=== PATIENT | female | born 1970 ===

== ENCOUNTER 2020-08-03 08:50 | Outpatient (REF) | payer OTHER, SELFPAY ==
--- NOTE | ~2020-08-03 | XR_ITS ---
EXAMINATION: BILATERAL KNEES CLINICAL INFORMATION: Bilateral knee pain. COMPARISON: Bilateral knees 01/01/2019 TECHNIQUE: Single standing view of both knees with 2 additional views each knee. FINDINGS: Again seen are mild degenerative changes in the lateral and patellofemoral compartments with [id number] degenerative changes in the medial compartment with narrowing. There is some sclerosis and osteophyte formation. No fractures are seen. No significant joint effusions are present. When comparison is made to the 01/01/2019 study, findings appear stable. XR/XR knee RT 2V IMPRESSION: Stable tricompartmental degenerative changes of both knees, most marked in the medial compartments.
--- NOTE | ~2020-08-03 | XR_ITS ---
EXAMINATION: BILATERAL KNEES CLINICAL INFORMATION: Bilateral knee pain. COMPARISON: Bilateral knees 01/01/2019 TECHNIQUE: Single standing view of both knees with 2 additional views each knee. FINDINGS: Again seen are mild degenerative changes in the lateral and patellofemoral compartments with [id number] degenerative changes in the medial compartment with narrowing. There is some sclerosis and osteophyte formation. No fractures are seen. No significant joint effusions are present. When comparison is made to the 01/01/2019 study, findings appear stable. XR/XR knee standing BI IMPRESSION: Stable tricompartmental degenerative changes of both knees, most marked in the medial compartments.
--- NOTE | ~2020-08-03 | XR_ITS ---
EXAMINATION: BILATERAL KNEES CLINICAL INFORMATION: Bilateral knee pain. COMPARISON: Bilateral knees 01/01/2019 TECHNIQUE: Single standing view of both knees with 2 additional views each knee. FINDINGS: Again seen are mild degenerative changes in the lateral and patellofemoral compartments with [id number] degenerative changes in the medial compartment with narrowing. There is some sclerosis and osteophyte formation. No fractures are seen. No significant joint effusions are present. When comparison is made to the 01/01/2019 study, findings appear stable. XR/XR knee LT 2V IMPRESSION: Stable tricompartmental degenerative changes of both knees, most marked in the medial compartments.
== END 2020-08-03 08:51 | disposition home or self-care (01) ==
LOC: HO.HOSX 08:50
PROVIDERS: Visit Provider Orthopaedic Surgery
DX: M17.11 Unilateral primary osteoarthritis, right knee (principal); M25.562 Pain in left knee
CPT/HCPCS: 73560; 73565; 99212

== ENCOUNTER 2021-11-10 08:31 | Outpatient (REF) | payer OTHER, SELFPAY ==
--- NOTE | ~2021-11-10 | XR_ITS ---
EXAMINATION: XR KNEES, STANDING AP XR KNEE, RIGHT XR KNEE, LEFT CLINICAL INFORMATION: Bilateral knee pain. COMPARISON: Standing AP knees and bilateral knees 08/03/2020. TECHNIQUE: Standing AP view of both knees is performed. Each knee is also imaged in lateral and axial patella views. FINDINGS: Right: There is tricompartment osteoarthritis with narrowing greater medial knee joint compartment and associated marginal osteophytes femoral condyle and tibial plateau. This is progressed since prior exam 2020. There is no erosive change or chondrocalcinosis. No destructive process. No definite suprapatellar effusion. Hoffa's fat pad appears normal. There is mild lateralization patella. Left: There is tricompartment osteoarthritis with narrowing greater medial knee joint compartment and progressed since prior exam 2020. There is no erosive change or chondrocalcinosis. No destructive process. No definite suprapatellar effusion. Hoffa's fat pad appears normal. There is probable mild lateral tilting patella. XR/XR knee RT 2V IMPRESSION: -Bilateral tricompartment osteoarthritis, increased since prior exam 08/03/2020.
--- NOTE | ~2021-11-10 | XR_ITS ---
EXAMINATION: XR KNEES, STANDING AP XR KNEE, RIGHT XR KNEE, LEFT CLINICAL INFORMATION: Bilateral knee pain. COMPARISON: Standing AP knees and bilateral knees 08/03/2020. TECHNIQUE: Standing AP view of both knees is performed. Each knee is also imaged in lateral and axial patella views. FINDINGS: Right: There is tricompartment osteoarthritis with narrowing greater medial knee joint compartment and associated marginal osteophytes femoral condyle and tibial plateau. This is progressed since prior exam 2020. There is no erosive change or chondrocalcinosis. No destructive process. No definite suprapatellar effusion. Hoffa's fat pad appears normal. There is mild lateralization patella. Left: There is tricompartment osteoarthritis with narrowing greater medial knee joint compartment and progressed since prior exam 2020. There is no erosive change or chondrocalcinosis. No destructive process. No definite suprapatellar effusion. Hoffa's fat pad appears normal. There is probable mild lateral tilting patella. XR/XR knee LT 2V IMPRESSION: -Bilateral tricompartment osteoarthritis, increased since prior exam 08/03/2020.
--- NOTE | ~2021-11-10 | XR_ITS ---
EXAMINATION: XR KNEES, STANDING AP XR KNEE, RIGHT XR KNEE, LEFT CLINICAL INFORMATION: Bilateral knee pain. COMPARISON: Standing AP knees and bilateral knees 08/03/2020. TECHNIQUE: Standing AP view of both knees is performed. Each knee is also imaged in lateral and axial patella views. FINDINGS: Right: There is tricompartment osteoarthritis with narrowing greater medial knee joint compartment and associated marginal osteophytes femoral condyle and tibial plateau. This is progressed since prior exam 2020. There is no erosive change or chondrocalcinosis. No destructive process. No definite suprapatellar effusion. Hoffa's fat pad appears normal. There is mild lateralization patella. Left: There is tricompartment osteoarthritis with narrowing greater medial knee joint compartment and progressed since prior exam 2020. There is no erosive change or chondrocalcinosis. No destructive process. No definite suprapatellar effusion. Hoffa's fat pad appears normal. There is probable mild lateral tilting patella. XR/XR knee standing BI IMPRESSION: -Bilateral tricompartment osteoarthritis, increased since prior exam 08/03/2020.
== END 2021-11-10 08:32 | disposition home or self-care (01) ==
LOC: HO.HOSX 08:31
PROVIDERS: Visit Provider Physician Assistant
DX: M22.2X2 Patellofemoral disorders, left knee (principal); M22.2X1 Patellofemoral disorders, right knee
CPT/HCPCS: 73560; 73565; 99202

== ENCOUNTER 2021-12-14 05:08 | Outpatient (REF) | payer OTHER, SELFPAY | END 2021-12-14 05:09 | disposition home or self-care (01) | LOC: HO.HOSX 05:08 | PROVIDERS: Visit Provider Physician Assistant | DX: Z13.89 Encounter for screening for other disorder (principal) ==

== ENCOUNTER 2022-02-17 08:02 | Outpatient (REF) | payer OTHER, SELFPAY ==
--- NOTE | ~2022-02-17 | XR_ITS ---
EXAMINATION: XR SHOULDER, RIGHT CLINICAL INFORMATION: M25.511 - Pain in right shoulder COMPARISON: None TECHNIQUE: Right shoulder is imaged in 3 views. FINDINGS: No fracture, dislocation, destructive process. The glenohumeral joint appears normal. The acromioclavicular alignment is normal. There are no visible rotator cuff calcifications. XR/XR shoulder RT min 2V IMPRESSION: Normal right shoulder.
== END 2022-02-17 08:03 | disposition home or self-care (01) ==
LOC: HO.HOSX 08:02
PROVIDERS: Visit Provider Physician Assistant
DX: M25.511 Pain in right shoulder (principal); M77.11 Lateral epicondylitis, right elbow
CPT/HCPCS: 73030; 99212

== ENCOUNTER 2022-07-04 14:56 | Outpatient (REF) | payer OTHER, SELFPAY ==
--- NOTE | ~2022-07-04 | XR_ITS ---
EXAMINATION: XR CERVICAL SPINE CLINICAL INFORMATION: M54.2 - Cervicalgia COMPARISON: None available. TECHNIQUE: Cervical spine is imaged in 6 views. FINDINGS: There is fusion of the C5-C7 vertebral bodies. There is no orthopedic hardware. No appreciable fusion of the posterior elements. Cervical lordosis is within normal. There is no cervical vertebral compression, spondylolisthesis, destructive process, or prevertebral soft tissue swelling. There is a flexion view limited by motion artifact. Although limited, this view shows no gross spondylolisthesis or atlantoaxial subluxation. The C2-C3, C3-C4, and C4-C5 disc show no focal narrowing. There are no erosive changes. Partially bridging anterior osteophytes are present at C3-C4 and C4-C5. Oblique views demonstrate osseous narrowing right neural foramen C4-C5 and minor facet spurring posterior aspect left C6 and C7 foramen. XR/XR cervical spine 4V IMPRESSION: -Fusion C5-C7 vertebral bodies. No fusion posterior elements. No hardware. -Bridging anterior osteophytes C3-C4 and C4-C5. No disc narrowing C2-C5. -Mild narrowing right C4-C5 foramen. Borderline spurring posterior left C6 and C7 foramen.
== END 2022-07-04 14:57 | disposition home or self-care (01) ==
LOC: HO.HOSX 14:56
PROVIDERS: Visit Provider Neurological Surgery
DX: M54.2 Cervicalgia (principal); R51.9 Headache, unspecified; M79.7 Fibromyalgia; G89.4 Chronic pain syndrome
CPT/HCPCS: 72050; 99202

== ENCOUNTER 2022-10-03 14:48 | Outpatient (AMB) | payer OTHER, SELFPAY ==
--- NOTE | 2022-10-03 15:44 | HO.SPINEOV ---
Intake Intake Visit Reasons: MRI f/u Intake Note: Ms. Chowdary is here today in f/u of her MRI. Clean In Places Operator Required: No Allergies No Known Allergies Allergy (Verified 07/04/22 15:28) Assessment & Plan Assessment & Plan (1) Cervicalgia: Code(s): M54.2 - Cervicalgia Plan Dear colleague, On 10/03/2022 a surfer follow-up Radha Chowdary to review an MRI of the cervical spine. She underwent a cervical fusion 30 years ago. She presented to our office with neck spasms and a pain radiating to her middle finger when she stretches out her right arm. Mahin Romero the PA ordered an MRI of the cervical spine to rule out adjacent degenerative disc disease or nerve compression. The MRI comes back negative. Explained to the patient that there is no surgical cause for symptoms. She states that the symptoms developed around the time she was using weights. I do think it is some form of nerve irritation without compression. I discharged her from further follow-up. I spent 20 minutes in this consult for preparation review of imaging and discussing the findings. Eder Ford MD, PhD Spine Fellowship Trained Neurosurgeon Director, [facility] Coding Level of Care Code Est Pt Level 3 (53736) Diagnoses Cervicalgia M54.2
== END 2022-10-03 15:51 | disposition home or self-care (01) ==
PROVIDERS: PCP Nurse Practitioner Family; Visit Provider Neurological Surgery
DX: M54.2 Cervicalgia (principal)
CPT/HCPCS: 99213

== ENCOUNTER → 2022-10-03 14:48 | Outpatient (BNVA) | payer OTHER, SELFPAY | PROVIDERS: PCP Nurse Practitioner Family; Visit Provider Neurological Surgery | DX: M54.2 Cervicalgia (principal) | CPT/HCPCS: 99212 ==

== ENCOUNTER 2022-11-20 12:16 | Outpatient (AMB) | payer OTHER, SELFPAY ==
--- NOTE | 2022-11-20 12:40 | A.OFFVIS_ITS ---
Intake Vital Signs 11/20/22 12:44 Height 5 ft Weight 226 lb BMI 44.1 Intake Visit Reasons: Ov- B/L knee pain Intake Note: Radha is a 52 year old female who presents today for a follow up for her bilateral knee pain. Patient reports that she is having a burning sensation when she over works it. She states that she's only the cane when she needs it. Patient would like to know what is the next step for her treatment. Allergies No Known Allergies Allergy (Verified 11/20/22 12:44) HPI Ov- B/L knee pain HPI Details 52-year-old female who returns to the [facility] today for a follow-up of bilateral knee pain. She states she has a burning sensation in her knees with overuse. She has trialed and failed steroid injection and therapy. [facility] Medical History Anxiety Chronic GERD High blood pressure Social History Current occupational status: disabled Current occupation: rt handed Review of Systems Const All systems reviewed & are unremarkable except as noted in HPI and below Physical Exam Vital Signs: BMI result Body Mass Index 44.1 Const General: cooperative and no acute distress Orientation/consciousness: patient oriented x3 Resp Effort & Inspection: normal respiratory effort and able to speak in complete sentences Cardio Peripheral pulses: Peripheral pulses 2+ throughout Neuro General: patient oriented x3 Extrem Other: Bilateral knee: Skin intact, no erythema or joint effusion. Diffuse Tenderness around the patella, right worse than left. ROM full with crepitus. Negative steinmans. No ligamentous laxity. NVI. Results Reviewed Results Reviewed: Xrays were obtained in the office today and personally reviewed by me of both knees show PF oa Assessment & Plan Assessment & Plan (1) Patellofemoral arthralgia of both knees: Code(s): M22.2X1 - Patellofemoral disorders, right knee; M22.2X2 - Patellofemoral disorders, left knee (2) Primary osteoarthritis of right knee: Code(s): M17.11 - Unilateral primary osteoarthritis, right knee Plan We discussed treatment options which include steroids, therapy and anti- inflammatories. She has failed cortisone injection therefore I have referred her to pain management to evaluate for geniculate injection. We did briefly discuss TKA which we did talk about in her initial visit. We will try to exhaust all possible conservative measures before considering this. She is content with this plan. Orders: Orders XR knee standing BI Today M25.561 - Pain in right knee, M25.562 - Pain in left knee XR knee LT 2V Today M25.562 - Pain in left knee XR knee RT 2V Today M25.569 - Pain in unspecified knee Referrals Pain Management Referral M17.11 - Unilateral primary osteoarthritis, right knee, M22.2X1 - Patellofemoral disorders, right knee, M22.2X2 - Patellofemoral disorders, left knee Patient Instructions: Scribed for Roma De La Cruz PA-C, by Tone Angel medical billing coordinator, on 11/20/2022 at 12:45 PM JUDSON. Roma Flores PA-C, have personally reviewed and agree with the information entered by the scribe. Coding Level of Care Code Est Pt Level 3 (42401) Diagnoses Patellofemoral arthralgia of both knees M22.2X1; M22.2X2 Primary osteoarthritis of right knee M17.11
[2022-11-20 12:44] VITALS: BMI 44.1
== END 2022-11-20 13:32 | disposition home or self-care (01) ==
PROVIDERS: PCP Nurse Practitioner Family; Visit Provider Physician Assistant
DX: M22.2X1 Patellofemoral disorders, right knee (principal); M22.2X2 Patellofemoral disorders, left knee; M17.11 Unilateral primary osteoarthritis, right knee
CPT/HCPCS: 99213

== ENCOUNTER 2022-11-20 15:32 | Outpatient (REF) | payer OTHER, SELFPAY ==
--- NOTE | ~2022-11-20 | XR_ITS ---
EXAMINATION: XR STANDING KNEES, BILATERAL XR KNEE, RIGHT XR KNEE, LEFT CLINICAL INFORMATION: Pain COMPARISON: Left and right knee radiographs from 11/10/2021 TECHNIQUE: Single view of each standing knee 2 views of each knee FINDINGS: RIGHT: No acute visible fracture or dislocation. Mild multicompartment degenerative changes.. Mild narrowing of the medial femorotibial compartments. Moderate narrowing of the lateral patellofemoral compartment. Periarticular osteophyte along the distal femoral condyle, tibial plateau, and inferior margin of the patella. Joint spaces and alignment are otherwise maintained. No large knee joint effusion. Soft tissues are unremarkable. LEFT: No acute visible fracture or dislocation. Mild multicompartment degenerative changes.. Mild narrowing of the medial femorotibial compartments. Moderate narrowing of the lateral patellofemoral compartment. Periarticular osteophyte along the distal femoral condyle, tibial plateau, and inferior margin of the patella. Joint spaces and alignment are otherwise maintained. No large knee joint effusion. Soft tissues are unremarkable. XR/XR knee RT 2V IMPRESSION: 1. No acute visible fracture or dislocation. 2. Mild multicompartment degenerative changes bilaterally.
--- NOTE | ~2022-11-20 | XR_ITS ---
EXAMINATION: XR STANDING KNEES, BILATERAL XR KNEE, RIGHT XR KNEE, LEFT CLINICAL INFORMATION: Pain COMPARISON: Left and right knee radiographs from 11/10/2021 TECHNIQUE: Single view of each standing knee 2 views of each knee FINDINGS: RIGHT: No acute visible fracture or dislocation. Mild multicompartment degenerative changes.. Mild narrowing of the medial femorotibial compartments. Moderate narrowing of the lateral patellofemoral compartment. Periarticular osteophyte along the distal femoral condyle, tibial plateau, and inferior margin of the patella. Joint spaces and alignment are otherwise maintained. No large knee joint effusion. Soft tissues are unremarkable. LEFT: No acute visible fracture or dislocation. Mild multicompartment degenerative changes.. Mild narrowing of the medial femorotibial compartments. Moderate narrowing of the lateral patellofemoral compartment. Periarticular osteophyte along the distal femoral condyle, tibial plateau, and inferior margin of the patella. Joint spaces and alignment are otherwise maintained. No large knee joint effusion. Soft tissues are unremarkable. XR/XR knee standing BI IMPRESSION: 1. No acute visible fracture or dislocation. 2. Mild multicompartment degenerative changes bilaterally.
--- NOTE | ~2022-11-20 | XR_ITS ---
EXAMINATION: XR STANDING KNEES, BILATERAL XR KNEE, RIGHT XR KNEE, LEFT CLINICAL INFORMATION: Pain COMPARISON: Left and right knee radiographs from 11/10/2021 TECHNIQUE: Single view of each standing knee 2 views of each knee FINDINGS: RIGHT: No acute visible fracture or dislocation. Mild multicompartment degenerative changes.. Mild narrowing of the medial femorotibial compartments. Moderate narrowing of the lateral patellofemoral compartment. Periarticular osteophyte along the distal femoral condyle, tibial plateau, and inferior margin of the patella. Joint spaces and alignment are otherwise maintained. No large knee joint effusion. Soft tissues are unremarkable. LEFT: No acute visible fracture or dislocation. Mild multicompartment degenerative changes.. Mild narrowing of the medial femorotibial compartments. Moderate narrowing of the lateral patellofemoral compartment. Periarticular osteophyte along the distal femoral condyle, tibial plateau, and inferior margin of the patella. Joint spaces and alignment are otherwise maintained. No large knee joint effusion. Soft tissues are unremarkable. XR/XR knee LT 2V IMPRESSION: 1. No acute visible fracture or dislocation. 2. Mild multicompartment degenerative changes bilaterally.
== END 2022-11-20 15:33 | disposition home or self-care (01) ==
LOC: HO.HOSX 15:32
PROVIDERS: Visit Provider Physician Assistant
DX: M22.2X1 Patellofemoral disorders, right knee (principal); M22.2X2 Patellofemoral disorders, left knee
CPT/HCPCS: 73560; 73565; 99212

== ENCOUNTER 2022-11-29 11:05 | Outpatient (AMB) | payer OTHER, SELFPAY ==
--- NOTE | 2022-11-29 11:06 | A.OFFVIS_ITS ---
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 Patient was referred here by Orthopedics. She has been told that she needs to lose weight before she can have surgery on her knees. Patient reports that she has been suffering with bilateral knee pain for more than 7 years. Her right knee is worse than the left. She states that with overuse the right knee will swell. Pain is worse with standing, walking or activity. She has been taking Celebrex for the pain, without relief. She has tried physical therapy and home exercise program without relief. She is currently doing aqua therapy that she reports helps a little bit but the relief she finds is short-lived. She has had multiple steroid injections as well as gel injections with no improvement. Has a 10/10, constant. She describes the pain as burning with radiation into her shins. In terms of muscle damage condition is described as aching, cramping, spasming, burning, tingling. Pain is negatively impacting patient is enjoying life, general activity, mood, normal work, recreational activities and walking. [facility] Medical History Anxiety Chronic GERD High blood pressure Social History Current occupational status: disabled Current occupation: rt handed Review of Systems Const All systems reviewed & are unremarkable except as noted in HPI and below Physical Exam Vital Signs: Last Vital Signs Pulse 98 11/29/22 11:14 Resp 18 11/29/22 11:14 BP 156/68 H 11/29/22 11:14 Pulse Ox 97 11/29/22 11:14 Oxygen Delivery Method Room Air 11/29/22 11:14 BMI result Body Mass Index 43.2 General: awake, alert, oriented. Answers questions appropriately. Fully engaged in examination. Skin: warm, dry, intact HEENT: Normocephalic. Hearing intact. Cardiac: External chest normal in appearance. Respiratory: No cough, audible wheezing or stridor. Abdomen: without gross distension. MS: No obvious swelling or deformities. Able to transition from sit to stand unassisted. Bilateral knees: full ROM with crepitus. Tenderness to palpation bilaterally. Neurological: Oriented to person, place, time and situation. Thought process intact. Ambulates with the use of a cane. Psychiatric: Appropriate mood and affect. Good judgment and insight. Results Reviewed Results Reviewed: 11/20/2022 XR STANDING KNEES, BILATERAL XR KNEE, RIGHT XR KNEE, LEFT RIGHT: No acute visible fracture or dislocation. Mild multicompartment degenerative changes.. Mild narrowing of the medial femorotibial compartments. Moderate narrowing of the lateral patellofemoral compartment. Periarticular osteophyte along the distal femoral condyle, tibial plateau, and inferior margin of the patella. Joint spaces and alignment are otherwise maintained. No large knee joint effusion. Soft tissues are unremarkable. LEFT: No acute visible fracture or dislocation. Mild multicompartment degenerative changes.. Mild narrowing of the medial femorotibial compartments. Moderate narrowing of the lateral patellofemoral compartment. Periarticular osteophyte along the distal femoral condyle, tibial plateau, and inferior margin of the patella. Joint spaces and alignment are otherwise maintained. No large knee joint effusion. Soft tissues are unremarkable. IMPRESSION: 1. No acute visible fracture or dislocation. 2. Mild multicompartment degenerative changes bilaterally. Assessment & Plan Assessment & Plan (1) Patellofemoral arthralgia of both knees: Code(s): M22.2X1 - Patellofemoral disorders, right knee; M22.2X2 - Patellofemoral disorders, left knee (2) Primary osteoarthritis of right knee: Code(s): M17.11 - Unilateral primary osteoarthritis, right knee (3) Right knee pain: Code(s): M25.561 - Pain in right knee Qualifiers: Chronicity: chronic Qualified Code(s): M25.561 - Pain in right knee; G89.29 - Other chronic pain (4) Left knee pain: Code(s): M25.562 - Pain in left knee Qualifiers: Chronicity: chronic Qualified Code(s): M25.562 - Pain in left knee; G89.29 - Other chronic pain Plan Radha is a very pleasant 52 year old female who presented to the office today for evaluation management of her chronic bilateral knee pain. Patient has exhausted conservative treatment including PT, home exercise program, aquatherapy, anti-inflammatory medication and intra-articular injections. She complains of burning pain, will trial gabapentin 100mg po bid. Advised on risks and potential side effects. Discussed options for treatment including diagnostic interventional testing, steroid injections, peripheral nerve stimulation with Sprint, RFA and more pe rmanent neuromodulation. Informational pamphlets provided. Lengthy discussion detailing options for RFA vs Sprint PNS including diagnostic testing, post procedure instructions and expected outcomes. Patient states right knee is worse than the left, she would like to start with treatment for the right side. After discussing she has decided to proceed with Genicular RFA pending positive results of Diagnostic Genicular NB. Will schedule for fluoroscopy guided right diagnostic genicular nerve block with local anesthetic. All questions and concerns have been answered and patient agrees with the plan. Follow up after injection, sooner if needed. Medications: New gabapentin may cause drowsiness, do not drive while taking this medication 100 mg PO BID 60 caps 0RF pain Coding Level of Care Code New Pt Level 4 (37135) Diagnoses Patellofemoral arthralgia of both knees M22.2X1; M22.2X2 Primary osteoarthritis of right knee M17.11 Chronic pain of right knee M25.561; G89.29 Chronicity: chronic Chronic pain of left knee M25.562; G89.29 Chronicity: chronic
[2022-11-29 11:14] VITALS: BP 156/68; PULSE 98; RESP 18; O2SAT 97; BMI 43.2
== END 2022-11-29 12:04 | disposition home or self-care (01) ==
PROVIDERS: PCP Nurse Practitioner Family; Visit Provider Registered Nurse Emergency
DX: M22.2X1 Patellofemoral disorders, right knee (principal); M22.2X2 Patellofemoral disorders, left knee; M17.11 Unilateral primary osteoarthritis, right knee; M25.561 Pain in right knee; G89.29 Other chronic pain; M25.562 Pain in left knee
CPT/HCPCS: 99204

== ENCOUNTER → 2022-11-29 11:05 | Outpatient (BNVA) | payer OTHER, SELFPAY | PROVIDERS: PCP Nurse Practitioner Family; Visit Provider Registered Nurse Emergency ==

== ENCOUNTER 2023-01-09 06:36 | Outpatient (REF) | payer OTHER, SELFPAY ==
--- NOTE | ~2023-01-09 | FL_ITS ---
EXAMINATION: XR FLUOROSCOPY WITH IMAGES CLINICAL INFORMATION: Pain in right knee. COMPARISON: None available. TECHNIQUE: Fluoroscopy Supervised By: Dr. eJff Jc. Fluoroscopy Time: 0.3 minutes. Cumulative Dose: 3.78 mGy. DAP: 0.614 Gycm2. Images: 2. FINDINGS: Images demonstrate 2 needles adjacent to the distal femoral metaphysis and 1 needle adjacent to the proximal medial tibial metaphysis for geniculate nerve block FL/FL guidance in treatment room IMPRESSION: Fluoroscopy guidance for pain management procedure
== END 2023-01-09 06:37 | disposition home or self-care (01) ==
LOC: CF 06:36
PROVIDERS: PCP Nurse Practitioner Family; Visit Provider Anesthesiology
DX: M22.2X1 Patellofemoral disorders, right knee (principal); M22.2X2 Patellofemoral disorders, left knee
CPT/HCPCS: 64454; J2795

== ENCOUNTER 2023-01-09 10:59 | Outpatient (AMB) | payer OTHER, SELFPAY ==
--- OUTSIDE RECORDS SUMMARY | 2023-01-09 11:01 | XMS_ITS | Continuity of Care Document ---
Author Name Unknown Organization [facility] Address [address] [facility], [address] d Floor, [address] [place] [id number]- Care Team Providers Care Lace Finisher Name Role Phone Kathleen Lai NP Primary Care Physician [phone] Encounter [facility] Date(s): 10/16/22 - 11/15/22 [facility] [address], 3rd Floor, [address] [place] [id number] Attending Physician: Admnalini, Phani8 Admitting Physician: Admtr, Ar8 Referring Physician: Admtr, Ar8 Allergies, Adverse Reactions, Alerts Substance Reaction Severity Status ibuprofen gastritis Active Trileptal hives Persistent Severe Active Red Dye Active Immunizations Given and Recorded Vaccine Date Status Refusal Reason tetanus/diphtheria/pertussis, acel(Tdap) 1 11/16/21 Given influenza virus vaccine, inactivated 2 12/15/20 Gi ita SARS-CoV-2 (COVID-19) mRNA BNT-162b2 vac 10/29/20 Recorded SARS-CoV-2 (COVID-19) mRNA BNT-162b2 vac 10/08/20 Recorded Influenza Virus Vaccine (oldterm) 12/11/19 Recorde d 1Result Comment: [facility]: [id number] 2Result Comment: [id number] Medications Albuterol (Eqv-ProAir HFA) 90 mcg/inh inhalation aerosol 2 puffs = 180 mcg, Inhalation, Every 4 hours, # 6.7 Gm, 0 Refills, Maintenance, 12/15/20 15:26:00 EDT, Inhaler, [facility] #[id number], Partial fill upon patient request if the prescription is for a schedule II opioid drug., 2 puffs Inhalation Ev... Start Date: 12/15/20 Stop Date: 01/14/21 Status: Ordered amLODIPine 2.5 mg oral tablet See Instructions, TAKE 1 TABLET BY MOUTH DAILY, # 90 tablet, 0 Refills, Maintenance, 10/17/22 10:14:00 EDT, [facility] #[id number], 152, cm, 10/17/22 9:36:00 EDT, Height, 105, kg, 10/09/22 0:18:00 EDT, Dry Weight Start Date: 10/17/22 Status: Ordered aspirin 81 mg oral tablet, chewable 81 mg, By Mouth, Daily, # 30 tablet, Refills 3, Tot. Refills 3, Maintenance, 11/08/22 8:42:00 EDT, Route to Pharmacy Electronically, [facility] #[id number], Partial fill upon patient request if the prescription is for a schedule II opioid drug.,... Start Date: 11/08/22 Stop Date: 03/08/23 Status: Ordered atorvastatin 40 mg oral tablet = 40 mg, By Mouth, Daily at bedtime, # 30 each, 3 Refills, Maintenance, 10/09/22 16:21:00 EDT, Tablet, [facility], Partial fill upon patient request if the prescription is for a schedule II opioid drug., 152, cm, 10/09/22 3:35:00 EDT, He... Start Date: 10/09/22 Stop Date: 02/06/23 Status: Ordered celecoxib 200 mg oral capsule 1 capsule = 200 mg, By Mouth, Daily, # 90 capsule, 0 Refills, Maintenance, 10/17/22 10:02:00 EDT, Capsule, [facility] #[id number], Partial fill upon patient request if the prescription is for a schedule II opioid drug., 152, cm, 10/17/22 9:36:00... Start Date: 10/17/22 Status: Ordered Compression Stockings See Instructions, # 5 each, Refills 0, Tot. Refills 0, Maintenance, surgical, knee high 20-30 mm Hg, leg swelling, obesity, leg pain, 09/13/22 10:29:00 EDT, Supply Start Date: 09/13/22 Status: Ordered Compression Stockings See Instructions, # 2 each, Refills 2, Tot. Refills 2, Maintenance, surgical, knee length 20-30 mm Hg DX: VENOUS INSUFF B/L LEG SWELLING, 05/25/22 15:39:00 EDT, Supply Start Date: 05/25/22 Status: Ordered CPAP Machine See Instructions, # 1 each, Maintenance, AutoCPAP 8-14 cm H20, use Daily when sleeping, 06/16/22 15:55:00 EDT, Supply Start Date: 06/16/22 Status: Ordered EpiPen 2-Rigoberto 0.3 mg injectable kit = 0.3 mg, Intramuscular, Once, PRN Anaphylactic Reaction, # 1 kit, 0 Refills, Soft Stop, 10/11/22 10:11:00 EDT, [facility] #[id number], Partial fill upon patient request if the prescription is for a schedule II opioid drug., 152, cm, 10/09/22 3:3... Start Date: 10/11/22 Status: Ordered fluticasone 50 mcg/inh nasal spray See Instructions, SHAKE LIQUID AND USE 1 SPRAY IN EACH NOSTRIL TWICE DAILY, # 48 Gm, 0 Refills, Maintenance, 03/29/22 15:14:00 EST, [facility] #[id number], 90, SHAKE LIQUID AND USE 1 SPRAY IN EACH NOSTRIL TWICE DAILY, 153, cm, 03/01/22 10:05:00 E... Start Date: 03/29/22 Status: Ordered Juxtafit Knee-high Compression Garments(bilateral, left, right) with 2 pairs of hybrid socks Juxtafit Knee-high Compression Garments(bilateral, left, right) with 2 pairs of hybrid socks, See Instructions, # 1 kit, Refills 0, Tot. Refills 0, Maintenance, as directed DX: VENOUS INSUFF B/L LEG SWELLING, 05/25/22 15:40:00 EDT, Supply Start Date: 05/25/22 Status: Ordered meclizine 25 mg oral tablet 1 tablet = 25 mg, By Mouth, 3 times a day, PRN for dizziness, # 30 tablet, 0 Refills, Maintenance, 05/12/22 8:43:00 EDT, Tablet, [facility] #[id number], Partial fill upon patient request if the prescription is for a schedule II opioid drug., 153,... Start Date: 05/12/22 Status: Ordered Norvasc 2.5 mg oral tablet 2.5 mg, 1, tablet, By Mouth, Daily, # 30 tablet, Refills 1, Tot. Refills 1, Maintenance, 05/12/22 8:43:00 EDT, Route to Pharmacy Electronically, [facility][id number], Partial fill upon patientrequest if the prescription is for a schedule II op... Start Date: 05/12/22 Status: Ordered pantoprazole 40 mg oral delayed release tablet 1 tablet = 40 mg, By Mouth, 2 times a day, # 180 tablet, 3 Refills, Maintenance, 07/15/21 15:11:00 EDT, [facility] Tablet, 152.7, cm, 07/15/21 14:55:00 EDT, Height, 97.7, kg, 11/02/20 12:21:00 EDT, Dry Weight Start Date: 07/15/21 Stop Date: 07/10/22 Status: Ordered Problem List Condition Confirmation Course Effective Dates Status H ealth Status Informant Auditory hallucinations Confirmed Active Bipolar disease, chronic Confirmed Active CKD - chronic kidney disease Confirmed Active Learning disability Confirmed Active Fibromyalgia Confirmed Active Chronic GERD Confirmed Active GERD (gastroesophageal reflux disease) Confirmed Active History of alcohol abuse Confirmed Active HTN (hypertension) Confirmed Active Mastodynia Confirmed 05/16/11 Active Migraine headache Confirmed Active Fatty liver disease, nonalcoholic Confirmed Active Non compliance w medication regimen Confirmed Active ALESHA (obstructive sleep apnea) Confirmed Active Osteoporosis Confirmed Active Poor historian Confirmed Active Prediabetes Confirmed Active Severe obesity Confirmed Active Moderate somatic symptom disorder with predominant pain Confirmed Active Social History Social History Type Response Smoking Status Former smoker, quit more than 30 days ago; Other: 11 years 1/2-1PPD; entered on: 05/18/20 Sex Female Patient Care team information Care Team Personnel Name: Kathleen Lai NP Position: [facility] PCO Associate Professional Member Role: PCP Address: Address: [address] [place] [phone]- Name: Jean Lane RN Position: S RN Member Role: Primary Care Nurse Name: Delfina Ayoub RN Position: S RN Member Role: Primary Care Nurse Name: Sara Barlow LPN Position: S RN Member Role: Primary Care Nurse Care Team Related Persons Name: LUIS HOGUE Address: home [address] [place] [address] Name: LUIS BHATTI Name: KOBE WADE Address: home [address] [place] [id number] Name: TERRELL FORMAN Address: home
--- OUTSIDE RECORDS SUMMARY | 2023-01-09 11:01 | XMS_ITS | Continuity of Care Document ---
Author Name Unknown Organization [facility] Adult Address [address] [place] [address]- Care Team Providers Care Compotype Operator Name Role Phone Kathleen Lai NP Primary Care Physician En[place] [facility] [place] Date(s): 10/16/22 - 11/15/22 [facility] [address] [place] [phone]- Allergies, Adverse Reactions, Alerts Substance Reaction Severity [...] Vaccine (oldterm) 12/11/19 Recorde d 1Result Comment: [facility]: [id number] 2Result Comment: [id number] Medications Albuterol (Eqv-ProAir HFA) 90 mcg/inh inhalation aerosol 2 puffs = 180 mcg, Inhalation, Every 4 hours, # 6.7 Gm, 0 Refills, Maintenance, 12/15/20 15:26:00 EDT, Inhaler, [facility] #[id number], Partial fill upon patient request if the prescription is for a schedule II opioid drug., 2 puffs Inhalation Ev... Start Date: 12/15/20 Stop Date: 01/14/21 Status: Ordered amLODIPine 2.5 mg oral tablet See Instructions, TAKE 1 TABLET BY MOUTH DAILY, # 90 tablet, 0 Refills, Maintenance, 10/17/22 10:14:00 EDT, [facility] #[id number], 152, cm, 10/17/22 9:36:00 EDT, Height, 105, kg, 10/09/22 0:18:00 EDT, Dry Weight Start Date: 10/17/22 Status: Ordered aspirin 81 mg oral tablet, chewable 81 mg, By Mouth, Daily, # 30 tablet, Refills 3, Tot. Refills 3, Maintenance, 11/08/22 8:42:00 EDT, Route to Pharmacy Electronically, [facility] #[id number], Partial fill upon patient request if the prescription is for a schedule II opioid drug.,... Start Date: 11/08/22 Stop Date: 03/08/23 Status: Ordered atorvastatin 40 mg oral tablet = 40 mg, By Mouth, Daily at bedtime, # 30 each, 3 Refills, Maintenance, 10/09/22 16:21:00 EDT, Tablet, [facility] 3, Partial fill upon patient request if the prescription is for a schedule II opioid drug., 152, cm, 10/09/22 3:35:00 EDT, He... Start Date: 10/09/22 Stop Date: 02/06/23 Status: Ordered celecoxib 200 mg oral capsule 1 capsule = 200 mg, By Mouth, Daily, # 90 capsule, 0 Refills, Maintenance, 10/17/22 10:02:00 EDT, Capsule, [facility] #[id number], Partial fill upon patient request if the [...] 0 Refills, Soft Stop, 10/11/22 10:11:00 EDT, [facility] #[id number], Partial fill upon patient request if the prescription is for a schedule II opioid drug., 152, cm, 10/09/22 3:3... Start Date: 10/11/22 Status: Ordered fluticasone 50 mcg/inh nasal spray See Instructions, SHAKE LIQUID AND USE 1 SPRAY IN EACH NOSTRIL TWICE DAILY, # 48 Gm, 0 Refills, Maintenance, 03/29/22 15:14:00 EST, [facility] #[id number], 90, SHAKE LIQUID AND USE 1 SPRAY [...] 0 Refills, Maintenance, 05/12/22 8:43:00 EDT, Tablet, [facility] #[id number], Partial fill upon patient request if the prescription is for a schedule II opioid drug., 153,... Start Date: 05/12/22 Status: Ordered Norvasc 2.5 mg oral tablet 2.5 mg, 1, tablet, By Mouth, Daily, # 30 tablet, Refills 1, Tot. Refills 1, Maintenance, 05/12/22 8:43:00 EDT, Route to Pharmacy Electronically, [facility] #[id number], Partial fill upon patientrequest if the prescription [...] Team Personnel Name: Kathleen Lai NP Position: [facility] PCO Associate Professional Member Role: PCP Address: Address: [address] [place] [address] Name: Jean Lane RN Position: [facility] RN Member Role: Primary Care Nurse Name: Delfina Ayoub RN Position: S RN Member Role: Primary Care Nurse Name: Sara Barlow LPN Position: [facility] RN Member Role: Primary Care Nurse Care Team Related Persons Name: LUIS HOGUE Address: home [address] [place] [address] Name: LUIS BHATTI Name: KOBE WADE Address: home [address] [place] [address] Name: TERRELL FORMAN Address: home
--- OUTSIDE RECORDS SUMMARY | 2023-01-09 11:01 | XMS_ITS | Continuity of Care Document ---
Author Name Unknown Organization [facility] Address [address] [facility], [address] d Floor, [address] [place] [phone]- Care Team Providers Care Rod Buster Helper Name Role Phone Joelle HERNANDEZ, Kathleen Primary Care Physician Encounter [facility] Date(s): 07/18/22 - 11/15/22 [facility] [address] [facility], 3rd Floor, [address] [place] [id number] Attending Physician: David HERNANDEZ, Tiffany Morel Admitting Physician: David HERNANDEZ, Tiffany Morel Allergies, Adverse Reactions, Alerts Substance Reaction Severity [...] Vaccine (oldterm) 12/11/19 Recorde d 1Result Comment: [facility]: [id number] 2Result Comment: [id number] Medications Albuterol (Eqv-ProAir HFA) 90 mcg/inh inhalation aerosol 2 puffs = 180 mcg, Inhalation, Every 4 hours, # 6.7 Gm, 0 Refills, Maintenance, 12/15/20 15:26:00 EDT, Inhaler, [facility] #[id number], Partial fill upon patient request if the prescription is for a schedule II opioid drug., 2 puffs Inhalation Ev... Start Date: 12/15/20 Stop Date: 01/14/21 Status: Ordered amLODIPine 2.5 mg oral tablet See Instructions, TAKE 1 TABLET BY MOUTH DAILY, # 90 tablet, 0 Refills, Maintenance, 10/17/22 10:14:00 EDT, [facility] #[id number], 152, cm, 10/17/22 9:36:00 EDT, Height, 105, kg, 10/09/22 0:18:00 EDT, Dry Weight Start Date: 10/17/22 Status: Ordered aspirin 81 mg oral tablet, chewable 81 mg, By Mouth, Daily, # 30 tablet, Refills 3, Tot. Refills 3, Maintenance, 11/08/22 8:42:00 EDT, Route to Pharmacy Electronically, [facility] #[id number], Partial fill upon patient request if the prescription is for a schedule II opioid drug.,... Start Date: 11/08/22 Stop Date: 03/08/23 Status: Ordered atorvastatin 40 mg oral tablet = 40 mg, By Mouth, Daily at bedtime, # 30 each, 3 Refills, Maintenance, 10/09/22 16:21:00 EDT, Tablet, [facility] 3, Partial fill upon patient request if the prescription is for a schedule II opioid drug., 152, cm, 10/09/22 3:35:00 EDT, He... Start Date: 10/09/22 Stop Date: 02/06/23 Status: Ordered celecoxib 200 mg oral capsule 1 capsule = 200 mg, By Mouth, Daily, # 90 capsule, 0 Refills, Maintenance, 10/17/22 10:02:00 EDT, Capsule, [facility] #[id number], Partial fill upon patient request if the [...] 0 Refills, Soft Stop, 10/11/22 10:11:00 EDT, [facility] #[id number], Partial fill upon patient request if the prescription is for a schedule II opioid drug., 152, cm, 10/09/22 3:3... Start Date: 10/11/22 Status: Ordered fluticasone 50 mcg/inh nasal spray See Instructions, SHAKE LIQUID AND USE 1 SPRAY IN EACH NOSTRIL TWICE DAILY, # 48 Gm, 0 Refills, Maintenance, 03/29/22 15:14:00 EST, [facility] #[id number], 90, SHAKE LIQUID AND USE 1 SPRAY [...] 0 Refills, Maintenance, 05/12/22 8:43:00 EDT, Tablet, [facility] #[id number], Partial fill upon patient request if the prescription is for a schedule II opioid drug., 153,... Start Date: 05/12/22 Status: Ordered Norvasc 2.5 mg oral tablet 2.5 mg, 1, tablet, By Mouth, Daily, # 30 tablet, Refills 1, Tot. Refills 1, Maintenance, 05/12/22 8:43:00 EDT, Route to Pharmacy Electronically, [facility] #[id number], Partial fill upon patientrequest if the prescription [...] Team Personnel Name: Kathleen Lai NP Position: [facility] PCO Associate Professional Member Role: PCP Address: Address: [address] [place] [address]- Name: Jean Lane RN Position: S RN Member Role: Primary Care Nurse Name: Delfina Ayoub RN Position: S RN Member Role: Primary Care Nurse Name: Sara Barlow LPN Position: [facility] RN Member Role: Primary Care Nurse Care Team Related Persons Name: LUIS HOGUE Address: home [address] [place] [address] Name: LUIS BHATTI Name: KOBE WADE Address: home [address] [place] [id number] Name: TERRELL FORMAN Address: home
--- OUTSIDE RECORDS SUMMARY | 2023-01-09 11:02 | XMS_ITS | Continuity of Care Document ---
Author Name Unknown Organization [facility] Address [address] [place] [address]- Care Team Providers Care Automotive Tire Tester Name Role Phone Joelle HERNANDEZ, Kathleen Primary Care Physician [place] [facility] Date(s): 10/20/22 - 11/23/[address] [id number] Attending Physician: Candida Huerta MD Admitting Physician: Candida Huerta MD Referring Physician: Candida Huerta MD Allergies, Adverse Reactions, Alerts Substance Reaction Severity [...] (oldterm) 12/11/19 Recorde d 1Result Comment: [facility]: [id number] 2Result Comment: [id number] Medications Albuterol (Eqv-ProAir HFA) 90 mcg/inh inhalation aerosol 2 puffs = 180 mcg, Inhalation, Every 4 hours, # 6.7 Gm, 0 Refills, Maintenance, 12/15/20 15:26:00 EDT, Inhaler, [facility] #[id number], Partial fill upon patient request if the prescription is for a schedule II opioid drug., 2 puffs Inhalation Ev... Start Date: 12/15/20 Stop Date: 01/14/21 Status: Ordered amLODIPine 2.5 mg oral tablet See Instructions, TAKE 1 TABLET BY MOUTH DAILY, # 90 tablet, 0 Refills, Maintenance, 10/17/22 10:14:00 EDT, [facility] #[id number], 152, cm, 10/17/22 9:36:00 EDT, Height, 105, kg, 10/09/22 0:18:00 EDT, Dry Weight Start Date: 10/17/22 Status: Ordered aspirin 81 mg oral tablet, chewable 81 mg, By Mouth, Daily, # 30 tablet, Refills 3, Tot. Refills 3, Maintenance, 11/08/22 8:42:00 EDT, Route to Pharmacy Electronically, [facility] #[id number], Partial fill upon patient request if the prescription is for a schedule II opioid drug.,... Start Date: 11/08/22 Stop Date: 03/08/23 Status: Ordered atorvastatin 40 mg oral tablet = 40 mg, By Mouth, Daily at bedtime, # 30 each, 3 Refills, Maintenance, 10/09/22 16:21:00 EDT, Tablet, [facility], Partial fill upon patient request if the prescription is for a schedule II opioid drug., 152, cm, 10/09/22 3:35:00 EDT, He... Start Date: 10/09/22 Stop Date: 02/06/23 Status: Ordered celecoxib 200 mg oral capsule 1 capsule = 200 mg, By Mouth, Daily, # 90 capsule, 0 Refills, Maintenance, 10/17/22 10:02:00 EDT, Capsule, [facility] #[id number], Partial fill upon patient request if the [...] 0 Refills, Soft Stop, 10/11/22 10:11:00 EDT, [facility] #[id number], Partial fill upon patient request if the prescription is for a schedule II opioid drug., 152, cm, 10/09/22 3:3... Start Date: 10/11/22 Status: Ordered fluticasone 50 mcg/inh nasal spray See Instructions, SHAKE LIQUID AND USE 1 SPRAY IN EACH NOSTRIL TWICE DAILY, # 48 Gm, 0 Refills, Maintenance, 03/29/22 15:14:00 EST, [facility] #[id number], 90, SHAKE LIQUID AND USE 1 SPRAY [...] 0 Refills, Maintenance, 05/12/22 8:43:00 EDT, Tablet, [facility] #[id number], Partial fill upon patient request if the prescription is for a schedule II opioid drug., 153,... Start Date: 05/12/22 Status: Ordered Norvasc 2.5 mg oral tablet 2.5 mg, 1, tablet, By Mouth, Daily, # 30 tablet, Refills 1, Tot. Refills 1, Maintenance, 05/12/22 8:43:00 EDT, Route to Pharmacy Electronically, [facility][id number], Partial fill upon patientrequest if the prescription [...] Team Personnel Name: Kathleen Lai NP Position: [facility] PCO Associate Professional Member Role: PCP Address: Address: [address] [place] [phone]- Name: Jean Lane RN Position: S RN Member Role: Primary Care Nurse Name: Delfina Ayoub RN Position: S RN Member Role: Primary Care Nurse Name: Sara Barlow LPN Position: S RN Member Role: Primary Care Nurse Care Team Related Persons Name: PRITESH HOGUEA Address: home [address] [place] [phone] Name: LUIS BHATTI Name: KOBE WADE Address: home [address] [place] [address] Name: TERRELL FORMAN Address: home
--- OUTSIDE RECORDS SUMMARY | 2023-01-09 11:02 | XMS_ITS | Continuity of Care Document ---
Author Name Unknown Organization [facility] Adult Address [address] [place] [address]- Care Team Providers Care Blocker And Cutter Contact Lens Name Role Phone Kathleen Lai NP Primary Care Physician [phone] Encounter [facility] [place] Date(s): 09/13/22 - 10/13/22 [facility] Adult [address] [place] [address]- Allergies, Adverse Reactions, Alerts Substance Reaction Severity [...] Vaccine (oldterm) 12/11/19 Recorde d 1Result Comment: [facility]: [id number] 2Result Comment: [id number] Medications Albuterol (Eqv-ProAir HFA) 90 mcg/inh inhalation aerosol 2 puffs = 180 mcg, Inhalation, Every 4 hours, # 6.7 Gm, 0 Refills, Maintenance, 12/15/20 15:26:00 EDT, Inhaler, [facility] #[id number], Partial fill upon patient request if the prescription is for a schedule II opioid drug., 2 puffs Inhalation Ev... Start Date: 12/15/20 Stop Date: 01/14/21 Status: Ordered aspirin 81 mg oral tablet, chewable 81 mg, By Mouth, Daily, # 30 tablet, Refills 3, Tot. Refills 3, Maintenance, 10/09/22 16:21:00 EDT,Route to Pharmacy Electronically, [facility], Partial fill upon patient request if the prescription is for a schedule II opioid drug., 15... Start Date: 10/09/22 Stop Date: 02/06/23 Status: Ordered atorvastatin 40 mg oral tablet = 40 mg, By Mouth, Daily at bedtime, # 30 each, 3 Refills, Maintenance, 10/09/22 16:21:00 EDT, Tablet, [facility], Partial fill upon patient request if the prescription is for a schedule II opioid drug., 152, cm, 10/09/22 3:35:00 EDT, He... Start Date: 10/09/22 Stop Date: 02/06/23 Status: Ordered celecoxib 200 mg oral capsule 0 Refills, Maintenance, 10/11/22 9:58:00 EDT, Partial fill upon patient request if the prescriptionis for a schedule II opioid drug. Start Date: 10/11/22 Status: Ordered Compression Stockings See Instructions, # [...] 0 Refills, Soft Stop, 10/11/22 10:11:00 EDT, [facility] #[id number], Partial fill upon patient request if the prescription is for a schedule II opioid drug., 152, cm, 10/09/22 3:3... Start Date: 10/11/22 Status: Ordered fluticasone 50 mcg/inh nasal spray See Instructions, SHAKE LIQUID AND USE 1 SPRAY IN EACH NOSTRIL TWICE DAILY, # 48 Gm, 0 Refills, Maintenance, 03/29/22 15:14:00 EST, [facility] #[id number], 90, SHAKE LIQUID AND USE 1 SPRAY [...] 0 Refills, Maintenance, 05/12/22 8:43:00 EDT, Tablet, [facility] #[id number], Partial fill upon patient request if the prescription is for a schedule II opioid drug., 153,... Start Date: 05/12/22 Status: Ordered Norvasc 2.5 mg oral tablet 2.5 mg, 1, tablet, By Mouth, Daily, # 30 tablet, Refills 1, Tot. Refills 1, Maintenance, 05/12/22 8:43:00 EDT, Route to Pharmacy Electronically, [facility] #[id number], Partial fill upon patientrequest if the prescription [...] Personnel Name: Kathleen Lai NP Position: [facility] PCO Associate Professional Member Role: PCP Address: Address: [address] [place] [address] Name: Jean Lane RN Position: [facility] RN Member Role: Primary Care Nurse Name: Delfina Ayoub RN Position: [facility] RN Member Role: Primary Care Nurse Name: Sara Barlow LPN Position: [facility] RN Member Role: Primary Care Nurse Care Team Related Persons Name: LUIS HOGUE Address: home [address] [place] [address] Name: LUIS BHATTI Name: KOBE WADE Address: home [address] [place] [address] Name: TERRELL FORMAN Address: home
--- OUTSIDE RECORDS SUMMARY | 2023-01-09 11:02 | XMS_ITS | Continuity of Care Document ---
Author Name Unknown Organization [facility] Address [address] [place] [address]- Care Team Providers Care Flexible Babysitter Name Role Phone Kathleen Lai NP Primary Care Physician Encounter [facility] [place] Date(s): 10/20/22 - 11/19/22 [facility] [address] [place] [address]- Allergies, Adverse Reactions, Alerts Substance Reaction Severity [...] Vaccine (oldterm) 12/11/19 Recorde d 1Result Comment: [facility]: [id number] 2Result Comment: [id number] Medications Albuterol (Eqv-ProAir HFA) 90 mcg/inh inhalation aerosol 2 puffs = 180 mcg, Inhalation, Every 4 hours, # 6.7 Gm, 0 Refills, Maintenance, 12/15/20 15:26:00 EDT, Inhaler, [facility] #[id number], Partial fill upon patient request if the prescription is for a schedule II opioid drug., 2 puffs Inhalation Ev... Start Date: 12/15/20 Stop Date: 01/14/21 Status: Ordered amLODIPine 2.5 mg oral tablet See Instructions, TAKE 1 TABLET BY MOUTH DAILY, # 90 tablet, 0 Refills, Maintenance, 10/17/22 10:14:00 EDT, [facility] #[id number], 152, cm, 10/17/22 9:36:00 EDT, Height, 105, kg, 10/09/22 0:18:00 EDT, Dry Weight Start Date: 10/17/22 Status: Ordered aspirin 81 mg oral tablet, chewable 81 mg, By Mouth, Daily, # 30 tablet, Refills 3, Tot. Refills 3, Maintenance, 11/08/22 8:42:00 EDT, Route to Pharmacy Electronically, [facility] #[id number], Partial fill upon patient request if the prescription is for a schedule II opioid drug.,... Start Date: 11/08/22 Stop Date: 03/08/23 Status: Ordered atorvastatin 40 mg oral tablet = 40 mg, By Mouth, Daily at bedtime, # 30 each, 3 Refills, Maintenance, 10/09/22 16:21:00 EDT, Tablet, [facility], Partial fill upon patient request if the prescription is for a schedule II opioid drug., 152, cm, 10/09/22 3:35:00 EDT, He... Start Date: 10/09/22 Stop Date: 02/06/23 Status: Ordered celecoxib 200 mg oral capsule 1 capsule = 200 mg, By Mouth, Daily, # 90 capsule, 0 Refills, Maintenance, 10/17/22 10:02:00 EDT, Capsule, [facility] #[id number], Partial fill upon patient request if the [...] 0 Refills, Soft Stop, 10/11/22 10:11:00 EDT, [facility] #[id number], Partial fill upon patient request if the prescription is for a schedule II opioid drug., 152, cm, 10/09/22 3:3... Start Date: 10/11/22 Status: Ordered fluticasone 50 mcg/inh nasal spray See Instructions, SHAKE LIQUID AND USE 1 SPRAY IN EACH NOSTRIL TWICE DAILY, # 48 Gm, 0 Refills, Maintenance, 03/29/22 15:14:00 EST, [facility] #[id number], 90, SHAKE LIQUID AND USE 1 SPRAY [...] 0 Refills, Maintenance, 05/12/22 8:43:00 EDT, Tablet, [facility] #[id number], Partial fill upon patient request if the prescription is for a schedule II opioid drug., 153,... Start Date: 05/12/22 Status: Ordered Norvasc 2.5 mg oral tablet 2.5 mg, 1, tablet, By Mouth, Daily, # 30 tablet, Refills 1, Tot. Refills 1, Maintenance, 05/12/22 8:43:00 EDT, Route to Pharmacy Electronically, [facility] #[id number], Partial fill upon patientrequest if the prescription [...] Team Personnel Name: Kathleen Lai NP Position: [facility] PCO Associate Professional Member Role: PCP Address: Address: [address] [place] [address] Name: Jean Lane RN Position: [facility] RN Member Role: Primary Care Nurse Name: Delfina Ayoub RN Position: S RN Member Role: Primary Care Nurse Name: Sara Barlow LPN Position: [facility] RN Member Role: Primary Care Nurse Care Team Related Persons Name: LUIS HOGUE Address: home [address] [place] [address] Name: LUIS BHATTI Name: KOBE WADE Address: home [address] [place] [address] Name: TERRELL FORMAN Address: home
--- OUTSIDE RECORDS SUMMARY | 2023-01-09 11:02 | XMS_ITS | Continuity of Care Document ---
Author Name Unknown Organization [facility] Address [address] [place] [address]- Care Team Providers Care Coagulation Operator Name Role Phone Kathleen Lai NP Primary Care Physician Encounter [facility] [place] Date(s): 12/06/22 - 01/05/[address] [address] Attending Physician: Kavya Denton Admitting Physician: AdmtrKavya Referring Physician: Admtr, Ar8 Allergies, Adverse Reactions, Alerts Substance Reaction Severity Status ibuprofen gastritis Active Trileptal hives Persistent Severe Active Red Dye Active Immunizations Given and Recorded Vaccine Date Status Refusal Reason influenza virus vaccine, inactivated 1 12/22/22 Gi ita influenza virus vaccine, inactivated 2 12/15/20 Gi ita tetanus/diphtheria/pertussis, acel(Tdap) 3 11/16/21 Given SARS-CoV-2 (COVID-19) mRNA BNT-162b2 vac 10/29/20 Recorded SARS-CoV-2 (COVID-19) mRNA BNT-162b2 vac 10/08/20 Recorded Influenza Virus Vaccine (oldterm) 12/11/19 Recorde d 1Result Comment: [facility] [id number] 2Result Comment: [id number] 3Result Comment: [facility]: [id number] Medications Albuterol (Eqv-ProAir HFA) 90 mcg/inh inhalation aerosol 2 puffs = 180 mcg, Inhalation, Every 4 hours, # 6.7 Gm, 0 Refills, Maintenance, 12/15/20 15:26:00 EDT, Inhaler, [facility] #[id number], Partial fill upon patient request if the prescription is for a schedule II opioid drug., 2 puffs Inhalation Ev... Start Date: 12/15/20 Stop Date: 01/14/21 Status: Ordered amLODIPine 2.5 mg oral tablet See Instructions, TAKE 1 TABLET BY MOUTH DAILY, # 90 tablet, 0 Refills, Maintenance, 10/17/22 10:14:00 EDT, [facility] #[id number], 152, cm, 10/17/22 9:36:00 EDT, Height, 105, kg, 10/09/22 0:18:00 EDT, Dry Weight Start Date: 10/17/22 Status: Ordered aspirin 81 mg oral tablet, chewable 81 mg, By Mouth, Daily, # 30 tablet, Refills 3, Tot. Refills 3, Maintenance, 11/08/22 8:42:00 EDT, Route to Pharmacy Electronically, [facility] #[id number], Partial fill upon patient request if the prescription is for a schedule II opioid drug.,... Start Date: 11/08/22 Stop Date: 03/08/23 Status: Ordered atorvastatin 40 mg oral tablet = 40 mg, By Mouth, Daily at bedtime, # 30 each, 3 Refills, Maintenance, 10/09/22 16:21:00 EDT, Tablet, [facility] 3, Partial fill upon patient request if the prescription is for a schedule II opioid drug., 152, cm, 10/09/22 3:35:00 EDT, He... Start Date: 10/09/22 Stop Date: 02/06/23 Status: Ordered Cane See Instructions, # 1 each, Maintenance, 3 leg cane, 12/22/22 14:55:00 EDT, Supply Start Date: 12/22/22 Status: Ordered celecoxib 200 mg oral capsule 1 capsule = 200 mg, By Mouth, Daily, # 90 capsule, 0 Refills, Maintenance, 10/17/22 10:02:00 EDT, Capsule, [facility] #[id number], Partial fill upon patient request if the [...] EDT, Supply Start Date: 06/16/22 Status: Ordered Electric reclining chair Electric reclining chair, See Instructions, # 1 capsule, Refills 0, Tot. Refills 0, Maintenance, Use as directed, 12/22/22 14:55:00 EDT, Supply Start Date: 12/22/22 Status: Ordered EpiPen 2-Rigoberto 0.3 mg injectable kit = 0.3 mg, Intramuscular, Once, PRN Anaphylactic Reaction, # 1 kit, 0 Refills, Soft Stop, 10/11/22 10:11:00 EDT, [facility] #[id number], Partial fill upon patient request if the prescription is for a schedule II opioid drug., 152, cm, 10/09/22 3:3... Start Date: 10/11/22 Status: Ordered fluticasone 50 mcg/inh nasal spray See Instructions, SHAKE LIQUID AND USE 1 SPRAY IN EACH NOSTRIL TWICE DAILY, # 48 Gm, 0 Refills, Maintenance, 03/29/22 15:14:00 EST, [facility] #[id number], 90, SHAKE LIQUID AND USE 1 SPRAY [...] 0 Refills, Maintenance, 05/12/22 8:43:00 EDT, Tablet, [facility] #[id number], Partial fill upon patient request if the prescription is for a schedule II opioid drug., 153,... Start Date: 05/12/22 Status: Ordered Norvasc 2.5 mg oral tablet 2.5 mg, 1, tablet, By Mouth, Daily, # 30 tablet, Refills 1, Tot. Refills 1, Maintenance, 05/12/22 8:43:00 EDT, Route to Pharmacy Electronically, [facility] #[id number], Partial fill upon patientrequest if the prescription [...] Date: 07/15/21 Stop Date: 07/10/22 Status: Ordered Right elbow sleeve Right elbow sleeve, See Instructions, # 1 each, Refills 0, Tot. Refills 0, Maintenance, on at bed off in AM, 12/22/22 14:58:00 EDT, Supply Start Date: 12/22/22 Status: Ordered Right wrist brace Right wrist brace, See Instructions, # 1 each, Refills 0, Tot. Refills 0, Maintenance, Use at bed, 12/22/22 14:55:00 EDT, Supply Start Date: 12/22/22 Status: Ordered Shower Bench See Instructions, # 1 each, Maintenance, Use as directed, 12/22/22 14:55:00 EDT, Supply Start Date: 12/22/22 Status: Ordered Wegovy (0.25 mg dose) subcutaneous solution = 0.25 mg, Subcutaneous Injection, Every week, for 4 week(s), in the abdomen, thigh, or upper arm, # 2 mL, 0 Refills, Acute 01/09/23 10:42:00 EST, 12/12/22 10:42:00 EDT, Solution, [facility] #[id number], Partial fill upon patient request if the p... Start Date: 12/12/22 Stop Date: 01/09/23 Status: Ordered Problem List Condition Confirmation Course Effective Dates Status H ealth Status Informant Unstable gait Confirmed Active Auditory hallucinations Confirmed Active Bipolar disease, chronic Confirmed Active CKD (chronic kidney disease) stage 2, GFR 60-89 ml/min Confirmed Active Learning disability Confirmed Active Fibromyalgia Confirmed Active Chronic GERD Confirmed Active GERD (gastroesophageal reflux disease) Confirmed Active HTN (hypertension) Confirmed Active Mastodynia [...] Team Personnel Name: Kathleen Lai NP Position: [facility] PCO Associate Professional Member Role: PCP Address: Address: [address] [place] [address] Name: Jean Lane RN Position: S RN Member Role: Primary Care Nurse Name: Delfina Ayoub RN Position: S RN Member Role: Primary Care Nurse Name: Sara Barlow LPN Position: S RN Member Role: Primary Care Nurse Care Team Related Persons Name: LUIS HOGUE Address: home [address] [place] [address] Name: LUIS BHATTI Name: KOBE WADE Address: home [address] [place] [address] Name: TERRELL FORMAN Address: home
--- OUTSIDE RECORDS SUMMARY | 2023-01-09 11:02 | XMS_ITS | Continuity of Care Document ---
Author Name Unknown Organization [facility] Address [address] [place] [address]- Care Team Providers Care Binitrotoluene Operator Name Role Phone Kathleen Lai NP Primary Care Physician [place] [facility] [place] 12[place]/22 [facility] [address] [place] [address]- Encounter Diagnosis Medicare annual wellness visit, subsequent(Discharge Diagnosis) - 12/22/22 Abnormal physical evaluation(Discharge Diagnosis) - 12/22/22 Bipolar disease, chronic(Discharge Diagnosis) - 12/22/22 CKD (chronic kidney disease) stage 2, GFR 60-89 ml/min(Discharge Diagnosis) - 12/22/22 Moderate somatic symptom disorder with predominant pain(Discharge Diagnosis) - 12/22/22 Fibromyalgia(Discharge Diagnosis) - 12/22/22 HTN (hypertension)(Discharge Diagnosis) - 12/22/22 ALESHA (obstructive sleep apnea)(Discharge Diagnosis) - 12/22/22 Fatty liver disease, nonalcoholic(Discharge Diagnosis) - 12/22/22 Severe obesity(Discharge Diagnosis) - 12/22/22 Prediabetes(Discharge Diagnosis) - 12/22/22 Low back pain(Discharge Diagnosis) - 12/22/22 Hand pain(Discharge Diagnosis) - 12/22/22 Unstable gait(Discharge Diagnosis) - 12/22/22 Attending Physician: Kathleen Lai NP Allergies, Adverse Reactions, Alerts Substance Reaction Severity [...] (oldterm) 12/11/19 Recorde d 1Result Comment: [facility] [id number] 2Result Comment: [id number] 3Result Comment: [facility]: [id number] Medications Albuterol (Eqv-ProAir HFA) 90 mcg/inh inhalation aerosol 2 puffs = 180 mcg, Inhalation, Every 4 hours, # 6.7 Gm, 0 Refills, Maintenance, 12/15/20 15:26:00 EDT, Inhaler, [facility] #[id number], Partial fill upon patient request if the prescription is for a schedule II opioid drug., 2 puffs Inhalation Ev... Start Date: 12/15/20 Stop Date: 01/14/21 Status: Ordered amLODIPine 2.5 mg oral tablet See Instructions, TAKE 1 TABLET BY MOUTH DAILY, # 90 tablet, 0 Refills, Maintenance, 10/17/22 10:14:00 EDT, [facility] #[id number], 152, cm, 10/17/22 9:36:00 EDT, Height, 105, kg, 10/09/22 0:18:00 EDT, Dry Weight Start Date: 10/17/22 Status: Ordered aspirin 81 mg oral tablet, chewable 81 mg, By Mouth, Daily, # 30 tablet, Refills 3, Tot. Refills 3, Maintenance, 11/08/22 8:42:00 EDT, Route to Pharmacy Electronically, [facility] #[id number], Partial fill upon patient request if the prescription is for a schedule II opioid drug.,... Start Date: 11/08/22 Stop Date: 03/08/23 Status: Ordered atorvastatin 40 mg oral tablet = 40 mg, By Mouth, Daily at bedtime, # 30 each, 3 Refills, Maintenance, 10/09/22 16:21:00 EDT, Tablet, [facility] 3, Partial fill upon patient request if [...] 0 Refills, Maintenance, 10/17/22 10:02:00 EDT, Capsule, [facility] #[id number], Partial fill upon patient request if the [...] 0 Refills, Soft Stop, 10/11/22 10:11:00 EDT, [facility] #[id number], Partial fill upon patient request if the prescription is for a schedule II opioid drug., 152, cm, 10/09/22 3:3... Start Date: 10/11/22 Status: Ordered fluticasone 50 mcg/inh nasal spray See Instructions, SHAKE LIQUID AND USE 1 SPRAY IN EACH NOSTRIL TWICE DAILY, # 48 Gm, 0 Refills, Maintenance, 03/29/22 15:14:00 EST, [facility] #[id number], 90, SHAKE LIQUID AND USE 1 SPRAY [...] 0 Refills, Maintenance, 05/12/22 8:43:00 EDT, Tablet, [facility] #[id number], Partial fill upon patient request if the prescription is for a schedule II opioid drug., 153,... Start Date: 05/12/22 Status: Ordered Norvasc 2.5 mg oral tablet 2.5 mg, 1, tablet, By Mouth, Daily, # 30 tablet, Refills 1, Tot. Refills 1, Maintenance, 05/12/22 8:43:00 EDT, Route to Pharmacy Electronically, [facility] #[id number], Partial fill upon patientrequest if the prescription [...] 01/09/23 10:42:00 EST, 12/12/22 10:42:00 EDT, Solution, [facility] #[id number], Partial fill upon patient request if the [...] symptom disorder with predominant pain Confirmed Active Diagnosis Diagnosis Type Effective Dates Health Status Clinical Service Informant Medicare annual wellness visit, subsequent Discharge Diagnosis 12/22/22 Abnormal physical evaluation Discharge Diagnosis 12/22/22 Bipolar disease, chronic Discharge Diagnosis 12/22/22 CKD (chronic kidney disease) stage 2, GFR 60-89 ml/min Discharge Diagnosis 12/22/22 Moderate somatic symptom disorder with predominant pain Discharge Diagnosis 12/22/22 Fibromyalgia Discharge Diagnosis 12/22/22 HTN (hypertension) Discharge Diagnosis 12/22/22 ALESHA (obstructive sleep apnea) Discharge Diagnosis 12/22/22 Fatty liver disease, nonalcoholic Discharge Diagnosis 12/22/22 Severe obesity Discharge Diagnosis 12/22/22 Prediabetes Discharge Diagnosis 12/22/22 Low back pain Discharge Diagnosis 12/22/22 Hand pain Discharge Diagnosis 12/22/22 Unstable gait Discharge Diagnosis 12/22/22 Vital Signs Most recent to oldest [Reference Range]: 1 Height 152.6 cm (12/22/22 1:06 PM) Weight 103.7 kg (12/22/22 1:06 PM) Oxygen Saturation [94-100 %] 99 % (12/22/22 1:06 PM) Pulse Rate [55-90 bpm] 88 bpm (12/22/22 1:06 PM) Body Mass Index [18.5-24.99 kg/m2] 44.53 kg/m2 *>HHI* (12/22/22 1:06 PM) Blood Pressure [90-138/55-84 mm Hg] 130/ 82mm Hg (12/22/22 1:06 PM) Temperature [96.8-100.4 DegF] 98.1 DegF (12/22/22 1:06 PM) Mode of Delivery (Oxygen) Room air (12/22/22 1:06 PM) Blood pressure sites Arm, left (12/22/22 1:06 PM) Temperature Route Oral (12/22/22 1:06 PM) Weight Obtained Via Standing scale (12/22/22 1:06 PM) Social History Social History Type Response Smoking Status Former smoker, quit more than 30 days ago; Other: 11 years 1/2-1PPD; entered on: 05/18/20 Sex Female Note * Simi Holt: PERFORM, SIGN, VERIFY Event Display: Patient Education/Instruction Authored Date: [id number] [facility] Clinical Summary Name GERALDO NAM Age 52 Years 1970 PCP Joelle HERNANDEZ, Kathleen [id number] Visit Date 12/22/2022 13:00:00 Additional Instructions: Scheduled Appointments?? Future Appointments ?*[facility] ?[address]??[place],??[place],??[address] ?Phone:??--?Fax:??-- ?Appt. Date:??01/02/2023?1:30 PM ?Scheduled Provider:??Richie RODRIGUEZ, Gloria ?*[facility] ?[address] ?[place],??[place],??[address] ?Phone:??--?Fax:??-- ?Appt. Date:??01/04/2023?4:00 PM ?Scheduled Provider:??Jose RODRIGUEZ, Rao A ?*[facility] ?Phone:??--?Fax:??-- ?Appt. Date:??01/10/2023?11:00 AM ?Scheduled Provider:??Pedrito CHAN, Lisa A ?*[facility] ?[address],??[place],??[address] ?Phone:??--?Fax:??-- ?Appt. Date:??01/16/2023?10:20 AM ?Scheduled Provider:??Deanna RODRIGUEZ , Candida Follow-Up Instructions ?? Diagnosis Fatty (change of) liver, not elsewhere classified; Prediabetes; Morbid (severe) obesity due to excess calories; Pain in unspecified hand; Bipolar disorder, unspecified; Fibromyalgia; Encounter for general adult medical examination with abnormal findings; Chronic kidney disease, stage 2 (mild); Essential (primary) hypertension; Unsteadiness on feet; Carpal tunnel syndrome, unspecified upper limb; Encounter for general adult medical examination without abnormal findings; Somatoform disorder, unspecified; Obstructive sleep apnea (adult) (pediatric); Low back pain, unspecified; Pain in unspecified joint Medications: Please continue your medications until treatment is completed or stopped by your provider. Discuss any questions related to medications with your provider. New Medications - Durable Medical Equipment (Cane) 3 leg cane. Refills: 0. Next Dose: Durable Medical Equipment (Electric reclining chair) Use as directed. Refills: 0. Next Dose: Durable Medical Equipment (Right elbow sleeve) on at bed off in AM. Refills: 0. Next Dose: Durable Medical Equipment (Right wrist brace) Use at bed. Refills: 0. Next Dose: Durable Medical Equipment (Shower Bench) Use as directed. Refills: 0. Next Dose: Medications to Continue with No Changes [facility] #[id number], [address] [place], [place] [id number], [phone] EPINEPHrine (EpiPen 2-Rigoberto 0.3 mg injectable kit) 0.3 Milligram Intramuscular once as needed Anaphylactic Reaction. Refills: 0. Next Dose: These medications were not printed or sent to your pharmacy Albuterol (Albuterol (Eqv-ProAir HFA) 90 mcg/inh inhalation aerosol) 2 puff(s) Inhalation every 4 hours for 30 Days. Refills: 0. Next Dose: Amlodipine (amLODIPine 2.5 mg oral tablet) TAKE 1 TABLET BY MOUTH DAILY. Refills: 0. Next Dose: Amlodipine (Norvasc 2.5 mg oral tablet) 1 tab(s) Oral Daily. Refills: 1. Next Dose: Aspirin (aspirin 81 mg oral tablet, chewable) 81 Milligram Oral Daily for 30 Days. Refills: 3. Next Dose: Atorvastatin (atorvastatin 40 mg oral tablet) 40 Milligram Oral Daily at Bedtime for 30 Days. Refills: 3. Next Dose: Celecoxib (celecoxib 200 mg oral capsule) 1 capsule Oral Daily. Refills: 0. Next Dose: Durable Medical Equipment (Compression Stockings) surgical, knee length 20-30 mm Hg DX: VENOUS INSUFF B/L LEG SWELLING. Refills: 2. Next Dose: Durable Medical Equipment (Compression Stockings) surgical, knee high 20-30 mm Hg, leg swelling, obesity, leg pain. Refills: 0. Next Dose: Durable Medical Equipment (CPAP Machine) AutoCPAP 8-14 cm H20, use Daily when sleeping. Refills: 0. Next Dose: Durable Medical Equipment (Juxtafit Knee-high Compression Garments(bilateral, left, right) with 2 pairs of hybrid socks) as directed DX: VENOUS INSUFF B/L LEG SWELLING. Refills: 0. Next Dose: Fluticasone Nasal (fluticasone 50 mcg/inh nasal spray) SHAKE LIQUID AND USE 1 SPRAY IN EACH NOSTRILTWICE DAILY. Refills: 0. Next Dose: Meclizine (meclizine 25 mg oral tablet) 1 tab(s) Oral 3 times a day as needed for dizziness. Refills: 0. Next Dose: Pantoprazole (pantoprazole 40 mg oral delayed release tablet) 1 tab(s) Oral twice a day for 90 Days. Refills: 3. Next Dose: semaglutide (Wegovy (0.25 mg dose) subcutaneous solution) 0.25 Milligram Subcutaneous Injection every week for 4 week(s). in the abdomen, thigh, or upper arm. Refills: 0. Next Dose: Allergy Info:?? Red Dye; Trileptal; ibuprofen Medications Given This Visit Medication Dose Route influenza virus vaccine, inactivated (influenza virus, inactivated vacc) 0.5 mL Intramuscular Future Orders ?Hand Min 3 Views Left? Order Date:12/22/22?- Complete on or after?12/22/22 ?Lumbar Spine 2 or 3 Views? Order Date:12/22/22?- Complete on or after?12/22/22 ?Hand Min 3 Views Right? Order Date:12/22/22?- Complete on or after?12/22/22 ?Hemoglobin A1C (Monitoring)? Order Date:12/22/22?- Complete on or after?12/22/22 Vital Signs Height 152.6 cm Weight 103.7 kg BMI 44.53 kg/m2 Blood Pressure 130 mm Hg/82 mm Hg Temperature 98.1 DegF Pulse Rate 88 bpm Respiratory Rate 02 Sat Mode of Delivery 99 %/Room air You can now view a summary of your hospital visit from the comfort of your home through a free online portal called [employer]. [employer] is a website that allows you to securely view your medical information including discharge summary, medications and follow-up visits. ??You can alsosend a secure electronic message to your doctor???s office to request appointments, renew medications or just ask a question. You can enroll at [email or web address] or register during your next office visit. Disclaimer:?? The information provided is of a general nature and is intended to be used in conjunction with the recommendations and advice of your health care practitioner. ??Every effort has been made to ensure that the information provided is accurate and complete at the time it is provided to you however, as your needs change, or, as new ??information becomes available, different or additional instructions may be required. If you have questions, please consult with your primary care provider or pharmacist, as appropriate. ??This information is not intended to serve as substitution for assessment and evaluation by a qualified health care provider. If you do not have a primary care provider, you may find a [facility] provider by calling [facility] [employer] Link at [phone]. [facility], in keeping with [facility] guidance, no longer requires face masks for staff, patientsor visitors in most situations. Similar to time spent indoors at other locations, there is the chance that you were exposed to respiratory viruses during your time with us (such as flu or COVID-19).? If you develop symptoms concerning for a viral respiratory infection, please seek testing (and treatment if indicated) from your medical provider or home test kit. For information about the plan of care including goals and instructions for your diagnosis, please see the patient education orders section of this document. Patient Education Materials?? The content of this educational material or handout may have been modified, supplemented, or adapted from its original content and format to support your individualized medical care. Patient Care team information Care Team Personnel Name: Kathleen Lai NP Position: [facility] Associate Professional Member Role: PCP Address: Address: [address] [place] [address] Name: Jean Lane RN Position: S RN Member Role: Primary Care Nurse Name: Delfina Ayoub RN Position: S RN Member Role: Primary Care Nurse Name: Sara Barlow LPN Position: S RN Member Role: Primary Care Nurse Care Team Related Persons Name: LUIS HOGUE Address: home [address] [place] [address] Name: LUIS BHATTI Name: KOBE WADE Address: home [address] [place] [address] Name: TERRELL FORMAN Address: home
--- OUTSIDE RECORDS SUMMARY | 2023-01-09 11:03 | XMS_ITS | Continuity of Care Document ---
Author Name Unknown Organization [facility] Address [address] [place] [id number]- Care Team Providers Care Mechanic Industrial Truck Name Role Phone Joelle HERNANDEZ, Kathleen Primary Care Physician [phone] Encounter [facility] Date(s): 09/13/22 - 09/20/22 [facility] [address] [place] [id number] Attending Physician: Diane HERNANDEZ, Mallory Curry Admitting Physician: Diane HERNANDEZ, Mallory Curry Allergies, Adverse Reactions, Alerts Substance Reaction Severity Status ibuprofen gastritis Active Trileptal hives Persistent Severe Active Immunizations Given and Recorded Vaccine Date Status Refusal Reason tetanus/diphtheria/pertussis, acel(Tdap) 1 11/16/21 Given influenza virus vaccine, inactivated 2 12/15/20 Gi ita SARS-CoV-2 (COVID-19) mRNA BNT-162b2 vac 10/29/20 Recorded SARS-CoV-2 (COVID-19) mRNA BNT-162b2 vac 10/08/20 Recorded Influenza Virus Vaccine (oldterm) 12/11/19 Recorde d 1Result Comment: [facility]: [id number] 2Result Comment: [id number] Medications Albuterol (Eqv-ProAir HFA) 90 mcg/inh inhalation aerosol 2 puffs = 180 mcg, Inhalation, Every 4 hours, # 6.7 Gm, 0 Refills, Maintenance, 12/15/20 15:26:00 EDT, Inhaler, [facility] #[id number], Partial fill upon patient request if the prescription is for a schedule II opioid drug., 2 puffs Inhalation Ev... Start Date: 12/15/20 Stop Date: 01/14/21 Status: Ordered celecoxib 200 mg oral capsule 1 capsule = 200 mg, By Mouth, 2 times a day, 0 Refills, Maintenance, 05/11/22 11:26:00 EDT, Capsule, Partial fill upon patient request if the prescription is for a schedule II opioid drug. Start Date: 05/11/22 Status: Ordered clonazePAM 0.5 mg oral tablet 0.5 tablet = 0.25 mg, By Mouth, Daily, PRN Anxiety, 0 Refills, Maintenance, 08/16/20 13:16:00 EDT, Tablet, Partial fill upon patient request if the prescription is for a schedule II opioid drug. Start Date: 08/16/20 Status: Ordered Compression Stockings See Instructions, # [...] Intramuscular, Once, PRN Anaphylactic Reaction, # 1 each, 0 Refills, Soft Stop, 12/15/20 15:30:00 EDT, [facility] #[id number], Partial fill upon patient request if the prescription is for a schedule II opioid drug., 150, cm, 12/15/20 15... Start Date: 12/15/20 Status: Ordered fluticasone 50 mcg/inh nasal spray See Instructions, SHAKE LIQUID AND USE 1 SPRAY IN EACH NOSTRIL TWICE DAILY, # 48 Gm, 0 Refills, Maintenance, 03/29/22 15:14:00 EST, [facility] #[id number], 90, SHAKE LIQUID AND USE 1 SPRAY [...] 0 Refills, Maintenance, 05/12/22 8:43:00 EDT, Tablet, [facility] #[id number], Partial fill upon patient request if the prescription is for a schedule II opioid drug., 153,... Start Date: 05/12/22 Status: Ordered Norvasc 2.5 mg oral tablet 2.5 mg, 1, tablet, By Mouth, Daily, # 30 tablet, Refills 1, Tot. Refills 1, Maintenance, 05/12/22 8:43:00 EDT, Route to Pharmacy Electronically, [facility] #[id number], Partial fill upon patientrequest if the prescription [...] ealth Status Informant Auditory hallucinations Confirmed Active CKD - chronic kidney disease Confirmed Active Fibromyalgia Confirmed Active GERD (gastroesophageal reflux disease) Confirmed Active History of alcohol abuse Confirmed Active HTN (hypertension) Confirmed Active Mastodynia Confirmed 05/16/11 Active Fatty liver disease, nonalcoholic Confirmed Active Non compliance w medication regimen Confirmed Active LAESHA (obstructive sleep apnea) Confirmed Active Osteoporosis Confirmed Active Poor historian Confirmed Active Prediabetes Confirmed Active Severe obesity Confirmed Active Moderate somatic symptom disorder with predominant pain Confirmed Active Vital Signs Most recent to oldest [Reference Range]: 1 Height 153 cm (09/13/22 10:05 AM) Oxygen Saturation [94-100 %] 97 % (09/13/22 10:05 AM) Pulse Rate [55-90 bpm] 78 bpm (09/13/22 10:05 AM) Blood Pressure [90-138/55-84 mm Hg] 128/ 90mm Hg (09/13/22 10:05 AM) Blood pressure sites Arm, right (09/13/22 10:05 AM) Social History Social History Type Response Smoking Status Former smoker, quit more than 30 days ago; Other: 11 years 1/2-1PPD; entered on: 05/18/20 Sex Note * Mallory Harp: PERFORM, SIGN, VERIFY Event Display: Patient Education/Instruction Authored Date: [id number] [facility] *[facility] [address] Clinical Summary Name GERALDO NAM Age 52 Years 1970 PCP Joelle HERNANDEZ, Kathleen PCP Visit Date 09/13/2022 09:50:00 Additional Instructions: Scheduled Appointments?? Future Appointments ?*[facility] ?[address] ?[address] ?[place],??[place],??[address] ?Phone:??--?Fax:??-- ?Appt. Date:??10/16/2022?10:00 AM ?Scheduled Provider:??David Tiffany HERNANDEZ Follow-Up Instructions ?? With: Address: When: As Needed 09/13/2022 12:00 AM Diagnosis Medications: Please continue your medications until treatment is completed or stopped by your provider. Discuss any questions related to medications with your provider. Medications to Continue Taking That Have Changed - - Durable Medical Equipment (Compression Stockings) surgical, knee high 20-30 mm Hg, leg swelling, obesity, leg pain. Refills: 0. Next Dose: These medications were not printed or sent to your pharmacy - Durable Medical Equipment (Compression Stockings) surgical, knee length 20-30 mm Hg DX: VENOUS INSUFF B/L LEG SWELLING. Refills: 2. Next Dose: - Durable Medical Equipment (CPAP Machine) AutoCPAP 8-14 cm H20, use Daily when sleeping. Refills: 0. Next Dose: - Durable Medical Equipment (Juxtafit Knee-high Compression Garments(bilateral, left, right) with 2pairs of hybrid socks) as directed DX: VENOUS INSUFF B/L LEG SWELLING. Refills: 0. Next Dose: Medications to Continue with No Changes These medications were not printed or sent to your pharmacy Albuterol (Albuterol (Eqv-ProAir HFA) 90 mcg/inh inhalation aerosol) 2 puff(s) Inhalation every 4 hours for 30 Days. Refills: 0. Next Dose: Amlodipine (Norvasc 2.5 mg oral tablet) 1 tab(s) Oral Daily. Refills: 1. Next Dose: Celecoxib (celecoxib 200 mg oral capsule) 1 capsule Oral twice a day. Next Dose: Clonazepam (clonazePAM 0.5 mg oral tablet) 0.5 tab(s) Oral Daily as needed Anxiety. Next Dose: EPINEPHrine (EpiPen 2-Rigoberto 0.3 mg injectable kit) 0.3 Milligram Intramuscular once as needed Anaphylactic Reaction. Refills: 0. Next Dose: Fluticasone Nasal (fluticasone [...] for 90 Days. Refills: 3. Next Dose: Allergy Info:?? Trileptal; ibuprofen Medications Given This Visit Future Orders ?No future orders Vital Signs Height 153 cm Weight BMI Blood Pressure 128 mm Hg/90 mm Hg Temperature Pulse Rate 78 bpm Respiratory Rate 02 Sat Mode of Delivery 97 %/ You can now view a summary of your hospital visit from the comfort of your home through a free online portal called [email or web address]. [email or web address] is a website that allows you to securely view your medical information including discharge summary, medications and follow-up visits. ??You can alsosend a secure electronic message to your doctor???s office to request appointments, renew medications or just ask a question. You can enroll at [email or web address] or register during your next office visit. [...] primary care provider, you may find a [facility] provider by calling [facility] [employer] at [phone]. For information about the plan of care [...] Team Personnel Name: Kathleen Lai NP Position: [facility] PCO Associate Professional Member Role: PCP Address: Address: [address] [place] [address] Name: eJan Lane RN Position: S RN Member Role: Primary Care Nurse Name: Delfina Ayoub RN Position: S RN Member Role: Primary Care Nurse Name: Sara Barlow LPN Position: [facility] RN Member Role: Primary Care Nurse Care Team Related Persons Name: LUIS HOGUE Address: home [address] [place] [address] Name: LUIS BHATTI Name: KOBE WADE Address: home [address] [place] [address] Name: TERRELL FORMAN Address: home
--- OUTSIDE RECORDS SUMMARY | 2023-01-09 11:03 | XMS_ITS | Continuity of Care Document ---
Author Name Unknown Organization [facility] Address [address] [place] [address]- Care Team Providers Care Aerospace Mechanic Name Role Phone Kathleen Lai NP Primary Care Physician Encounter [facility] Date(s): 10/17/22 - 10/24/22 [facility] [address] [place] [id number]- Encounter Diagnosis Prediabetes(Discharge Diagnosis) - 10/17/22 Bipolar disorder(Discharge Diagnosis) - 10/17/22 Encounter for vaccination(Discharge Diagnosis) - 10/17/22 Hemiplegic migraine(Discharge Diagnosis) - 10/17/22 HTN (hypertension)(Discharge Diagnosis) - 10/17/22 Attending Physician: Tania Xavier Allergies, Adverse Reactions, Alerts Substance Reaction Severity Status ibuprofen gastritis Active Trileptal hives Persistent Severe Active Red Dye Active Immunizations Given and Recorded Vaccine Date Status Refusal Reason tetanus/diphtheria/pertussis, acel(Tdap) 1 11/16/21 Given influenza virus vaccine, inactivated 2 12/15/20 Gi tia SARS-CoV-2 (COVID-19) mRNA BNT-162b2 vac 10/29/20 Recorded SARS-CoV-2 (COVID-19) mRNA BNT-162b2 vac 10/08/20 Recorded Influenza Virus Vaccine (oldterm) 12/11/19 Recorde d 1Result Comment: [facility]: [id number] 2Result Comment: [id number] Medications Albuterol (Eqv-ProAir HFA) 90 mcg/inh inhalation aerosol 2 puffs = 180 mcg, Inhalation, Every 4 hours, # 6.7 Gm, 0 Refills, Maintenance, 12/15/20 15:26:00 EDT, Inhaler, [facility] #[id number], Partial fill upon patient request if the prescription is for a schedule II opioid drug., 2 puffs Inhalation Ev... Start Date: 12/15/20 Stop Date: 01/14/21 Status: Ordered amLODIPine 2.5 mg oral tablet See Instructions, TAKE 1 TABLET BY MOUTH DAILY, # 90 tablet, 0 Refills, Maintenance, 10/17/22 10:14:00 EDT, [facility] #[id number], 152, cm, 10/17/22 9:36:00 EDT, Height, 105, kg, 10/09/22 0:18:00 EDT, Dry Weight Start Date: 10/17/22 Status: Ordered aspirin 81 mg oral tablet, chewable 81 mg, By Mouth, Daily, # 30 tablet, Refills 3, Tot. Refills 3, Maintenance, 10/09/22 16:21:00 EDT,Route to Pharmacy Electronically, [facility], Partial fill upon patient request if the prescription is for a schedule II opioid drug., 15... Start Date: 10/09/22 Stop Date: 02/06/23 Status: Ordered atorvastatin 40 mg oral tablet = 40 mg, By Mouth, Daily at bedtime, # 30 each, 3 Refills, Maintenance, 10/09/22 16:21:00 EDT, Tablet, [facility] 3, Partial fill upon patient request if the prescription is for a schedule II opioid drug., 152, cm, 10/09/22 3:35:00 EDT, He... Start Date: 10/09/22 Stop Date: 02/06/23 Status: Ordered celecoxib 200 mg oral capsule 1 capsule = 200 mg, By Mouth, Daily, # 90 capsule, 0 Refills, Maintenance, 10/17/22 10:02:00 EDT, Capsule, [facility] #[id number], Partial fill upon patient request if the [...] 0 Refills, Soft Stop, 10/11/22 10:11:00 EDT, [facility] #[id number], Partial fill upon patient request if the prescription is for a schedule II opioid drug., 152, cm, 10/09/22 3:3... Start Date: 10/11/22 Status: Ordered fluticasone 50 mcg/inh nasal spray See Instructions, SHAKE LIQUID AND USE 1 SPRAY IN EACH NOSTRIL TWICE DAILY, # 48 Gm, 0 Refills, Maintenance, 03/29/22 15:14:00 EST, [facility] #[id number], 90, SHAKE LIQUID AND USE 1 SPRAY [...] 0 Refills, Maintenance, 05/12/22 8:43:00 EDT, Tablet, [facility] #[id number], Partial fill upon patient request if the prescription is for a schedule II opioid drug., 153,... Start Date: 05/12/22 Status: Ordered Norvasc 2.5 mg oral tablet 2.5 mg, 1, tablet, By Mouth, Daily, # 30 tablet, Refills 1, Tot. Refills 1, Maintenance, 05/12/22 8:43:00 EDT, Route to Pharmacy Electronically, [facility] #[id number], Partial fill upon patientrequest if the prescription [...] Effective Dates Health Status Clinical Service Informant Hemiplegic migraine Discharge Diagnosis 10/17/22 HTN (hypertension) Discharge Diagnosis 10/17/22 Prediabetes Discharge Diagnosis 10/17/22 Bipolar disorder Discharge Diagnosis 10/17/22 Encounter for vaccination Discharge Diagnosis 10/17/22 Vital Signs Most recent to oldest [Reference Range]: 1 Height 152 cm (10/17/22 9:36 AM) Weight 102.7 kg (10/17/22 9:36 AM) Oxygen Saturation [94-100 %] 98 % (10/17/22 9:36 AM) Pulse Rate [55-90 bpm] 91 bpm *H* (10/17/22 9:36 AM) Body Mass Index [18.5-24.99 kg/m2] 44.45 kg/m2 *>HHI* (10/17/22 9:36 AM) Blood Pressure [90-138/55-84 mm Hg] 123/ 80mm Hg (10/17/22 9:36 AM) Temperature [96.8-100.4 DegF] 98.6 DegF (10/17/22 9:36 AM) Mode of Delivery (Oxygen) Room air (10/17/22 9:36 AM) Blood pressure sites Arm, left (10/17/22 9:36 AM) Temperature Route Temporal (10/17/22 9:36 AM) Weight Obtained Via Standing scale (10/17/22 9:36 AM) Social History Social History Type Response Smoking Status Former smoker, quit more than 30 days ago; Other: 11 years 1/2-1PPD; entered on: 05/18/20 Sex Female Note * Simi Holt: PERFORM, SIGN, VERIFY Event Display: Patient Education/Instruction Authored Date: [id number] [facility] [place] [facility] Clinical Summary Name GERALDO NAM Age 52 Years 1970 PCP Joelle HERNANDEZ, Kathleen PCP Visit Date 10/17/2022 09:23:00 Additional Instructions: Scheduled Appointments?? Future Appointments ?*[place] ?[address] ?[address] ?[place],??[place],??[address] ?Phone:??--?Fax:??-- ?Appt. Date:??11/09/2022?9:15 AM ?Scheduled Provider:??Olman ADMISSIONS ADVISOR, Tiffanie ?*[facility] ?Phone:??--?Fax:??-- ?Appt. Date:??11/15/2022?1:00 PM ?Scheduled Provider:??Pedrito CHAN, Lisa Solo ?*[facility] ?[address] ?[address] ?[place],??[address] ?Phone:??--?Fax:??-- ?Appt. Date:??11/17/2022?11:30 AM ?Scheduled Provider:??David ADMISSIONS ADVISOR, Tiffany Lei ?*[facility] ?[address]??[place],??[address] ?Phone:??--?Fax:??-- ?Appt. Date:??12/12/2022?10:00 AM ?Scheduled Provider:??Deanna RODRIGUEZ , Candida ?*[facility] ?[address] ?[place],??[address] ?Phone:??--?Fax:??-- ?Appt. Date:??12/20/2022?11:30 AM ?Scheduled Provider:??Cindi Aldana ?*[facility] ?[address]??[place],??[address] ?Phone:??--?Fax:??-- ?Appt. Date:??12/22/2022?1:10 PM ?Scheduled Provider:??Kathleen Lai NP Follow-Up Instructions ?? Diagnosis Prediabetes; Encounter for immunization; Essential (primary) hypertension; Hemiplegic migraine, notintractable, without status migrainosus; Bipolar disorder, unspecified Medications: Please continue your medications until treatment is completed or stopped by your provider. Discuss any questions related to medications with your provider. Medications to Continue Taking That Have Changed [facility] #[id number], [address], [place] [id number], [phone] - Celecoxib (celecoxib 200 mg oral capsule) 1 capsule Oral Daily. Refills: 0. Next Dose: These medications were not printed or sent to your pharmacy - Amlodipine (amLODIPine 2.5 mg oral tablet) TAKE 1 TABLET BY MOUTH DAILY. Refills: 0. Next Dose: - Amlodipine (Norvasc 2.5 mg oral tablet) 1 tab(s) Oral Daily. Refills: 1. Next Dose: Medications to Continue with No Changes These medications were not printed or sent to your pharmacy Albuterol (Albuterol (Eqv-ProAir HFA) 90 mcg/inh inhalation aerosol) 2 puff(s) Inhalation every 4 hours for 30 Days. Refills: 0. Next Dose: Aspirin (aspirin 81 mg oral tablet, chewable) 81 Milligram Oral Daily for 30 Days. Refills: 3. Next Dose: Atorvastatin (atorvastatin 40 mg oral tablet) 40 Milligram Oral Daily at Bedtime for 30 Days. Refills: 3. Next Dose: Durable Medical Equipment (Compression Stockings) [...] B/L LEG SWELLING. Refills: 0. Next Dose: EPINEPHrine (EpiPen 2-Rigoberto 0.3 mg [...] Days. Refills: 3. Next Dose: Allergy Info:?? Red Dye; Trileptal; ibuprofen Medications Given This Visit Future Orders ?No future orders Vital Signs Height 152 cm Weight 102.7 kg BMI 44.45 kg/m2 Blood Pressure 123 mm Hg/80 mm Hg Temperature 98.6 DegF Pulse Rate 91 bpm Respiratory Rate 02 Sat Mode of Delivery 98 %/Room air You can now view a summary of your hospital visit from the comfort of your home through a free online portal called [employer]. [employer] is a website that allows you to securely view your medical information including discharge summary, medications and follow-up visits. ??You can alsosend a secure electronic message to your doctor???s office to request appointments, renew medications or just ask a question. You can enroll at [email or web address] or register during your next office visit. [...] you may find a [facility] provider by calling [facility] [employer] [facility] at [phone]. For information about the plan of care [...] Team Personnel Name: Kathleen Lai NP Position: [facility] PCO Associate Professional Member Role: PCP Address: Address: [address] [place] [address] Name: Jean Lane RN Position: S RN Member Role: Primary Care Nurse Name: Delfina Ayoub RN Position: S RN Member Role: Primary Care Nurse Name: Sara Barlow LPN Position: S RN Member Role: Primary Care Nurse Care Team Related Persons Name: LUIS HOGUE Address: home [address] [place] [address] Name: LUIS BHATTI Name: KOBE WADE Address: home [address] [place] [address] Name: TERRELL FORMAN Address: home
--- OUTSIDE RECORDS SUMMARY | 2023-01-09 11:03 | XMS_ITS | Continuity of Care Document ---
Author Name Unknown Organization [facility] Adult Address [address] [place] [address]- Care Team Providers Care Supervising Film Or Videotape Editor Name Role Phone Katlheen Lai NP Primary Care Physician [phone] Encounter [facility] [place] [place] ACCT R [id number] Date(s): 10/05/22 - 10/12/[address] [address]- Encounter Diagnosis Right arm pain(Discharge Diagnosis) - 10/05/22 Paresthesias(Discharge Diagnosis) - 10/05/22 Bipolar disease, chronic(Discharge Diagnosis) - 10/05/22 Attending Physician: Tania Xavier Allergies, Adverse Reactions, [...] (oldterm) 12/11/19 Recorde d 1Result Comment: [facility]: [id number] 2Result Comment: [id number] Medications Albuterol (Eqv-ProAir HFA) 90 mcg/inh inhalation aerosol 2 puffs = 180 mcg, Inhalation, Every 4 hours, # 6.7 Gm, 0 Refills, Maintenance, 12/15/20 15:26:00 EDT, Inhaler, [facility] #[id number], Partial fill upon patient request if the prescription is for a schedule II opioid drug., 2 puffs Inhalation Ev... Start Date: 12/15/20 Stop Date: 01/14/21 Status: Ordered aspirin 81 mg oral tablet, chewable 81 mg, By Mouth, Daily, # 30 tablet, Refills 3, Tot. Refills 3, Maintenance, 10/09/22 16:21:00 EDT,Route to Pharmacy Electronically, [facility], Partial fill upon patient request if the prescription is for a schedule II opioid drug., 15... Start Date: 10/09/22 Stop Date: 02/06/23 Status: Ordered atorvastatin 40 mg oral tablet = 40 mg, By Mouth, Daily at bedtime, # 30 each, 3 Refills, Maintenance, 10/09/22 16:21:00 EDT, Tablet, [facility], Partial fill upon patient [...] 0 Refills, Soft Stop, 10/11/22 10:11:00 EDT, [facility] #[id number], Partial fill upon patient request if the prescription is for a schedule II opioid drug., 152, cm, 10/09/22 3:3... Start Date: 10/11/22 Status: Ordered fluticasone 50 mcg/inh nasal spray See Instructions, SHAKE LIQUID AND USE 1 SPRAY IN EACH NOSTRIL TWICE DAILY, # 48 Gm, 0 Refills, Maintenance, 03/29/22 15:14:00 EST, [facility] #[id number], 90, SHAKE LIQUID AND USE 1 SPRAY [...] 0 Refills, Maintenance, 05/12/22 8:43:00 EDT, Tablet, [facility] #[id number], Partial fill upon patient request if the prescription is for a schedule II opioid drug., 153,... Start Date: 05/12/22 Status: Ordered Norvasc 2.5 mg oral tablet 2.5 mg, 1, tablet, By Mouth, Daily, # 30 tablet, Refills 1, Tot. Refills 1, Maintenance, 05/12/22 8:43:00 EDT, Route to Pharmacy Electronically, [facility] #[id number], Partial fill upon patientrequest if the prescription [...] Effective Dates Health Status Clinical Service Informant Right arm pain Discharge Diagnosis 10/05/22 Paresthesias Discharge Diagnosis 10/05/22 Bipolar disease, chronic Discharge Diagnosis 10/05/22 Vital Signs Most recent to oldest [Reference Range]: 1 Height 153 cm (10/05/22 3:31 PM) Weight 100.3 kg (10/05/22 3:31 PM) Oxygen Saturation [94-100 %] 98 % (10/05/22 3:31 PM) Pulse Rate [55-90 bpm] 82 bpm (10/05/22 3:31 PM) Body Mass Index [18.5-24.99 kg/m2] 42.85 kg/m2 *>HHI* (10/05/22 3:31 PM) Blood Pressure [90-138/55-84 mm Hg] 131/ 79mm Hg (10/05/22 3:31 PM) Temperature [96.8-100.4 DegF] 98.1 DegF (10/05/22 3:31 PM) Mode of Delivery (Oxygen) Room air (10/05/22 3:31 PM) Blood pressure sites Arm, left (10/05/22 3:31 PM) Temperature Route Temporal (10/05/22 3:31 PM) Weight Obtained Via Standing scale (10/05/22 3:31 PM) Social History Social History Type Response Smoking Status Former smoker, quit more than 30 days ago; Other: 11 years 1/2-1PPD; entered on: 05/18/20 Sex Female Note * Simi Holt: PERFORM, SIGN, VERIFY Event Display: Patient Education/Instruction Authored Date: [id number] [facility] Clinical Summary Name GERALDO NAM Age 52 Years 1970 PCP Joelle RETAIL STORE ASSOCIATE, Kathleen PCP Visit Date 10/05/2022 15:09:00 Additional Instructions: Scheduled Appointments?? Future Appointments ?*[facility] ?[address] ?[address] ?[place],??[address] ?Phone:??--?Fax:??-- ?Appt. Date:??10/16/2022?10:00 AM ?Scheduled Provider:??David HERNANDEZ, Tiffany Morel ?*[facility] ?[address],??[address] ?Phone:??--?Fax:??-- ?Appt. Date:??12/12/2022?10:00 AM ?Scheduled Provider:??Deanna RODRIGUEZ , Candida ?*[facility] ?[address] ?[facility] ?[place],??[place],??[address] ?Phone:??--?Fax:??-- ?Appt. Date:??12/20/2022?11:30 AM ?Scheduled Provider:??Cindi Aldana ?*[facility] ?[address]??[place],??[place],??[address] ?Phone:??--?Fax:??-- ?Appt. Date:??12/22/2022?1:10 PM ?Scheduled Provider:??Kathleen Lai NP Follow-Up Instructions ?? Diagnosis Pain in right arm; Paresthesia of skin; Bipolar disorder, unspecified Medications: Please continue your medications until treatment is completed or stopped by your provider. Discuss any questions related to medications with your provider. Medications to Continue with No Changes These [...] Oral Daily as needed Anxiety. Next Dose: Durable Medical Equipment (Compression Stockings) [...] EACH NOSTRILTWICE DAILY. Refills: 0. Next Dose: Hydrochlorothiazide (hydroCHLOROthiazide 12.5 mg oral capsule) 1 capsule Oral Daily. Next Dose: Meclizine (meclizine 25 mg oral tablet) 1 tab(s) Oral 3 times a day as needed for dizziness. Refills: 0. Next Dose: Pantoprazole (pantoprazole 40 mg oral delayed release tablet) 1 tab(s) Oral twice a day for 90 Days. Refills: 3. Next Dose: Pantoprazole (pantoprazole 40 mg oral delayed release tablet) 1 tab(s) Oral Daily. Next Dose: Sucralfate (sucralfate 1 gm oral tablet) 1 tab(s) Oral 3 times a day before meals and bedtime. Next Dose: Allergy Info:?? Trileptal; ibuprofen Medications Given This Visit Future Orders ?No future orders Vital Signs Height 153 cm Weight 100.3 kg BMI 42.85 kg/m2 Blood Pressure 131 mm Hg/79 mm Hg Temperature 98.1 DegF Pulse Rate 82 bpm Respiratory Rate 02 Sat Mode of Delivery 98 %/Room air You can now view a summary of your hospital visit from the comfort of your home through a free online portal called [employer]. [employer] is a website that allows you to securely view your medical information including discharge summary, medications and follow-up visits. ??You can alsosend a secure electronic message to your doctor???s office to request appointments, renew medications or just ask a question. You can enroll at [email or web address] or register during your next office [...] primary care provider, you may find a [facility] provider by calling [facility] at [phone]. For information about the plan of care [...] Associate Professional Member Role: PCP Address: Address: [address] [place] [address] Name: Jean Lane RN Position: [facility] RN Member Role: Primary Care Nurse Name: Delfina Ayoub RN Position: S RN Member Role: Primary Care Nurse Name: Sara Barlow LPN Position: [facility] RN Member Role: Primary Care Nurse Care Team Related Persons Name: LUIS HOGUE Address: home [address] [place] [address] Name: LUIS BHATTI Name: KOBE WADE Address: home [address] [place] [address] Name: TERRELL FORMAN Address: home
--- OUTSIDE RECORDS SUMMARY | 2023-01-09 11:03 | XMS_ITS | Continuity of Care Document ---
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 Immunizations Given and Recorded Vaccine Date Status Refusal Reason tetanus/diphtheria/pertussis, acel(Tdap) 1 11/16/21 Given influenza virus vaccine, inactivated 2 12/15/20 Gi ita SARS-CoV-2 (COVID-19) mRNA BNT-162b2 vac 10/29/20 Recorded SARS-CoV-2 (COVID-19) mRNA BNT-162b2 vac 10/08/20 Recorded Influenza Virus Vaccine (oldterm) 12/11/19 Recorde d 1Result Comment: [facility]: [id number] 2Result Comment: [id number] Medications Albuterol (Eqv-ProAir HFA) 90 mcg/inh inhalation aerosol 2 puffs = 180 mcg, Inhalation, Every 4 hours, # 6.7 Gm, 0 Refills, Maintenance, 12/15/20 15:26:00 EDT, Inhaler, [id number], Partial fill upon patient request if the [...] EDT, Supply Start Date: 05/25/22 Status: Ordered Compression Stockings See Instructions, # 2 each, Refills 2, Tot. Refills 2, Maintenance, surgical, thigh high length 20-30 mm Hg, 06/07/22 12:42:00 EDT, Supply Start Date: 06/07/22 Status: Ordered CPAP Machine See Instructions, # 1 each, Maintenance, AutoCPAP 8-14 cm H20, use Daily when sleeping, 06/16/22 15:55:00 EDT, Supply Start Date: 06/16/22 Status: Ordered EpiPen 2-Rigoberto 0.3 mg injectable kit = 0.3 mg, Intramuscular, Once, PRN Anaphylactic Reaction, # 1 each, 0 Refills, Soft Stop, 12/15/20 15:30:00 EDT, [facility][id number], Partial fill upon patient request if the prescription is for a schedule II opioid drug., 150, cm, 12/15/20 15... Start Date: 12/15/20 Status: Ordered fluticasone 50 mcg/inh nasal spray See Instructions, SHAKE LIQUID AND USE 1 SPRAY IN EACH NOSTRIL TWICE DAILY, # 48 Gm, 0 Refills, Maintenance, 03/29/22 15:14:00 EST, [facility] #[id number], 90, SHAKE LIQUID AND USE 1 SPRAY [...] 0 Refills, Maintenance, 05/12/22 8:43:00 EDT, Tablet, [facility][id number], Partial fill upon patient request if the prescription is for a schedule II opioid drug., 153,... Start Date: 05/12/22 Status: Ordered Norvasc 2.5 mg oral tablet 2.5 mg, 1, tablet, By Mouth, Daily, # 30 tablet, Refills 1, Tot. Refills 1, Maintenance, 05/12/22 8:43:00 EDT, Route to Pharmacy Electronically, [facility][id number], Partial fill upon patientrequest if the prescription [...] 11 years 1/2-1PPD; entered on: 05/18/20 Sex Patient Care team information Care Team Personnel Name: Kathleen Lai NP Position: [facility] PCO Associate Professional Member Role: PCP Address: Address: [address] [place] [address] Name: Jean Lane RN Position: S RN Member Role: Primary Care Nurse Name: Delfina Ayoub RN Position: S RN Member Role: Primary Care Nurse Name: Sara Barlow LPN Position: [facility] RN Member Role: Primary Care Nurse Care Team Related Persons Name: LUIS HOGUE Address: home [address] [place] [address] Name: LUIS BHATTI Name: KOBE WADE Address: home [address] [place] [address] Name: TERRELL FORMAN Address: home
--- OUTSIDE RECORDS SUMMARY | 2023-01-09 11:03 | XMS_ITS | Continuity of Care Document ---
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 Immunizations Given and Recorded Vaccine Date Status Refusal Reason tetanus/diphtheria/pertussis, acel(Tdap) 1 11/16/21 Given influenza virus vaccine, inactivated 2 12/15/20 Gi ita SARS-CoV-2 (COVID-19) mRNA BNT-162b2 vac 10/29/20 Recorded SARS-CoV-2 (COVID-19) mRNA BNT-162b2 vac 10/08/20 Recorded Influenza Virus Vaccine (oldterm) 12/11/19 Recorde d 1Result Comment: [facility]: [id number] 2Result Comment: [id number] Medications Albuterol (Eqv-ProAir HFA) 90 mcg/inh inhalation aerosol 2 puffs = 180 mcg, Inhalation, Every 4 hours, # 6.7 Gm, 0 Refills, Maintenance, 12/15/20 15:26:00 EDT, Inhaler, [facility][id number], Partial fill upon patient request if the [...] 0 Refills, Soft Stop, 12/15/20 15:30:00 EDT, [facility] #[id number], Partial fill upon patient request if the prescription is for a schedule II opioid drug., 150, cm, 12/15/20 15... Start Date: 12/15/20 Status: Ordered fluticasone 50 mcg/inh nasal spray See Instructions, SHAKE LIQUID AND USE 1 SPRAY IN EACH NOSTRIL TWICE DAILY, # 48 Gm, 0 Refills, Maintenance, 03/29/22 15:14:00 EST, [facility] #[id number], 90, SHAKE LIQUID AND USE 1 SPRAY [...] 0 Refills, Maintenance, 05/12/22 8:43:00 EDT, Tablet, [facility] #[id number], Partial fill upon patient request if the prescription is for a schedule II opioid drug., 153,... Start Date: 05/12/22 Status: Ordered Norvasc 2.5 mg oral tablet 2.5 mg, 1, tablet, By Mouth, Daily, # 30 tablet, Refills 1, Tot. Refills 1, Maintenance, 05/12/22 8:43:00 EDT, Route to Pharmacy Electronically, [facility] #[id number], Partial fill upon patientrequest if the prescription [...] Team Personnel Name: Kathleen Lai NP Position: [facility] PCO Associate Professional Member Role: PCP Address: Address: [address] [place] [address] Name: Jean Lane RN Position: [facility] RN Member Role: Primary Care Nurse Name: Delfina Ayoub RN Position: [facility] RN Member Role: Primary Care Nurse Name: Sara Barlow LPN Position: [facility] RN Member Role: Primary Care Nurse Care Team Related Persons Name: LUIS HOGUE Address: home [address] [place] [address] Name: LUIS BHATTI Name: KOBE WADE Address: [address] [place] [address] Name: TERRELL FORMAN Address: home
--- OUTSIDE RECORDS SUMMARY | 2023-01-09 11:03 | XMS_ITS | Continuity of Care Document ---
Author Name Unknown Organization [facility] Address [address] [place] [address]- Care Team Providers Care Spooling Machine Operator Name Role Phone Kathleen Lai NP Primary Care Physician Encounter [facility] Date(s): 11/09/22 - 12/09/22 [facility] [address] [place] [address]- Attending Physician: Kavya Denton Admitting Physician: Kavya Denton Referring Physician: Kavya Denton Allergies, Adverse Reactions, Alerts Substance Reaction Severity [...] Vaccine (oldterm) 12/11/19 Recorde d 1Result Comment: [facility]: [id number] 2Result Comment: [id number] Medications Albuterol (Eqv-ProAir HFA) 90 mcg/inh inhalation aerosol 2 puffs = 180 mcg, Inhalation, Every 4 hours, # 6.7 Gm, 0 Refills, Maintenance, 12/15/20 15:26:00 EDT, Inhaler, [id number], Partial fill upon patient request if the prescription is for a schedule II opioid drug., 2 puffs Inhalation Ev... Start Date: 12/15/20 Stop Date: 01/14/21 Status: Ordered amLODIPine 2.5 mg oral tablet See Instructions, TAKE 1 TABLET BY MOUTH DAILY, # 90 tablet, 0 Refills, Maintenance, 10/17/22 10:14:00 EDT, [facility][id number], 152, cm, 10/17/22 9:36:00 EDT, Height, 105, kg, 10/09/22 0:18:00 EDT, Dry Weight Start Date: 10/17/22 Status: Ordered aspirin 81 mg oral tablet, chewable 81 mg, By Mouth, Daily, # 30 tablet, Refills 3, Tot. Refills 3, Maintenance, 11/08/22 8:42:00 EDT, Route to Pharmacy Electronically, [facility][id number], Partial fill upon patient request if the prescription is for a schedule II opioid drug.,... Start Date: 11/08/22 Stop Date: 03/08/23 Status: Ordered atorvastatin 40 mg oral tablet = 40 mg, By Mouth, Daily at bedtime, # 30 each, 3 Refills, Maintenance, 10/09/22 16:21:00 EDT, Tablet, [facility], Partial fill upon patient request if the prescription is for a schedule II opioid drug., 152, cm, 10/09/22 3:35:00 EDT, He... Start Date: 10/09/22 Stop Date: 02/06/23 Status: Ordered celecoxib 200 mg oral capsule 1 capsule = 200 mg, By Mouth, Daily, # 90 capsule, 0 Refills, Maintenance, 10/17/22 10:02:00 EDT, Capsule, [facility][id number], Partial fill upon patient request if the [...] 0 Refills, Soft Stop, 10/11/22 10:11:00 EDT, [facility] #[id number], Partial fill upon patient request if the prescription is for a schedule II opioid drug., 152, cm, 10/09/22 3:3... Start Date: 10/11/22 Status: Ordered fluticasone 50 mcg/inh nasal spray See Instructions, SHAKE LIQUID AND USE 1 SPRAY IN EACH NOSTRIL TWICE DAILY, # 48 Gm, 0 Refills, Maintenance, 03/29/22 15:14:00 EST, [facility] #[id number], 90, SHAKE LIQUID AND USE 1 SPRAY [...] 0 Refills, Maintenance, 05/12/22 8:43:00 EDT, Tablet, [facility] #[id number], Partial fill upon patient request if the prescription is for a schedule II opioid drug., 153,... Start Date: 05/12/22 Status: Ordered Norvasc 2.5 mg oral tablet 2.5 mg, 1, tablet, By Mouth, Daily, # 30 tablet, Refills 1, Tot. Refills 1, Maintenance, 05/12/22 8:43:00 EDT, Route to Pharmacy Electronically, [facility] #[id number], Partial fill upon patientrequest if the prescription [...] Team Personnel Name: Kathleen Lai NP Position: [facility] PCO Associate Professional Member Role: PCP Address: Address: [address] [place] [address] Name: Jean Lane RN Position: [facility] RN Member Role: Primary Care Nurse Name: Delfina Ayoub RN Position: [facility] RN Member Role: Primary Care Nurse Name: Sara Barlow LPN Position: [facility] RN Member Role: Primary Care Nurse Care Team Related Persons Name: LUIS HOGUE Address: home [address] [place] [address] Name: LUIS BHATTI Name: KOBE WADE Address: [address] [place] [address] Name: TERRELL FORMAN Address: home
--- OUTSIDE RECORDS SUMMARY | 2023-01-09 11:04 | XMS_ITS | Continuity of Care Document ---
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 Immunizations Given and Recorded Vaccine Date Status Refusal Reason tetanus/diphtheria/pertussis, acel(Tdap) 1 11/16/21 Given influenza virus vaccine, inactivated 2 12/15/20 Gi ita SARS-CoV-2 (COVID-19) mRNA BNT-162b2 vac 10/29/20 Recorded SARS-CoV-2 (COVID-19) mRNA BNT-162b2 vac 10/08/20 Recorded Influenza Virus Vaccine (oldterm) 12/11/19 Recorde d 1Result Comment: [facility]: [id number] 2Result Comment: [id number] Medications Albuterol (Eqv-ProAir HFA) 90 mcg/inh inhalation aerosol 2 puffs = 180 mcg, Inhalation, Every 4 hours, # 6.7 Gm, 0 Refills, Maintenance, 12/15/20 15:26:00 EDT, Inhaler, [facility] #[id number], Partial fill upon patient request if the [...] 0 Refills, Soft Stop, 12/15/20 15:30:00 EDT, [facility] #[id number], Partial fill upon patient request if the prescription is for a schedule II opioid drug., 150, cm, 12/15/20 15... Start Date: 12/15/20 Status: Ordered fluticasone 50 mcg/inh nasal spray See Instructions, SHAKE LIQUID AND USE 1 SPRAY IN EACH NOSTRIL TWICE DAILY, # 48 Gm, 0 Refills, Maintenance, 03/29/22 15:14:00 EST, [facility] #[id number], 90, SHAKE LIQUID AND USE 1 SPRAY IN EACH NOSTRIL TWICE DAILY, 153, cm, 03/01/22 10:05:00 E... Start Date: 03/29/22 Status: Ordered hydroCHLOROthiazide 12.5 mg oral capsule 1 capsule = 12.5 mg, By Mouth, Daily, # 30 capsule, 0 Refills, Maintenance, 02/16/20 10:55:00 EST, Capsule, Partial fill upon patient request if the prescription is for a schedule II opioid drug. Start Date: 02/16/20 Status: Ordered Juxtafit Knee-high Compression Garments(bilateral, left, [...] 0 Refills, Maintenance, 05/12/22 8:43:00 EDT, Tablet, [facility] #[id number], Partial fill upon patient request if the prescription is for a schedule II opioid drug., 153,... Start Date: 05/12/22 Status: Ordered Norvasc 2.5 mg oral tablet 2.5 mg, 1, tablet, By Mouth, Daily, # 30 tablet, Refills 1, Tot. Refills 1, Maintenance, 05/12/22 8:43:00 EDT, Route to Pharmacy Electronically, [facility] #[id number], Partial fill upon patientrequest if the prescription [...] Date: 07/15/21 Stop Date: 07/10/22 Status: Ordered pantoprazole 40 mg oral delayed release tablet 1 tablet = 40 mg, By Mouth, Daily, 0 Refills, Maintenance, 02/16/20 10:54:00 EST Start Date: 02/16/20 Status: Ordered sucralfate 1 gm oral tablet 1 Gm, 1, tablet, By Mouth, 3 times a day before meals and bedtime, Refills 0, Maintenance, 02/15/2010:54:00 EST, Partial fill upon patient request if the prescription is for a schedule II opioid drug. Start Date: 02/16/20 Status: Ordered Problem List Condition Confirmation Course [...] Team Personnel Name: Kathleen Lai NP Position: [facility] PCO Associate Professional Member Role: PCP Address: Address: [address] [place] [address] Name: Jean Lane RN Position: [facility] RN Member Role: Primary Care Nurse Name: Delfina Ayoub RN Position: S RN Member Role: Primary Care Nurse Name: Sara Barlow LPN Position: [facility] RN Member Role: Primary Care Nurse Care Team Related Persons Name: LUIS HOGUE Address: home [address] [place] [address] Name: LUIS BHATTI Name: KOBE WADE Address: [address] [place] [address] Name: TERRELL FORMAN Address: home
--- OUTSIDE RECORDS SUMMARY | 2023-01-09 11:04 | XMS_ITS | Continuity of Care Document ---
Author Name Unknown Organization [facility] Adult Address [address] [place] [address]- Care Team Providers Care Plaster Form Maker Name Role Phone Kathleen Lai NP Primary Care Physician [phone] Encounter [facility] [place] Date(s): 11/07/22 - 12/07/22 [facility] [address] [place] [address]- Allergies, Adverse Reactions, Alerts Substance Reaction Severity [...] Vaccine (oldterm) 12/11/19 Recorde d 1Result Comment: [facility] [place]: [id number] 2Result Comment: [id number] Medications Albuterol (Eqv-ProAir HFA) 90 mcg/inh inhalation aerosol 2 puffs = 180 mcg, Inhalation, Every 4 hours, # 6.7 Gm, 0 Refills, Maintenance, 12/15/20 15:26:00 EDT, Inhaler, [facility] #[id number], Partial fill upon patient request if the prescription is for a schedule II opioid drug., 2 puffs Inhalation Ev... Start Date: 12/15/20 Stop Date: 01/14/21 Status: Ordered amLODIPine 2.5 mg oral tablet See Instructions, TAKE 1 TABLET BY MOUTH DAILY, # 90 tablet, 0 Refills, Maintenance, 10/17/22 10:14:00 EDT, [facility] #[id number], 152, cm, 10/17/22 9:36:00 EDT, Height, 105, kg, 10/09/22 0:18:00 EDT, Dry Weight Start Date: 10/17/22 Status: Ordered aspirin 81 mg oral tablet, chewable 81 mg, By Mouth, Daily, # 30 tablet, Refills 3, Tot. Refills 3, Maintenance, 11/08/22 8:42:00 EDT, Route to Pharmacy Electronically, [facility] #[id number], Partial fill upon patient request if the prescription is for a schedule II opioid drug.,... Start Date: 11/08/22 Stop Date: 03/08/23 Status: Ordered atorvastatin 40 mg oral tablet = 40 mg, By Mouth, Daily at bedtime, # 30 each, 3 Refills, Maintenance, 10/09/22 16:21:00 EDT, Tablet, [facility], Partial fill upon patient request if the prescription is for a schedule II opioid drug., 152, cm, 10/09/22 3:35:00 EDT, He... Start Date: 10/09/22 Stop Date: 02/06/23 Status: Ordered celecoxib 200 mg oral capsule 1 capsule = 200 mg, By Mouth, Daily, # 90 capsule, 0 Refills, Maintenance, 10/17/22 10:02:00 EDT, Capsule, [facility] #[id number], Partial fill upon patient request if the [...] 0 Refills, Soft Stop, 10/11/22 10:11:00 EDT, [facility] #[id number], Partial fill upon patient request if the prescription is for a schedule II opioid drug., 152, cm, 10/09/22 3:3... Start Date: 10/11/22 Status: Ordered fluticasone 50 mcg/inh nasal spray See Instructions, SHAKE LIQUID AND USE 1 SPRAY IN EACH NOSTRIL TWICE DAILY, # 48 Gm, 0 Refills, Maintenance, 03/29/22 15:14:00 EST, [facility] #[id number], 90, SHAKE LIQUID AND USE 1 SPRAY [...] 0 Refills, Maintenance, 05/12/22 8:43:00 EDT, Tablet, [facility] #[id number], Partial fill upon patient request if the prescription is for a schedule II opioid drug., 153,... Start Date: 05/12/22 Status: Ordered Norvasc 2.5 mg oral tablet 2.5 mg, 1, tablet, By Mouth, Daily, # 30 tablet, Refills 1, Tot. Refills 1, Maintenance, 05/12/22 8:43:00 EDT, Route to Pharmacy Electronically, [facility] #[id number], Partial fill upon patientrequest if the prescription [...] Personnel Name: Kathleen Lai NP Position: [facility] Associate Professional Member Role: PCP Address: Address: [address] [place] [address] Name: Jean Lane RN Position: [facility] RN Member Role: Primary Care Nurse Name: Delfina Ayoub RN Position: S RN Member Role: Primary Care Nurse Name: Sara Barlow LPN Position: [facility] RN Member Role: Primary Care Nurse Care Team Related Persons Name: LUIS HOGUE Address: home [address] [place] [address] Name: LUIS BHATTI Name: KOBE WADE Address: home [address] [place] [address] Name: TERRELL FORMAN Address: home
--- OUTSIDE RECORDS SUMMARY | 2023-01-09 11:05 | XMS_ITS | Continuity of Care Document ---
Author Name Unknown Organization [facility] Address [address] [place] [address]- Care Team Providers Care Director Of Personnel Name Role Phone Kathleen Lai NP Primary Care Physician [phone] [place] [facility] 09/07/22 - 10/07/22 [facility] [address] [place] [address]- Attending Physician: Kavya Denton Admitting Physician: Kavya Denton Referring Physician: AdmtrKavya Allergies, Adverse Reactions, Alerts Substance Reaction Severity Status ibuprofen gastritis Active Trileptal hives Persistent Severe Active Immunizations Given and Recorded Vaccine Date Status Refusal Reason tetanus/diphtheria/pertussis, acel(Tdap) 1 11/16/21 Given influenza virus vaccine, inactivated 2 12/15/20 Gi ita SARS-CoV-2 (COVID-19) mRNA BNT-162b2 vac 10/29/20 Recorded SARS-CoV-2 (COVID-19) mRNA BNT-162b2 vac 10/08/20 Recorded Influenza Virus Vaccine (oldterm) 12/11/19 Recorde d 1Result Comment: [facility]: [id number] 2Result Comment: [id number] Medications Albuterol (Eqv-ProAir HFA) 90 mcg/inh inhalation aerosol 2 puffs = 180 mcg, Inhalation, Every 4 hours, # 6.7 Gm, 0 Refills, Maintenance, 12/15/20 15:26:00 EDT, Inhaler, [facility] #[id number], Partial fill upon patient request if the [...] 0 Refills, Soft Stop, 12/15/20 15:30:00 EDT, [facility] #[id number], Partial fill upon patient request if the prescription is for a schedule II opioid drug., 150, cm, 12/15/20 15... Start Date: 12/15/20 Status: Ordered fluticasone 50 mcg/inh nasal spray See Instructions, SHAKE LIQUID AND USE 1 SPRAY IN EACH NOSTRIL TWICE DAILY, # 48 Gm, 0 Refills, Maintenance, 03/29/22 15:14:00 EST, [facility] #[id number], 90, SHAKE LIQUID AND USE 1 SPRAY [...] 0 Refills, Maintenance, 05/12/22 8:43:00 EDT, Tablet, [facility] #[id number], Partial fill upon patient request if the prescription is for a schedule II opioid drug., 153,... Start Date: 05/12/22 Status: Ordered Norvasc 2.5 mg oral tablet 2.5 mg, 1, tablet, By Mouth, Daily, # 30 tablet, Refills 1, Tot. Refills 1, Maintenance, 05/12/22 8:43:00 EDT, Route to Pharmacy Electronically, [facility] #[id number], Partial fill upon patientrequest if the prescription [...] Team Personnel Name: Kathleen Lai NP Position: [facility] Associate Professional Member Role: PCP Address: Address: [address] [place] [address] Name: Jean Lane RN Position: S RN Member Role: Primary Care Nurse Name: Delfina Ayoub RN Position: S RN Member Role: Primary Care Nurse Name: Sara Barlow LPN Position: S RN Member Role: Primary Care Nurse Care Team Related Persons Name: LUIS HOGUE Address: home [address] [place] [address] Name: LUIS BHATTI Name: KOBE WADE Address: home [address] [place] [address] Name: TERRELL FORMAN Address: home
--- OUTSIDE RECORDS SUMMARY | 2023-01-09 11:05 | XMS_ITS | Continuity of Care Document ---
Author Name Unknown Organization [facility] Adult Address [address] [place] [address]- Care Team Providers Care Solar Installation Manager Name Role Phone Kathleen Lai NP Primary Care Physician [place] [facility] [place] 10[place]19[place] 11[place]18/22 [facility] [address] [place] [address]- Allergies, Adverse Reactions, Alerts Substance Reaction Severity [...] Vaccine (oldterm) 12/11/19 Recorde d 1Result Comment: [facility]: [id number] 2Result Comment: [id number] Medications Albuterol (Eqv-ProAir HFA) 90 mcg/inh inhalation aerosol 2 puffs = 180 mcg, Inhalation, Every 4 hours, # 6.7 Gm, 0 Refills, Maintenance, 12/15/20 15:26:00 EDT, Inhaler, [facility] #[id number], Partial fill upon patient request if the prescription is for a schedule II opioid drug., 2 puffs Inhalation Ev... Start Date: 12/15/20 Stop Date: 01/14/21 Status: Ordered amLODIPine 2.5 mg oral tablet See Instructions, TAKE 1 TABLET BY MOUTH DAILY, # 90 tablet, 0 Refills, Maintenance, 10/17/22 10:14:00 EDT, [facility] #[id number], 152, cm, 10/17/22 9:36:00 EDT, Height, 105, kg, 10/09/22 0:18:00 EDT, Dry Weight Start Date: 10/17/22 Status: Ordered aspirin 81 mg oral tablet, chewable 81 mg, By Mouth, Daily, # 30 tablet, Refills 3, Tot. Refills 3, Maintenance, 11/08/22 8:42:00 EDT, Route to Pharmacy Electronically, [facility] #[id number], Partial fill upon patient request if the prescription is for a schedule II opioid drug.,... Start Date: 11/08/22 Stop Date: 03/08/23 Status: Ordered atorvastatin 40 mg oral tablet = 40 mg, By Mouth, Daily at bedtime, # 30 each, 3 Refills, Maintenance, 10/09/22 16:21:00 EDT, Tablet, [facility], Partial fill upon patient request if the prescription is for a schedule II opioid drug., 152, cm, 10/09/22 3:35:00 EDT, He... Start Date: 10/09/22 Stop Date: 02/06/23 Status: Ordered celecoxib 200 mg oral capsule 1 capsule = 200 mg, By Mouth, Daily, # 90 capsule, 0 Refills, Maintenance, 10/17/22 10:02:00 EDT, Capsule, [facility] #[id number], Partial fill upon patient request if the [...] 0 Refills, Soft Stop, 10/11/22 10:11:00 EDT, [facility] #[id number], Partial fill upon patient request if the prescription is for a schedule II opioid drug., 152, cm, 10/09/22 3:3... Start Date: 10/11/22 Status: Ordered fluticasone 50 mcg/inh nasal spray See Instructions, SHAKE LIQUID AND USE 1 SPRAY IN EACH NOSTRIL TWICE DAILY, # 48 Gm, 0 Refills, Maintenance, 03/29/22 15:14:00 EST, [facility] #[id number], 90, SHAKE LIQUID AND USE 1 SPRAY [...] 0 Refills, Maintenance, 05/12/22 8:43:00 EDT, Tablet, [facility] #[id number], Partial fill upon patient request if the prescription is for a schedule II opioid drug., 153,... Start Date: 05/12/22 Status: Ordered Norvasc 2.5 mg oral tablet 2.5 mg, 1, tablet, By Mouth, Daily, # 30 tablet, Refills 1, Tot. Refills 1, Maintenance, 05/12/22 8:43:00 EDT, Route to Pharmacy Electronically, [facility] #[id number], Partial fill upon patientrequest if the prescription [...] Team Personnel Name: Kathleen Lai NP Position: [facility]O Associate Professional Member Role: PCP Address: Address: [address] [place] [address] Name: Jean Lane RN Position: [facility] RN Member Role: Primary Care Nurse Name: Delfina Ayoub RN Position: S RN Member Role: Primary Care Nurse Name: Sara Barlow LPN Position: [facility] RN Member Role: Primary Care Nurse Care Team Related Persons Name: LUIS HOGUE Address: home [address] [place] [address] Name: LUIS BHATTI Name: KOBE WADE Address: home [address] [place] [address] Name: TERRELL FORMAN Address: home
--- OUTSIDE RECORDS SUMMARY | 2023-01-09 11:05 | XMS_ITS | Continuity of Care Document ---
Author Name Unknown Organization [facility] Address [address] [place] [address]- Care Team Providers Care Calender Machine Operator Helper Name Role Phone Kathleen Lai NP Primary Care Physician [place] [facility] [place](s): 09/13/22 - 10/13/22 [facility] [address] [place] [address]- Attending Physician: Kavya Denton Admitting Physician: Kavya [...] 1Result Comment: [facility]: [id number] 2Result Comment: [id number] Medications Albuterol (Eqv-ProAir HFA) 90 mcg/inh inhalation aerosol 2 puffs = 180 mcg, Inhalation, Every 4 hours, # 6.7 Gm, 0 Refills, Maintenance, 12/15/20 15:26:00 EDT, Inhaler, [facility] #[id number], Partial fill upon patient request if the prescription is for a schedule II opioid drug., 2 puffs Inhalation Ev... Start Date: 12/15/20 Stop Date: 01/14/21 Status: Ordered aspirin 81 mg oral tablet, chewable 81 mg, By Mouth, Daily, # 30 tablet, Refills 3, Tot. Refills 3, Maintenance, 10/09/22 16:21:00 EDT,Route to Pharmacy Electronically, [facility], Partial fill upon patient request if the prescription is for a schedule II opioid drug., 15... Start Date: 10/09/22 Stop Date: 02/06/23 Status: Ordered atorvastatin 40 mg oral tablet = 40 mg, By Mouth, Daily at bedtime, # 30 each, 3 Refills, Maintenance, 10/09/22 16:21:00 EDT, Tablet, [facility], Partial fill upon patient [...] 0 Refills, Soft Stop, 10/11/22 10:11:00 EDT, [facility] #[id number], Partial fill upon patient request if the prescription is for a schedule II opioid drug., 152, cm, 10/09/22 3:3... Start Date: 10/11/22 Status: Ordered fluticasone 50 mcg/inh nasal spray See Instructions, SHAKE LIQUID AND USE 1 SPRAY IN EACH NOSTRIL TWICE DAILY, # 48 Gm, 0 Refills, Maintenance, 03/29/22 15:14:00 EST, [facility] #[id number], 90, SHAKE LIQUID AND USE 1 SPRAY [...] 0 Refills, Maintenance, 05/12/22 8:43:00 EDT, Tablet, [facility] #[id number], Partial fill upon patient request if the prescription is for a schedule II opioid drug., 153,... Start Date: 05/12/22 Status: Ordered Norvasc 2.5 mg oral tablet 2.5 mg, 1, tablet, By Mouth, Daily, # 30 tablet, Refills 1, Tot. Refills 1, Maintenance, 05/12/22 8:43:00 EDT, Route to Pharmacy Electronically, [facility] #[id number], Partial fill upon patientrequest if the prescription [...] Team Personnel Name: Kathleen Lai NP Position: [facility] Associate Professional Member Role: PCP Address: Address: [address] [place] [address] Name: Jean Lane RN Position: S RN Member Role: Primary Care Nurse Name: Delfina Ayoub RN Position: S RN Member Role: Primary Care Nurse Name: Sara Barlow LPN Position: S RN Member Role: Primary Care Nurse Care Team Related Persons Name: LUIS HOGUE Address: home [address] [place] [address] Name: LUIS BHATTI Name: KOBE WADE Address: home [address] [place] [address] Name: TERRELL FORMAN Address: home
--- OUTSIDE RECORDS SUMMARY | 2023-01-09 11:05 | XMS_ITS | Continuity of Care Document ---
Author Name Unknown Organization [facility] Address [address] [place] [address]- Care Team Providers Care Livestock Farm Manager Name Role Phone Kathleen Lai NP Primary Care Physician Encounter [facility] [place] Date(s): 09/11/22 - 09/18/[address] [address]- Encounter Diagnosis Back pain(Discharge Diagnosis) - 09/11/22 Severe obesity(Discharge Diagnosis) - 09/11/22 Attending Physician: Tania Xavier Allergies, Adverse Reactions, [...] (oldterm) 12/11/19 Recorde d 1Result Comment: [facility]: [id number] 2Result Comment: [id number] Medications Albuterol (Eqv-ProAir HFA) 90 mcg/inh inhalation aerosol 2 puffs = 180 mcg, Inhalation, Every 4 hours, # 6.7 Gm, 0 Refills, Maintenance, 12/15/20 15:26:00 EDT, Inhaler, [facility] #[id number], Partial fill upon patient request if the [...] 0 Refills, Soft Stop, 12/15/20 15:30:00 EDT, [facility] #[id number], Partial fill upon patient request if the prescription is for a schedule II opioid drug., 150, cm, 12/15/20 15... Start Date: 12/15/20 Status: Ordered fluticasone 50 mcg/inh nasal spray See Instructions, SHAKE LIQUID AND USE 1 SPRAY IN EACH NOSTRIL TWICE DAILY, # 48 Gm, 0 Refills, Maintenance, 03/29/22 15:14:00 EST, [facility] #[id number], 90, SHAKE LIQUID AND USE 1 SPRAY [...] 0 Refills, Maintenance, 05/12/22 8:43:00 EDT, Tablet, [facility] #[id number], Partial fill upon patient request if the prescription is for a schedule II opioid drug., 153,... Start Date: 05/12/22 Status: Ordered Norvasc 2.5 mg oral tablet 2.5 mg, 1, tablet, By Mouth, Daily, # 30 tablet, Refills 1, Tot. Refills 1, Maintenance, 05/12/22 8:43:00 EDT, Route to Pharmacy Electronically, [facility] #[id number], Partial fill upon patientrequest if the prescription [...] Diagnosis Diagnosis Type Effective Dates Health Status inical Service Informant Back pain Discharge Diagnosis 09/11/22 Severe obesity Discharge Diagnosis 09/11/22 Vital Signs Most recent to oldest [Reference Range]: 1 Height 153 cm (09/11/22 10:56 AM) Weight 100.8 kg (09/11/22 10:56 AM) Oxygen Saturation [94-100 %] 99 % (09/11/22 10:56 AM) Pulse Rate [55-90 bpm] 80 bpm (09/11/22 10:56 AM) Body Mass Index [18.5-24.99 kg/m2] 43.06 kg/m2 *>HHI* (09/11/22 10:56 AM) Blood Pressure [90-138/55-84 mm Hg] 136/ 84mm Hg (09/11/22 10:56 AM) Temperature [96.8-100.4 DegF] 97.7 DegF (09/11/22 10:56 AM) Mode of Delivery (Oxygen) Room air (09/11/22 10:56 AM) Blood pressure sites Arm, left (09/11/22 10:56 AM) Temperature Route Temporal (09/11/22 10:56 AM) Weight Obtained Via Standing scale (09/11/22 10:56 AM) Social History Social History Type Response Smoking Status Former smoker, quit more than 30 days ago; Other: 11 years 1/2-1PPD; entered on: 05/18/20 Sex Note * Gale Gutierrez: PERFORM, SIGN, VERIFY Event Display: Patient Education/Instruction Authored Date: [id number] [facility] *BMP [place] [facility] Clinical Summary Name GERALDO NAM Age 52 Years 1970 PCP Kathleen Lai NP PCP Visit Date 09/11/2022 10:54:00 Additional Instructions: Scheduled Appointments?? Future Appointments ?*[facility] ?Phone:??--?Fax:??-- ?Appt. Date:??09/13/2022?10:00 AM ?Scheduled Provider:??[facility] ?*[facility] ?[address] ?[place],??[place],??[address] ?Phone:??--?Fax:??-- ?Appt. Date:??10/16/2022?10:00 AM ?Scheduled Provider:??Tiffany Hernandez NP Follow-Up Instructions ?? With: Address: When: Kathleen Lai NP 09/11/2022 12:00 AM Comments: PE with PCP Diagnosis Morbid (severe) obesity due to excess calories; Dorsalgia, unspecified Medications: Please continue your medications until [...] Dose: Durable Medical Equipment (Compression Stockings) surgical, thigh high length 20-30 mm Hg. Refills:2. Next Dose: Durable Medical Equipment (CPAP Machine) [...] for 90 Days. Refills: 3. Next Dose: No Longer Take the Following Medications onabotulinumtoxinA (onabotulinumtoxinA 200 units injection) For IM injection for chronic migraine. Refills: 3. Allergy Info:?? Trileptal; ibuprofen Medications Given This Visit Future Orders ?No future orders Vital Signs Height 153 cm Weight 100.8 kg BMI 43.06 kg/m2 Blood Pressure 136 mm Hg/84 mm Hg Temperature 97.7 DegF Pulse Rate 80 bpm Respiratory Rate 02 Sat Mode of Delivery 99 %/Room air You can now view a summary of your hospital visit from the comfort of your home through a free online portal called Viyet. Viyet is a website that allows you to securely view your medical information including discharge summary, medications and follow-up visits. ??You can alsosend a secure electronic message to your doctor???s office to request appointments, renew medications or just ask a question. You can enroll at [email or web address] or register during your next [...] primary care provider, you may find a [facility] provider by calling [email or web address] Link at [phone]. For information about the plan of care [...] Team Personnel Name: Kathleen Lai NP Position: [facility] Associate Professional Member Role: PCP Address: Address: [address] [place] [address] Name: Jaen Lane RN Position: S RN Member Role: Primary Care Nurse Name: Delfina Ayoub RN Position: S RN Member Role: Primary Care Nurse Name: Sara Barlow LPN Position: S RN Member Role: Primary Care Nurse Care Team Related Persons Name: LUIS HOGUE Address: home [address] [place] [address] Name: LUIS BHATTI Name: KOBE WADE Address: home [address] [place] [address] Name: TERRELL FORMAN Address: home
--- OUTSIDE RECORDS SUMMARY | 2023-01-09 11:06 | XMS_ITS | Continuity of Care Document ---
Author Name Unknown Organization [facility] Adult Address [address] [place] [address]- Care Team Providers Care Ball Worker Name Role Phone Kathleen Lai NP Primary Care Physician Encounter [facility] [place] Date(s): 10/26/22 - 11/25/22 [facility] Adult [address] [place] [address]- Allergies, Adverse Reactions, Alerts Substance Reaction Severity [...] (oldterm) 12/11/19 Recorde d 1Result Comment: [facility]: [id number] 2Result Comment: [id number] Medications Albuterol (Eqv-ProAir HFA) 90 mcg/inh inhalation aerosol 2 puffs = 180 mcg, Inhalation, Every 4 hours, # 6.7 Gm, 0 Refills, Maintenance, 12/15/20 15:26:00 EDT, Inhaler, [facility] #[id number], Partial fill upon patient request if the prescription is for a schedule II opioid drug., 2 puffs Inhalation Ev... Start Date: 12/15/20 Stop Date: 01/14/21 Status: Ordered amLODIPine 2.5 mg oral tablet See Instructions, TAKE 1 TABLET BY MOUTH DAILY, # 90 tablet, 0 Refills, Maintenance, 10/17/22 10:14:00 EDT, [facility] #[id number], 152, cm, 10/17/22 9:36:00 EDT, Height, 105, kg, 10/09/22 0:18:00 EDT, Dry Weight Start Date: 10/17/22 Status: Ordered aspirin 81 mg oral tablet, chewable 81 mg, By Mouth, Daily, # 30 tablet, Refills 3, Tot. Refills 3, Maintenance, 11/08/22 8:42:00 EDT, Route to Pharmacy Electronically, [facility] #[id number], Partial fill upon patient request if the prescription is for a schedule II opioid drug.,... Start Date: 11/08/22 Stop Date: 03/08/23 Status: Ordered atorvastatin 40 mg oral tablet = 40 mg, By Mouth, Daily at bedtime, # 30 each, 3 Refills, Maintenance, 10/09/22 16:21:00 EDT, Tablet, [facility], Partial fill upon patient request if the prescription is for a schedule II opioid drug., 152, cm, 10/09/22 3:35:00 EDT, He... Start Date: 10/09/22 Stop Date: 02/06/23 Status: Ordered celecoxib 200 mg oral capsule 1 capsule = 200 mg, By Mouth, Daily, # 90 capsule, 0 Refills, Maintenance, 10/17/22 10:02:00 EDT, Capsule, [facility] #[id number], Partial fill upon patient request if the [...] 0 Refills, Soft Stop, 10/11/22 10:11:00 EDT, [facility] #[id number], Partial fill upon patient request if the prescription is for a schedule II opioid drug., 152, cm, 10/09/22 3:3... Start Date: 10/11/22 Status: Ordered fluticasone 50 mcg/inh nasal spray See Instructions, SHAKE LIQUID AND USE 1 SPRAY IN EACH NOSTRIL TWICE DAILY, # 48 Gm, 0 Refills, Maintenance, 03/29/22 15:14:00 EST, [facility] #[id number], 90, SHAKE LIQUID AND USE 1 SPRAY [...] 0 Refills, Maintenance, 05/12/22 8:43:00 EDT, Tablet, [facility] #[id number], Partial fill upon patient request if the prescription is for a schedule II opioid drug., 153,... Start Date: 05/12/22 Status: Ordered Norvasc 2.5 mg oral tablet 2.5 mg, 1, tablet, By Mouth, Daily, # 30 tablet, Refills 1, Tot. Refills 1, Maintenance, 05/12/22 8:43:00 EDT, Route to Pharmacy Electronically, [facility] #[id number], Partial fill upon patientrequest if the prescription [...] Team Personnel Name: Kathleen Lai NP Position: [facility] Associate Professional Member Role: PCP Address: Address: [address] [place] [address] Name: Jean Lane RN Position: [facility] RN Member Role: Primary Care Nurse Name: Delfina Ayoub RN Position: S RN Member Role: Primary Care Nurse Name: Sara Barlow LPN Position: [facility] RN Member Role: Primary Care Nurse Care Team Related Persons Name: LUIS HOGUE Address: home [address] [place] [address] Name: LUIS BHATTI Name: KOBE WADE Address: home [address] [place] [address] Name: TERRELL FORMAN Address: home
--- OUTSIDE RECORDS SUMMARY | 2023-01-09 11:06 | XMS_ITS | Continuity of Care Document ---
Author Name Unknown Organization [facility] Adult Address [address] [place] [address]- Care Team Providers Care Paragliding Instructor Name Role Phone Kathleen Lai NP Primary Care Physician [place] [facility] [place]12[place]22 - 12/19/22 [facility] [address] [place] [phone] Encounter Diagnosis Severe obesity(Discharge Diagnosis) - 12/12/22 Fatty liver disease, nonalcoholic(Discharge Diagnosis) - 12/12/22 Prediabetes(Discharge Diagnosis) - 12/12/22 ALESHA (obstructive sleep apnea)(Discharge Diagnosis) - 12/12/22 HTN (hypertension)(Discharge Diagnosis) - 12/12/22 Attending Physician: Deanna RODRIGUEZ, Candida Allergies, Adverse Reactions, Alerts Substance Reaction Severity [...] (oldterm) 12/11/19 Recorde d 1Result Comment: [facility] [place] [id number] 2Result Comment: [id number] Medications Albuterol (Eqv-ProAir HFA) 90 mcg/inh inhalation aerosol 2 puffs = 180 mcg, Inhalation, Every 4 hours, # 6.7 Gm, 0 Refills, Maintenance, 12/15/20 15:26:00 EDT, Inhaler, [id number], Partial fill upon patient request if the prescription is for a schedule II opioid drug., 2 puffs Inhalation Ev... Start Date: 12/15/20 Stop Date: 01/14/21 Status: Ordered amLODIPine 2.5 mg oral tablet See Instructions, TAKE 1 TABLET BY MOUTH DAILY, # 90 tablet, 0 Refills, Maintenance, 10/17/22 10:14:00 EDT, [facility] #[id number], 152, cm, 10/17/22 9:36:00 EDT, Height, 105, kg, 10/09/22 0:18:00 EDT, Dry Weight Start Date: 10/17/22 Status: Ordered aspirin 81 mg oral tablet, chewable 81 mg, By Mouth, Daily, # 30 tablet, Refills 3, Tot. Refills 3, Maintenance, 11/08/22 8:42:00 EDT, Route to Pharmacy Electronically, [facility] #[id number], Partial fill upon patient request if the prescription is for a schedule II opioid drug.,... Start Date: 11/08/22 Stop Date: 03/08/23 Status: Ordered atorvastatin 40 mg oral tablet = 40 mg, By Mouth, Daily at bedtime, # 30 each, 3 Refills, Maintenance, 10/09/22 16:21:00 EDT, Tablet, [facility], Partial fill upon patient request if the prescription is for a schedule II opioid drug., 152, cm, 10/09/22 3:35:00 EDT, He... Start Date: 10/09/22 Stop Date: 02/06/23 Status: Ordered celecoxib 200 mg oral capsule 1 capsule = 200 mg, By Mouth, Daily, # 90 capsule, 0 Refills, Maintenance, 10/17/22 10:02:00 EDT, Capsule, [facility] #[id number], Partial fill upon patient request if the [...] 0 Refills, Soft Stop, 10/11/22 10:11:00 EDT, [facility] #[id number], Partial fill upon patient request if the prescription is for a schedule II opioid drug., 152, cm, 10/09/22 3:3... Start Date: 10/11/22 Status: Ordered fluticasone 50 mcg/inh nasal spray See Instructions, SHAKE LIQUID AND USE 1 SPRAY IN EACH NOSTRIL TWICE DAILY, # 48 Gm, 0 Refills, Maintenance, 03/29/22 15:14:00 EST, [facility] #[id number], 90, SHAKE LIQUID AND USE 1 SPRAY [...] 0 Refills, Maintenance, 05/12/22 8:43:00 EDT, Tablet, [facility] #[id number], Partial fill upon patient request if the prescription is for a schedule II opioid drug., 153,... Start Date: 05/12/22 Status: Ordered Norvasc 2.5 mg oral tablet 2.5 mg, 1, tablet, By Mouth, Daily, # 30 tablet, Refills 1, Tot. Refills 1, Maintenance, 05/12/22 8:43:00 EDT, Route to Pharmacy Electronically, [facility] #[id number], Partial fill upon patientrequest if the prescription [...] Date: 07/15/21 Stop Date: 07/10/22 Status: Ordered Wegovy (0.25 mg dose) subcutaneous solution = 0.25 mg, Subcutaneous Injection, Every week, for 4 week(s), in the abdomen, thigh, or upper arm, # 2 mL, 0 Refills, Acute 01/09/23 10:42:00 EST, 12/12/22 10:42:00 EDT, Solution, [facility] #[id number], Partial fill upon patient request if the [...] Effective Dates Health Status Clinical Service Informant Severe obesity Discharge Diagnosis 12/12/22 Fatty liver disease, nonalcoholic Discharge Diagnosis 12/12/22 Prediabetes Discharge Diagnosis 12/12/22 ALESHA (obstructive sleep apnea) Discharge Diagnosis 12/12/22 HTN (hypertension) Discharge Diagnosis 12/12/22 Vital Signs Most recent to oldest [Reference Range]: 1 Height 153 cm (12/12/22 9:58 AM) Weight 102.5 kg (12/12/22 9:58 AM) Oxygen Saturation [94-100 %] 99 % (12/12/22 9:58 AM) Pulse Rate [55-90 bpm] 70 bpm (12/12/22 9:58 AM) Body Mass Index [18.5-24.99 kg/m2] 43.79 kg/m2 *>HHI* (12/12/22 9:58 AM) Blood Pressure [90-138/55-84 mm Hg] 139/ 82mm Hg *H* (12/12/22 9:58 AM) Mode of Delivery (Oxygen) Room air (12/12/22 9:58 AM) Blood pressure sites Arm, left (12/12/22 9:58 AM) Social History Social History Type Response Smoking Status Former smoker, quit more than 30 days ago; Other: 11 years 1/2-1PPD; entered on: 05/18/20 Sex Female Patient Care team information Care Team Personnel Name: Kathleen Lai NP Position: [facility] PCO Associate Professional Member Role: PCP Address: Address: [address] [place] [address] Name: Jean Lane RN Position: [facility] RN Member Role: Primary Care Nurse Name: Delfina Ayoub RN Position: S RN Member Role: Primary Care Nurse Name: Sara Barlow LPN Position: [facility] RN Member Role: Primary Care Nurse Care Team Related Persons Name: ULIS HOGUE Address: home [address] [place] [address] Name: LUIS BHATTI Name: KOBE WADE Address: home [address] [place] [address] Name: TERRELL FORMAN Address: home
--- OUTSIDE RECORDS SUMMARY | 2023-01-09 11:06 | XMS_ITS | Continuity of Care Document ---
Author Name Unknown Organization [facility] ter Address [address] [place] [id number] Care Team Providers Care Graphic Design Manager Name Role Phone Joelle HERNANDEZ, Kathleen Primary Care Physician Encounter [facility] ACCT R [id number] Date(s): 10/08/22 - 10/09/[address] [address]- Discharge Disposition: A-D/C Home Attending Physician: Nesha Obrien MD Admitting Physician: Rao Fleming MD Referring Physician: Not on Staff, Referring MD Allergies, Adverse Reactions, Alerts Substance Reaction Severity Status ibuprofen gastritis Active Trileptal hives Persistent Severe Active Immunizations Given and Recorded Vaccine Date Status Refusal Reason tetanus/diphtheria/pertussis, acel(Tdap) 1 11/16/21 Given influenza virus vaccine, inactivated 2 12/15/20 Gi ita SARS-CoV-2 (COVID-19) mRNA BNT-162b2 vac 10/29/20 Recorded SARS-CoV-2 (COVID-19) mRNA BNT-162b2 vac 10/08/20 Recorded Influenza Virus Vaccine (oldterm) 12/11/19 Recorde d 1Result Comment: [facility]: [id number] 2Result Comment: [id number] Medications Acetaminophen Tablet 650 mg, Tablet, By Mouth, Every 4 hours, PRN for Pain , Mild, Temperature Greater than 100.5, Routine, 10/08/22 19:24:00 EDT Start Date: 10/08/22 Stop Date: 10/10/22 Status: Discontinued Albuterol (Eqv-ProAir HFA) 90 mcg/inh inhalation aerosol 2 puffs = 180 mcg, Inhalation, Every 4 hours, # 6.7 Gm, 0 Refills, Maintenance, 12/15/20 15:26:00 EDT, Inhaler, [id number], Partial fill upon patient request if the prescription is for a schedule II opioid drug., 2 puffs Inhalation Ev... Start Date: 12/15/20 Stop Date: 01/14/21 Status: Ordered aspirin 81 mg oral tablet, chewable 81 mg, By Mouth, Daily, # 30 tablet, Refills 3, Tot. Refills 3, Maintenance, 10/09/22 16:21:00 EDT,Route to Pharmacy Electronically, [facility], Partial fill upon patient request if the prescription is for a schedule II opioid drug., 15... Start Date: 10/09/22 Stop Date: 02/06/23 Status: Ordered atorvastatin 40 mg oral tablet = 40 mg, By Mouth, Daily at bedtime, # 30 each, 3 Refills, Maintenance, 10/09/22 16:21:00 EDT, Tablet, [facility], Partial fill upon patient request if the prescription is for a schedule II opioid drug., 152, cm, 10/09/22 3:35:00 EDT, He... Start Date: 10/09/22 Stop Date: 02/06/23 Status: Ordered Compression Stockings See Instructions, # [...] 0 Refills, Soft Stop, 12/15/20 15:30:00 EDT, [id number], Partial fill upon patient request if the prescription is for a schedule II opioid drug., 150, cm, 12/15/20 15... Start Date: 12/15/20 Status: Ordered fluticasone 50 mcg/inh nasal spray See Instructions, SHAKE LIQUID AND USE 1 SPRAY IN EACH NOSTRIL TWICE DAILY, # 48 Gm, 0 Refills, Maintenance, 03/29/22 15:14:00 EST, [facility] #[id number], 90, SHAKE LIQUID AND USE 1 SPRAY [...] 0 Refills, Maintenance, 05/12/22 8:43:00 EDT, Tablet, [id number], Partial fill upon patient request if the prescription is for a schedule II opioid drug., 153,... Start Date: 05/12/22 Status: Ordered Norvasc 2.5 mg oral tablet 2.5 mg, 1, tablet, By Mouth, Daily, # 30 tablet, Refills 1, Tot. Refills 1, Maintenance, 05/12/22 8:43:00 EDT, Route to Pharmacy Electronically, [id number], Partial fill upon patientrequest if the prescription [...] symptom disorder with predominant pain Confirmed Active Results Radiology Reports * Exam Date Time Procedure Performing Provider Status 10/09/22 3:42 PM MRI Brain W/O Contrast Brynn Erazo ; Anitha (Verified) Notes: (MRI Brain W/O Contrast) Reason For Exam: r/0 stroke;Other: RESULT: MRI Brain W/O Contrast MRI Brain W/O Contrast INDICATION: stroke; Clinical Question(s): Infarction; Order Comment: Please see Reference Text for complete list of contraindications Infarction TECHNIQUE: MRI of the brain was performed without contrast utilizing sagittal T1, axial T2, axial FLAIR, axial SWAN, and axial DWI sequences. COMPARISON: 05/19/2020. FINDINGS: BRAIN and EXTRA-AXIAL SPACES: The ventricles, cisterns and sulci are normal. No hydrocephalus. There is no intracranial hemorrhage, tumor or infarct. A few punctate areas of hyperintense T2/FLAIR signals are seen in the white matters bilaterally which are nonspecific and could be due to chronic small vessel ischemic. Please correlate clinically. EXTRACRANIAL SOFT TISSUES: Orbits are unremarkable. Paranasal sinuses and mastoids are unremarkable. BONES: Marrow signal is preserved. IMPRESSION: No acute intracranial pathology. Minimal bilateral white matter disease is nonspecific and may represent chronic small vessel ischemic disease. Please correlate clinically. The findings are similar to prior study. WSN: [id number] Ordering Physician: Ki Pires Dictated By: Aiden Odell MD Dictated Date/Time: 10/09/22 4:05 pm Reviewed By: Aiden Odell MD Signed By: Aiden Odell MD Signed Date/Time: 10/09/22 4:05 pm Transcribed By: PRACHI Transcribed Date/Time: 10/09/22 4:00 pm * Exam Date Time Procedure Performing Provider Status 10/08/22 3:[address] Angio Neck Hyperacute Stroke Cristian kaya Poonam; Auth (Verified) Notes: (CT Angio Neck Hyperacute Stroke) Reason For Exam: Aneurysm, neck vessel(s);Other: RESULT: CT Angio Neck Hyperacute Stroke CT Angio Head Hyperacute Stroke, CT Angio Neck Hyperacute Stroke Reason: Other:; Stroke; Clinical Question(s): Other:; Hematoma Aneurysm / Other: TECHNIQUE: CT angiogram of the head and neck was performed after bolus administration of intravenous contrast. 100 mL of Omnipaque 300 was administered intravenously. Coronal and sagittal MIP reformatted images were obtained. Additional 3-D images were created on a separate workstation under concurrent supervision by the attending radiologist. All stenoses are measured using NASCET criteria. Weight-based protocol using automatic tube modulation was used to optimize exposure parameters. RADIATION DOSE PARAMETERS: CTDIvol Body: 9.77 mGy, DLP Body: 538 mGy*cm. CTDIvol Head: 45.50 mGy, DLP Head: 772 mGy*cm. COMPARISON: Noncontrast CT head performed concurrently. FINDINGS: CTA OF THE NECK: Arch: There is a three vessel aortic arch. The origins of the supra aortic vessels are patent. Right carotid system: The common carotid and cervical internal carotid arteries are patent. No stenosis (0%) by NASCET criteria. Left carotid system: The common carotid and cervical internal carotid arteries are patent. No stenosis (0%) by NASCET criteria. There is a co-dominant vertebral artery system. Patent Right vertebral: Patent. Left vertebral: Patent. Other: Soft tissues and bones: No evidence of lymphadenopathy or mass. The thyroid is unremarkable. Visualized lung apices are clear. There is osseous fusion of the C5-C7 vertebral bodies and posterior elements. CTA OF THE HEAD: Anterior circulation: The intracranial ICAs are patent and normal in caliber. The right A1 segment is hypoplastic. Otherwise, the anterior cerebral arteries are patent and normal in caliber with a small anterior communicating artery noted. Bilateral proximal M2 segments are patent and normal in caliber. Posterior circulation: The vertebral arteries, basilar artery, superior cerebellar arteries, and posterior cerebral arteries are patent with small bilateral posterior communicating arteries noted. Veins: Major dural venous sinuses are patent. Other: Soft tissues and bones: No midline shift or effacement of the basal cisterns. No space-occupying hemorrhage. No territorial loss of salgado-white matter differentiation. Orbits are unremarkable. No significant opacification in the paranasal sinuses or mastoid air cells. IMPRESSION: No proximal occlusion or high grade stenosis in the major arteries of the head and neck. A similar preliminary report was provided by [facility]. WSN: [id number] Ordering Physician: Delfina Colón Dictated By: Ina Sorto MD Dictated Date/Time: 10/09/22 7:54 am Reviewed By: Ina Sorto MD Signed By: Ina Sorto MD Signed Date/Time: 10/09/22 7:54 am Transcribed By: PRACHI Transcribed Date/Time: 10/09/22 7:44 am * Exam Date Time Procedure Performing Provider Status 10/08/22 3:[address] Angio Head Hyperacute Stroke Poonam Parker; Auth (Verified) Notes: (CT Angio Head Hyperacute Stroke) Reason For Exam: Stroke;Other: RESULT: CT Angio Head Hyperacute Stroke CT Angio Head Hyperacute Stroke, CT Angio Neck Hyperacute Stroke Reason: Other:; Stroke; Clinical Question(s): Other:; Hematoma Aneurysm / Other: TECHNIQUE: CT angiogram of the head and neck was performed after bolus administration of intravenous contrast. 100 mL of Omnipaque 300 was administered intravenously. Coronal and sagittal MIP reformatted images were obtained. Additional 3-D images were created on a separate workstation under concurrent supervision by the attending radiologist. All stenoses are measured using NASCET criteria. Weight-based protocol using automatic tube modulation was used to optimize exposure parameters. RADIATION DOSE PARAMETERS: CTDIvol Body: 9.77 mGy, DLP Body: 538 mGy*cm. CTDIvol Head: 45.50 mGy, DLP Head: 772 mGy*cm. COMPARISON: Noncontrast CT head performed concurrently. FINDINGS: CTA OF THE NECK: Arch: There is a three vessel aortic arch. The origins of the supra aortic vessels are patent. Right carotid system: The common carotid and cervical internal carotid arteries are patent. No stenosis (0%) by NASCET criteria. Left carotid system: The common carotid and cervical internal carotid arteries are patent. No stenosis (0%) by NASCET criteria. There is a co-dominant vertebral artery system. Patent Right vertebral: Patent. Left vertebral: Patent. Other: Soft tissues and bones: No evidence of lymphadenopathy or mass. The thyroid is unremarkable. Visualized lung apices are clear. There is osseous fusion of the C5-C7 vertebral bodies and posterior elements. CTA OF THE HEAD: Anterior circulation: The intracranial ICAs are patent and normal in caliber. The right A1 segment is hypoplastic. Otherwise, the anterior cerebral arteries are patent and normal in caliber with a small anterior communicating artery noted. Bilateral proximal M2 segments are patent and normal in caliber. Posterior circulation: The vertebral arteries, basilar artery, superior cerebellar arteries, and posterior cerebral arteries are patent with small bilateral posterior communicating arteries noted. Veins: Major dural venous sinuses are patent. Other: Soft tissues and bones: No midline shift or effacement of the basal cisterns. No space-occupying hemorrhage. No territorial loss of salgado-white matter differentiation. Orbits are unremarkable. No significant opacification in the paranasal sinuses or mastoid air cells. IMPRESSION: No proximal occlusion or high grade stenosis in the major arteries of the head and neck. A similar preliminary report was provided by [facility]. WSN: [id number] Ordering Physician: Delfina Colón Dictated By: Ina Sorto MD Dictated Date/Time: 10/09/22 7:54 am Reviewed By: Ina Sorto MD Signed By: Ina Sorto MD Signed Date/Time: 10/09/22 7:54 am Transcribed By: PRACHI Transcribed Date/Time: 10/09/22 7:44 am * Exam Date Time Procedure Performing Provider Status 10/08/22 3:46 PM Chest Portable Aleshia Howard; Mahnaz th (Verified) Notes: (Chest Portable) Reason For Exam: Stroke;Other: RESULT: Chest Portable Chest Portable Reason: Other:; Stroke; Clinical Question(s): CHF COMPARISON: [facility], most recent dated 05/11/2022 FINDINGS: LINES AND TUBES: None. LUNGS AND PLEURA: Clear lungs. Normal pulmonary vascularity. No pleural effusion. No pneumothorax. HEART, MEDIASTINUM AND HEMALATHA: Heart is normal in size. Normal mediastinal and hilar contour. BONES AND SOFT TISSUES: No acute abnormality. IMPRESSION: No acute abnormality. WSN: [id number] Ordering Physician: Delfina Colón Dictated By: Radha Garcia MD Dictated Date/Time: 10/08/22 4:02 pm Reviewed By: Radha Garcia MD Signed By: Radha Garcia MD Signed Date/Time: 10/08/22 4:02 pm Transcribed By: PRACHI Transcribed Date/Time: 10/08/22 4:01 pm * Exam Date Time Procedure Performing Provider Status 10/08/22 3:[address] Head-Hyper Acute Stroke Poonam Ceballos; Auth (Verified) Notes: (CT Head-Hyper Acute Stroke) Reason For Exam: Neuro deficit, acute, stroke suspected;Other: RESULT: CT Head-Hyper Acute Stroke CT Head-Hyper Acute Stroke INDICATION: Reason: Other:; Neuro deficit, acute, stroke suspected; Clinical Question(s): Other:; Hematoma Infarction TECHNIQUE: Noncontrast head CT using axial technique and reconstructed in axial and coronal planes.Iterative reconstruction techniques are used to optimize dose and image quality. CTDIvol Body: 9.77 mGy, DLP Body: 538 mGy*cm. CTDIvol Head: 45.50 mGy, DLP Head: 772 mGy*cm. COMPARISON: [facility], most recent dated 05/11/2022 FINDINGS: Appellate Court Clerk view findings, lines and tubes: None. BRAIN AND EXTRA-AXIAL SPACES: No parenchymal hemorrhage, midline shift, or mass effect. Salgado-white matter differentiation is wellpreserved. No acute infarct. Negative insular ribbon and hyperdense vessel signs. Ventricles, sulci, and basilar cisterns are normal. No white matter lesions. No subarachnoid hemorrhage. No subdural or epidural collection. CALVARIUM, SKULL BASE, AND SOFT TISSUES: No fractures or suspicious bony lesions. The paranasal sinuses and mastoid air cells are clear. Visualized orbits and globes are intact. The extracranial soft tissues are unremarkable. IMPRESSION: No CT evidence of acute intracranial abnormality. WSN: [id number] Ordering Physician: Delfina Colón Dictated By: Radha Garcia MD Dictated Date/Time: 10/08/22 3:52 pm Reviewed By: Radha Garcia MD Signed By: Radha Garcia MD Signed Date/Time: 10/08/22 3:52 pm Transcribed By: PRACHI Transcribed Date/Time: 10/08/22 3:50 pm Vital Signs Most recent to oldest [Reference Range]: 1 2 3 Height 152 cm (10/09/22 3:31 AM) 152 cm (10/08/22 11:35 PM) 152 cm (10/08/22 11:32 PM) Weight 105 kg (10/08/22 11:05 PM) 105 kg (10/08/22 11:00 PM) Oxygen Saturation [94-100 %] 99 % (10/09/22 2:27 PM) 100 % (10/09/22 9:53 AM) 99 % (10/09/22 6:42 AM) Pulse Rate [55-90 bpm] 84 bpm (10/09/22 2:27 PM) 79 bpm (10/09/22 9:53 AM) 94 bpm *H* (10/09/22 6:42 AM) Body Mass Index [18.5-24.99 kg/m2] 45.45 kg/m2 *>HHI* (10/08/22 11:05 PM) Blood Pressure [90-138/55-84 mm Hg] 109/52mm Hg (10/09/22 2:27 PM) 128/72mm Hg (10/09/22 9:53 AM) 121/62mm Hg (10/09/22 6:42 AM) Respiratory Rate [16-30 br/min] 18 br/min (10/09/22 5:15 PM) 18 br/min (10/09/22 2:27 PM) 18 br/min (10/09/22 1:27 PM) Temperature [96.8-100.4 DegF] 98.0 DegF (10/09/22 2:27 PM) 97.8 DegF (10/09/22 9:53 AM) 97.8 DegF (10/09/22 6:42 AM) Mode of Delivery (Oxygen) Room air (10/09/22 2:27 PM) Room air (10/09/22 9:53 AM) Room air (10/09/22 6:42 AM) Blood pressure sites Arm, right (10/09/22 2:27 PM) Arm, right (10/09/22 9:53 AM) Arm, left (10/09/22 6:42 AM) Temperature Route Temporal (10/09/22 2:27 PM) Temporal (10/09/22 9:53 AM) Temporal (10/09/22 6:42 AM) Dry Weight 105 kg (10/08/22 11:05 PM) Social History Social History Type Response Smoking Status Former smoker, quit more than 30 days ago; Other: 11 years 1/2-1PPD; entered on: 05/18/20 Sex Female History and physical note * Pranay RODRIGUEZ, Ki: PERFORM Event Display: History and Physical Hospital Authored Date: [id number] Patient: ??GERALDO NAM ? Age:??52 Years?Sex:??Female?:??1970?? Chief Complaint/Reason for Consultation chest pain then right hand weakness History of Present Illness Patient is a??52-year-old female with past medical history of??hypertension, GERD,??? Stomach ulcer,??bipolar disorder??currently not on medication, migraine headache currently not on medication,??ALESHA, obesity,??she presented with??sudden onset of??stabbing chest pain??that happened twice??while driving at around 3??PM.?? She felt??2 stabs??following which started having??numbness and tingling inthe right upper extremity with right arm weakness.?She also reports left??sided temporal headache??at that time. ??She went to her car and called EMS.?? Since then she has not had any chest pain.?? She reports history of??hypertension and tobacco abuse and??has been compliant with her medications .?? She also reports history of migraine??for which she is currently not on any medication. ??History of left-sided temporal headache in the past??with her migraines.?? She has no history of??stroke.?? She reports having cardiac CT??in 2020 which??according to her was normal.?? In the ED stroke protocol was activated and CT head??noncontrast and CTA head and neck was done.?? Neurology was also consulted.?? She was given 4 baby aspirin in route to the hospital.?? Neurology team spoke with her about LP which??neuro documentation she refused.?? Being admitted for further management.?? Currently she denies any chest pain or shortness of breath or palpitation no right arm weakness, numbness or??h eadache.?? She has no??cough or runny nose. ??No regular chills. ??No abdominal pain or constipation or diarrhea or nausea or vomiting. ??No??dysuria urgency or frequency. ??No??weakness of legs or arms. ??No confusion or vision changes. Review of Systems All other review of systems were negative with the exception of those noted above in the HPI.?? Objective Measurements?? Height: 152 cm (10/09/22) Weight: 105 kg (10/08/22) Dry Weight: 105 kg (10/08/22) Body Mass Index:??45.45 kg/m2??Critical (10/08/22) ? Vital Signs?? Temperature: 97.8 DegF (10/09/22 03:31:00) Temperature Route: Oral (10/09/22 03:31:00) Pulse Rate:??91 bpm??High (10/09/22 03:31:00) Respiratory Rate: 17 br/min (10/09/22 03:31:00) Systolic Blood Pressure:??153 mm Hg??High (10/09/22 03:31:00) Diastolic Blood Pressure:??91 mm Hg??High (10/09/22 03:31:00) Blood pressure sites: Arm, left (10/09/22 03:31:00) Mean Arterial Pressure: 112 mm Hg (10/09/22 03:31:00) Pulse Pressure: 62 mm Hg (10/09/22 03:31:00) Oxygen Saturation: 100 % (10/09/22 03:31:00) Mode of Delivery (Oxygen): Room air (10/09/22 03:31:00) Early Warning Score: 2 (10/09/22 03:35:46) ? Intake/Output? 10/08 15:30 10/09 07:00 10/08 07:00 10/07 07:00 10/06 07:00 ?? 10/09 06:41 10/09 06:41 10/09 06:59 10/08 06:59 10/07 06:59 Intake ?900 ?0 ?900 ?0 ?0 Output ?0 ?0 ?0 ?0 ?0 Net Total ?900 ?0 ?900 ?0 ?0 ? NIH Stroke Scale Level of Consciousness for Stroke Scale: Alert (10/08/22 16:00:00) Response Month/Age: Answers both questions correctly (10/08/22 16:00:00) Response Open/Close Eyes: Performs both tasks correctly (10/08/22 16:00:00) Best Gaze: Normal (10/08/22 16:00:00) Visual: No visual loss (10/08/22 16:00:00) Facial Palsy: Normal symmetrical movements (10/08/22 16:00:00) Motor Function Left Arm: No drift (10/08/22 16:00:00) Motor Function Right Arm: Drift (10/08/22 16:00:00) Motor Function Left Leg: No drift (10/08/22 16:00:00) Motor Function Right Leg: Drift (10/08/22 16:00:00) Limb Ataxia: Absent (10/08/22 16:00:00) Sensory: Mild to moderate sensory loss (10/08/22 16:00:00) Best Language: No aphasia (10/08/22 16:00:00) Dysarthria NIH Stroke Scale: Normal (10/08/22 16:00:00) Extinction and Inattention: No abnormality (10/08/22 16:00:00) NIH Stroke Scale Score: 3 (10/08/22 16:00:00) ? Physical Exam Constitutional: Alert, in no acute distress. Head EENT: Extraocular muscle movement intact.??Moist mucous membranes.?? Neck: Supple. Respiratory: Clear to auscultation. No wheezing or crackles. No use of accessory muscles. Cardiovascular: S1S2 regular. No murmurs, rubs or gallops. No radio radial or radio femoral delay Gastrointestinal: Abdomen soft, non-tender, non-distended. Normal bowel sounds. Genitourinary: No CVA tenderness. Extremities: No lower extremity pitting??edema. No cyanosis or clubbing. Neurologic: AAOx3, Speech normal. No focal neurological deficits. Skin: No rash. Psychiatric: Normal mood and affect Assessment/Plan Diagnoses 1. ??Right arm weakness ??(R29.898) 2. ??Atypical chest pain ??(R07.89) 3. ??HTN (hypertension) ??(I10) 4. ??GERD (gastroesophageal reflux disease) ??(K21.9) 5. ??Bipolar disorder ??(F31.9) 6. ??Migraine headache ??(G43.909) 7. ??ALESHA (obstructive sleep apnea) ??(G47.33) 8. ??Severe obesity ??(E66.01) ?? Right arm weakness (R29.898):??; ?? Atypical chest pain (R07.89):??She felt stabbing in her chest x2 which resolved without any intervention. Since then has not had any recurrence of chest pain. Right hand weakness/numbness is resolvedat time of interview but was present for more than 1 hour. ACS appears to be less likely with negative troponins, nonacute EKG and resolution of chest pain. No hypoxia or tachycardia or leg swelling to suggest PE. No radial radial or radial femoral delay. Full resolution of pain which was brief. Etiology appears less likely. Also patient is not hypotensiveand. ED documentation states that aortic arch did not show any abnormality on CT neck, final radiology read pending. With regards to right arm weakness which is resolved differential includes migraine, TIA/stroke. ?? -CT head and CTA head and neck nonacute. Final read of CT head and neck pending -Per ED documentation history of aorta was unremarkable, will await final read from [facility], may need to discuss with radiology in the morning. -Trope checked, negative x2 -EKG nonacute compared to 2021 -Check lipid panel, A1c, hepatic function ??-She passed bedside swallow is okay for diet - -She received aspirin 324 mg x 1 in the ED. We will continue aspirin 81 mg daily, Start atorvastatin 40 mg daily - Every 4 neurochecks -Continue cardiac telemetry monitoring -Neurology recommendation appreciated, MRI ordered -With regards to chest pain, will rule out ACS as above, appears less likely. We will add NT proBNPto labs and order echo . Check Blood pressure in both arms.. She had cardiac CT in 2020. If chest pain recurs, may need stress testing. ?? HTN (hypertension) (I10):??on amlodipine 2.5 mg daily at home. ED ordered amlodipine which she has already received with improvement in blood pressure, will hold further amlodipine pending MRI in thesetting of permissive hypertension. Fold in amlodipine in the morning ?? GERD (gastroesophageal reflux disease) (K21.9):??? History of gastric ulcer -Records not available for review, on pantoprazole which we will continue -On celecoxib at home which we will hold for now ?? Bipolar disorder (F31.9):??Not??on??medication ?? Migraine headache (G43.909):??Not on medication ? Asthma, continue albuterol as needed, Flonase nasal spray Vertigo, on as needed meclizine, continue ?? Leukocytosis, etiology unclear, afebrile, no clear signs of infection, trend white cell count ? DVT ppx with hepari ?? Full code ? Histories Allergies Allergies ?(Active and Proposed Allergies Only) Trileptal? (Severity: Persistent Severe, Onset: Unknown) ?Reactions: hives ibuprofen? (Severity: Unknown severity, Onset: Unknown) ?Reactions: gastritis ? Past Medical History/Problem List Active Problems??(22) Auditory hallucinations Bipolar disease, chronic Bipolar disorder Chronic GERD CKD - chronic kidney disease Fatty liver disease, nonalcoholic Fibromyalgia GERD (gastroesophageal reflux disease) History of alcohol abuse HTN (hypertension) Learning disability Mastodynia Migraine headache Moderate somatic symptom disorder with predominant pain Non compliance w medication regimen ALESHA (obstructive sleep apnea) Osteoporosis Panic disorder with agoraphobia Poor historian Prediabetes PTSD - Post-traumatic stress disorder Severe obesity ? Past Surgical History History of cervical spine surgery Appendectomy ? Social History Alcohol Details:??Use: Never. Details:??Use: Current. ??Frequency: 1-2 times per year. Employment/School Details:??Status: Unemployed. Details:??Status: Disabled. Home/Environment Details:??Living situation: Home/Independent. 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 Details:??Living situation: Home/Independent. ??Lives with: ANIMAL THERAPIST. ??Risks in environment: Dog - RIGOBERTO. Sexual Details:??Sexually involved in last 6 months: No. Substance Abuse Details:??Use: Current. ??Type: Marijuana. ??Other: Drops and gummies and smokes. Details:??Use: Current. ??Type: Marijuana. ??Other: Has medical license. Tobacco Details:??Use: Former smoker, quit more than 30 days ago. ??Other: 11 years 1/2-1PPD. Details:??Use: Former smoker, quit more than 30 days ago. Details:??Tobacco use times per day: Smoked 4-5 years (3 cigarettes/day), quit at 44. ? Family History Mother: Cervical cancer Daughter: Diabetes mellitus ? Medications Home Medications Albuterol (Albuterol (Eqv-ProAir HFA) 90 mcg/inh inhalation aerosol)?2?puff(s)?180?Microgram?Inhalation?Every 4 hours?for 30?Days Amlodipine (Norvasc 2.5 mg oral tablet)?2.5?Milligram?1?tablet?By Mouth?Daily Celecoxib (celecoxib 200 mg oral capsule)?1?capsule?200?Milligram?By Mouth?2 times a day Durable Medical Equipment (Compression Stockings)?See Instructions?surgical, knee length 20-30 mm HgDX: VENOUS INSUFF ??B/L LEG SWELLING Durable Medical Equipment (Juxtafit Knee-high Compression Garments(bilateral, left, right) with 2 pairs of hybrid socks)?See Instructions?as directedDX: VENOUS INSUFF ??B/L LEG SWELLING Durable Medical Equipment (CPAP ??Machine)?See Instructions?AutoCPAP 8-14 cm H20, use Daily when sleeping Durable Medical Equipment (Compression Stockings)?See Instructions?surgical, knee high 20-30 mm Hg, leg swelling, obesity, leg pain EPINEPHrine (EpiPen 2-Rigoberto 0.3 mg injectable kit)?0.3?Milligram?Intramuscular?Once?asneeded?Anaphylactic Reaction Fluticasone Nasal (fluticasone 50 mcg/inh nasal spray)?See Instructions?SHAKE LIQUID AND USE 1 SPRAY IN EACH NOSTRIL TWICE DAILY Meclizine (meclizine 25 mg oral tablet)?1?tab(s)?25?Milligram?By Mouth?3 times a day?as needed?for dizziness Pantoprazole (pantoprazole 40 mg oral delayed release tablet)?1?tab(s)?40?Milligram?By Mouth?2 times a day?for 90?Days ? Inpatient Medications Medications (16) Active SCHEDULED: (5) Aspirin 81 mg Chew Tablet (aspirin 81 mg oral tablet, chewable) ??81 mg, By Mouth, Daily Atorvastatin 40 mg Tablet (atorvastatin 40 mg oral tablet) ??40 mg, By Mouth, Daily Heparin 5000 units/mL Inj (1 mL) (Heparin Inj) ??7,500 units 1.5 mL, Subcutaneous Injection, 3 times a day NaCl 0.9% Flush 3ml (NaCL 0.9% Flush) ??3 mL, IV Push, Every 8 hours Pantoprazole 40 mg EC Tablet (pantoprazole 40 mg oral delayed release tablet) ??40 mg, By Mouth, 2 times a day CONTINUOUS: (1) NaCL 0.9% (1000 mL) Cont IV 1,000 mL (0.9% NaCL 1,000 mL) ??1,000 mL, IV Infusion, 100 mL/hr PRN: (10) Acetaminophen 325 mg Tablet (Acetaminophen Tablet) ??650 mg, By Mouth, Every 4 hours Albuterol 90mcg/Inhalation Inhaler HFA (Ventolin 90 mcg Inhaler) ??90 mcg 1 puffs, Inhalation, Every 4 hours Dextromethorphan-Guaifenesin 20 mg-200 mg/10 mL Liqu UD (Robitussin DM Liquid) ??10 mL, By Mouth, Every 4 hours Fluticasone Propionate 50mcg/inh Nasal [place] (fluticasone 50 mcg/inh nasal spray) ??50 mcg 1 sprays, Nares, Both, 2 times a day Meclizine 12.5 mg Tablet (meclizine 12.5 mg oral tablet) ??25 mg, By Mouth, 3 times a day Melatonin 3 mg Tablet (Melatonin Tablet) ??3 mg, By Mouth, Daily at bedtime NaCl 0.9% Flush 3ml (NaCL 0.9% Flush) ??3 mL, IV Push, Every 8 hours Polyethylene Glycol 17 Gm Powder (MiraLax Powder) ??17 Gm 1 pack/packet, By Mouth, Daily Senna 8.6 mg / Docusate 50 mg tablet (Docusate/Senna Tablet) ??1 tablet, By Mouth, 2 times a day Simethicone 80 mg Chewable Tablet (Simethicone Tablet) ??80 mg, Chew, 3 times a day ? Results Recent Labs BLOOD BANK Blood Type O Positive ()?? 10/08/2022 15:32 Antibody Screen Negative ()?? 10/08/2022 15:32 ?? BLOOD COUNT & DIFF WBC 15.6 k/mm3 (High)?? 10/08/2022 15:40 RBC 4.09 m/mm3 (Low)?? 10/08/2022 15:40 Hgb 12.8 Gm/dL ()?? 10/08/2022 15:40 Hct 38.3 % ()?? 10/08/2022 15:40 MCV 93.6 femtoliters ()?? 10/08/2022 15:40 MCH 31.3 pg ()?? 10/08/2022 15:40 MCHC 33.4 g/dL ()?? 10/08/2022 15:40 Platelet Count 418 k/mm3 ()?? 10/08/2022 15:40 RDW-SD 45.3 femtoliters ()?? 10/08/2022 15:40 MPV 10.0 femtoliters ()?? 10/08/2022 15:40 Nucleated RBC (Automated) 0.0 #/100 WBC'S ()?? 10/08/2022 15:40 Abs. NRBC 0.0 k/mm3 ()?? 10/08/2022 15:40 Abs. Neut 9.5 k/mm3 (High)?? 10/08/2022 15:40 Abs. Lymph 4.6 k/mm3 (High)?? 10/08/2022 15:40 Abs. [place] 1.2 k/mm3 (High)?? 10/08/2022 15:40 Abs. Eo 0.1 k/mm3 ()?? 10/08/2022 15:40 Abs. Baso 0.0 k/mm3 ()?? 10/08/2022 15:40 Neut % 61.0 % ()?? 10/08/2022 15:40 Lymph % 29.7 % ()?? 10/08/2022 15:40 [place] % 7.8 % ()?? 10/08/2022 15:40 Eos % 0.8 % ()?? 10/08/2022 15:40 Baso % 0.3 % ()?? 10/08/2022 15:40 Imm Gran 0.4 % ()?? 10/08/2022 15:40 Abs. Imm Gran 0.1 k/mm3 ()?? 10/08/2022 15:40 ?? CARDIAC High Sensitivity Troponin (HSTnT) <6 ng/L ()?? 10/08/2022 19:53 ?? CHEM GENERAL Sodium 139 mmol/L ()?? 10/08/2022 18:43 Potassium 4.0 mmol/L ()?? 10/08/2022 18:43 Chloride 106 mmol/L ()?? 10/08/2022 18:43 Bicarbonate Level 24 mmol/L ()?? 10/08/2022 18:43 Anion Gap 9 ()?? 10/08/2022 18:43 Glucose Level 130 mg/dL (High)?? 10/08/2022 18:43 Glucose, POC 96 mg/dL ()?? 10/08/2022 15:33 Hemoglobin A1C (Monitoring) 6.0 % (High)?? 10/08/2022 15:40 BUN 11 mg/dL ()?? 10/08/2022 18:43 Creatinine-Blood 1.0 mg/dL ()?? 10/08/2022 18:43 Estimated GFR Creatinine 70 ML/MIN/1.73 M2 ()?? 10/08/2022 18:43 Calcium 9.1 mg/dL ()?? 10/08/2022 18:43 Protein, Total 6.4 Gm/dL ()?? 10/08/2022 18:43 Albumin 3.7 Gm/dL ()?? 10/08/2022 18:43 AG Ratio 1.4 ()?? 10/08/2022 18:43 Alkaline Phosphatase 80 units/L ()?? 10/08/2022 18:43 AST (SGOT) 15 units/L ()?? 10/08/2022 18:43 ALT (SGPT) 13 units/L ()?? 10/08/2022 18:43 Bilirubin, Total 0.2 mg/dL ()?? 10/08/2022 18:43 ?? COAG INR 1.0 ()?? 10/08/2022 16:31 Protime (PT) 10.5 seconds ()?? 10/08/2022 16:31 APTT 26.8 seconds ()?? 10/08/2022 16:31 ?? ENDOCRINE/TUMOR MARKER TSH 1.40 uIU/mL ()?? 10/08/2022 15:40 Serum Qual NEGATIVE mIU/mL ()?? 10/08/2022 16:31 ?? LIPID STUDIES Cholesterol 218 mg/dL (High)?? 10/08/2022 18:43 Triglycerides 113 mg/dL ()?? 10/08/2022 18:43 HDL Cholesterol 50 mg/dL ()?? 10/08/2022 18:43 LDL Cholesterol 145 mg/dL (High)?? 10/08/2022 18:43 Non HDL Cholesterol 168 mg/dL (High)?? 10/08/2022 18:43 ?? URINE OTHER Est Creatinine Clearance 45.83 mL/min ()?? 10/09/2022 00:18 ?? VIROLOGY COVID-19 by RT-PCR NEGATIVE ()?? 10/08/2022 19:53 ?(10/08/2022 15:46 EDT Chest Portable) No acute abnormality. [1] ?? (10/08/2022 15:[address] Head-Hyper Acute Stroke) No CT evidence of acute intracranial abnormality [2] [1]??Chest Portable; Radha Garcia MD 10/08/2022 15:46 EDT [2]??CT Head-Hyper Acute Stroke; Radha Garcia MD 10/08/2022 15:49 EDT EKG study * Event Display: EKG Authored Date: * Event Display: ECG 12-Lead Authored Date: Please click on pdf link to open report * Event Display: ECG 12-Lead Authored Date: Ventricular Rate: 95 BPM Atrial Rate: 95 BPM P-R Interval: 132 ms QRS Duration: 82 ms Q-T Interval: 354 ms QTC Calculation(Bazett): 444 ms P [place]: 63 degrees R [place]: 29 degrees T [place]: 3 degrees Normal sinus rhythm Nonspecific ST abnormality Abnormal ECG When compared with ECG of 11-MAY-2022 06:43, No significant change was found Confirmed by MARIAM MILLAN MD ([id number]) on 10/09/2022 8:46:12 AM [place]: MARIAM MILLAN MD US Heart * Event Display: Echocardiogram - Complete Authored Date: [id number] Transthoracic Echocardiography Report (TTE) Patient Demographics Patient Name GERALDO NAM Date of Study 10/09/2022 Corporate Gender Female Facility Race Ethnicity or Date of 1970 Height: 60 inches Age 52 year(s) Weight: 231.51 pounds Accession Number [id number] BSA: 1.99 m2 Room Number D321 BMI: 45.21 kg/m2 Referring Physician Pranay Emerson MD Interpreting Toño Osorio MD Physician Materials Planner Tabitha Machado [facility] [[email or web address]] Indications Chest pain. Clinical History Obesity. Hypertension. ALESHA Study Data Type of Study TTE procedure:Echo Complete-Doppler, Colorflow, M-Mode. Study Date10/09/2022 Start Time: 07:19 AM Study Location: [facility] Adult Echo Study Status: Bedside Patient Status: Routine Technical Quality: Fair Blood Pressure:121/62 mmHg EKG: Normal sinus rhythm HR: 78 bpm 2D Measurements LV Diastolic Dimension: 4.7 cm LV Systolic Dimension: 3.4 cm LV Septum Diastolic: 0.8 cm LV PW Diastolic: 0.9 cm AO Root Dimension: 2.9 cm LA Dimension: 3.5 cm LA ESV (BP):40 ml LVOT Stroke Volume: 57.12 ml LA ESV Index: 20 ml/m2 Stroke Volume Index28.7 ml/m2 LVOT: 2.1 cm Cardiac Index:2.24 l/min/m2 Ascending Aorta:3.3 cm Doppler Measurements AV Peak Velocity: 122 cm/s MV Peak E-Wave: 83.6 cm/s AV Peak Gradient: 5.95 mmHg MV Peak A-Wave: 72.5 cm/s AV Mean Gradient: 3 mmHg MV E/A Ratio: 1.15 AV VTI:24.3 cm MV P1/2t: 61 msec LVOT Peak Velocity: 75 cm/s LVOT VTI16.5 cm MV Deceleration Time: 208 msec AV Area (Continuity):2.35 cm2 MV Area (PHT): 3.61 cm2 TR Velocity:205 cm/s TR Gradient:16.81 mmHg Estimated RAP:5 mmHg Estimated RVSP: 21.8 mmHg E' Septal Velocity: 7.83 cm/s E' Lateral Velocity: 11.6 cm/s E/Med E':10.36711 E/Lat E':7.971315 Cardiac Anatomy Left Ventricle/Interventricular Septum The left ventricular size is normal. Left ventricular wall thickness is normal. The LV systolic function is normal . The left ventricular ejection fraction is 50-60 %. Cannot rule out basal to mid inferolateral and basal inferior wall hypokinesis. Left Atrium/Interatrial Septum The left atrium is normal in size. Aortic Valve The aortic valve leaflet opening is normal . There is no aortic stenosis. There is no significant aortic regurgitation. Mitral Valve The mitral valve appears mildly calcified. There is trace mitral regurgitation. Aorta The aortic root is normal in size. Right Ventricle The right ventricular size and function appears grossly normal. Right Atrium The right atrium is normal in size. Pulmonic Valve The pulmonic valve velocity is normal. Tricuspid Valve There is trace tricuspid valve regurgitation. Pumonary Artery An accurate pulmonary artery pressure could not be obtained. Venous Structures The inferior vena cava appears grossly normal. Pericardium/Extracardiac There is no significant pericardial effusion. Summary The left ventricular size is normal. Left ventricular wall thickness is normal. The LV systolic function is normal . The left ventricular ejection fraction is 50-60 %. Cannot rule out basal to mid inferolateral and basal inferior wall hypokinesis. The right ventricular size and function appears grossly normal. Comparison Comparison is made to the study of May 11, 2022. Cannot rule out basal to mid inferolateral and basal inferior wall hypokinesis on the current study. Signature * Event Display: Echocardiogram - Complete Authored Date: Cardiology * Event Display: Cardiac Rhythm Strips Authored Date: Hospital Progress note * Tamra Israel: PERFORM, SIGN, VERIFY Event Display: Progress Note [facility] Authored Date: Patient: GERALDO NAM Age: 52 years Sex: Female : 1970 Associated Diagnoses: None Author: Tamra Israel Findings Narrative/Incidental Behavioral Resource Clinician Note - Chart reviewed due to triggering of systems-generated psych consult per [place] Suicide Severity Scale on stockroom worker assessment of suicidality. Patient stated, no when asked if ???wished to be ?? in the past month or had ???suicidal thoughts?? in the past month. Symptoms DO NOT warrant formal psych consult at this time. Please continue to assess fordepression and suicidal ideation, consider placing formal psychiatric consult if warranted. Education on symptoms of depression and when to seek help placed in pt's dc plan. . * Zofia Foster RN: PERFORM, SIGN, VERIFY Event Display: Progress Note Hospital Authored Date: [id number] Patient: GERALDO NAM Age: 52 years Sex: Female : 1970 Associated Diagnoses: None Author: Zofia Foster RN Findings Narrative/Incidental Pt arrived to [facility] via stretcher, ambulated to bed with minimal assist. A+Ox4. VSS. Reports minimal discomfort in left side of her head. Denies CP, SOB, cough, nausea, vomiting, or abd pain. Pt reports, right arm weakness improved as well as numbnes and tingling. Pt reports has chronic right fingerstingling. No deficits noted in RUE. Telemetry: SR. LSCTA. IVF infusing. Pt oriented to unit, call rainey system and bed building maintenance mechanic. Refer to pratima for full assessment.. Consult note * Sanjay HERNANDEZ, Mishel Santillan: MODIFY, MODIFY, MODIFY, MODIFY, PERFORM, MODIFY Event Display: Consultation Note Authored Date: [id number] Patient: ??GERALDO NAM ? Age:??52 Years?Sex:??Female?:??1970?? Chief Complaint/Reason for Consultation Chest pain and right sided weakness with numbness History of Present Illness Ms. Nam is a 52-year-old female PMH significant for bipolar disorder, CKD, Hx ETOH abuse, HTN, Pre-DM, ALESHA, TIA, former smoker, hemiplegic migraines, and PTSD with panic disorder and agoraphobia who presented as an acute stroke for chest pain followed by RUE weakness and tingling. The patient reports she was leaving scientology and on her way to visit her sister. While driving she experienced chest pain/pressure,??acute onset abrupt severe headache, nausea, and RUE weakness with a flow of RUE??tingling. She called EMS and was brought to the ED.??LWK: 1510. HR: 128. BP: 188/100. POC: 96. ASA was administered by EMS.??In the ED, left sided headache improved to 7/10; stating it feels somewhat like her migraines.??CT Head nonacute. CTA Head/Neck without LVO or high grade stenosis. TNK deferredgiven low suspicion for acute stroke. No LVO for NEV intervention. ? Objective Vital Signs?? Temperature?98.3 ?(16:25) Systolic Blood Pressure?172 ?(16:14) Diastolic Blood Pressure?100 ?(16:14) Pulse?116 ?(16:14) SpO2?99 ?(16:14) Respiratory Rate?16 ?(16:14) ? NIH Stroke Scale: ?? 1a. LOC (0-alert; 1-not alert, arousable; 2-not alert, obtunded; 3- nonresponsive): 0 1b. Questions (0-answers two correctly; 1-answers one correctly; 2-answers neither correctly): 0 1c. Commands (0-perform two tasks; 1-performs one task; 2-performs neither tasks): 0 2. Gaze (0-normal; 1-partial gaze palsy; 2-forced deviation): 0 3. Visual cartwright (0-no visual loss; 1-partial hemianopsia; 2-complete hemianopsia; 3-bilateral hemianopsia): 0 4. Facial palsy (0-normal; 1-minor palsy; 2-partial palsy; 3-complete paralysis): 0 5a. Motor left arm (0-normal; 1-drift before 10 sec; 2-falls before 10 sec; 3-no effort against gravity; 4-no movement): 0 5b. Motor right arm (0-normal; 1-drift before 10 sec; 2-falls before 10 sec; 3- no effort against gravity; 4-no movement): 0 6a. Motor left leg (0-normal; 1-drift before 5 sec; 2-falls before 5 sec; 3-no effort against gravity; 4-no movement): 0 6b. Motor right leg (0-normal; 1-drift before 5 sec; 2-falls before 5 sec; 3-no effort against gravity; 4-no movement): 0 7. Ataxia (0-absent; 1-one limb; 2-two limbs): 0 8. Sensory (0-absent; 1-mild/moderate; 2-severe/total loss): 1 9. Language (0-normal; 1-mild/moderate loss; 2-severe aphasia; 3-mute): 0 10. Dysarthria (0-normal; 1-mild/moderate; 2-severe): 0 11. Extinction (0-normal; 1-mild-one modality; 4-[id number]-[id number] modality): 0 ?? NIHSS Total:??1 ? Physical Exam General:?52-year-old female, who appears stated age. Alert and attentive. Responds appropriatelyto questioning. Speech mildly delayed, but clear Integ: Skin is warm, dry and intact. No diaphoresis.?? HEENT: Eyes symmetrical. Pupils 2mm, equally round, regular, and responsive to light. Extraocular eye movements intact. No nystagmus. Hearing grossly intact.?? Cardiovascular:??Heart rate 120s on monitor. Respiratory: Respirations even and unlabored. GI: Abd soft, and nondistended. Extremities: warm and perfused. Neurological: Mental status: A&O x3. Answers questions and follows commands. Identifies 3/3 object on stroke card. Cranial Nerves: II: Pupils 2mm equally round, regular and reactive to light III, IV, : EOM intact, no gaze preference or deviation. No nystagmus. VFF V: Facial sensation intact to light touch in V1, V2, and V3 segments. VII: No facial weakness on activation VIII: Normal hearing to speech IX, X:??Normal palatal elevation, no uvular deviation.?? XI: Shoulder shrug intact bilaterally XII: Midline tongue protrusion Motor: Musculoskeletal development appropriate for age and gender. Moves extremities independently.?? Strength Door Repairman: L: 5/5 ? R: 5/5 Deltoids: L: 5/5 ? R:4+/5 very mild drift initially, though not on secondary examination Biceps: ?? L: 5/5 ? R:5/5 Triceps: ?? L: 5/5 ? R:5/5 Knee extension: L: 5/5 ? R: 5/5 Sensory: Sensation intact to light touch in all limbs; subjectively decreased on RUE. No hemineglect, no extinction to double sided stimulation Coordination: Finger to nose without dysmetria Gait: Deferred. Assessment/Plan 52-year-old female with PMH significant for bipolar disorder, CKD, Hx ETOH abuse, HTN, Pre-DM, ALESHA,TIA, former smoker, hemiplegic migraines, and PTSD with panic disorder and agoraphobia who presented as an acute stroke for chest pain followed by RUE weakness and tingling. The patient was??driving to visit her sister when she experienced chest pain/pressure,??acute onset abrupt severe headache, nausea, and RUE weakness with a flow of RUE??tingling. She called EMS and was brought to the ED.??LWK: 1510. HR: 128. BP: 188/100. POC: 96. ASA was administered by EMS.??In the ED, left sided headache improved to 7/10; stating it feels somewhat like her migraines.??NIHSS: 2. CT Head nonacute. CTA Head/Neck without LVO or high grade stenosis. TNK deferred given low suspicion for acute stroke and improving symptoms. No LVO for NEV intervention. Given acute??onset severe abrupt headache, LP discussed with patient,??however patient declined, and lower suspicion for SAH given CT Head obtained [id number] of onset,??mental status intact, and??neurological exam non-focal.? DDx: ? TIA vs Hemiplegic??Migraine vs Other. Lower suspicion for SAH ? Recommendations: - NPO until swallow function cleared -??Continue ASA (rectally until swallow cleared) - administered earlier via EMS - Obtain MRI Brain - Check lipid panel and A1C - Statin when able for LDL <70 - Migraine management per primary team - Remainder of care, including any necessary cardiac workup, per primary team ?? - q4hr neuro checks, VS, and telemetry monitoring - STAT CT Head for any acute changes - Control vascular risks: A1C <7.0. Statin therapy for LDL >70 or >100 with only one vascular risk. buttermaker helper BP control - DVT prophylaxis - Follow up on final CT/CTA read - Will need outpatient Neurology follow up ? Thank you. Neurology will follow. Please call with any questions/concerns ?? d/w Dr. Emmanuel d/w Dr. Sarah Noble Histories Past Medical History/Problem List Active Problems??(22) Auditory hallucinations Bipolar disease, chronic Bipolar disorder Chronic GERD CKD - chronic kidney disease Fatty liver disease, nonalcoholic Fibromyalgia GERD (gastroesophageal reflux disease) History of alcohol abuse HTN (hypertension) Learning disability Mastodynia Migraine headache Moderate somatic symptom disorder with predominant pain Non compliance w medication regimen ALESHA (obstructive sleep apnea) Osteoporosis Panic disorder with agoraphobia Poor historian Prediabetes PTSD - Post-traumatic stress disorder Severe obesity ? Past Surgical History History of cervical spine surgery Appendectomy ? Social History Alcohol Details:??Use: Never. Details:??Use: Current. ??Frequency: 1-2 times per year. Employment/School Details:??Status: Unemployed. Details:??Status: Disabled. Home/Environment Details:??Living situation: Home/Independent. 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 Details:??Living situation: Home/Independent. ??Lives with: ANIMAL THERAPIST. ??Risks in environment: Dog - RIGOBERTO. Sexual Details:??Sexually involved in last 6 months: No. Substance Abuse Details:??Use: Current. ??Type: Marijuana. ??Other: Drops and gummies and smokes. Details:??Use: Current. ??Type: Marijuana. ??Other: Has medical license. Tobacco Details:??Use: Former smoker, quit more than 30 days ago. ??Other: 11 years 1/2-1PPD. Details:??Use: Former smoker, quit more than 30 days ago. Details:??Tobacco use times per day: Smoked 4-5 years (3 cigarettes/day), quit at 44. ? Medications Home Medications Albuterol (Albuterol (Eqv-ProAir HFA) 90 mcg/inh inhalation aerosol)?2?puff(s)?180?Microgram?Inhalation?Every 4 hours?for 30?Days Amlodipine (Norvasc 2.5 mg oral tablet)?2.5?Milligram?1?tablet?By Mouth?Daily Celecoxib (celecoxib 200 mg oral capsule)?1?capsule?200?Milligram?By Mouth?2 times a day Clonazepam (clonazePAM 0.5 mg oral tablet)?0.5?tab(s)?0.25?Milligram?By Mouth?Daily?as needed?Anxiety Durable Medical Equipment (Compression Stockings)?See Instructions?surgical, knee length 20-30 mm HgDX: VENOUS INSUFF ??B/L LEG SWELLING Durable Medical Equipment (Juxtafit Knee-high Compression Garments(bilateral, left, right) with 2 pairs of hybrid socks)?See Instructions?as directedDX: VENOUS INSUFF ??B/L LEG SWELLING Durable Medical Equipment (CPAP ??Machine)?See Instructions?AutoCPAP 8-14 cm H20, use Daily when sleeping Durable Medical Equipment (Compression Stockings)?See Instructions?surgical, knee high 20-30 mm Hg, leg swelling, obesity, leg pain EPINEPHrine (EpiPen 2-Rigoberto 0.3 mg injectable kit)?0.3?Milligram?Intramuscular?Once?asneeded?Anaphylactic Reaction Fluticasone Nasal (fluticasone 50 mcg/inh nasal spray)?See Instructions?SHAKE LIQUID AND USE 1 SPRAY IN EACH NOSTRIL TWICE DAILY Hydrochlorothiazide (hydroCHLOROthiazide 12.5 mg oral capsule)?1?capsule?12.5?Milligram?By Mouth?Daily Meclizine (meclizine 25 mg oral tablet)?1?tab(s)?25?Milligram?By Mouth?3 times a day?as needed?for dizziness Pantoprazole (pantoprazole 40 mg oral delayed release tablet)?1?tab(s)?40?Milligram?By Mouth?Daily Pantoprazole (pantoprazole 40 mg oral delayed release tablet)?1?tab(s)?40?Milligram?By Mouth?2 times a day?for 90?Days Sucralfate (sucralfate 1 gm oral tablet)?1?gram?1?tablet?By Mouth?3 times a day before meals and bedtime ? Inpatient Medications Medications (1) Active SCHEDULED: (0) CONTINUOUS: (1) NaCL 0.9% (1000 mL) Cont IV 1,000 mL (0.9% NaCL 1,000 mL) ??1,000 mL, IV Infusion, 100 mL/hr PRN: (0) ? Results Recent Labs CHEM GENERAL Glucose, POC 96 mg/dL ()?? 10/08/2022 15:33 ? Abnormal Labs No lab data available. ? * Lien RODRIGUEZ, Jacques: PERFORM Event Display: Consultation Note Authored Date: [id number] I saw the patient, confirm the history and exam and agree with the assessment and plan. Note * Kayla Laughlin LPN: PERFORM Event Display: Discharge/Transfer Note Hospital Authored Date: [id number] Nursing Discharge Note Entered On: 10/09/2022 17:12 EDT Performed On: 10/09/2022 17:11 EDT by Kayla Laughlin LPN Nursing Discharge Note 2 Discharge Time : 10/09/2022 17:11 EDT Discharge Level of Care at Discharge : Home/Senior Care/Foster Care Patient Left Unit Via : Wheelchair Patient Accompanied Off Unit with : Responsible adult DC Instructions Provided & Signed by Pt : Yes Patient Understands D/C Instructions : Yes Patient Instructions Discharge Signed : Yes Did Pt have Specialty Bed or Wound Vac : No Kayla Laughlin LPN - 10/09/2022 17:11 EDT * Micah RODRIGUEZ, [facility]: PERFORM Event Display: Discharge/Transfer Note Hospital Authored Date: [id number] Patient: ??GERALDO NAM ? Age:??52 Years?Sex:??Female?:??1970?? Patient Information Discharge Location: [facility] Primary Care Physician: Kathleen Lia NP Admit Date/Time: 10/08/22 15:30 Discharge Date:??10/09/2022 16:25 Discharge Disposition Discharge Disposition: Home: No Services Discharge Diagnosis Right arm weakness (R29.898) Atypical chest pain (R07.89) HTN (hypertension) (I10) GERD (gastroesophageal reflux disease) (K21.9) Bipolar disorder (F31.9) Migraine headache (G43.909) ALESHA (obstructive sleep apnea) (G47.33) Severe obesity (E66.01) ?? _ Discharge Medications Albuterol (Albuterol (Eqv-ProAir HFA) 90 mcg/inh inhalation aerosol)?2?puff(s)?180?Microgram?Inhalation?Every 4 hours?for 30?Days Amlodipine (Norvasc 2.5 mg oral tablet)?2.5?Milligram?1?tablet?By Mouth?Daily Aspirin (aspirin 81 mg oral tablet, chewable)?81?Milligram?By Mouth?Daily?for 30?Days Atorvastatin (atorvastatin 40 mg oral tablet)?40?Milligram?By Mouth?Daily at bedtime?for 30?Days Durable Medical Equipment (Compression Stockings)?See Instructions?surgical, knee length 20-30 mm HgDX: VENOUS INSUFF ??B/L LEG SWELLING Durable Medical Equipment (Juxtafit Knee-high Compression Garments(bilateral, left, right) with 2 pairs of hybrid socks)?See Instructions?as directedDX: VENOUS INSUFF ??B/L LEG SWELLING Durable Medical Equipment (CPAP ??Machine)?See Instructions?AutoCPAP 8-14 cm H20, use Daily when sleeping Durable Medical Equipment (Compression Stockings)?See Instructions?surgical, knee high 20-30 mm Hg, leg swelling, obesity, leg pain EPINEPHrine (EpiPen 2-Rigoberto 0.3 mg injectable kit)?0.3?Milligram?Intramuscular?Once?asneeded?Anaphylactic Reaction Fluticasone Nasal (fluticasone 50 mcg/inh nasal spray)?See Instructions?SHAKE LIQUID AND USE 1 SPRAY IN EACH NOSTRIL TWICE DAILY Meclizine (meclizine 25 mg oral tablet)?1?tab(s)?25?Milligram?By Mouth?3 times a day?as needed?for dizziness Pantoprazole (pantoprazole 40 mg oral delayed release tablet)?1?tab(s)?40?Milligram?By Mouth?2 times a day?for 90?Days ? Medications Started Aspirin Atorvastatin Medications Discontinued None Doses Changed None Allergies Allergies ?(Active and Proposed Allergies Only) Trileptal? (Severity: Persistent Severe, Onset: Unknown) ?Reactions: hives ibuprofen? (Severity: Unknown severity, Onset: Unknown) ?Reactions: gastritis ? PCP Follow-Up/Heads-Up Follow up clinically post hospitalization F/u with neurology Future Appointments Sunday 10:00 AM EDT ?? With: David HERNANDEZ, Tiffany Morel Where: [facility] Neurology [address] [facility] 3rd Floor, [address] [place] [address]- Status: Pending Sunday 1:00 PM EDT ?? With: Lisa Bazan Where: [facility] Status: Pending Sunday 10:00 AM EDT ?? With: Deanna RODRIGUEZ, Candida Where: [facility] [address] [place] [address]- Status: Pending Sunday 11:30 AM EDT ?? With: Aiden CRUZ, Cindi Umanzor Where: [facility] [address] [place] [address]- Status: Pending Sunday 1:10 PM EDT ?? With: Joelle HERNANDEZ, Kathleen Where: [facility] [address] [place] [address]- Status: Pending Hospital Course 52-year-old female PMH significant for bipolar disorder, CKD, Hx ETOH abuse, HTN, Pre-DM, ALESHA, TIA,former smoker, hemiplegic migraines, and PTSD with panic disorder and agoraphobia who presented as an acute stroke for chest pain followed by RUE weakness and tingling. ?? Right arm weakness and tingling- resolved after one hour- suspected hemiplegic migraine CT head No CT evidence of acute intracranial abnormality. CTA head and neck??no proximal occlusion or high grade stenosis in the major arteries of the head and neck. MRI brain without contrast no acute intracranial pathology. Minimal bilateral white matter disease is nonspecific and may represent chronic small vessel ischemic disease. Please correlate clinically. Telemetry noted sinus rhythm. Eval by neurology- suspect hemiplegic migraine. ??They will follow up the patient as outpatient. ??No further inpatient work-up Patient started on aspirin and statin. ?? Atypical chest pain (R07.89):??She felt stabbing in her chest x2 which resolved without any intervention. Since then has not had any recurrence of chest pain. Right hand weakness/numbness is resolved at time of interview but was present for more than 1 hour. ACS appears to be less likely with negative troponins, nonacute EKG and resolution of chest pain. No hypoxia or tachycardia or leg swelling to suggest PE.?? Full resolution of pain which was brief. Etiology appears less likely.?? High-sensitivity troponin checked, negative x2 EKG nonacute compared to 2021 LDL significantly elevated-started the patient on atorvastatin. We will continue aspirin 81 mg daily ?? Echocardiogram reported left ventricular size is normal. Left ventricular wall thickness is??normal. The LV systolic function is normal . The left ventricular ejection??fraction is 50-60 %. Cannot rule out basal to mid inferolateral and basal??inferior wall hypokinesis. The right ventricular size and function appears grossly normal.??[facility]??Cannot rule out basal to mid inferolateral and basal inferior wall??hypokinesis onthe current study. Consulted [facility] cardiology. ??They reviewed the echocardiogram and the patient's history. ??No further cardiac work-up as an inpatient. ??They will follow the patient as an outpatient.?? Of note patient did have a CT coronaries in 2020 which reported no significant??acute??coronary artery disease. ?? HTN (hypertension) (I10):??on amlodipine 2.5 mg daily at home. ??Restart upon discharge ?? GERD (gastroesophageal reflux disease) (K21.9):??? History of gastric ulcer Hold home celecoxib. ??Continue PPI. ?? Bipolar disorder (F31.9):??Not??on??medication ?? Migraine headache (G43.909):??Not on medication Patient to follow-up with neurologist outpatient. ?? Asthma, continue albuterol as needed, Flonase nasal spray Vertigo, on as needed meclizine ?? Leukocytosis, etiology unclear, afebrile, no clear signs of infection Likely reactive. ??Normalized without any further intervention. ?? Patient seen and examined at bedside. Explained to her about the clinical findings, neurology impression of possibility for hemiplegic migraine??and close follow-up with neurology as outpatient. Patient has??findings on the echocardiogram which could not rule out inferior wall review overall??abnormalities. ??Cardiology??was consulted and they opined patient can be followed up as an outpatient. ?? Gen: AAO*3; RS: CTA b/l; CVS: regular; Abd: Soft Non tender, non distended; Neuro AAO*3, ambulatory Objective Measurements?? Height: 152 cm (10/09/22) Weight: 105 kg (10/08/22) Dry Weight: 105 kg (10/08/22) Body Mass Index:??45.45 kg/m2??Critical (10/08/22) ? Vital Signs?? Temperature: 98 DegF (10/09/22::00) Temperature Route: Temporal (10/09/22::00) Pulse Rate: 84 bpm (10/09/22 14:27:00) Respiratory Rate: 18 br/min (10/09/22 14:27:00) Systolic Blood Pressure: 109 mm Hg (10/09/22 14:27:00) Diastolic Blood Pressure:??52 mm Hg??Low (10/09/22 14:27:00) Blood pressure sites: Arm, right (10/09/22 14:27:00) Mean Arterial Pressure: 112 mm Hg (10/09/22 03:31:00) Pulse Pressure: 62 mm Hg (10/09/22 03:31:00) Oxygen Saturation: 99 % (10/09/22 14:27:00) Mode of Delivery (Oxygen): Room air (10/09/22 14:27:00) Early Warning Score: 0 (10/09/22 14:27:56) ? Consultants Paulo Reyes, Nyla CRUZ, Yoshi Emmanuel MD, Jacques Follow-Up Appointments Added Follow Up ?Time Frame ?Comments Cindi Wolfe?12/20/2022 11:30 Candida Deanna?12/12/2022 10:00 Lisa Major?11/15/2022 13:00 Tiffany David?10/16/2022 10:00 Kathleen Lai?12/22/2022 13:10 Post Discharge Care Diet: Cardiac diet Activity: Ambulate as tolerated Wound Care: - Code Status: ?? Full Resuscitation Condition: Fair Prognosis: Fair Discharge ?10/09/22 16:24:00 EDT Discharge Prescriptions ?ePrescribed, ??10/09/22 16:24:00 EDT 36??minutes spent on discharge * Kayla Laughlin LPN: PERFORM Event Display: Patient Education/Instruction Authored Date: [id number] Inpatient Adult Discharge Instructions [address] [id number] Name: GERALDO NAM : 1970 Visit: 10/08/2022 15:30:00 Current Date: 10/09/2022 16:44 Account: [id number] Inpatient Adult Discharge Instructions We would like to thank you for allowing us to assist you with your healthcare needs. The following includes patient education materials and information regarding your injury/illness. Our entire staffstrives to provide an excellent experience for our patients and their families. PLEASE ENSURE YOU FOLLOW-UP PER THE INSTRUCTIONS BELOW! ?? YOUR OPINION IS IMPORTANT TO US! Please complete the survey you may receive by mail or email. Your feedback will be used to make improvements to the healthcare experiences of our patients and their families. Surveys are administered by [employer] ?? If further treatment with your primary care physician or another doctor is recommended, it is important for you to keep the appointment. Call your primary care physician or return to the Emergency Department immediately if your condition worsens, fails to improve, or new symptoms develop. If you need to find a doctor, you can call [facility] [employer] for a referral at [phone] or toll free at [phone] [email or web address] ([phone]) or log in to [email or web address] ?? You can view and manage your care through the patient portal or by using a health care tisha of your choosing. [facility] is a website that allows you to securely view your medical information including your hospital discharge summary, office visit summaries, medications and follow-up visits. You can also request appointments, renew medications, and request access to your medical information using a health care tisha of your choosing, or just ask a question. You can enroll at [email or web address] or register during your next office visit. You have been discharged from [facility], Patient Care Unit: D3B. If you have any questions regarding these instructions after you leave, please call us and we will be happy to assist you. [facility] Your Care Team Attending Physician Nesha Obrien MD Consulting Providers Lien RODRIGUEZ, Jacques Discharging Providers Nesha Obrien MD Reason for Admission STROKE RULE OUT Your Diagnosis Right arm weakness GERD (gastroesophageal reflux disease) HTN (hypertension) Bipolar disorder Migraine headache ALESHA (obstructive sleep apnea) Severe obesity Atypical chest pain Tests Performed Below is a partial list of the tests performed during your hospitalization. You may have had other tests and procedures not included in this list. Please discuss all test results with your provider. APTT AST Basic Metabolic Panel CBC CBC w/ Differential Comprehensive Metabolic Panel COVID-19 (Novel Coronavirus), Rapid PCR GLUCOSE POC HEMOGLOBIN A1C High??Sensitivity??Troponin T LIPID PANEL BLOOD, QUALITATIVE PROBNP PROTIME PROFILE Troponin T, High Sensitivity TSH with T4 Reflex (Adults Only) Type and Screen Urinalysis w/hold for Urine Culture?-- Results Pending -- Brain MRI W/O Contrast CT Angio Head Hyperacute Stroke CT Angio Neck Hyperacute Stroke CT Head-Hyper Acute Stroke XR Chest Portable You will be contacted within 72 hours with your results. Primary Care Provider Joelle HERNANDEZ, Kathleen Advance Directive Health Care Proxy on File Yes - Health Care Proxy Discharge Vitals Temperature: 98 DegF Height: 152 cm Pulse Rate: 84 bpm Weight: 105 kg Respiratory Rate: 18 br/min Body Mass Index:??45.45 kg/m2??Critical Systolic Blood Pressure: 109 mm Hg Body surface area: 2.11 Diastolic Blood Pressure:??52 mm Hg??Low ?? Oxygen Saturation: 99 % ?? Studies Pending All tests and labs ordered during this hospital stay have been completed unless listed below. Please discuss all pending results with your provider listed above in these instructions. ?? Add On Lab Order (Lab Add On Order) Urinalysis w/hold for Urine Culture What to do next Instructions From Your Doctor Discharge Orders Diet:??Cardiac diet Activity:??Ambulate as tolerated Wound Care:??- Code Status:?? Full Resuscitation Condition:??Fair Prognosis:??Fair Scheduled Follow-Up Appointments Sunday 10:00 AM EDT ?? With: David HERNANDEZ, Tiffany Morel Where: [facility] [address] [facility] 3rd Floor, [address] [place] [address]- Status: Pending Sunday 1:00 PM EDT ?? With: Lisa Bazan Where: [facility] Status: Pending Sunday 10:00 AM EDT ?? With: Deanna RODRIGUEZ, Candida Where: [facility] [address] [place] [address]- Status: Pending Sunday 11:30 AM EDT ?? With: Cindi Aldana Where: [facility] [address] [place] [address]- Status: Pending Sunday 1:10 PM EDT ?? With: Kathleen Lai NP Where: [facility] [address] [address] [place] [address]- Status: Pending You Need to Schedule the Following Appointments Follow Up with??Kathleen Lai When:??12/22/2022 01:10 PM EDT Where: [address] [place] [address]- Business (1) Follow Up with??Cindi Wolfe When:??12/20/2022 11:30 AM EDT Where: [address] [facility] [place] [address]- Business (1) Follow Up with??Candida Huerta When:??12/12/2022 10:00 AM EDT Where: [address] 3rd Floor [facility] [place] [address]- Business (1) Follow Up with??Lisa Major When:??11/15/2022 01:00 PM EDT Where: [address] Fl[address] [facility] [place] [address]- Business (1) Follow Up with??Tiffany Hernandez When:??10/16/2022 10:00 AM EDT Where: [address] [facility] [place] [address]- Business (1) Discharge Medications GERALDO NAM :1970 Visit Date:10/08/2022 Medications: Please continue your medications until treatment is completed or stopped by your provider. Medications not listed below should be discontinued. Discuss any questions related to medications with your provider. What How Much When Instructions Next Dose New Aspirin (aspirin 81 mg oral tablet, chewable) 81 Milligram Oral Daily Duration: 30 Days Refills: 3 Pickup at [facility] 3 10/10/2022 New Atorvastatin (atorvastatin 40 mg oral tablet) 40 Milligram Oral Daily at Bedtime Duration: 30 Days Refills: 3 Pickup at [facility] 3 10/10/2022 at bedtime Changed Pantoprazole (pantoprazole 40 mg oral delayed release tablet) 1 tab(s) Oral Twice a day Duration: 90 Days 10/09/2022 at evening Unchanged Albuterol (Albuterol (Eqv-ProAir HFA) 90 mcg/ inh inhalation aerosol) 2 puff(s) Inhalation Every 4 hours Duration: 30 Days as instructed Unchanged Amlodipine (Norvasc 2.5 mg oral tablet) 1 tab(s) Oral Daily 10/10/2022 Unchanged Durable Medical Equipment (Compression Stockings) See instructions surgical, knee length 20-30 mm Hg DX: VENOUS INSUFF ??B/ L LEG SWELLING ?? Unchanged Durable Medical Equipment (Compression Stockings) See instructions surgical, knee high 20-30 mm Hg, leg swelling, obesity, leg pain ?? Unchanged Durable Medical Equipment (CPAP Machine) See instructions AutoCPAP 8-14 cm H20, use Daily when sleeping ?? Unchanged Durable Medical Equipment (Juxtafit Knee-high Compression Garments(bilateral, left, right) with 2 pairs of hybrid socks) See instructions as directed DX: VENOUS INSUFF ??B/ L LEG SWELLING ?? Unchanged EPINEPHrine (EpiPen 2-Rigoberto 0.3 mg injectable kit) 0.3 Milligram Intramuscular Once as needed for Anaphylactic Reaction as needed Unchanged Fluticasone Nasal (fluticasone 50 mcg/ inh nasal spray) See instructions SHAKE LIQUID AND USE 1 SPRAY IN EACH NOSTRIL TWICE DAILY ?? 10/09/2022 at evening Unchanged Meclizine (meclizine 25 mg oral tablet) 1 tab(s) Oral 3 times a day as needed for for dizziness as needed Pharmacy Information [facility]: [address] [place], [place] [id number] [phone] ?? What How Much When Comments Stop Taking Celecoxib (celecoxib 200 mg oral capsule) 1 capsule Oral Twice a day Stop Taking Clonazepam (clonazePAM 0.5 mg oral tablet) 0.5 tab(s) Oral Daily as needed for Anxiety Stop Taking Hydrochlorothiazide (hydroCHLOROthiazide 12.5 mg oral capsule) 1 capsule Oral Daily Stop Taking Sucralfate (sucralfate 1 gm oral tablet) 1 tab(s) Oral 3 times a day before meals and bedtime Test Results Below is a partial list of the most recent Laboratory test results done prior to this discharge. You may have had other tests and procedures not included in this list. Please discuss all test resultswith your provider. Est Creatinine Clearance - 45.83 mL/min (10/09/2022) APTT (10/08/2022) ???APTT - 26.8 seconds AST (10/08/2022) ???AST (SGOT) - HEMOLYZED Basic Metabolic Panel (10/08/2022) ???Sodium - 136 mmol/L???Potassium - HEMOLYZED???Chloride - 104 mmol/L???Bicarbonate Level - 21 mmol/L???Anion Gap - 11???Glucose Level - 103 mg/dL???BUN - 10 mg/dL???Creatinine-Blood - 1.1 mg/dL???Estimated GFR Creatinine - 60 ML/MIN/1.73 M2???Calcium - 8.9 mg/dL CBC (10/09/2022) ???WBC - 9.3 k/mm3???RBC - 3.99 m/mm3???Hgb - 12.4 Gm/dL???Hct - 37.2 %???MCV - 93.2 femtoliters???MCH - 31.1 pg???MCHC - 33.3 g/dL???Platelet Count - 333 k/mm3???RDW-SD - 44.4 femtoliters???MPV - 9.5 femtoliters???Nucleated RBC (Automated) - 0.0 #/100 WBC'S???Abs. NRBC - 0.0 k/mm3 CBC w/ Differential (10/08/2022) ???WBC - 15.6 k/mm3???RBC - 4.09 m/mm3???Hgb - 12.8 Gm/dL???Hct - 38.3 %???MCV - 93.6 femtoliters???MCH - 31.3 pg???MCHC - 33.4 g/dL???Platelet Count - 418 k/mm3???RDW-SD - 45.3 femtoliters???MPV - 10.0 femtoliters???Nucleated RBC (Automated) - 0.0 #/100 WBC'S???Abs. NRBC - 0.0 k/mm3???Abs. Neut - 9.5 k/mm3???Abs. Lymph - 4.6 k/mm3???Abs. Callaway - 1.2 k/mm3???Abs. Eo - 0.1 k/mm3???Abs. Baso - 0.0 k/mm3???Neut % - 61.0 %???Lymph % - 29.7 %???Callaway % - 7.8 %???Eos % - 0.8 %???Baso % - 0.3 %???Imm Gran - 0.4 %???Abs. Imm Gran - 0.1 k/mm3 Comprehensive Metabolic Panel (10/08/2022) ???Sodium - 139 mmol/L???Potassium - 4.0 mmol/L???Chloride - 106 mmol/L???Bicarbonate Level - 24 mmol/L???Anion Gap - 9???Glucose Level - 130 mg/dL???BUN - 11 mg/dL???Creatinine-Blood - 1.0 mg/dL???Estimated GFR Creatinine - 70 ML/MIN/1.73 M2???Calcium - 9.1 mg/dL???Protein, Total - 6.4 Gm/dL???Albu min - 3.7 Gm/dL???AG Ratio - 1.4???Alkaline Phosphatase - 80 units/L???AST (SGOT) - 15 units/L???ALT (SGPT) - 13 units/L???Bilirubin, Total - 0.2 mg/dL COVID-19 (Novel Coronavirus), Rapid PCR (10/08/2022) ???COVID-19 by RT-PCR - NEGATIVE GLUCOSE POC (10/08/2022) ???Glucose, POC - 96 mg/dL HEMOGLOBIN A1C (10/08/2022) ???Hemoglobin A1C (Monitoring) - 6.0 % High??Sensitivity??Troponin T (10/08/2022) ? ?High Sensitivity Troponin (HSTnT) - <6 ng/L LIPID PANEL (10/08/2022) ???Cholesterol - 218 mg/dL???Triglycerides - 113 mg/dL???HDL Cholesterol - 50 mg/dL???LDL Cholesterol - 145 mg/dL???Non HDL Cholesterol - 168 mg/dL BLOOD, QUALITATIVE (10/08/2022) ??? Serum Qual - NEGATIVE PROBNP (10/08/2022) ???Nt-Probnp - 49 pg/mL PROTIME PROFILE (10/08/2022) ???INR - 1.0???Protime (PT) - 10.5 seconds Troponin T, High Sensitivity (10/08/2022) ? ?High Sensitivity Troponin (HSTnT) - <6 ng/L TSH with T4 Reflex (Adults Only) (10/08/2022) ???TSH - 1.40 uIU/mL Type and Screen (10/08/2022) ???Blood Type - O Positive???Antibody Screen - Negative Allergies (NKA means No Known Allergies) Trileptal??(hives) ibuprofen??(gastritis) Problems Active Problems??(22) Auditory hallucinations?? Bipolar disease, chronic?? Bipolar disorder?? Chronic GERD?? CKD - chronic kidney disease?? Fatty liver disease, nonalcoholic?? Fibromyalgia?? GERD (gastroesophageal reflux disease)?? History of alcohol abuse?? HTN (hypertension)?? Learning disability?? Mastodynia?? Migraine headache?? Moderate somatic symptom disorder with predominant pain?? Non compliance w medication regimen?? ALESHA (obstructive sleep apnea)?? Osteoporosis?? Panic disorder with agoraphobia?? Poor historian?? Prediabetes?? PTSD - Post-traumatic stress disorder?? Severe obesity?? Education Materials Below is the list of Educational Leaflet Providered with your Discharge Instructions. Valuables and Belongings I fully understand and agree that [facility] accepts no responsibility for all my personal property including clothing, toilet articles, radios, jewelry, dentures, hearing aids, rings, money, or any other property that is in my possession or is brought to me after admission. I understand certain valuables may be placed in a hospital safe for a short period of time. I understand that the hospital is not liable for loss or damage due to accident, fire, or other natural occurrence while said property is in the safe. I accept full responsibility for any personal property that I keep with me, and will not hold the hospital responsible in case of loss or disappearance. I acknowledge that i have been encouraged to send valuables and belongings home. ?? Date for Pt to Sign Valuables/Belongings: 10/08/22 22:05:00 ?? Other Discharge Information ? Pulmonary Rehab Status?? Pulmonary Rehab Discharge Status?? Respiratory Rate: 18 br/min ? Common Emergency Awareness Tips IS IT A STROKE? Act FAST and Check for these signs: FACE Does the face look uneven? ARM Does one arm drift down? SPEECH Does their speech sound strange? TIME Call at any sign of stroke ?? Heart Attack Signs Chest discomfort: Most heart attacks involve discomfort in the center of the chest and lasts more than a few minutes, or goes away and comes back. It can feel like uncomfortable pressure, squeezing, fullness or pain. Discomfort in upper body: Symptoms can include pain or discomfort in one or both arms, back, neck, jaw or stomach. Shortness of breath: With or without discomfort. Other signs: Breaking out in a cold sweat, nausea, or lightheaded. Remember, MINUTES DO MATTER. If you experience any of these heart attack warning signs, call to get immediate medical attention! ?? Smoking can increase your chances of developing chronic health problems and can cause harmful effects to other family members in your house. If you smoke, you are strongly encouraged to quit. Please call [facility] Link at [phone] or [phone] ([phone]) or log in to [email or web address] for referrals to smoking cessation programs. ?? 449 Suicide & Crisis Lifeline is available 18/09 if you or someone you know needs to find a reason to keep living. By calling 199 you'll be connected to a skilled, trained counselor at a crisis center in your area. INPATIENT DISCHARGE INSTRUCTIONS SIGNATURE PAGE GERALDO NAM Location:[facility] Registration Date and Time:10/08/2022 15:30 EDT Primary Care Physician: Kathleen Lai NP, Attending Physician: Micah RODRIGUEZ, Nesha, I GERALDO NAM, have received the above patient education materials/instructions and have verbalized understanding. If ambulance or transport services are being used I further acknowledge being given a choice of service. ?? If you need to contact me, please call me at this number: . Patient/Field Staff Manager Name: Patient/Field Staff Manager Signature: Relationship to Patient: Witness Name/Signature: Date: * Patrica Obrien MDesh: PERFORM, SIGN, VERIFY Event Display: Patient Education Handout Authored Date: [id number] Patient Care team information Care Team Personnel Name: Kathleen Lai NP Position: [facility] PCO Associate Professional Member Role: PCP Address: Address: [address] [place] [address] Name: Jean Lane RN Position: [facility] RN Member Role: Primary Care Nurse Name: Delfina Ayoub RN Position: [facility] RN Member Role: Primary Care Nurse Name: Sara Barlow LPN Position: [facility] RN Member Role: Primary Care Nurse Name: Carlos CHAN Attending Position: [facility] ED Medicine Name: Deidra Alvarez Position: [facility] ED TA [facility] Member Role: Vessel Operator Name: Lady Quispe RN Position: [facility] ED RN W/OE and Tasks Member Role: Patient Care Provider Name: Yue Blanco MD Position: [facility] Resident Member Role: ED Resident Address: Address: [address] [place] [address]- Name: Sarah Noble MD Position: [facility] Resident Member Role: ED Resident Address: Address: [address] [place] [address]- Care Team Related Persons Name: LUIS HOGUE Address: home [address] [place] [address] Name: LUIS BHATTI Name: KOBE WADE Address: home [address] [place] [address] Name: TERRELL FORMAN Address: home
--- OUTSIDE RECORDS SUMMARY | 2023-01-09 11:06 | XMS_ITS | Continuity of Care Document ---
Author Name Unknown Organization [facility] Adult Address [address] [place] [address]- Care Team Providers Care Junior Mechanical Engineer Name Role Phone Kathleen Lai NP Primary Care Physician Encounter [facility] [place] Date(s): 08/28/22 - 09/27/22 [facility] [address] [place] [address]- Allergies, Adverse Reactions, Alerts Substance Reaction Severity Status ibuprofen gastritis Active Trileptal hives Persistent Severe Active Immunizations Given and Recorded Vaccine Date Status Refusal Reason tetanus/diphtheria/pertussis, acel(Tdap) 1 11/16/21 Given influenza virus vaccine, inactivated 2 12/15/20 Gi ita SARS-CoV-2 (COVID-19) mRNA BNT-162b2 vac 10/29/20 Recorded SARS-CoV-2 (COVID-19) mRNA BNT-162b2 vac 10/08/20 Recorded Influenza Virus Vaccine (oldterm) 12/11/19 Recorde d 1Result Comment: [facility]: [id number] 2Result Comment: [id number] Medications Albuterol (Eqv-ProAir HFA) 90 mcg/inh inhalation aerosol 2 puffs = 180 mcg, Inhalation, Every 4 hours, # 6.7 Gm, 0 Refills, Maintenance, 12/15/20 15:26:00 EDT, Inhaler, [facility] #[id number], Partial fill upon patient request if the [...] 0 Refills, Soft Stop, 12/15/20 15:30:00 EDT, [facility] #[id number], Partial fill upon patient request if the prescription is for a schedule II opioid drug., 150, cm, 12/15/20 15... Start Date: 12/15/20 Status: Ordered fluticasone 50 mcg/inh nasal spray See Instructions, SHAKE LIQUID AND USE 1 SPRAY IN EACH NOSTRIL TWICE DAILY, # 48 Gm, 0 Refills, Maintenance, 03/29/22 15:14:00 EST, [facility] #[id number], 90, SHAKE LIQUID AND USE 1 SPRAY [...] 0 Refills, Maintenance, 05/12/22 8:43:00 EDT, Tablet, [facility] #[id number], Partial fill upon patient request if the prescription is for a schedule II opioid drug., 153,... Start Date: 05/12/22 Status: Ordered Norvasc 2.5 mg oral tablet 2.5 mg, 1, tablet, By Mouth, Daily, # 30 tablet, Refills 1, Tot. Refills 1, Maintenance, 05/12/22 8:43:00 EDT, Route to Pharmacy Electronically, [facility] #[id number], Partial fill upon patientrequest if the prescription [...] Associate Professional Member Role: PCP Address: Address: [address] [place] [address] Name: Jean Lane RN Position: [facility] RN Member Role: Primary Care Nurse Name: Delfina Ayoub RN Position: S RN Member Role: Primary Care Nurse Name: Sara Barlow LPN Position: S RN Member Role: Primary Care Nurse Care Team Related Persons Name: LUIS HOGUE Address: home [address] [place] [address] Name: LUIS BHATTI Name: KOBE WADE Address: home [address] [place] [address] Name: TERRELL FORMAN Address: home
--- OUTSIDE RECORDS SUMMARY | 2023-01-09 11:06 | XMS_ITS | Continuity of Care Document ---
Author Name Unknown Organization [facility] Adult Address [address] [place] [address]- Care Team Providers Care Pensionholder Information Clerk Name Role Phone Kathleen Lai NP Primary Care Physician Encounter [facility] Date(s): 06/14/22 - 07/14/22 [facility] [address] [place] [id number] Allergies, Adverse Reactions, Alerts Substance Reaction Severity Status ibuprofen gastritis Active Trileptal hives Persistent Severe Active Immunizations Given and Recorded Vaccine Date Status Refusal Reason tetanus/diphtheria/pertussis, acel(Tdap) 1 11/16/21 Given influenza virus vaccine, inactivated 2 12/15/20 Gi ita SARS-CoV-2 (COVID-19) mRNA BNT-162b2 vac 10/29/20 Recorded SARS-CoV-2 (COVID-19) mRNA BNT-162b2 vac 10/08/20 Recorded Influenza Virus Vaccine (oldterm) 12/11/19 Recorde d 1Result Comment: [facility]: [id number] 2Result Comment: [id number] Medications Albuterol (Eqv-ProAir HFA) 90 mcg/inh inhalation aerosol 2 puffs = 180 mcg, Inhalation, Every 4 hours, # 6.7 Gm, 0 Refills, Maintenance, 12/15/20 15:26:00 EDT, [facility]haler[id number], Partial fill upon patient request if the [...] 0 Refills, Soft Stop, 12/15/20 15:30:00 EDT, [facility] #[id number], Partial fill upon patient request if the prescription is for a schedule II opioid drug., 150, cm, 12/15/20 15... Start Date: 12/15/20 Status: Ordered fluticasone 50 mcg/inh nasal spray See Instructions, SHAKE LIQUID AND USE 1 SPRAY IN EACH NOSTRIL TWICE DAILY, # 48 Gm, 0 Refills, Maintenance, 03/29/22 15:14:00 EST, [facility] #[id number], 90, SHAKE LIQUID AND USE 1 SPRAY [...] 0 Refills, Maintenance, 05/12/22 8:43:00 EDT, Tablet, [facility] #[id number], Partial fill upon patient request if the prescription is for a schedule II opioid drug., 153,... Start Date: 05/12/22 Status: Ordered Norvasc 2.5 mg oral tablet 2.5 mg, 1, tablet, By Mouth, Daily, # 30 tablet, Refills 1, Tot. Refills 1, Maintenance, 05/12/22 8:43:00 EDT, Route to Pharmacy Electronically, [facility] #[id number], Partial fill upon patientrequest if the prescription [...] Team Personnel Name: Kathleen Lai NP Position: [facility] PCO Associate Professional Member Role: PCP Address: Address: [address] [place] [address] Name: Jean Lane RN Position: S RN Member Role: Primary Care Nurse Name: Delfina Ayoub RN Position: S RN Member Role: Primary Care Nurse Name: Sara Barlow LPN Position: [facility] RN Member Role: Primary Care Nurse Care Team Related Persons Name: LUIS HOGUE Address: home [address] [place] [address] Name: LUIS BHATTI Name: KOBE WADE Address: [address] [place] [address] Name: TERRELL FORMAN Address: home
--- OUTSIDE RECORDS SUMMARY | 2023-01-09 11:06 | XMS_ITS | Continuity of Care Document ---
Author Name Unknown Organization [facility] Address [address] [place] [address]- Care Team Providers Care Software Installer Name Role Phone Joelle HERNANDEZ, Kathleen Primary Care Physician Encounter [facility] [place] Date(s): 11/09/22 - 11/16/22 [facility] [address] [place], [place] [id number]- Attending Physician: Olman HERNANDEZ, Tiffanie Allergies, Adverse Reactions, Alerts Substance Reaction Severity [...] [facility]: [id number] 2Result Comment: [id number] Medications Albuterol (Eqv-ProAir HFA) 90 mcg/inh inhalation aerosol 2 puffs = 180 mcg, Inhalation, Every 4 hours, # 6.7 Gm, 0 Refills, Maintenance, 12/15/20 15:26:00 EDT, Inhaler, [facility] #[id number], Partial fill upon patient request if the prescription is for a schedule II opioid drug., 2 puffs Inhalation Ev... Start Date: 12/15/20 Stop Date: 01/14/21 Status: Ordered amLODIPine 2.5 mg oral tablet See Instructions, TAKE 1 TABLET BY MOUTH DAILY, # 90 tablet, 0 Refills, Maintenance, 10/17/22 10:14:00 EDT, [facility] #[id number], 152, cm, 10/17/22 9:36:00 EDT, Height, 105, kg, 10/09/22 0:18:00 EDT, Dry Weight Start Date: 10/17/22 Status: Ordered aspirin 81 mg oral tablet, chewable 81 mg, By Mouth, Daily, # 30 tablet, Refills 3, Tot. Refills 3, Maintenance, 11/08/22 8:42:00 EDT, Route to Pharmacy Electronically, [facility] #[id number], Partial fill upon patient request if the prescription is for a schedule II opioid drug.,... Start Date: 11/08/22 Stop Date: 03/08/23 Status: Ordered atorvastatin 40 mg oral tablet = 40 mg, By Mouth, Daily at bedtime, # 30 each, 3 Refills, Maintenance, 10/09/22 16:21:00 EDT, Tablet, [facility], Partial fill upon patient request if the prescription is for a schedule II opioid drug., 152, cm, 10/09/22 3:35:00 EDT, He... Start Date: 10/09/22 Stop Date: 02/06/23 Status: Ordered celecoxib 200 mg oral capsule 1 capsule = 200 mg, By Mouth, Daily, # 90 capsule, 0 Refills, Maintenance, 10/17/22 10:02:00 EDT, Capsule, [facility] #[id number], Partial fill upon patient request if the [...] 0 Refills, Soft Stop, 10/11/22 10:11:00 EDT, [facility] #[id number], Partial fill upon patient request if the prescription is for a schedule II opioid drug., 152, cm, 10/09/22 3:3... Start Date: 10/11/22 Status: Ordered fluticasone 50 mcg/inh nasal spray See Instructions, SHAKE LIQUID AND USE 1 SPRAY IN EACH NOSTRIL TWICE DAILY, # 48 Gm, 0 Refills, Maintenance, 03/29/22 15:14:00 EST, [facility] #[id number], 90, SHAKE LIQUID AND USE 1 SPRAY [...] 0 Refills, Maintenance, 05/12/22 8:43:00 EDT, Tablet, [facility] #[id number], Partial fill upon patient request if the prescription is for a schedule II opioid drug., 153,... Start Date: 05/12/22 Status: Ordered Norvasc 2.5 mg oral tablet 2.5 mg, 1, tablet, By Mouth, Daily, # 30 tablet, Refills 1, Tot. Refills 1, Maintenance, 05/12/22 8:43:00 EDT, Route to Pharmacy Electronically, [facility] #[id number], Partial fill upon patientrequest if the prescription [...] oldest [Reference Range]: 1 Height 153 cm (11/09/22 9:07 AM) Weight 103.3 kg (11/09/22 9:07 AM) Oxygen Saturation [94-100 %] 99 % (11/09/22 9:07 AM) Pulse Rate [55-90 bpm] 78 bpm (11/09/22 9:07 AM) Body Mass Index [18.5-24.99 kg/m2] 44.13 kg/m2 *>HHI* (11/09/22 9:07 AM) Blood Pressure [90-138/55-84 mm Hg] 131/ 60mm Hg (11/09/22 9:07 AM) Mode of Delivery (Oxygen) Room air (11/09/22 9:07 AM) Blood pressure sites Arm, left (11/09/22 9:07 AM) Weight Obtained Via Bed scale (11/09/22 9:07 AM) Social History Social History Type Response Smoking Status Former smoker, quit more than 30 days ago; Other: 11 years 1/2-1PPD; entered on: 05/18/20 Sex Female Cardiology Outpatient Note * Florentino Howard: MODIFY, PERFORM, MODIFY, MODIFY, MODIFY, MODIFY, MODIFY, MODIFY, MODIFY, MODIFY Event Display: Cardiology Note Office Authored Date: [id number] Patient: ??GERALDO NAM ? Age:??52 Years?Sex:??Female?:??1970?? Indication for Consult Inpatient follow up History of Present Illness/Interval History 52 year old female PMH??HTN GERD,??bipolar disorder, HLD...Pt was hospitalized from October 08 to October 09, 2022 for chest pain/RUE weakness, CT/MRI negative for acute stroke, seen by Neuro, LDL elevated (145) and started on asa and atorvastatin 40mg.?? EKG/troponin negative during this??visit, herchest pain??resolved without intervention, Neuro deemed focal deficits hemiplegic migraine.?? On exam patient states??she has been feeling improved, she feels down that she has gained 30 pounds over 2 months, she wants to have her knee replaced however cannot until she loses weight.?? She reports 1-3 episodes of chest tightness sincer her ED visit 1 month ago,??described as all over my chest, worse with ambulation, improved with relaxing.?? Patient denies dyspnea.?? She reports a?? bad diet, states she frequently eats fast food.?? Denies LE edema, orthopnea, PND.? Echo: 09/2022 Normal LV function EF 50-60 %. Cannot rule out basal to mid inferolateral and basal inferior wall hypokinesis. The right ventricular size and function appears grossly normal. ? Echo: 04/2022 ??Normal LV function EF: 60-65 %.??No RWMA Normal diastolic function The aortic valve is probably trileaflet . The aortic valve appears mildly calcified. There is no aortic stenosis. There is no aortic regurgitation. There is mild mitral annular calcification. The mitral valve opening is normal. There is trivial mitral regurgitation. The right ventricle is normal in size and function. ?? Holter: 05/2022 Predominant rhythm is normal sinus rhythm. The average heart rate is 98 beats per minute with normal heart rate variability. The minimum heart rate is 73bpm. The maximum heart rate is 169bpm. There were rare PACs and no supraventricular arrhythmias. There were rare PVCs and no ventricular arrhythmias. There were no significant pauses or high degree AVB.Patient symptom markers correlated with sinus tachycardia. ?? ETT: 06/16 Abnormal Exercise Tolerance Test, Normal Exercise Physiology, EKG Changes Suggestive of Ischemia ?? CTA Heart: No evidence of hemodynamically significant coronary artery disease. ? Review of Systems All other review of systems were negative with the exception of those noted above in the HPI Physical Exam Vitals & Measurements HR:??78??(Peripheral)?? BP:??131/60?? SpO2:??99%?? HT:??153??cm?? WT:??103.3??kg?? BMI:??44.13?? Weight lb/oz: 227 lb 12 oz Constitutional: Alert, in no acute distress, obese. Respiratory: Clear to auscultation. No wheezing or crackles. No use of accessory muscles. Cardiovascular: S1S2 regular. No murmurs, rubs or gallops. No radio radial or radio femoral delay Extremities: No lower extremity pitting??edema. No cyanosis or clubbing. Neurologic: AAOx3, Speech normal. No focal neurological deficits. Psychiatric: Normal mood and affect Assessment/Plan 52 year old female PMH??HTN GERD,??bipolar disorder, HLD presents to clinic for inpatient f/u. ?? Chest tightness/Elevated LDL:?? + ischemic changes on??ETT in??2020 w/ subsequent CTA 2020 w/o??evidence of HD significant CAD, recently mildly elevated LDL found during ED visit 09/2022, started on asa/statin by Neuro 09/2022.?? -continue asa/statin -encouraged healthy dietary/exercise lifestyle modifications -educated pt on s/s ACS, instructed pt to go to ED/call 911 if experiencing such s/s -PCP repeat lipids in 6 weeks -f/u as needed ? Obesity/Weight Gain: 30 pound weight gain over 2 months per pt.?? motivated to lose weight, educated pt on DASH diet/healthy dietary/exercisse options for weight loss, pt highly motivated to lose weight, has remained tobacco free for 13 years.? HTN: controlled, continue antihypertensives ? Allergies Trileptal??(hives) Red Dye ibuprofen??(gastritis) Home Medications Albuterol (Eqv-ProAir HFA) 90 mcg/inh inhalation aerosol, 180 mcg= 2 puffs, Inhalation, Every 4 hours amLODIPine 2.5 mg oral tablet, See Instructions aspirin 81 mg oral tablet, chewable, 81 mg, By Mouth, Daily, 3 refills atorvastatin 40 mg oral tablet, 40 mg, By Mouth, Daily at bedtime, 3 refills celecoxib 200 mg oral capsule, 200 mg= 1 capsule, By Mouth, Daily Compression Stockings, See Instructions Compression Stockings, See Instructions, 2 refills CPAP Machine, See Instructions EpiPen 2-Rigoberto 0.3 mg injectable kit, 0.3 mg, Intramuscular, Once, PRN fluticasone 50 mcg/inh nasal spray, See Instructions Juxtafit Knee-high Compression Garments(bilateral, left, right) with 2 pairs of hybrid socks, See Instructions meclizine 25 mg oral tablet, 25 mg= 1 tablet, By Mouth, 3 times a day, PRN Norvasc 2.5 mg oral tablet, 2.5 mg= 1 tablet, By Mouth, Daily, 1 refills pantoprazole 40 mg oral delayed release tablet, 40 mg= 1 tablet, By Mouth, 2 times a day, 3 refills Lab Results Cardiology Labs WBC: 9.3 k/mm3 (10/09/22) RBC:??3.99 m/mm3??Low (10/09/22) Hgb: 12.4 Gm/dL (10/09/22) Hct: 37.2 % (10/09/22) MCV: 93.2 femtoliters (10/09/22) MCH: 31.1 pg (10/09/22) MCHC: 33.3 g/dL (10/09/22) Platelet Count: 333 k/mm3 (10/09/22) RDW-SD: 44.4 femtoliters (10/09/22) Nucleated RBC (Automated): 0 #/100 WBC'S (10/09/22) Abs. Neut:??9.5 k/mm3??High (10/08/22) Abs. Lymph:??4.6 k/mm3??High (10/08/22) Abs. [place]:??1.2 k/mm3??High (10/08/22) Abs. Eo: 0.1 k/mm3 (10/08/22) Abs. Baso: 0 k/mm3 (10/08/22) Neut %: 61 % (10/08/22) [place] %: 7.8 % (10/08/22) Eos %: 0.8 % (10/08/22) Baso %: 0.3 % (10/08/22) Imm Gran: 0.4 % (10/08/22) Abs. Imm Gran: 0.1 k/mm3 (10/08/22) INR: 1 (10/08/22) Protime (PT): 10.5 seconds (10/08/22) APTT: 26.8 seconds (10/08/22) Sodium: 139 mmol/L (10/08/22) Potassium: 4 mmol/L (10/08/22) Chloride: 106 mmol/L (10/08/22) Bicarbonate Level: 24 mmol/L (10/08/22) Glucose Level:??130 mg/dL??High (10/08/22) Hemoglobin A1C (Monitoring):??6 %??High (10/08/22) BUN: 11 mg/dL (10/08/22) Creatinine-Blood: 1 mg/dL (10/08/22) Calcium: 9.1 mg/dL (10/08/22) Protein, Total: 6.4 Gm/dL (10/08/22) Albumin: 3.7 Gm/dL (10/08/22) Alkaline Phosphatase: 80 units/L (10/08/22) AST (SGOT): 15 units/L (10/08/22) ALT (SGPT): 13 units/L (10/08/22) Bilirubin, Total: 0.2 mg/dL (10/08/22) Nt-Probnp: 49 pg/mL (10/08/22) Cholesterol:??218 mg/dL??High (10/08/22) Triglycerides: 113 mg/dL (10/08/22) HDL Cholesterol: 50 mg/dL (10/08/22) LDL Cholesterol:??145 mg/dL??High (10/08/22) Non HDL Cholesterol:??168 mg/dL??High (10/08/22) TSH: 1.4 uIU/mL (10/08/22) Diagnostic Impression CT CT Heart/Coronary/3D/Morph ?? 08:30:38 IMPRESSION: ?? 1. No evidence of hemodynamically significant coronary artery disease. ?? Thank you for allowing me to participate in the care of this patient. ? I have personally reviewed the images and I agree with this report. WSN: [id number] ? Ordering Physician: Tiffanie Thurman ?? Signed By: Good Acuna MD ECG ECG 12-Lead ?? 16:18:39 Please click on pdf link to open report ?? Signed By: Ronnie Millan MD T ?? ECG 12-Lead ?? 16:18:39 Ventricular Rate: 95 BPM Atrial Rate: 95 BPM P-R Interval: 132 ms QRS Duration: 82 ms Q-T Interval: 354 ms QTC Calculation(Bazett): 444 ms P [place]: 63 degrees R [place]: 29 degrees T [place]: 3 degrees Normal sinus rhythm Nonspecific ST abnormality Abnormal ECG When compared with ECG of 11-MAY-2022 06:43, No significant change was found Confirmed by RONNIE MILLAN MD ([id number]) on 10/09/2022 8:46:12 AM ?? [place]: RONNIE MILLAN MD ?? Signed By: Ronnie Millan MD Echo Echocardiogram - Complete ?? 07:19:08 Summary The left ventricular size is normal. Left ventricular wall thickness is normal. The LV systolic function is normal . The left ventricular ejection fraction is 50-60 %. Cannot rule out basal to mid inferolateral and basal inferior wall hypokinesis. The right ventricular size and function appears grossly normal. ?? Comparison Comparison is made to the study of May 11, 2022. Cannot rule out basal to mid inferolateral and basal inferior wall hypokinesis on the current study. ?? Signature ?? Signed By: Toño Osorio MD Problem List/Past Medical History Ongoing Auditory hallucinations Bipolar disease, chronic Bipolar disorder [...] PTSD - Post-traumatic stress disorder Severe obesity Procedure/Surgical History History of cervical spine surgery Appendectomy Social History Alcohol Use: Never. Employment/School Status: Unemployed. Home/Environment Living situation: Home/Independent. Other: [employer]PER[employer]. Sexual Sexually involved in last 6 months: No. Substance Abuse Use: Current. Type: Marijuana. Other: Drops and gummies and smokes. Tobacco Use: Former smoker, quit more than 30 days ago. Other: 11 years 1/2-1PPD. Family History Mother: Cervical cancer Daughter: Diabetes mellitus * Tiffanie Thurman NP: PERFORM Event Display: Cardiology Note Office Authored Date: I have seen and evaluated this patient.?? I have discussed the case and its management with NANCY Cuenca and agree with the findings and plan as documented. Pt doing well. Has no cardiac concerns at this time. she would like to follow up PRN, advised her to call with any concerns. Patient Care team information Care Team Personnel Name: Kathleen Lai NP Position: [facility] PCO Associate Professional Member Role: PCP Address: Address: [address] [place] [id number]- Name: Jean Lane RN Position: [facility] RN Member Role: Primary Care Nurse Name: Delfina Ayoub RN Position: S RN Member Role: Primary Care Nurse Name: Sara Barlow LPN Position: [facility] RN Member Role: Primary Care Nurse Care Team Related Persons Name: LUIS HOGUE Address: home [address] [place] [address] Name: LUIS BHATTI Name: KOBE WADE Address: [address] [place] [address] Name: TERRELL FORMAN Address: home
--- OUTSIDE RECORDS SUMMARY | 2023-01-09 11:07 | XMS_ITS | Patient Health Record ---
Author Name Unknown Organization [facility] Address [address] [id number] Support Name Relationship Address Phone ChowdaryRadha adler Guarantor Unknown [phone] ALLERGIES Allergen (clinical drug ingredient) Drug/Non Drug Allergy documented on EMR Reaction Allergy Type Onset Date Status oxcarbazepine Trileptal (uncoded) Unknown Allergy Active ibuprofen Ibuprofen Unknown Drug Allergy Active REASON FOR REFERRAL No Information MEDICATIONS Medication SIG (Take, Route, Frequency, Duration) Notes Start Date End Date Status Naproxen Active SudaTrate daily at bed time Active clonazePAM 0.5 MG 1 tablet at bedtime Orally Once a day Active Pantoprazole Sodium 40 MG 1 tablet Orall y Once a day Active hydroCHLOROthiazide daily Active Lidoderm 5 % 1 patch remove after 12 hours Externally Once a day Active SUMAtriptan 50 mg daily prn Active SOCIAL HISTORY Sex Assigned At : Social History Observation Description Sex Assigned At Unknown PLAN OF TREATMENT Pending Test Test Name Order Date X ray : Foot, left 3v 03/23/2020 X ray : Foot, right 3v 03/23/2020 INJ TENDON SHEATH/LIGAMENT/FASCIA 2020 INJ TENDON SHEATH/LIGAMENT/FASCIA 2020 MEDICATIONS ADMINISTERED Medication Instructions Date of Administration Dosage Notes Dexamethasone 03/23/2020 0.5 mL Dexamethasone 12/30/2020 0.5 mL Kenalog 03/23/2020 0.5 mL Kenalog 12/30/2020 0.5 mL MEDICAL (GENERAL) HISTORY Medical History History ICD Code bipolar disorder mild somatic symptom disorder PTSD spinal spondylosis lumbar DDD and disc herniator HTN lumbar radiculopathy right fibromyalgia spinal stenosis
--- OUTSIDE RECORDS SUMMARY | 2023-01-09 11:07 | XMS_ITS | Patient Health Record ---
Author Name Unknown [facility] Address [address] [place] [address] Care Team Providers Care Chief Technician X Ray Name Role Phone Mahin Estrada MD Primary Care Provider Laine Heart Unavailable [phone] ALLERGIES Allergen (clinical drug ingredient) Drug/Non Drug Allergy documented on EMR Reaction Allergy Type Onset Date Status Seasonale Unknown Drug Allergy Active REASON FOR REFERRAL No Information MEDICATIONS Medication SIG (Take, Route, Frequency, Duration) Notes Start Date End Date Status Aspir-81 Active hydroCHLOROthiazide Not-Taking Atorvastatin Calcium Active Acid Relief 40 mg acid reflux Active Excedrin Sinus Headache prn Active Feldene 20 MG 1 capsule with food Orally Once a day for 30 day(s) 10/11/2021 Not-Taking amLODIPine Besylate 2.5 MG 1 tablet Orally Once a day Active Piroxicam 20 MG TAKE 1 CAPSULE BY MOUTH EVERY DAY WITH FOOD FOR 14 DAYS for 14 Not-Taking CeleBREX Active Tylenol Not-Taking Physical Therapy . . . 2-3x/week for 3-4 weeks 10/11/2021 Active Pantoprazole Sodium 40 MG 1 tablet Orall y Once a day Active clonazePAM 0.5 MG 1 tablet at bedtime Orally Once a day prn Active Ammonium Lactate 12 % 1 application to affected area Externally to feet Twice a day for 30 days Active Cane as directed Pronged cane Daily 09/15/2022 Not-Taking Pneumatic Compression Boot 30mm Hg as directed over swollen feet and legs as directed for . 07/28/2022 Not-Taking IMMUNIZATIONS Vaccine Route Administration Date Status Comme nts COVID-19 Pfizer BioNTech Vaccine Unknown 10/29/2020 Administered 1st 10/08/20 2nd 10/29/20 SOCIAL HISTORY Tobacco Use: Social History Observation Description Date Details (start date - stop date) Former Smoker NA - NA Sex Assigned At : Social History Observation Description Sex Assigned At Unknown Tobacco Use/Smoking Question Answer Notes Are you a: former smoker Additional Findings: Tobacco Non-User Ex-cigaret te smoker Alcohol Screen Question Answer Notes Did you have a drink containing alcohol in the p ast year? No Points 0 Interpretation Negative Tobacco use other than smoking: Question Answer Notes Are you an other tobacco user? No VITAL SIGNS Height 5ft in 10/19/2022 Weight 227 lbs 10/19/2022 BMI 44.33 kg/m2 10/19/2022 PROCEDURES Procedure Date Ordered Date Performed Result Body Sit e 19507,[id number] TENDON SHEATH/LIGAMENT 09/15/2022 N/A Encounters Encounter Location Date Provider Diagnosis [address] [address] 07/27/2022 Laine Perica Plantar fascial fibromatosis M72.2 ; Achilles tendinitis of left lower extremity M76.62 ; Calcaneal spur, left M77.32 ; Pain of left heel M79.672 and Pain of right heel M79.[address] [address] 07/28/2022 Laine Leos [facility] [address] [place] [address] 08/24/2022 Laine Leos [address] [address] 09/14/2022 Laine Perica Plantar fascial fibromatosis M72.2 ; Calcaneal spur, left M77.32 ; Pain of left heel M79.672 and Achilles tendinitis of left lower extremity M76.62 [facility] [address] [place] [address] 09/15/2022 Laine Perica Plantar fascial fibromatosis M72.2 ; Calcaneal spur, left M77.32 ; Pain of left heel M79.672 and Achilles tendinitis of left lower extremity M76.[address] [address] 10/19/2022 Laine Perica Plantar fascial fibromatosis M72.2 ASSESSMENTS Encounter Date Diagnosis Assessment Notes Treatment Notes Treatment Clinical Notes 07/27/2022 Plantar fascial fibromatosis (ICD-10 - M72.2) 07/27/2022 Achilles tendinitis of left lower extremity (ICD-10 - M76.62) 09/14/2022 Plantar fascial fibromatosis (ICD-10 - M72.2) 09/14/2022 Calcaneal spur, left (ICD-10 - M77.32) 09/15/2022 Plantar fascial fibromatosis (ICD-10 - M72.2) 09/15/2022 Calcaneal spur, left (ICD-10 - M77.32) 10/19/2022 Plantar fascial fibromatosis (ICD-10 - M72.2) 09/15/2022 Pain of left heel (ICD-10 - M79.672) 09/14/2022 Pain of left heel (ICD-10 - M79.672) 07/27/2022 Calcaneal spur, left (ICD-10 - M77.32) 07/27/2022 Pain of left heel (ICD-10 - M79.672) 09/14/2022 Achilles tendinitis of left lower extremity (ICD-10 - M76.62) 09/15/2022 Achilles tendinitis of left lower extremity (ICD-10 - M76.62) 07/27/2022 Pain of right heel (ICD-10 - M79.671) PLAN OF TREATMENT Pending Test Test Name Order Date X ray : Foot, left 3V 07/27/2022 X ray : Foot, left 3V 04/06/2021 X ray : Foot, right 3V 04/06/2021 [id number] TENDON SHEATH/LIGAMENT 0 09/15/2022 Insurance Providers Payer Name Payer Address Payer Phone Subscriber Number Group Number Insured Name Patient Relationship to Insured Coverage Start Date Coverage End Date [facility] [employer] Claims [id number] [address] [place] [place] [address] [phone] [id number] Radha Chowdary Self - patient is the insured MEDICAL (GENERAL) HISTORY Medical History History ICD Code Back,Hip,and Knee pain Headaches/Migraines High blood pressure Reflux ( GERD) Sciatica Chicken pox Fibromyalgia Arthritis Bursitis Joint pain Surgical History Surgery Date(Month/Year) neck surgery 2012 Hospitalization History Reason Date(Month/Year) [facility]- UTI 09/2022 [facility] fainting
--- NOTE | 2023-01-09 11:40 | A.OFFVIS_ITS ---
Intake Vital Signs 01/09/23 13:09 01/09/23 13:10 Height 5 ft 5 ft Weight 221 lb 221 lb BMI 43.2 43.2 BP 132/78 130/66 Blood Pressure Location Rt brachial Lt brachial Position Sitting Sitting Respiration 17 16 Pulse 98 82 Pulse Source Pulse Oximeter Pulse Oximeter Pulse Oximetry (%) 98 98 Oxygen Delivery Method Room Air Room Air Comment pre-op post-op Intake Visit Reasons: R DX GNB/LOCAL *Ativan Prior Allergies No Known Allergies Allergy (Verified 01/09/23 13:11) PFSH Medical History Anxiety Chronic GERD High blood pressure Social History Current occupational status: disabled Current occupation: rt handed Physical Exam Vital Signs: Last Vital Signs Pulse 82 01/09/23 13:10 Resp 16 01/09/23 13:10 BP 130/66 01/09/23 13:10 Pulse Ox 98 01/09/23 13:10 Oxygen Delivery Method Room Air 01/09/23 13:10 BMI result Body Mass Index 43.2 Assessment & Plan Assessment & Plan (1) Patellofemoral arthralgia of both knees: Code(s): M22.2X1 - Patellofemoral disorders, right knee; M22.2X2 - Patellofemoral disorders, left knee (2) Primary osteoarthritis of right knee: Code(s): M17.11 - Unilateral primary osteoarthritis, right knee Plan: Right diagnostic genicular nerve block. Informed consent was explained to the patient. All questions were explained and answered. The patient was taken inside the operating room. The patient was positioned supine on operating table with her right leg elevated on a gel bin. Time-out was performed delineating correct site, side, the nature of the procedure, patient's allergy, preoperative antibiotic if needed. All operating room staff was participating in OR time-out procedure. C-arm was brought over the operating field and picture of the right knee was demonstrated on the screen. Anterolateral and anteromedial surfaces of the knee as well as lower leg and the lower thigh were prepped with chloroprep and draped with utility towels. The point of interest were delineated for: FOR: superior lateral genicular nerve (branch of lateral femoral cutaneous nerve) as the connection of the metaphysis of theright femur with corresponding diaphysis on the lateral silhouette of the femur distal bone, For superior medial genicular nerve (suprapatellar saphenous nerve) the point of interest was delineated is the connection of metaphysis of right femur with corresponding diaphysis on the medial silhouette on the femoral distal bone. For inferior medial genicular nerve (infrapatellar saphenous nerve) the point of interest was delineated as connection of metaphysis of the proximal tibia on the medial side with corresponding diaphysis of the same bone. The projections of the points of interest on anterior surface of the right knee was injected with small amount of lidocaine 2% 1-to 2 ml. After that to needles 22 gauge 3-1/2 inch long were driven to were the point of interest in tunnel vision fashion. When the needle gently contacted the bones the C arm view was turned lateral , care was taken to superimpose condyles of the knee. With condyles superimposed the needles were adjusted the way the tips of the needle positioned at the middle of the shaft of the bone. After that injection of ropivacaine o.5% 1 to 1.5 mls was performed at each needle location. the needles were removed and bandaids were applied. the patient was restless during the procedure and reported severe pain on menimal stimulation and needle advancements. Upon completion of the procedure the patient was brought to recovery room where recovered uneventfully. (3) Right knee pain: Code(s): M25.561 - Pain in right knee Qualifiers: Chronicity: chronic Qualified Code(s): M25.561 - Pain in right knee; G89.29 - Other chronic pain (4) Left knee pain: Code(s): M25.562 - Pain in left knee Qualifiers: Chronicity: chronic Qualified Code(s): M25.562 - Pain in left knee; G89.29 - Other chronic pain Plan Radha is a very pleasant 52 year old female who presented to the office today for evaluation management of her chronic bilateral knee pain. Patient has exhausted conservative treatment including PT, home exercise program, aquatherapy, anti-inflammatory medication and intra-articular injections. She complains of burning pain, will trial gabapentin 100mg po bid. Advised on risks and potential side effects. Discussed options for treatment including diagnostic interventional testing, steroid injections, peripheral nerve stimulation with Sprint, RFA and more permanent neuromodulation. Informational pamphlets provided. Lengthy discussion detailing options for RFA vs Sprint PNS including diagnostic testing, post procedure instructions and expected outcomes. Patient states right knee is worse than the left, she would like to start with treatment for the right side. After discussing she has decided to proceed with Genicular RFA pending positive results of Diagnostic Genicular NB. Will schedule for fluoroscopy guided right diagnostic genicular nerve block with local anesthetic. All questions and concerns have been answered and patient agrees with the plan. Follow up after injection, sooner if needed. Orders: Orders FL guidance in treatment room Today M25.561 - Pain in right knee Coding Level of Care Code Procedure Only Diagnoses Patellofemoral arthralgia of both knees M22.2X1; M22.2X2 Primary osteoarthritis of right knee M17.11 Chronic pain of right knee M25.561; G89.29 Chronicity: chronic Chronic pain of left knee M25.562; G89.29 Chronicity: chronic
[2023-01-09 13:09] VITALS: BP 132/78; PULSE 98; RESP 17; O2SAT 98; BMI 43.2
[2023-01-09 13:10] VITALS: BP 130/66; PULSE 82; RESP 16; O2SAT 98; BMI 43.2
== END 2023-01-09 11:39 | disposition home or self-care (01) ==
LOC: HO.PMCPRC 10:59
PROVIDERS: PCP Nurse Practitioner Family; Visit Provider Anesthesiology
DX: M17.11 Unilateral primary osteoarthritis, right knee (principal); M22.2X1 Patellofemoral disorders, right knee
CPT/HCPCS: 64454

== ENCOUNTER → 2023-01-11 11:38 | Outpatient (BNVA) | payer OTHER, SELFPAY | PROVIDERS: PCP Nurse Practitioner Family; Visit Provider Registered Nurse Emergency ==

== ENCOUNTER 2023-01-11 11:39 | Outpatient (AMB) | payer OTHER, SELFPAY ==
--- OUTSIDE RECORDS SUMMARY | 2023-01-11 11:45 | XMS_ITS | Patient Health Record ---
Author Name Unknown Organization [facility] Address [address] [address] Support Name Relationship Address Phone ChowdaryRadha adler Guarantor Unknown [phone] ALLERGIES Allergen (clinical drug ingredient) Drug/Non Drug [...]
--- OUTSIDE RECORDS SUMMARY | 2023-01-11 11:45 | XMS_ITS | Patient Health Record ---
Author Name Unknown [facility] Address [address] [place] [address] Care Team Providers Care Molding Supervisor Name Role Phone Mahin Estrada MD Primary Care Provider Laine Heart Unavailable [phone] ALLERGIES Allergen (clinical drug ingredient) Drug/Non Drug [...] Ordered Date Performed Result Body Sit e 88356,[id number] TENDON SHEATH/LIGAMENT 09/15/2022 N/A Encounters Encounter Location Date Provider Diagnosis [address] [address] 07/27/2022 Laine Perica Plantar fascial fibromatosis M72.2 ; Achilles tendinitis of left lower extremity M76.62 ; Calcaneal spur, left M77.32 ; Pain of left heel M79.672 and Pain of right heel M79.[address] [address] 07/28/2022 Laine Leos [facility] [address] [place] [address] 08/24/2022 Laine Leos [address] [address] 09/14/2022 Laine Perica Plantar fascial fibromatosis M72.2 ; Calcaneal spur, left M77.32 ; Pain of left heel M79.672 and Achilles tendinitis of left lower extremity M76.62 [facility] [address] [place] [address] 09/15/2022 Laine Perica Plantar fascial fibromatosis M72.2 ; Calcaneal spur, left M77.32 ; Pain of left heel M79.672 and Achilles tendinitis of left lower extremity M76.[address] [address] 10/19/2022 Laine Perica Plantar fascial fibromatosis M72.2 [...] X ray : Foot, right 3V 04/06/2021 [id number] TENDON SHEATH/LIGAMENT 0 09/15/2022 Insurance Providers Payer Name Payer Address Payer Phone Subscriber Number Group Number Insured Name Patient Relationship to Insured Coverage Start Date Coverage End Date [facility] [employer] Claims [facility] [address] [place] [place] [address] [phone] [id number] Radha Chowdary Self - patient is the insured MEDICAL (GENERAL) HISTORY Medical History History ICD Code Back,Hip,and Knee pain Headaches/Migraines High blood pressure Reflux ( GERD) Sciatica Chicken pox Fibromyalgia Arthritis Bursitis Joint pain Surgical History Surgery Date(Month/Year) neck surgery 2012 Hospitalization History Reason Date(Month/Year) [facility]- UTI 09/2022 [facility] fainting
--- NOTE | 2023-01-11 11:53 | A.OFFVIS_ITS ---
Intake Intake Visit Reasons: R DX GNB 01/09/23 Allergies No Known Allergies Allergy (Verified 01/09/23 13:11) HPI HPI Comments History of Present Illness Details Televisit completed today for follow up 2 days s/p right diagnostic genicular nerve block. Patient reports 80% pain relief with improvement in function and mobility since the procedure. She is able to walk without the burning pain that she was experiencing prior to the injections. She would like to proceed with right Genicular RFA, she requests this be done under sedation. Prior: Radha is a very pleasant 52 year old female who presents to the office today for evaluation management of her chronic bilateral knee pain. Patient was referred here by Orthopedics. She has been told that she needs to lose weight before she can have surgery on her knees. Patient reports that she has been suffering with bilateral knee pain for more than 7 years. Her right knee is worse than the left. She states that with overuse the right knee will swell. Pain is worse with standing, walking or activity. She has been taking Celebrex for the pain, without relief. She has tried physical therapy and home exercise program without relief. She is currently doing aqua therapy that she reports helps a little bit but the relief she finds is short-lived. She has had multiple steroid injections as well as gel injections with no improvement. Has a 10/10, constant. She describes the pain as burning with radiation into her shins. In terms of muscle damage condition is described as aching, cramping, spasming, burning, tingling. Pain is negatively impacting patient is enjoying life, general activity, mood, normal work, recreational activities and walking. [facility], [facility] Medical History Anxiety Chronic GERD High blood pressure Social History Current occupational status: disabled Current occupation: rt handed Review of Systems Const All systems reviewed & are unremarkable except as noted in HPI and below Assessment & Plan Assessment & Plan (1) Patellofemoral arthralgia of both knees: Code(s): M22.2X1 - Patellofemoral disorders, right knee; M22.2X2 - Patellofemoral disorders, left knee (2) Primary osteoarthritis of right knee: Code(s): M17.11 - Unilateral primary osteoarthritis, right knee (3) Right knee pain: Code(s): M25.561 - Pain in right knee Qualifiers: Chronicity: chronic Qualified Code(s): M25.561 - Pain in right knee; G89.29 - Other chronic pain (4) Left knee pain: Code(s): M25.562 - Pain in left knee Qualifiers: Chronicity: chronic Qualified Code(s): M25.562 - Pain in left knee; G89.29 - Other chronic pain Plan Televisit completed today for follow up right diagnostic genicular nerve block performed 01/09/23. Patient reports 80% pain relief with improvement in function and mobility. Patient has exhausted conservative treatment including PT, home exercise program, aquatherapy, anti-inflammatory medication and intra-articular injections. Lengthy discussion detailing options for RFA vs Sprint PNS including diagnostic testing, post procedure instructions and expected outcomes. She would like to proceed with Right Genicular RFA with sedation. After Right Genicular RFA will plan for Left Genicular Diagnostic NB with local anesthetic. All questions and concerns have been answered and patient agrees with the plan. Follow up after RFA, sooner if needed. Telehealth Telehealth Location of provider rendering services: practice address Location of patient: address on file Patient Identification confirmed using: Name, : Yes Telehealth method: voice only Patient verbally consented to treatment: Yes Patient verbally consented to billing insurance company: Yes Patient informed of any privacy concerns related to visit: Yes Minutes spent on Phone/Video with Pt.: 11 Coding Level of Care Code Tele Est Pt Level 3 (04148) Diagnoses Patellofemoral arthralgia of both knees M22.2X1; M22.2X2 Primary osteoarthritis of right knee M17.11 Chronic pain of right knee M25.561; G89.29 Chronicity: chronic Chronic pain of left knee M25.562; G89.29 Chronicity: chronic
== END 2023-01-11 12:02 | disposition home or self-care (01) ==
PROVIDERS: PCP Nurse Practitioner Family; Visit Provider Registered Nurse Emergency
DX: M22.2X1 Patellofemoral disorders, right knee (principal); M22.2X2 Patellofemoral disorders, left knee; M17.11 Unilateral primary osteoarthritis, right knee; M25.561 Pain in right knee; G89.29 Other chronic pain; M25.562 Pain in left knee
CPT/HCPCS: 99442

== ENCOUNTER 2023-12-03 14:31 | Outpatient (AMB) | payer OTHER, SELFPAY ==
--- NOTE | 2023-12-03 14:35 | MHC.OFFVIS ---
Vital Signs 12/03/23 14:48 Height 5 ft Weight 221 lb BMI 43.2 Intake Visit Reasons: Newprob-left knee pain/swelling Intake Note: Radha a 53 year old female who presents today for an evaluation of left knee pain s/p fall. Patient reports having a fall landing directly on her left knee about a month or 2 ago. She has had multiple falls after her initial fall, while she was going down the stairs twice and once while going up the stairs. States swelling in both of her knees with the right knee being the wore. She is in the process of scheduling for out patient therapy. She mentions numbness on her right hand s/p fall. She is unable to take Tylenol and motrin due to GI upset. She is prescribed celebrex. Allergies No Known Allergies Allergy (Verified 12/03/23 14:48) Medication List - Last Reconciled 12/04/23 by Roma De La Cruz PA-C celecoxib (Celebrex) 200 mg PO BID 30 days gabapentin 100 mg PO BID hydrochlorothiazide 25 mg PO DAILY pantoprazole 40 mg PO BID HPI HPI Newprob-left knee pain/swelling: Details: 53-year-old female left knee who presents to the office today for an evaluation of left knee pain after a fall. She reports she slipped on wet surface about 1 month ago where she landed on her patella. She sustained 2 more falls after her initial injury one while going downstairs and one while going upstairs. She currently states she has achy pain and swelling in her bilateral knees that is worse on her left knee. She also experiences catching, weakness and locking in her knees. She has been working on exercises as instructed. She has tried physical therapy, gel injection and cortisone injection in the past. She is unable to take Tylenol and Motrin due to GI upset. She also experiences numbness on her right hand since the fall. [facility] Medical History Anxiety Chronic GERD High blood pressure Social History Current occupational status: disabled Current occupation: rt handed Review of Systems Const All systems reviewed & are unremarkable except as noted in HPI and below Physical Exam Vital Signs: BMI result Body Mass Index 43.2 Extrem Other: Left knee: Skin intact, no erythema or joint effusion. Tenderness along the medial and lateral joint line. Full ROM with crepitus. Negative Giovana?s. No ligamentous laxity. NVI. Results Reviewed Results Reviewed: X-rays of the left knee obtained in the office today show moderate tricompartmental osteoarthritis Assessment & Plan Assessment & Plan (1) Patellofemoral arthritis of left knee: Code(s): M17.12 - Unilateral primary osteoarthritis, left knee Category: Medical Plan We discussed options which include PT, NSAIDs and injections. The patient will defer on the injection today and proceed with PT and NSAIDs. She was fit for a knee brace. If symptoms persist, she will contact me for an injection, otherwise, PRN. Orders: Orders PT Evaluation and Treatment 12/03/23 M17.12 - Unilateral primary osteoarthritis, left knee XR knee LT 3V 12/03/23 M25.562 - Pain in left knee XR knee RT 1V 12/03/23 M25.561 - Pain in right knee Patient Instructions: Scribed for Roma De La Cruz PA-C, by Tone Angel medical records technician, on 12/03/2023 at 3:15 PM EST.? I, Roma De La Cruz PA-C, have personally reviewed and agree with the information entered by the scribe. Coding Level of Care Code New Pt Level 3 (92149) Complex EM visit Add On G2211 Diagnoses Patellofemoral arthritis of left knee M17.12
[2023-12-03 14:48] VITALS: BMI 43.2
== END 2023-12-03 16:21 | disposition home or self-care (01) ==
PROVIDERS: PCP Nurse Practitioner Family; Visit Provider Physician Assistant
DX: M17.12 Unilateral primary osteoarthritis, left knee (principal); W19.XXXA Unspecified fall, initial encounter
CPT/HCPCS: 99213

== ENCOUNTER 2023-12-03 14:31 | Outpatient (REF) | payer OTHER, SELFPAY | END 2023-12-03 14:32 | disposition home or self-care (01) | LOC: HO.HOSX 14:31 | PROVIDERS: PCP Nurse Practitioner Family; Visit Provider Physician Assistant | DX: M25.562 Pain in left knee (principal); M25.561 Pain in right knee; M17.12 Unilateral primary osteoarthritis, left knee | CPT/HCPCS: 73560; 73562; 99212 ==

== ENCOUNTER 2024-03-05 11:19 | Outpatient (AMB) | payer OTHER, SELFPAY ==
--- NOTE | 2024-03-05 11:27 | MHC.OFFVIS ---
Vital Signs 03/05/24 11:28 Height 5 ft Weight 215 lb BMI 42.0 Intake Visit Reasons: OV, discuss weight loss for possible TKA Intake Note: Radha a 53 year old female who presents today for a follow up of right knee pain. Patient reports that she started Ozempic started about 3 weeks. She has concerns of swelling in her whole leg. intermittent. attending PT water therapy once a week. pain is getting owrse. Allergies No Known Allergies Allergy (Verified 12/03/23 14:48) Medication List - Last Reconciled 03/05/24 by Roma De La Cruz PA-C celecoxib (Celebrex) 200 mg PO BID 30 days gabapentin 100 mg PO BID pantoprazole 40 mg PO BID semaglutide (Ozempic) 0.25 mg subcut QWEEK HPI HPI OV, discuss weight loss for possible TKA: Details: 53-year-old female returns to the office today for ongoing knee pain. She has significant arthritis however her BMI has been above the allowed level for successful knee replacement surgery. Time she started Ozempic 3 weeks ago and has been working on her diet. She is also doing water aerobics and home therapy exercises. She continues to have limitations in daily activities and pain that is limiting her ability to perform activities. [facility] Medical History Anxiety Chronic GERD High blood pressure Social History Current occupational status: disabled Current occupation: rt handed Review of Systems Const All systems reviewed & are unremarkable except as noted in HPI and below Physical Exam Vital Signs: BMI result Body Mass Index 42.0 Const General: cooperative and no acute distress Orientation/consciousness: patient oriented x3 Resp Effort & Inspection: normal respiratory effort and able to speak in complete sentences Cardio Peripheral pulses: Peripheral pulses 2+ throughout Neuro General: patient oriented x3 Extrem Other: Left knee: Skin intact, no erythema or joint effusion. Tenderness along the medial and lateral joint line. Full ROM with crepitus. Negative Giovana?s. No ligamentous laxity. NVI. Assessment & Plan Assessment & Plan (1) Patellofemoral arthritis of left knee: Code(s): M17.12 - Unilateral primary osteoarthritis, left knee Category: Medical Plan: We discussed at length the importance of weight loss in the 6s for a knee replacement. She will continue with the Ozempic per the recommendations of her primary care provider. We also discussed the importance of a balanced diet. She will also continue with activity to tolerance. I will see her back in 3 months for another follow-up to check her weight loss, patient is content with this plan. Coding Level of Care Code Est Pt Level 3 (14233) Complex EM visit Add On G2211 Diagnoses Patellofemoral arthritis of left knee M17.12
[2024-03-05 11:28] VITALS: BMI 42.0
--- OUTSIDE RECORDS SUMMARY | 2024-03-05 11:43 | XMS_ITS | Continuity of Care Document ---
Author Organization [facility] al Address [address] [place] [address]- Care Team Providers Care Special Effects Artist Name Role Phone Anita RODRGIUEZ, Allison Primary Care Physician Encounter [facility] Date(s): 02/22/24 - 02/23/[address] [address]- Discharge Disposition: A-D/C Home Attending Physician: Lisa Whitley MD Admitting Physician: Lisa Whitley MD Referring Physician: Not on Staff, Referring MD Encounter Type: Disch ES Allergies, Adverse Reactions, Alerts Substance Criticality Severity Reaction Reaction Severity Status ibuprofen gastritis Active atorvastatin Muscle cramps Act shagufta Trileptal Unable to assess criticality Persistent Severe hives Active Red Dye Active Immunizations Given and Recorded Vaccine Date Status Refusal Reason influenza virus vaccine, inactivated 1 12/22/22 Gi ita influenza virus vaccine, inactivated 2 12/15/20 Gi ita tetanus/diphtheria/pertussis, acel(Tdap) 3 11/16/21 Given SARS-CoV-2 (COVID-19) mRNA BNT-162b2 vac 10/29/20 Recorded SARS-CoV-2 (COVID-19) mRNA BNT-162b2 vac 10/08/20 Recorded Influenza Virus Vaccine (oldterm) 12/11/19 Recorde d 1Result Comment: [facility] [id number] 2Result Comment: [id number] 3Result Comment: [facility]: [id number] Problem List Condition Confirmation Course Effective Dates Status H ealth Status Informant Unstable gait Confirmed Active Auditory hallucinations Confirmed Active Bipolar disease, chronic Confirmed Active CKD (chronic kidney disease) stage 2, GFR 60-89 ml/min Confirmed Active Learning disability Confirmed Active Fibromyalgia Confirmed Active Chronic GERD Confirmed Active GERD (gastroesophageal reflux disease) Confirmed Active HLD (hyperlipidemia) Confirmed Active HTN (hypertension) Confirmed Active Mastodynia [...] Exam Date Time Procedure Performing Provider Status 02/23/24 1:[address] Abdomen and Pelvi s W/O Contrast Cecille Johnston; Auth (Verified) Notes: (CT Abdomen and Pelvis W/O Contrast) Reason For Exam: flank pain;Pain RESULT: CT Abdomen and Pelvis W/O Contrast CT Abdomen and Pelvis W/O Contrast Hx of Present Illness: seen at c o lower abd pain +hematuria inc pain right side +nausea no vomiting no fevers no urinary frequency; Reason: Pain; flank pain; Clinical Question(s): Calculus TECHNIQUE: Spiral CT through the abdomen and pelvis without IV contrast formatted in 3 planes. Thisstudy was performed without oral contrast. Weight- based protocol using automatic tube modulation was used to optimize exposure parameters. CTDIvol Body: 18.80 mGy, DLP Body: 925 mGy*cm. COMPARISON: 09/09/2018. FINDINGS: Encoding Clerk View Findings, Lines and Tubes: None. Visualized Chest: Tiny calcified granuloma in the medial right lung base. Lungs appear otherwise clear. No pleural or pericardial effusion. Diaphragm: Normal. Liver: Normal. Gallbladder: No CT evidence of gallbladder pathology. Bile ducts: No biliary ductal dilation. Spleen: Normal. Pancreas: Normal. Adrenal glands: Normal. Kidneys and ureters: No hydronephrosis, stones, or noncontrast evidence of suspicious masses. Bladder: Normal. Reproductive organs: Unremarkable. Stomach, small bowel, and large bowel: Stomach is underdistended and not adequately evaluated. Small bowel generally normal in course and caliber without evidence of obstruction. Large bowel demonstrates a few scattered diverticula a especially within the sigmoid colon, without evidence of active diverticulitis. There is a moderate amount of retained stool. Appendix: Not seen, but no evidence of appendicitis. Peritoneum and retroperitoneum: No ascites or pneumoperitoneum. No omental or mesenteric lesions. Lymph nodes: No enlarged lymph nodes. Blood vessels: Normal. No aneurysm. Abdominal and pelvic wall: Unremarkable. Bones: No acute abnormality. IMPRESSION: No acute abdominal pelvic pathology. Sigmoid diverticulosis without evidence of active diverticulitis. WSN: [id number] Ordering Physician: Lisa Whitley Dictated By: Estrella Sanchez MD, I Dictated Date/Time: 02/23/24 5:18 pm Reviewed By: Estrella Sanchez MD, I Signed By: Estrella Sanchze MD, I Signed Date/Time: 02/23/24 5:18 pm Transcribed By: PRACHI Transcribed Date/Time: 02/23/24 5:09 pm Vital Signs Most recent to oldest [Reference Range]: 1 2 3 Height 153 cm (02/22/24 8:43 PM) Weight 99.5 kg (02/22/24 8:43 PM) Oxygen Saturation [94-100 %] 98 % (02/23/24 4:00 AM) 98 % (02/22/24 11:00 PM) 98 % (02/22/24 8:43 PM) Pulse Rate [55-90 bpm] 85 bpm (02/23/24 4:00 AM) 83 bpm (02/22/24 11:00 PM) 105 bpm *H* (02/22/24 8:43 PM) Blood Pressure [90-138/55-84 mm Hg] 124/64mm Hg (02/23/24 4:00 AM) 125/63mm Hg (02/22/24 11:00 PM) 125/98mm Hg (02/22/24 8:43 PM) Respiratory Rate [16-30 br/min] 16 br/min (02/23/24 4:00 AM) 16 br/min (02/22/24 11:00 PM) 16 br/min (02/22/24 8:43 PM) Temperature [96.8-100.4 DegF] 97.6 DegF (02/23/24 4:00 AM) 97.9 DegF (02/22/24 11:00 PM) 98.1 DegF (02/22/24 8:43 PM) Mode of Delivery (Oxygen) Room air (02/23/24 4:00 AM) Room air (02/22/24 11:00 PM) Room air (02/22/24 8:43 PM) Blood pressure sites Arm, left (02/23/24 4:00 AM) Arm, left (02/22/24 11:00 PM) Arm, left (02/22/24 8:43 PM) Temperature Route Oral (02/23/24 4:00 AM) Oral (02/22/24 11:00 PM) Oral (02/22/24 8:43 PM) Dry Weight 99.5 kg (02/22/24 8:43 PM) Weight Obtained Via Standing scale (02/22/24 8:43 PM) Dry Weight Obtained Via Standing scale (02/22/24 8:43 PM) Social History Social History Type Response Smoking Status Former smoker, quit more than 30 days ago; Other: 11 years 1/2-1PPD; entered on: 05/18/20 Sex Female Sex Representation Female (finding) Note * Angi RODRIGUEZ, Lisa Jenkins: PERFORM Event Display: Patient Education Leaflets Authored Date: Diclofenac ?? [id number] Diclofenac Brand Name(s): Cambia??, Cataflam??, Voltaren XR??, Zipsor??, Zorvolex??; also available generically ?? IMPORTANT WARNING: People who take nonsteroidal anti-inflammatory drugs (NSAIDs) (other than aspirin) such as diclofenac may have a higher risk of having a heart attack or a stroke than people who do not take these medications. These events may happen without warning and may cause . This risk may be higher for people who take NSAIDs for a long time. Do not take an NSAID such as diclofenac if you have recently had a heart attack, unless directed to do so by your doctor. Tell your doctor if you or anyone in your family has or has ever had heart disease, a heart attack, or a stroke, if you smoke, and if you have or have ever had high cholesterol, high blood pressure, or diabetes. Get emergency medical help right away if you experience any of the following symptoms: chest pain, shortness of breath, weakness in one part or side of the body, or slurred speech. If you will be undergoing a coronary artery bypass graft (CABG; a type of heart surgery), you should not take diclofenac right before or right after the surgery. NSAIDs such as diclofenac may cause ulcers, bleeding, or holes in the stomach or intestine. These problems may develop at any time during treatment, may happen without warning symptoms, and may causedeath. The risk may be higher for people who take NSAIDs for a long time, are older in age, have poor health, or drink large amounts of alcohol while taking diclofenac. Tell your doctor if you take any of the following medications: anticoagulants ('blood thinners') such as warfarin (Coumadin, Jantoven); aspirin; other NSAIDs such as ibuprofen (Advil, Motrin) and naproxen (Aleve, Naprosyn); oral steroids such as dexamethasone, methylprednisolone (Medrol), and prednisone (Eric); selective serotonin reuptake inhibitors (SSRIs) such as citalopram (Celexa), fluoxetine (Prozac, Sarafem, Selfemra, in Symbyax), fluvoxamine (Luvox), paroxetine (Brisdelle, Paxil, Pexeva), and sertraline (Zoloft); orserotonin norepinephrine reuptake inhibitors (SNRIs) such as desvenlafaxine (Khedezla, Pristiq), duloxetine (Cymbalta), and venlafaxine (Effexor XR). Also tell your doctor if you have or have ever had ulcers, bleeding in your stomach or intestines, or other bleeding disorders. If you experience anyof the following symptoms, stop taking diclofenac and call your doctor: stomach pain, heartburn, vomiting a substance that is bloody or looks like coffee grounds, blood in the stool, or black and tarry stools. Keep all appointments with your doctor and the laboratory. Your doctor will monitor your symptoms carefully and will probably order certain tests to check your body's response to diclofenac. Be sure to tell your doctor how you are feeling so that your doctor can prescribe the right amount of medication to treat your condition with the lowest risk of serious side effects. Your doctor or pharmacist will give you the team coordinator's patient information sheet (Medication Guide) when you begin treatment with diclofenac and each time you refill your prescription. Read the information carefully and ask your doctor or pharmacist if you have any questions. You can also visitthe Food and Drug Administration (FDA) website (https://www.fda.gov/Drugs/DrugSafety/vtc010058.htm)to obtain the Medication Guide. WHY is this medicine prescribed? Diclofenac capsules (Zipsor, Zorvolex) and tablets (Cataflam) are used to relieve mild to moderate pain. Diclofenac extended-release tablets (Voltaren XR), tablets (Cataflam), and delayed-release tablets (available generically) are used to relieve pain, tenderness, swelling, and stiffness caused by osteoarthritis (arthritis caused by a breakdown of the lining of the joints), and rheumatoid arthritis (arthritis caused by swelling of the lining of the joints). Diclofenac extended-release tablets and delayed-release tablets are also used to treat ankylosing spondylitis (arthritis that mainly affects the spine). Diclofenac tablets (Cataflam) are also used to treat painful menstrual periods. Diclofenac solution (Cambia) is used to treat migraine headaches in adults, but cannot be used to prevent migraines or to treat other types of headaches. Diclofenac is in a class of medications called NSAIDs. It works by stopping the body's production of a substance that causes pain, fever, and inflammation. HOW should this medicine be used? Diclofenac comes as a tablet, and liquid-filled capsule, a hard gelatin capsule, an extended-release (long-acting) tablet, a delayed-release (releases medication in the intestine) tablet, and as packets of powder for solution (to be mixed with water) and taken by mouth. Diclofenac liquid-filled capsules are usually taken 4 times a day and diclofenac hard gelatin capsules are usually taken 3 timesa day on an empty stomach. Diclofenac extended-release tablets are usually taken once a day, and inrare cases are taken twice a day, if needed to control pain. Diclofenac tablets and diclofenac delayed-release tablets are usually taken 2, 3, or 4 times a day. Diclofenac solution is taken without food as a one dose treatment to relieve the pain of migraine headaches. If you were told to take diclofenac on a regular basis, take it at around the same time(s) every day. Follow the directions on your prescription label carefully, and ask your doctor or pharmacist to explain any part you do not understand. Take diclofenac exactly as directed. Do not take more or less of it or take it more often than prescribed by your doctor. Different diclofenac products release the medication differently in your body and cannot be used interchangeably. Only take the diclofenac product prescribed by your doctor and do not switch to a different diclofenac product unless your doctor says that you should. Your doctor may adjust the dose of your medication during your treatment depending on your responseto the medication. Talk to your doctor about how you are feeling during your treatment with diclofenac. If you are taking the powder for solution, you will need to mix it with water before you take it. To mix the medication, first remove one packet from a row of three attached packets[address] Place 2 to 4 tablespoons (1 to 2 ounces; 30 to 60 mL) of water in a cup. Add the contents of the packet and mix well. Drink the entire mixture right away. Throw away the empty packet in a trash can that is out of thereach of children and pets. Are there OTHER USES for this medicine? This medication may be prescribed for other uses; ask your doctor or pharmacist for more information. What SPECIAL PRECAUTIONS should I follow? Before taking diclofenac, ??? tell your doctor and pharmacist if you are allergic to diclofenac (also available as Solaraze and Pennsaid, in Arthrotec), aspirin or other NSAIDs such as ibuprofen (Advil, Motrin) and naproxen (Aleve, Naprosyn), any other medications, or any of the inactive ingredients in the diclofenac product you plan to take. Ask your pharmacist or check the medication guide for a list of the inactive ingredients. If you will be taking diclofenac capsules (Zipsor), tell your doctor if you are allergic to bovine (cow) proteins such as those found in milk, beef, or gelatin. ??? tell your doctor and pharmacist what prescription and nonprescription medications, vitamins, nutritional supplements, and herbal products you are taking or plan to take while taking diclofenac. Your doctor may need to change the doses of your medications or monitor you carefully for side effects. ??? the following nonprescription products may interact with diclofenac: aspirin and nonsteroidal anti-inflammatory drugs (NSAIDS) such as ibuprofen (Advil, Motrin, others) and naproxen (Aleve); salicylates. Be sure to let yourdoctor and pharmacist know that you are taking these medications before you start taking diclofenac. Do not start any of these medications while taking diclofenac without discussing with your healthcare provider. ??? tell your doctor if you have or have ever had any of the conditions mentioned in the IMPORTANT WARNING section or asthma, especially if you also have frequent stuffed or runny nose or nasal polyps (swelling of the lining of the nose); porphyria (an abnormal increase in the amount of certain natural substances made by the liver); heart failure; swelling of the hands, feet, ankles,or lower legs; or liver or kidney disease. ??? tell your doctor if you are , plan to become; or are breast-feeding. Diclofenac may harm the fetus and cause problems with delivery if it is taken around 20 weeks or later during . Do not take diclofenac around or after 20 weeks of , unless you are told to do so by your doctor. If you become while taking diclofenac, call your doctor. ??? talk to your doctor about the risks and benefits of taking diclofenac if you are 75 years of age or older. Do not take this medication for a longer period of time or leandra higher dose than recommended by your doctor. ??? if you are having surgery, including dental surgery, tell the doctor or dentist that you are taking diclofenac. ??? if you have phenylketonuria (PKU; an inherited condition in which a special diet must be followed to prevent mental retardation), you should know that the powder for solution contains aspartame, a source of phenylalanine. What SPECIAL DIETARY instructions should I follow? Unless your doctor tells you otherwise, continue your normal diet. What should I do IF I FORGET to take a dose? The powder for solution is usually taken as needed for migraine headaches. If you are taking any other diclofenac product and you forget to take a dose, take the missed dose as soon as you remember it. However, if it is almost time for the next dose, skip the missed dose and continue your regular dosing schedule. Do not take a double dose to make up for a missed one. What SIDE EFFECTS can this medicine cause? Diclofenac may cause side effects. Tell your doctor if any of these symptoms are severe or do not go away: ??? diarrhea ??? constipation ??? gas or bloating ??? headache ??? dizziness ??? ringing in the ears Some side effects can be serious. If you experience any of the following symptoms or those mentioned in the IMPORTANT WARNING section, call your doctor immediately or get emergency medical help. Do not take any more diclofenac until you speak to your doctor. ??? unexplained weight gain ??? shortness of breath or difficulty breathing ??? swelling of the abdomen, feet, ankles, or lower legs ??? excessive tiredness ??? lack of energy ??? nausea ??? loss of appetite ??? itching ??? pain in the upper right part of the stomach ??? yellowing of the skin or eyes ??? flu-like symptoms ??? fever ??? blisters ??? rash ??? hives ??? swelling of the eyes, face, tongue, lips, throat, arms, or hands ??? difficulty breathing or swallowing ??? hoarseness ??? pale skin ??? fast heartbeat ??? cloudy, discolored, or bloody urine ??? back pain ??? difficult or painful urination Diclofenac may cause other side effects. Call your doctor if you have any unusual problems while taking this medication. If you experience a serious side effect, you or your doctor may send a report to the Food and Drug Administration's (FDA) MedWatch Adverse Event Reporting program online (https://www.fda.gov/Safety/MedWatch) or by phone ( ). What should I know about STORAGE and DISPOSAL of this medication? Keep this medication in the container it came in, tightly closed, and out of reach of children. Store it at room temperature and away from excess heat and moisture (not in the bathroom). It is important to keep all medication out of sight and reach of children as many containers (such as weekly pill minders and those for eye drops, creams, patches, and inhalers) are not child-resistant and young children can open them easily. To protect young children from poisoning, always lock safety caps and immediately place the medication in a safe location ??? one that is up and away and out of their sight and reach. https://www.upandaway.org Unneeded medications should be disposed of in special ways to ensure that pets, children, and otherpeople cannot consume them. However, you should not flush this medication down the toilet. Instead,the best way to dispose of your medication is through a medicine take-back program. Talk to your pharmacist or contact your local garbage/recycling department to learn about take-back programs in your community. See the FDA's Safe Disposal of Medicines website (https://goo.gl/c4Rm4p) for more information if you do not have access to a take-back program. What should I do in case of OVERDOSE? In case of overdose, call the poison control helpline at . Information is also available online at https://www.poisonhelp.org/help. If the victim has collapsed, had a seizure, has trouble breathing, or can't be awakened, immediately call emergency services at 911. Symptoms of overdose may include: ??? nausea ??? vomiting ??? stomach pain ??? bloody, black, or tarry stools ??? vomiting a substance that is bloody or looks like coffee grounds ??? drowsiness ??? slow, shallow, or irregular breathing ??? loss of consciousness What OTHER INFORMATION should I know? Do not let anyone else take your medication. Ask your pharmacist any questions you have about refilling your prescription. It is important for you to keep a written list of all of the prescription and nonprescription (tacc-fqa-davahjx) medicines you are taking, as well as any products such as vitamins, minerals, or otherdietary supplements. You should bring this list with you each time you visit a doctor or if you areadmitted to a hospital. It is also important information to carry with you in case of emergencies. This report on medications is for your information only, and is not considered individual patient advice. Because of the changing nature of drug information, please consult your physician or pharmacist about specific clinical use. The [employer] represents that the information provided hereunder was formulated with a reasonable standard of care, and in conformity with professional standards in the field. The [employer] makes no representations or warranties, express or implied, including, but not limited to, any implied warranty of merchantability and/or fitness for a particular purpose, with respect to such information and specifically disclaims all such warranties. Users are advised that decisions regarding drug therapy are complex medical decisions requiring the independent, informed decision of an appropriate health aged or disabled carer, and the information is provided for informational purposes only. The entire monograph for a drug should be reviewed for a thorough understanding of the drug's actions, uses and side effects. The [employer] does not endorse or recommend the use of any drug.The information is not a substitute for medical care. AHFS?? Patient Medication Information???. ?? Copyright, 2023. The [employer]??, [address], [address], [place], [place]. All Rights Reserved. Duplication for commercial use must be authorized by [facility]. Selected Revisions: May 10, 2020. AHFS?? Patient Medication Information???. ?? Copyright, 2023 ?? * Angi RODRIGUEZ, Lisa Jenkins: PERFORM Event Display: Patient Education Leaflets Authored Date: Flank Pain with Uncertain Cause ?? [id number] Flank Pain with Uncertain Cause The flank is the area between your upper belly (abdomen) and your back. Pain there is often caused by a problem with your kidneys. It might be a kidney infection or a kidney stone. Other causes of flank pain include spinal arthritis, a pinched nerve from a back injury, a rib injury, a bruise, a back muscle strain, inflammation, or spasm. The cause of your flank pain is not certain. You may need other tests. Home care Follow these tips when caring for yourself at home: ??? You may use acetaminophen or ibuprofen to control pain, unless your healthcare provider prescribed another medicine. If you have chronic liver or kidney disease, talk with your provider before taking these medicines. Also talk with your provider first if you???ve ever had a stomach ulcer or digestive bleeding. ??? If the pain is coming from your muscles, you may get relief with ice or heat. During the first 2 days after the injury, put an ice pack on the painful area for 20 minutes every 2 to 4 hours. This will reduce swelling and pain. A hot shower, hot bath, or heating pad works well for a muscle spasm. You can start with ice, then switch to heat after 2 days. You might find that alternating ice and heat works well. Use the method that feels the best to you. ?? Follow-up care Follow up with your healthcare provider if your symptoms don???t get better over the next few days. ?? When to seek medical advice Call your healthcare provider right away??if any of these happen: ??? Repeated vomiting ??? Fever of 100.4??F (38??C) or higher, or as directed by your healthcare provider ??? Chills ??? Flank pain that gets worse ??? Pain that spreads to the front of your belly (abdomen) ??? Dizziness, weakness, or fainting ??? Blood in your urine ??? Burning feeling when you urinate or the need to urinate often??? Pain in one of your legs that gets worse ??? Numbness or weakness in a leg ?? Last Reviewed Date: 2021 ?? [id number] [employer]. All rights reserved. This information is not intended as a substitute for professional medical care. Always follow your healthcare professional's instructions. ?? Patient Care team information Care Team Personnel Name: Allison Howard MD Position: [facility] Physician - Primary Care Member Role: PCP Address: [address] [place] [address] Telecom: Name: Jean Lane RN Position: [facility] RN Member Role: Primary Care Nurse Name: Delfina Ayoub RN Position: S RN Member Role: Primary Care Nurse Name: Sara Barlow LPN Position: [facility] RN Member Role: Primary Care Nurse Care Team Related Persons Name: LUIS HOGUE Name: LUIS BHATTI Name: KOBE WADE Name: TERRELL FORMAN Insurance Providers Guarantor name: GERALDO N[facility] Information #: 1 Payer: [employer] [employer] Member Number: [id number] Policy Number: NA Group Number: [facility] [employer] Plan Information #: 2 Payer: [facility] [employer] Member Number: [id number] Policy Number: NA Group Number: [id number]
--- OUTSIDE RECORDS SUMMARY | 2024-03-05 11:43 | XMS_ITS ---
Author Organization [facility] Address [address] [place] [address] Care Team Providers Care User Support Specialist Name Role Phone Mahin Estrada MD Primary Care Provider Laine Heart Unavailable [phone] Allergies Allergen (clinical drug ingredient) Drug/Non Drug Allergy documented on EMR Reaction Allergy Type Onset Date Status Seasonale Unknown Drug Allergy Active REASON FOR VISIT pt states last pcp visit 09/10/2022, PCP-09/10/22, pt states last pcp visit 09/10/2022, Heel pain Medications Medication SIG (Take, Route, Frequency, Duration) Notes Start Date End Date Status Tylenol Not-Taking Physical Therapy . . . 2-3x/week for 3-4 weeks 10/11/2021 Active Cane as directed Pronged cane Daily 09/15/2022 Not-Taking Pneumatic Compression Boot 30mm Hg as directed over swollen feet and legs as directed for . 07/28/2022 Not-Taking hydroCHLOROthiazide Not-Taking Acid Relief 40 mg acid reflux Active Excedrin Sinus Headache prn Active Pantoprazole Sodium 40 MG 1 tablet Orall y Once a day Active clonazePAM 0.5 MG 1 tablet at bedtime Orally Once a day prn Active Ammonium Lactate 12 % 1 application to affected area Externally to feet Twice a day for 30 days Active Feldene 20 MG 1 capsule with food Orally Once a day for 30 day(s) 10/11/2021 Not-Taking amLODIPine Besylate 2.5 MG 1 tablet Orally Once a day Active CeleBREX Active Aspir-81 Active Atorvastatin Calcium Active Piroxicam 20 MG TAKE 1 CAPSULE BY MOUTH EVERY DAY WITH FOOD FOR 14 DAYS for 14 Not-Taking Social History Tobacco Use: Social History Observation Description Date Details (start date - stop date) Former Smoker NA - NA Tobacco Use/Smoking Question Answer Notes Are you a: former smoker Additional Findings: Tobacco Non-User Ex-cigaret te smoker Alcohol Screen Question Answer Notes Did you have a drink containing alcohol in the p ast year? No Points 0 Interpretation Negative Tobacco use other than smoking: Question Answer Notes Are you an other tobacco user? No Vital Signs Height 5ft in 10/19/2022 Weight 227 lbs 10/19/2022 BMI 44.33 kg/m2 10/19/2022 Encounters Encounter Location Date Provider Diagnosis [facility] [address] [address] 10/19/2022 Laine Leos Plantar fascial fibromatosis M72.2 Assessments Encounter Date Diagnosis (ICD Code) Assessment Notes Treatment Notes Treatment Clinical Notes Section Notes 10/19/2022 Plantar fascial fibromatosis (ICD-10 - M72.2) Plan Of Treatment Next Appt Details Follow Up: prn, Reason: Progress Notes * Radha NAMDOB:1970 (52 yo F)Acc No.[id number]:10/19/2022 Progress Notes Patient:?Radha Nam Provider:?Laine Leos DPM :1970???Age:52 Y???Sex:Female D ate:10/19/2022 Address:[address] [place], [place] [id number] Pcp:Mahin Estrada MD Subjective: * Chief Complaints: * ???Pt states last pcp visit 3PCP-09/10/22Pt states last pcp visit 09/10/2022Heel pain * HPI: ???Heel pain:?Nature:?tenderness, sharp pain, stiffness.?Location:?Proximal plantar aspect of Heel , LEFT-the most painful.?Duration:?a year or more.?Onset/Cause:?gradual.?Course:?improved , at approximately 25 %.?Aggrevated:?standing, walking, walking first thing in the morning/after rest.?Treatments:?corticosteriod injection x1 each foot by another pod -negative skin reactions, change in shoes stretching medication ( Feldene) innersoles/orthotics-custom made (presents today without them in flip flops) , physical therapy , massage , rest, cast boot left, however states bothered her hip and wasn't able to wear, cortisone left X1.? * ROS:?General/Constitutional:?Nausea?admits, denies, admits, admits, admits.?Vomiting?denies, denies, denies, denies, denies.?Hunger Thirst?denies, denies, denies, denies, denies.?Loss appetite?denies, denies, denies, denies, denies.?Chills?admits, denies, admits, admits, admits.?Fatigue?admits, denies, admits, admits, admits.?Fever?denies, denies, denies, denies, denies.?Night Sweats?admits, denies, admits, admits, admits.?Unexplained weight loss?denies, denies, denies, denies, denies.?Unexplained weight gain?admits, denies, admits, admits, admits.?HEENTM:?Dentures?denies, denies, denies, denies, denies.?Dizziness?denies, denies, denies, denies, denies.?Glasses/contacts?admits, denies, admits, admits, admits.?Retinopathy?denies, denies, denies, denies, denies.?Blurred/double vision?denies, denies, denies, denies, denies.?TMJ?denies, denies, denies, denies, denies.?Discharge/drainage?denies, denies, denies, denies, denies.?Implants?denies, denies, denies, denies, denies.?Sore throat?denies, denies, denies, denies, denies.?Dental implants?denies, denies, denies, denies, denies.?Hard of hearing ?denies, denies, denies, denies, denies.?Difficulty chewing/swallowing/speaking?denies, denies, denies, denies, denies.?Nose bleeds?denies, denies, denies, denies, denies.?Sore mouth?denies, denies, denies, denies, denies.?Respiratory:?On Oxygen?denies, denies, denies, denies, denies.?Pneumonia/pleurisy?denies, denies, denies, denies, denies.?Bronchitis?denies, denies, denies, denies, denies.?Emphysema?denies, denies, denies, denies, denies.?Coughing?denies, denies, denies, denies, denies.?Cough blood?denies, denies, denies, denies, denies.?Shortness of breath?denies, denies, denies, denies, denies.?Wheezing?denies, denies, denies, denies, denies.?Cardiovascular:?Pacemaker?denies, denies, denies, denies, denies.?MVP?denies, denies, denies, denies, denies.?WPW?denies, denies, denies, denies, denies.?CHF?denies, denies, denies, denies, denies.?Heart attack?denies, denies, denies, denies, denies.?Septal defect?denies, denies, denies, denies, denies.?Rapid beat?denies, denies, denies, denies, denies.?Chest pain ?denies, denies, denies, denies, denies.?Atrial Fib.?denies, denies, denies, denies, denies.?Murmur/Palpitations?denies, denies, denies, denies, denies.?Gastrointestinal:?Hemorrhoids?denies, denies, denies, denies, denies.?Stomach/Abdominal pain?denies, denies, denies, denies, denies.?Dark blood stool?denies, denies, denies, denies, denies.?Irritable bowel ?denies, denies, denies, denies, denies. Constipation?denies, denies, denies, denies, denies.?Diarrhea?denies, denies, denies, denies, denies.?Hematology:?Swelling?admits, denies, admits, admits, admits.?Clots?denies, denies, denies, denies, denies.?Varicose Veins?denies, denies, denies, denies, denies.?Bruising?denies, denies, denies, denies, denies.?Bleeding problem?denies, denies, denies, denies, denies.?Genitourinary:?Blood urine?denies, denies, denies, denies, denies.?Frequent/Painfu/urination/bladder control?denies, denies, denies, denies, denies.?Kidney stones?denies, denies, denies, denies, denies.?Infection (UTI)?denies, denies, denies, denies, denies.?Nephropathy?denies, denies, denies, denies, denies.?sex trans dis (STD)?denies, denies, denies, denies, denies.?Prostate?denies, denies, denies, denies, denies.?Musculoskeletal:?Hammertoes?denies, denies, denies, denies, denies.?Bunions?denies, denies, denies, denies, denies.?Back Pain?denies, denies, denies, denies, denies.?Muscle Cramps/ Resting?denies, denies, denies, denies, denies.?Muscle cramps / walking?denies, denies, denies, denies, denies.?Generalized aches and pains?denies, admits, denies, denies, denies.?Weakness?denies, denies, denies, denies, denies.?Integ.:?Wren?denies, denies, denies, denies, denies.?Scars?denies, denies, denies, denies, denies.?Corns/calluses?denies, denies, denies, denies, denies.?Ingrown nails?denies, denies, denies, denies, denies.?Painful nails?denies, denies, denies, denies, denies.?Open Sores?denies, denies, denies, denies, denies.?Rashes?denies, denies, denies, denies, denies.?Neurologic:?Difficulty sleeping?admits, denies, admits, admits, admits.?Brain disorder?denies, denies, denies, denies, denies.?Numbness?admits, denies, admits, admits, admits.?Balance trouble?admits, denies, admits, admits, admits.?Confusion?denies, denies, denies, denies, denies.?Fainting/blackouts?denies, denies, denies, denies, denies.?Tingling?denies, denies, denies, denies, denies.?Tremors?denies, denies, denies, denies, denies.? * Medical History:? * Surgical History:?neck surge ry 2011 * Hospitalization/Major Diagno stic Procedure:?[facility]ting [facility]- UTI 09/2022 * Family History:?Mother: dece ased, diagnosed with Diabetic - NIDDM.?Father: .? States multiple women in family have history of breast cancer. * Social History:?Tobacco Use:?Tobacco Use/Smoking?Are you a:?former smoker ?Additional Findings: Tobacco Non-User?Ex-cigarette smoker ?Tobacco use other than smoking?Are you an other tobacco user??No ???Drugs/Alcohol:?Drugs?Have you used drugs other than those for medical reasons in the past 12 months??No ?Alcohol Screen?Did you have a drink containing alcohol in the past year??No ?Points?0 ?Interpretation?Negative ???Miscellaneous:?no Caffeine. ?Children: yes, 1. ?no Exercise. ?Marital status: single. ?Occupation: Disabled/Unemployed. * Medications:?TakingAtorvasta tin Calcium Aspir-81 CeleBREX amLODIPine Besylate 2.5 MG Tablet 1 tablet Orally Once a dayExcedrin Sinus Headache , Notes: prnAcid Relief , Notes: 40 mg acid refluxAmmonium Lactate 12 % Cream 1 application to affected area Externally to feet Twice a dayclonazePAM 0.5 MG Tablet 1 tablet at bedtime Orally Once a day, Notes: prnPantoprazole Sodium 40 MG Tablet Delayed Release 1 tablet Orally Once a dayPhysical Therapy . . . . 2-3x/weekTaking Atorvastatin Calcium Taking -81 Taking CeleBREX Taking amLODIPine Besylate 2.5 MG Tablet 1 tablet Orally Once a dayTaking Excedrin Sinus Headache , Notes: prnTaking Acid Relief , Notes: 40 mg acid refluxTaking Ammonium Lactate 12 % Cream 1 application to affected area Externally to feet Twice a dayTaking clonazePAM 0.5 MG Tablet 1 tablet at bedtime Orally Once a day, Notes: prnTaking Pantoprazole Sodium 40 MG Tablet Delayed Release 1 tablet Orally Once a dayTaking Physical Therapy . . . . 2-3x/weekNot-Taking/PRNPneumatic Compression Boot 30mm Hg wear as directed over swollen feet and legs as directedCane Micellaneous as directed Pronged cane DailyhydroCHLOROthiazide Tylenol Piroxicam 20 MG Capsule TAKE 1 CAPSULE BY MOUTH EVERY DAY WITH FOOD FOR 14 DAYS Feldene 20 MG Capsule 1 capsule with food Orally Once a dayMedication List reviewed and reconciled with the patientNot-Taking/PRN Pneumatic Compression Boot 30mm Hg wear as directed over swollen feet and legs as directedNot-Taking/PRN Cane Micellaneous as directed Pronged cane DailyNot- Taking/PRN hydroCHLOROthiazide Not-Taking/PRN Tylenol Not-Taking/PRN Piroxicam 20 MG Capsule TAKE 1 CAPSULE BY MOUTH EVERY DAY WITH FOOD FOR 14 DAYS Not-Taking/PRN Feldene 20 MG Capsule 1 capsule with food Orally Once a dayMedication List reviewed and reconciled with the patient * Allergies:?Seasonaleyes[Ash rgies Verified] Objective: * Vitals:?Ht: 5ft, Wt:227, BMI :44.33, Shoe size: 7, Ht-cm: 152.4 cm, Wt-k.97 kg. * Examination: ???Heel Pain: ?INSPECTION REVEALS:?LEFT greater than Right, Pain on Palpation to Plantar Fascia med. and central bands, intrinsic musc., infracalcaneal bursa, and med calc tubercle Pain on palpation to Posterior Superior Aspect Calcaneus Pain on palpation to Achilles tendon/bursa with inflammation and swelling present.?Orthopedic: ?MUSCLE STRENGTH:?5/5 all groups in a symmetrical fashion , B/L.?GAIT ABNORMALITY:? antalgic.?General Examination: ?GENERAL APPEARANCE:?Reveals a pleasant, alert, well nourished, well developed, well hydrated individual, who demonstrates proper attention to hygene/body habitus, and is in no acute distress.?ORIENTED:?person, place, and time.?Neurological: ?SENSORY:?Neurological exam reveals intact sensorium, pain sensation normal, vibration sensation intact, pinprick sensation is normal in the lower extremities, Pt denies, anesthesia, burning, paresthesia, tingling, B/L.?TINEL'S COMPRESSION:?Negative tarsal tunnel, esteban pedis, and medial calcaneal nerves.?DEEP TENDON REFLEXES:?Achilles, 2/4, B/L.?Vascular: ?DP PULSES:?3/4, B/L.?PT PULSES:?3/4, B/L.?CAPILLARY FILL TIME:?immediate, all digits, B/L.?SKIN TEMPERTURE GRADIENT OF THE LOWER EXTERMITIES:?warm to cool, proximal to distal, B/L.?HAIR GROWTH/TEXTURE/ELASTICITY/TURGOR:?normal, B/L.?PIGMENTATION:?normal, B/L.?EDEMA:?absent, B/L.?Dermatologic: ?SKIN FINDINGS:?Skin changes at B/L Heels at areas near her previous cortisone injections.? Assessment: * Assessment: 1.?Plantar fascial fibromato sis - M72.2, Chronic problem, Stable (1=3,2=4)? Plan: * Treatment: * Procedure Codes:? * Preventive Medicine:? ??Counseling:?Discussion:?-13: Office or other outpatient visit for the evaluation and management of an established patient, which required a medically appropriate history and/or examination and LOW level of DECISION MAKING for: 1 STABLE ACUTE UNCOMPLICATED PROBLEM, 2 OR MORE MINOR PROBLEMS, OR 1 STABLE CHRONIC PROBLEM, THAT POSE(S) A LOW RISK FOR MORBIDITY/MORTALITY. The visit on the day of the encounter encompassed interpreting the data and educating the patient as to the nature of their condition, treatment options available according to their individual PMH, meds, allergies, and overall health/living conditions, as well as any potential risks or complications that may occur from a failure to adhere to, and participate in, the recommended course of therapy. The discussion included a complete verbal, and/or written explanation of the examination results, any x-rays taken, the proposed diagnosis, and outline of the treatment plan. A schedule for future care needs was also explained. The patient verbalized an understanding of the instructions at this time and agreed to be an active participant in their treatment. If the patient should think of any questions or concerns after the visit, I have encouraged the patient to call the office.?Heel pain:?Discussed other tx options for the patients condition, The patient wishes to continue with the present treatment plan for their condition.?P.R.I.C.E.:?The Pt. was counseled on P.R.I.C.E./NSAIDS (if well tolerated) to help speed recovery from their painful condition , recommended.?Steriod Injection:?I explained that a steroid and local anesthetic injections are administered to relieve pain and inflammation and thereby meant to improve function. I explained the possible complications including but not limited to signs/symptoms of steroid flare, infection, bruising, atrophy, discoloration of skin, change/deviation in toe position, and that additional injections may be necessary, Pt defers injection today.? * Follow Up:?prn * Images: * Sign off status: Completed true * Provider:?Laine Leos, ANAMIKA Date:? Generated for Keisha pate/Daniel/Claudiasmitting on:?03/05/2024 11:43 AM EST History and Physical Notes * HPI (History of Present Illness) Category Sub-Category Detail Notes Category Not es Heel pain Duration: a year or more Nature: tenderness, sharp pa in, stiffness Location: Proximal plantar asp ect of Heel , LEFT-the most painful Onset/Cause: gradual Aggravated: standing, walking, w alking first thing in the morning/after rest Course: improved , at approx imately 25 % Treatments: corticosteriod injec tion x1 each foot by another pod -negative skin reactions, change in shoes stretching medication ( Feldene) innersoles/orthotics-custom made (presents today without them in flip flops) , physical therapy , massage , rest, cast boot left, however states bothered her hip and wasn't able to wear, cortisone left X1 Examination Category Sub-Category Detail Notes Category Not es Heel Pain INSPECTION REVEALS: LEFT greater than Right, Pain on Palpation to Plantar Fascia med. and central bands, intrinsic musc., infracalcaneal bursa, and med calc tubercle Pain on palpation to Posterior Superior Aspect Calcaneus Pain on palpation to Achilles tendon/bursa with inflammation and swelling present Neurological SENSORY: Neurological exa m reveals intact sensorium, pain sensation normal, vibration sensation intact, pinprick sensation is normal in the lower extremities, Pt denies, anesthesia, burning, paresthesia, tingling, B/L TINEL'S COMPRESSION: Negative tarsal amelia edwin, esteban pedis, and medial calcaneal nerves DEEP TENDON REFLEXES: Achilles, 2/4, B/L Dermatologic SKIN FINDINGS: Skin changes at B/L Heels at areas near her previous cortisone injections Orthopedic GAIT ABNORMALITY: antalgic MUSCLE STRENGTH: 5/5 all groups in a symmetrical fashion , B/L General Examination GENERAL APPEARANCE: Reveals a pleasant, alert, well nourished, well developed, well hydrated individual, who demonstrates proper attention to hygene/body habitus, and is in no acute distress ORIENTED: person, place, and t alcira Vascular DP PULSES (B): 3/4, B/L PT PULSES (B): 3/4, B/L CAPILLARY FILL TIME: immediate, all digi ts, B/L TEMPERTURE GRADIENT (C): warm to cool, p roximal to distal, B/L TROPHIC CONDITION-TEXTURE/ELASTICITY/TURGOR/HAIR GROWTH (B): normal, B/L EDEMA (C): absent, B/L PIGMENTATION: normal, B/L
--- OUTSIDE RECORDS SUMMARY | 2024-03-05 11:43 | XMS_ITS | Continuity of Care Document ---
Author Organization [facility] Address [address] [place] [address]- Care Team Providers Care Pbx Inspector Name Role Phone Anita RODRIGUEZ, [facility] Primary Care Physician Encounter [facility] Date(s): 02/01/24 - 02/08/[address] [address]- Attending Physician: Not on Staff, Attending MD Encounter Type: Office Visit Allergies, Adverse Reactions, Alerts Substance Criticality Severity [...] (oldterm) 12/11/19 Recorde d 1Result Comment: [facility] [id number] 2Result Comment: [id number] 3Result Comment: [facility]: [id number] Problem List Condition Confirmation Course Effective Dates [...] oldest [Reference Range]: 1 Height 152.6 cm (02/01/24 11:13 AM) Weight 100.1 kg (02/01/24 11:13 AM) Oxygen Saturation [94-100 %] 99 % (02/01/24 11:13 AM) Pulse Rate [55-90 bpm] 98 bpm *H* (02/01/24 11:13 AM) Body Mass Index [18.5-24.99 kg/m2] 42.99 kg/m2 *>HHI* (02/01/24 11:13 AM) Blood Pressure [90-138/55-84 mm Hg] 136/ 83mm Hg (02/01/24 11:13 AM) Respiratory Rate [16-30 br/min] 18 br/mi n (02/01/24 11:13 AM) Mode of Delivery (Oxygen) Room air (02/01/24 11:13 AM) Blood pressure sites Arm, left (02/01/24 11:13 AM) Weight Obtained Via Standing scale (02/01/24 11:13 AM) Social History Social History Type Response Smoking Status Former smoker, quit more than 30 days ago; Other: 11 years 1/2-1PPD; entered on: 05/18/20 Sex Female Sex Representation Female (finding) Patient Care team information Care Team Personnel Name: Allison Howard MD Position: [facility] Physician - Primary Care Member Role: PCP Address: [address] [place] [address] [address] Floor [place], [place] [address] Telecom: Name: Jean Lane RN Position: S RN Member Role: Primary Care Nurse Name: Delfina Ayoub RN Position: S RN Member Role: Primary Care Nurse Name: Sara Barlow LPN Position: S RN Member Role: Primary Care Nurse Care Team Related Persons Name: LENNIELUIS Name: LUIS BHATTI Name: KOBE WADE Name: TERRELL FORMAN Insurance Providers Guarantor name: [facility] Information #: 1 Payer: [facility] [employer] C[employer] Member Number: [id number] Policy Number: NA Group Number: [facility] Information #: 2 Payer: [facility] [employer] [employer] C[employer] Member Number: [id number] Policy Number: NA Group Number: NA
--- OUTSIDE RECORDS SUMMARY | 2024-03-05 11:43 | XMS_ITS ---
Author Organization [facility] Address [address] [place] [address] Care Team Providers Care Food Service Worker Name Role Phone Mahin Estrada MD Primary Care Provider Laine Heart Unavailable [phone] Allergies Allergen (clinical drug ingredient) Drug/Non Drug Allergy documented on EMR Reaction Allergy Type Onset Date Status Seasonale Unknown Drug Allergy Active REASON FOR VISIT PCP-09/10/22, pt states last pcp visit 09/10/2022, Heel pain Medications Medication SIG (Take, Route, Frequency, Duration) Notes Start Date End Date Status Feldene 20 MG 1 capsule with food Orally Once a day for 30 day(s) 10/11/2021 Not-Taking Piroxicam 20 MG TAKE 1 CAPSULE BY MOUTH EVERY DAY WITH FOOD FOR 14 DAYS for 14 Not-Taking Tylenol Not-Taking hydroCHLOROthiazide Not-Taking Cane as directed Pronged cane Daily 09/15/2022 Active Pneumatic Compression Boot 30mm Hg as directed over swollen feet and legs as directed for . 07/28/2022 Active Physical Therapy . . . 2-3x/week for 3-4 weeks 10/11/2021 Active Pantoprazole Sodium 40 MG 1 tablet Orall y Once a day Active clonazePAM 0.5 MG 1 tablet at bedtime Orally Once a day Active Ammonium Lactate 12 % 1 application to affected area Externally to feet Twice a day for 30 days Active Acid Relief 40 mg acid reflux Active Excedrin Sinus Headache Active amLODIPine Besylate 2.5 MG 1 tablet Orally Once a day Active CeleBREX Active Social History Tobacco Use: Social History Observation [...] other tobacco user? No Vital Signs Height 5 ft in 09/15/2022 Weight 222 lbs 09/15/2022 BMI 43.35 kg/m2 09/15/2022 Procedures Procedure Date Ordered Date Performed Result Body Sit e ,K0839-[id number] TENDON SHEATH/LIGAMENT 09/15/2022 N/A Encounters Encounter Location Date Provider Diagnosis [facility] [address] [place] [address] 09/15/2022 Laine Leos Plantar fascial fibromatosis M72.2 ; Calcaneal spur, left M77.32 ; Pain of left heel M79.672 and Achilles tendinitis of left lower extremity M76.62 Assessments Encounter Date Diagnosis (ICD Code) Assessment Notes Treatment Notes Treatment Clinical Notes Section Notes 09/15/2022 Plantar fascial fibromatosis (ICD-10 - M72.2) 09/15/2022 Calcaneal spur, left (ICD-10 - M77.32) 09/15/2022 Pain of left heel (ICD-10 - M79.672) 09/15/2022 Achilles tendinitis of left lower extremity (ICD-10 - M76.62) Plan Of Treatment Medication Medication Name Sig Start Date Stop Date Notes Cane as directed Pronged cane Daily 09/15/2022 Pending Test Test Name Order Date ,[id number] TENDON SHEATH/LIGAMENT 0 09/15/2022 Next Appt Details Follow Up: 4 Weeks, Reason: Procedure Notes * Category Sub-Category Detail Notes Injection Tendon Sheath or Fascia , J 701 Injection - LEFT foot, #1 Plantar Fascia w/ mixture of Celestone Soluspan 3mg and 1cc 1 percent Xylocaine Plain anes. utilizing aseptic technique. The patient tolerated the procedure well. A dry sterile dressing was applied. Post injection instructions were dispensed, verbally discussed, and confirmed understood by the patient. I explained that a steroid and local anesthetic injections are administered to relieve pain and inflammation and thereby meant to improve function. I explained the possible complications including but not limited to signs/symptoms of steroid flare, infection, bruising, atrophy, discoloration of skin, change/deviation in toe position, and that additional injections may be necessary, Patient relates post-procedural pain assessment improved at ( 0-1) out of 10 Progress Notes * Radha NAMDOB:1970 (52 yo F)Acc No.[id number]:09/15/2022 Progress Notes Patient:?Radha Nam Provider:?Laine Leos DPM :1970???Age:52 Y???Sex:Female D ate:09/15/2022 Address:[address] [place], [place] [id number] Pcp:Mahin Estrada MD Subjective: * Chief Complaints: * ???PCP-09/10/22Pt states last pcp visit 09/10/2022Heel pain * HPI: ???Heel pain:?Nature:?tenderness, sharp pain, stiffness.?Location:?Proximal plantar aspect of Heel , LEFT-the most painful.?Duration:?a year or more.?Onset/Cause:?gradual.?Course:?progressive , worse.?Aggrevated:?standing, walking, walking first thing in the morning/after rest.?Treatments:?corticosteriod injection x1 each foot by another pod -negative skin reactions, change in shoes stretching medication ( Feldene) innersoles/orthotics-custom made (presents today without them in flip flops) , physical therapy , massage , rest, cast boot left, however states bothered her hip and wasn't able to wear.?Severity/Quality:?severe.? * ROS:?General/Constitutional:?Nausea?denies, admits, admits, admits.?Vomiting?denies, denies, denies, denies.?Hunger Thirst?denies, denies, denies, denies.?Loss appetite?denies, denies, denies, denies.?Chills?denies, admits, admits, admits.?Fatigue?denies, admits, admits, admits.?Fever?denies, denies, denies, denies.?Night Sweats?denies, admits, admits, admits.?Unexplained weight loss?denies, denies, denies, denies.?Unexplained weight gain?denies, admits, admits, admits.?HEENTM:?Dentures?denies, denies, denies, denies.?Dizziness?denies, denies, denies, denies.?Glasses/contacts?denies, admits, admits, admits.?Retinopathy?denies, denies, denies, denies.?Blurred/double vision?denies, denies, denies, denies.?TMJ?denies, denies, denies, denies.?Discharge/drainage?denies, denies, denies, denies.?Implants?denies, denies, denies, denies.?Sore throat?denies, denies, denies, denies.?Dental implants?denies, denies, denies, denies.?Hard of hearing ?denies, denies, denies, denies.?Difficulty chewing/swallowing/speaking?denies, denies, denies, denies.?Nose bleeds?denies, denies, denies, denies.?Sore mouth?denies, denies, denies, denies.?Respiratory:?On Oxygen?denies, denies, denies, denies.?Pneumonia/pleurisy?denies, denies, denies, denies.?Bronchitis?denies, denies, denies, denies.?Emphysema?denies, denies, denies, denies.?Coughing?denies, denies, denies, denies. Cough blood?denies, denies, denies, denies.?Shortness of breath?denies, denies, denies, denies.?Wheezing?denies, denies, denies, denies.?Cardiovascular:?Pacemaker?denies, denies, denies, denies.?MVP?denies, denies, denies, denies.?WPW?denies, denies, denies, denies.?CHF?denies, denies, denies, denies.?Heart attack?denies, denies, denies, denies.?Septal defect?denies, denies, denies, denies.?Rapid beat?denies, denies, denies, denies.?Chest pain ?denies, denies, denies, denies.?Atrial Fib.?denies, denies, denies, denies.?Murmur/Palpitations?denies, denies, denies, denies.?Gastrointestinal:?Hemorrhoids?denies, denies, denies, denies.?Stomach/Abdominal pain?denies, denies, denies, denies.?Dark blood stool?denies, denies, denies, denies.?Irritable bowel ?denies, denies, denies, denies.?Constipation?denies, denies, denies, denies.?Diarrhea?denies, denies, denies, denies.?Hematology:?Swelling?denies, admits, admits, admits.?Clots?denies, denies, denies, denies.?Varicose Veins?denies, denies, denies, denies.?Bruising?denies, denies, denies, denies.?Bleeding problem?denies, denies, denies, denies.?Genitourinary:?Blood urine?denies, denies, denies, denies.?Frequent/Painfu/urination/bladder control?denies, denies, denies, denies.?Kidney stones?denies, denies, denies, denies.?Infection (UTI)?denies, denies, denies, denies.?Nephropathy denies, denies, denies, denies.?sex trans dis (STD)?denies, denies, denies, denies.?Prostate?denies, denies, denies, denies.?Musculoskeletal:?Hammertoes?denies, denies, denies, denies.?Bunions?denies, denies, denies, denies.?Back Pain?denies, denies, denies, denies.?Muscle Cramps/ Resting?denies, denies, denies, denies.?Muscle cramps / walking?denies, denies, denies, denies.?Generalized aches and pains?admits, denies, denies, denies.?Weakness?denies, denies, denies, denies.?Integ.:?Wren?denies, denies, denies, denies.?Scars?denies, denies, denies, denies.?Corns/calluses?denies, denies, denies, denies.?Ingrown nails?denies, denies, denies, denies.?Painful nails?denies, denies, denies, denies. Open Sores?denies, denies, denies, denies.?Rashes?denies, denies, denies, denies.?Neurologic:?Difficulty sleeping?denies, admits, admits, admits.?Brain disorder?denies, denies, denies, denies.?Numbness?denies, admits, admits, admits.?Balance trouble?denies, admits, admits, admits.?Confusion?denies, denies, denies, denies.?Fainting/blackouts?denies, denies, denies, denies.?Tingling?denies, denies, denies, denies.?Tremors?denies, denies, denies, denies.? * Medical History:? * Surgical History:?neck surge ry 2011 * Hospitalization/Major Diagno stic Procedure:?[facility] fainting * Family History:?Mother: dece ased, diagnosed with [...] Exercise. ?Marital status: single. ?Occupation: Disabled/Unemployed. * Medications:?TakingCeleBREX amLODIPine Besylate 2.5 MG Tablet 1 tablet Orally Once a dayExcedrin Sinus Headache Acid Relief , Notes: 40 mg acid refluxAmmonium Lactate 12 % Cream 1 application to affected area Externally to feet Twice a dayclonazePAM 0.5 MG Tablet 1 tablet at bedtime Orally Once a dayPantoprazole Sodium 40 MG Tablet Delayed Release 1 tablet Orally Once a dayPhysical Therapy . . . . 2- 3x/weekPneumatic Compression Boot 30mm Hg wear as directed over swollen feet and legs as directedTaking CeleBREX Taking amLODIPine Besylate 2.5 MG Tablet 1 tablet Orally Once a dayTaking Excedrin Sinus Headache Taking Acid Relief , Notes: 40 mg acid refluxTaking Ammonium Lactate 12 % Cream 1 application to affected area Externally to feet Twice a dayTaking clonazePAM 0.5 MG Tablet 1 tablet at bedtime Orally Once a dayTaking Pantoprazole Sodium 40 MG Tablet Delayed Release 1 tablet Orally Once a dayTaking Physical Therapy . . . . 2-3x/weekTaking Pneumatic Compression Boot 30mm Hg wear as directed over swollen feet and legs as directedNot-Taking/PRNhydroCHLOROthiazide Tylenol Piroxicam 20 MG Capsule TAKE 1 CAPSULE BY MOUTH EVERY DAY WITH FOOD FOR 14 DAYS Feldene 20 MG Capsule 1 capsule with food Orally Once a dayMedication List reviewed and reconciled with the patientNot-Taking/PRN hydroCHLOROthiazide Not-Taking/PRN Tylenol Not-Taking/PRN Piroxicam 20 MG Capsule TAKE 1 CAPSULE BY MOUTH EVERY DAY WITH FOOD FOR 14 DAYS Not-Taking/PRN Feldene 20 MG Capsule 1 capsule with food Orally Once a dayMedication List reviewed and reconciled with the patient * Allergies:?Seasonaleyes[Ash rgies Verified] Objective: * Vitals:?Ht: 5 ft, Wt:222, BM I:43.35, Shoe size: 7, Ht-cm: 152.4 cm, Wt-k.7 kg. * Examination: ???Heel Pain: ?INSPECTION REVEALS:?LEFT [...] fascial fibromato sis - M72.2, Chronic problem, Worse (4)?2.?Calcaneal spur, left - M77.32?3.?Pain of left heel - M79.672?4.?Achilles tendinitis of left lower extremity - M76.62? Plan: * Treatment: * Procedures:?Injection:?Tendon Sheath or Fascia?28683, J0702 Injection - LEFT foot, #1 Plantar Fascia w/ mixture of Celestone Soluspan 3mg and 1cc 1 percent Xylocaine Plain anes. utilizing aseptic technique. The patient tolerated the procedure well. A dry sterile dressing was applied. Post injection instructions were dispensed, verbally discussed, and confirmed understood by the patient. I explained that a steroid and local anesthetic injections are administered to relieve pain and inflammation and thereby meant to improve function. I explained the possible complications including but not limited to signs/symptoms of steroid flare, infection, bruising, atrophy, discoloration of skin, change/deviation in toe position, and that additional injections may be necessary, Patient relates post-procedural pain assessment improved at ( 0-1) out of 10.? * Procedure Codes:?24344 INJ T ENDON SHEATH/LIGAMENT, Modifiers: XS J0702 INJ BETAMETHSN ACTAT&SOD PHOSPH-3MG * Preventive Medicine:? ??Counseling:?Heel pain:?Discussed other tx options for the patients [...] and that additional injections may be necessary, cortisone post-injection informative educational handout was dispensed to and reviewed with the patient.? * Follow Up:?4 Weeks * Images: * Sign off status: Completed true * Provider:?Laine Leos, ANAMIKA Date:? Generated for Keisha pate/Daniel/Gary on:?03/05/2024 11:43 AM EST History and Physical Notes * HPI (History of Present Illness) Category Sub-Category Detail Notes Category Not es Heel pain Duration: a year or more Nature: tenderness, sharp pa in, stiffness Severity/Quality: severe Location: Proximal plantar asp ect of Heel , LEFT-the most painful Onset/Cause: gradual Aggravated: standing, walking, w alking first thing in the morning/after rest Course: progressive , worse Treatments: corticosteriod injec tion x1 each foot by another pod -negative skin reactions, change in shoes stretching medication ( Feldene) innersoles/orthotics-custom made (presents today without them in flip flops) , physical therapy , massage , rest, cast boot left, however states bothered her hip and wasn't able to wear Examination Category Sub-Category Detail Notes Category Not [...]
--- OUTSIDE RECORDS SUMMARY | 2024-03-05 11:43 | XMS_ITS ---
Author Organization [facility] Address [address] [place] [address] Care Team Providers Care Pain Medicine Physician Name Role Phone Mahin Estrada MD Primary Care Provider Laine Heart Unavailable [phone] Allergies Allergen (clinical drug ingredient) Drug/Non Drug Allergy documented on EMR Reaction Allergy Type Onset Date Status Seasonale Unknown Drug Allergy Active REASON FOR VISIT pt states last pcp visit 09/10/2022, Heel pain Medications Medication SIG (Take, Route, Frequency, Duration) Notes Start Date End Date Status Tylenol Not-Taking Piroxicam 20 MG TAKE 1 CAPSULE BY MOUTH EVERY DAY WITH FOOD FOR 14 DAYS for 14 Not-Taking Feldene 20 MG 1 capsule with food Orally Once a day for 30 day(s) 10/11/2021 Not-Taking Pneumatic Compression Boot 30mm Hg as directed over swollen feet and legs as directed for . 07/28/2022 Active hydroCHLOROthiazide Not-Taking Acid Relief 40 mg acid reflux Active Ammonium Lactate 12 % 1 application to affected area Externally to feet Twice a day for 30 days Active clonazePAM 0.5 MG 1 tablet at bedtime Orally Once a day Active Pantoprazole Sodium 40 MG 1 tablet Orall y Once a day Active Physical Therapy . . . 2-3x/week for 3-4 weeks 10/11/2021 Active CeleBREX Active amLODIPine Besylate 2.5 MG 1 tablet Orally Once a day Active Excedrin Sinus Headache Active Social History Tobacco Use: Social History [...] user? No Vital Signs Height 5 ft 0 in in 09/14/2022 Weight 222 lbs 09/14/2022 BMI 43.35 kg/m2 09/14/2022 Encounters Encounter Location Date Provider Diagnosis [address] [address] 09/14/2022 Laine Leos Plantar fascial fibromatosis M72.2 ; Calcaneal spur, left M77.32 ; Pain of left heel M79.672 and Achilles tendinitis of left lower extremity M76.62 Assessments Encounter Date Diagnosis (ICD Code) Assessment Notes Treatment Notes Treatment Clinical Notes Section Notes 09/14/2022 Plantar fascial fibromatosis (ICD-10 - M72.2) 09/14/2022 Calcaneal spur, left (ICD-10 - M77.32) 09/14/2022 Pain of left heel (ICD-10 - M79.672) 09/14/2022 Achilles tendinitis of left lower extremity (ICD-10 - M76.62) Plan Of Treatment Next Appt Details Follow Up: prn, Reason: Inje ction Progress Notes * Radha NAMDOB:1970 (52 yo F)Acc No.[id number]:09/14/2022 Progress Note Patient:?Radha Nam Provider:?Laine Leos DPM :1970???Age:52 Y???Sex:Female D ate:09/14/2022 Address:[address] [place] [address] [facility] Pcp:Mahin Estrada MD Subjective: * Chief Complaints: * ???Pt states last pcp visit 09/10/2022Heel pain * [...] hip and wasn't able to wear.?Severity/Quality:?severe.? * ROS:?General/Constitutional:?Nausea?admits, admits, admits.?Vomiting?denies, denies, denies.?Hunger Thirst?denies, denies, denies.?Loss appetite?denies, denies, denies.?Chills?admits, admits, admits.?Fatigue?admits, admits, admits.?Fever?denies, denies, denies.?Night Sweats?admits, admits, admits.?Unexplained weight loss?denies, denies, denies.?Unexplained weight gain?admits, admits, admits.?HEENTM:?Dentures?denies, denies, denies.?Dizziness?denies, denies, denies.?Glasses/contacts?admits, admits, admits.?Retinopathy?denies, denies, denies.?Blurred/double vision?denies, denies, denies.?TMJ?denies, denies, denies.?Discharge/drainage?denies, denies, denies.?Implants?denies, denies, denies.?Sore throat?denies, denies, denies.?Dental implants?denies, denies, denies.?Hard of hearing ?denies, denies, denies.?Difficulty chewing/swallowing/speaking denies, denies, denies.?Nose bleeds?denies, denies, denies.?Sore mouth?denies, denies, denies.?Respiratory:?On Oxygen?denies, denies, denies.?Pneumonia/pleurisy?denies, denies, denies.?Bronchitis?denies, denies, denies.?Emphysema?denies, denies, denies.?Coughing?denies, denies, denies.?Cough blood?denies, denies, denies.?Shortness of breath?denies, denies, denies.?Wheezing?denies, denies, denies.?Cardiovascular:?Pacemaker?denies, denies, denies.?MVP?denies, denies, denies.?WPW?denies, denies, denies.?CHF?denies, denies, denies.?Heart attack?denies, denies, denies.?Septal defect?denies, denies, denies.?Rapid beat denies, denies, denies.?Chest pain ?denies, denies, denies.?Atrial Fib.?denies, denies, denies.?Murmur/Palpitations?denies, denies, denies.?Gastrointestinal:?Hemorrhoids?denies, denies, denies.?Stomach/Abdominal pain?denies, denies, denies.?Dark blood stool?denies, denies, denies.?Irritable bowel ?denies, denies, denies.?Constipation?denies, denies, denies.?Diarrhea?denies, denies, denies.?Hematology:?Swelling?admits, admits, admits.?Clots?denies, denies, denies.?Varicose Veins?denies, denies, denies.?Bruising?denies, denies, denies.?Bleeding problem?denies, denies, denies.?Genitourinary:?Blood urine?denies, denies, denies.?Frequent/Painfu/urination/bladder control?denies, denies, denies.?Kidney stones?denies, denies, denies.?Infection (UTI)?denies, denies, denies.?Nephropathy?denies, denies, denies. sex trans dis (STD)?denies, denies, denies.?Prostate?denies, denies, denies.?Musculoskeletal:?Hammertoes?denies, denies, denies.?Bunions?denies, denies, denies.?Back Pain?denies, denies, denies.?Muscle Cramps/ Resting?denies, denies, denies.?Muscle cramps / walking?denies, denies, denies.?Generalized aches and pains?denies, denies, denies.?Weakness?denies, denies, denies.?Integ.:?Wren?denies, denies, denies.?Scars?denies, denies, denies.?Corns/calluses?denies, denies, denies.?Ingrown nails?denies, denies, denies.?Painful nails?denies, denies, denies.?Open Sores?denies, denies, denies.?Rashes?denies, denies, denies.?Neurologic:?Difficulty sleeping?admits, admits, admits.?Brain disorder?denies, denies, denies.?Numbness?admits, admits, admits.?Balance trouble?admits, admits, admits.?Confusion?denies, denies, denies.?Fainting/blackouts?denies, denies, denies.?Tingling?denies, denies, denies.?Tremors?denies, denies, denies.? * Medical History:? * Surgical [...] Allergies:?Seasonaleyes[Ash rgies Verified] Objective: * Vitals:?Ht: 5 ft 0 in, Wt: 2 22, BMI:43.35, Shoe size: 7. * Examination: ???Heel Pain: ?INSPECTION REVEALS:?LEFT greater [...] extremity - M76.62? Plan: * Treatment: * Procedure Codes:? * Preventive Medicine:? ??Counseling:?Discussion:?-14: Office or other outpatient visit for the evaluation and management of an established patient, which required a medically appropriate history and/or examination and moderate level of decision making. When using time for code selection, 30-39 min of total time was spent on the day of the encounter interpreting the data and educating the patient [...] was dispensed to and reviewed with the patient, Pt defers injection today due to inabillity torest today. Pt states she has had multiple cortisone injections in her neck, knees, back without issues. States she went in a jaccuzi right after her last injection in her foot and thinks that may have caused some of her skin issues.? * Follow Up:?prn (Reason: Inje ction) * Images: * Sign off status: Completed true * Provider:?Laine Leos DPM Date:? Generated for Keisha pate/Daniel/Gary on:?03/05/2024 11:43 [...]
--- OUTSIDE RECORDS SUMMARY | 2024-03-05 11:43 | XMS_ITS | Continuity of Care Document ---
Author Organization [facility] Address [address] [place] [address], [address] d Floor, [address] [place] [address]- Care Team Providers Care Senior Quality Assurance Specialist Name Role Phone Anita RODRIGUEZ, Allison Primary Care Physician Encounter [facility] Date(s): 10/22/23 - 02/13/24 [facility] [address] [facility] 3rd Floor, [address] [place] [id number] Attending Physician: Rao Garcia MD Admitting Physician: Rao Garcia MD Referring Physician: Kathleen Lai NP Encounter Type: Pre-OutPatient One Time Allergies, Adverse Reactions, Alerts Substance Criticality Severity [...] Vaccine (oldterm) 12/11/19 Recorde d 1Result Comment: [facility] [id number] 2Result Comment: [id number] 3Result Comment: [facility]: [id number] Problem List Condition Confirmation Course Effective Dates [...] Team Personnel Name: Allison Howard MD Position: [facility] Physician - Primary Care Member Role: PCP Address: [address] [place] [address] Telecom: Name: Jean Lane RN Position: [facility] RN Member Role: Primary Care Nurse Name: Delfina Ayoub RN Position: [facility] RN Member Role: Primary Care Nurse Name: Sara Barlow LPN Position: [facility] RN Member Role: Primary Care Nurse Care Team Related Persons Name: LUIS HOGUE Name: LUIS BHATTI Name: KOBE WADE Name: TERRELL FORMAN Insurance Providers Guarantor name: GERALDO NAM Health Plan Information #: 1 [facility]ONE CARE Member Number: [id number] Policy Number: NA Group Number: [facility] Health Plan Information #: 2 Payer[facility]/ONE CARE Member Number: [id number] Policy Number: NA Group Number: NA
--- OUTSIDE RECORDS SUMMARY | 2024-03-05 11:43 | XMS_ITS | Continuity of Care Document ---
Author Organization [facility] Address [address] [facility], 3r d Floor, [address] [place] [address]- Care Team Providers Care Authorization Representative Name Role Phone Anita RODRIGUEZ, Shaangerman hospitalcecile Primary Care Physician ( [phone] Encounter [facility] Date(s): 01/15/24 - 02/14/24 [facility] [address], [address] [place] [address] Encounter Type: Triage Allergies, Adverse Reactions, Alerts Substance Criticality Severity [...] Recorde d 1Result Comment: [facility] [id number] 2Result Comment: [id number] 3Result Comment: [facility]: [id number] Problem List Condition Confirmation Course Effective Dates [...] Team Personnel Name: Allison Howard MD Position: [facility] Physician - Primary Care Member Role: PCP Address: [address] [place] [address] Telecom: Name: Jean Lane RN Position: [facility] RN Member Role: Primary Care Nurse Name: Delfina Ayoub RN Position: S RN Member Role: Primary Care Nurse Name: Sara Barlow LPN Position: [facility] RN Member Role: Primary Care Nurse Care Team Related Persons Name: LUIS HOGUE Name: LUIS BHATTI Name: KOBE WADE Name: TERRELL FORMAN Insurance Providers Guarantor name: [facility] Information #: 1 Payer: [facility] CARE ALLIANCE/[facility] C[facility] Member Number: NA Policy Number: NA Group Number: NA
--- OUTSIDE RECORDS SUMMARY | 2024-03-05 11:43 | XMS_ITS | Continuity of Care Document ---
Author Organization [facility] Address [address] [place] [id number]- Care Team Providers Care Check Pilot Name Role Phone Allison Howard MD Primary Care Physician [place] [facility] [place]12[place]23 - 02/11/[address] [address]- Encounter Diagnosis Repeated falls(Final) - History of falling(Final) - Discharge Disposition: A-D/C Home Attending Physician: Allison Howard MD Admitting Physician: Allison Howard MD Referring Physician: Allison Howard MD Encounter Type: Disch Recurring OP Allergies, Adverse Reactions, Alerts Substance Criticality Severity [...] Vaccine (oldterm) 12/11/19 Recorde d 1Result Comment: [facility] [id number] 2Result Comment: [id number] 3Result Comment: [facility]: [id number] Problem List Condition Confirmation Course Effective Dates [...] Team Personnel Name: Allison Howard MD Position: [facility] Physician - Primary Care Member Role: PCP Address: [address] [place] [id number] Telecom: Name: Jean Lane RN Position: [facility] RN Member Role: Primary Care Nurse Name: Delfina Ayoub RN Position: [facility] RN Member Role: Primary Care Nurse Name: Sara Barlow LPN Position: [facility] RN Member Role: Primary Care Nurse Care Team Related Persons Name: LUIS HOGUE Name: LUIS BHATTI Name: KOBE WADE Name: TERRELL FORMAN Insurance Providers Guarantor name: GERALDO MEYERADO Health Plan Information #: 1 Payer: [facility] Member Number: [id number] Policy Number: NA Group Number: [employer] Plan Information #: 2 Payer: [facility] Member Number: [id number] Policy Number: NA Group Number: [id number]
--- OUTSIDE RECORDS SUMMARY | 2024-03-05 11:43 | XMS_ITS | Patient Health Record ---
Author Organization [facility] Address [address] [address] Support Name Relationship Address Phone ChowdaryMaria EstherRadha Guarantor Unknown [phone] Allergies Allergen (clinical drug ingredient) Drug/Non Drug Allergy documented on EMR Reaction Allergy Type Onset Date Status oxcarbazepine Trileptal (uncoded) Unknown Allergy Active ibuprofen Ibuprofen Unknown Drug Allergy Active Reason For Referral No Information Medications Medication SIG (Take, Route, Frequency, Duration) [...] Active SUMAtriptan 50 mg daily prn Active Plan Of Treatment Pending Test Test Name Order Date X ray : Foot, left 3v 03/23/2020 X ray : Foot, right 3v 03/23/2020 INJ TENDON SHEATH/LIGAMENT/FASCIA 2020 INJ TENDON SHEATH/LIGAMENT/FASCIA 2020 Medications Administered Medication Instructions Date of Administration Dosage Notes Dexamethasone 03/23/2020 0.5 mL Dexamethasone 12/30/2020 0.5 mL Kenalog 03/23/2020 0.5 mL Kenalog 12/30/2020 0.5 mL Medical (General) History Medical History History ICD Code bipolar disorder mild somatic symptom disorder PTSD spinal spondylosis lumbar DDD and disc herniator HTN lumbar radiculopathy right fibromyalgia spinal stenosis
--- OUTSIDE RECORDS SUMMARY | 2024-03-05 11:43 | XMS_ITS | Continuity of Care Document ---
Author Organization [facility] Address [address] [place] [address]- Care Team Providers Care Social Services Aide Name Role Phone Anita RODRIGUEZ, Allison Primary Care Physician Encounter [facility] [place] Date(s): 01/29/24 - 02/28/24 [facility] [address] [place] [address]- Encounter Type: Triage Allergies, Adverse Reactions, Alerts [...] Vaccine (oldterm) 12/11/19 Recorde d 1Result Comment: [facility] [id number] 2Result Comment: [id number] 3Result Comment: [facility]: [id number] Problem List Condition Confirmation Course Effective Dates [...] - Primary Care Member Role: PCP Address: [address] [place] [id number] Telecom: Name: Jean Lane RN Position: S RN Member Role: Primary Care Nurse Name: Delfina Ayoub RN Position: S RN Member Role: Primary Care Nurse Name: Sara Barlow LPN Position: S RN Member Role: Primary Care Nurse Care Team Related Persons Name: LUIS HOGUE Name: LUIS BHATTI Name: KOBE WADE Name: TERRELL FORMAN Insurance Providers Guarantor name: [facility] Health [facility] Information #: 1 Payer: [facility] CARE ALLIANCE/ONE CARE Member Number: NA Policy Number: NA Group Number: NA
--- OUTSIDE RECORDS SUMMARY | 2024-03-05 11:44 | XMS_ITS | Patient Health Record ---
[facility] Address [address] [place] [address] Care Team Providers Care Abalone Fisherman Name Role Phone Mahin Estrada MD Primary Care Provider Laine Heart Unavailable [phone] Allergies Allergen (clinical drug ingredient) Drug/Non Drug Allergy documented on EMR Reaction Allergy Type Onset Date Status Seasonale Unknown Drug Allergy Active Reason For Referral [...] legs as directed for . 07/28/2022 Not-Taking Immunizations Vaccine Route Administration Date Status Comme nts COVID-19 Pfizer BioNTech Vaccine Unknown 10/29/2020 Administered 1st 10/08/20 2nd 10/29/20 Social History Tobacco Use: Social History Observation [...] Are you an other tobacco user? No Plan Of Treatment Pending Test Test Name Order Date X ray : Foot, left 3V 04/06/2021 X ray : Foot, left 3V 07/27/2022 X ray : Foot, right 3V 04/06/2021 [id number] TENDON SHEATH/LIGAMENT 0 09/15/2022 Insurance Providers Payer Name Payer Address Payer Phone Subscriber Number Group Number Insured Name Patient Relationship to Insured Coverage Start Date Coverage End Date [facility] [employer] Claims Box [facility] [place] Person [id number] [phone] [id number] Radha Chowdary Self - patient is the insured Medical (General) History Medical History History ICD Code Back,Hip,and Knee pain Headaches/Migraines High blood pressure Reflux ( GERD) Sciatica Chicken pox Fibromyalgia Arthritis Bursitis Joint pain Surgical History Surgery Date(Month/Year) neck surgery 2012 Hospitalization History Reason Date(Month/Year) [facility]- UTI 09/2022 [facility] fainting
== END 2024-03-05 11:46 | disposition home or self-care (01) ==
PROVIDERS: PCP Nurse Practitioner Family; Visit Provider Physician Assistant
DX: M17.12 Unilateral primary osteoarthritis, left knee (principal)
CPT/HCPCS: 99213; G2211

== ENCOUNTER → 2024-03-05 11:19 | Outpatient (BNVA) | payer OTHER, SELFPAY | PROVIDERS: PCP Nurse Practitioner Family; Visit Provider Physician Assistant | DX: M17.12 Unilateral primary osteoarthritis, left knee (principal) | CPT/HCPCS: 99212 ==

== ENCOUNTER 2024-03-19 10:48 | Outpatient (AMB) | payer OTHER, SELFPAY ==
--- NOTE | 2024-03-19 10:52 | MHC.OFFVIS ---
Vital Signs 03/19/24 10:58 Height 5 ft Weight 217 lb 2 oz BMI 42.4 BP 180/88 H Blood Pressure Location Lt brachial Position Sitting Pulse 117 H Pulse Source Pulse Oximeter Pulse Oximetry (%) 98 Oxygen Delivery Method Room Air Intake Visit Reasons: MEDICATION DISCUSSION Intake Note: Pain today 10 Production Trainer Required: No Accompanied by: Other Relationship Allergies No Known Allergies Allergy (Verified 03/19/24 10:59) HPI Comments Details: Patient presents back to the office today for follow-up right knee pain Previously scheduled for right genicular RFA, she canceled the procedure the day before scheduled as she thought it was going to be done without sedation and panicked. States the initial nerve block was performed without sedation and it was very painful therefore she will only proceed if the RFA is done with sedation She has been taking the gabapentin but states is less effective. She is inquiring about a dose increase. Denies any side effects from the medication She also continues with PT/home aquatherapy twice weekly pain persists Prior:Televisit completed today for follow up 2 days s/p right diagnostic genicular nerve block. Patient reports 80% pain relief with improvement in function and mobility since the procedure. She is able to walk without the burning pain that she was experiencing prior to the injections. She would like to proceed with right Genicular RFA, she requests this be done under sedation. Prior: Radha is a very pleasant 52 year old female who presents to the office today for evaluation management of her chronic bilateral knee pain. Patient was referred here by Orthopedics. She has been told that she needs to lose weight before she can have surgery on her knees. Patient reports that she has been suffering with bilateral knee pain for more than 7 years. Her right knee is worse than the left. She states that with overuse the right knee will swell. Pain is worse with standing, walking or activity. She has been taking Celebrex for the pain, without relief. She has tried physical therapy and home exercise program without relief. She is currently doing aqua therapy that she reports helps a little bit but the relief she finds is short-lived. She has had multiple steroid injections as well as gel injections with no improvement. Has a 10/10, constant. She describes the pain as burning with radiation into her shins. In terms of muscle damage condition is described as aching, cramping, spasming, burning, tingling. Pain is negatively impacting patient is enjoying life, general activity, mood, normal work, recreational activities and walking. PFSH Medical History Anxiety Chronic GERD High blood pressure Social History Current occupational status: disabled Current occupation: rt handed Review of Systems Const All systems reviewed & are unremarkable except as noted in HPI and below Physical Exam Vital Signs: Last Vital Signs Pulse 117 H 03/19/24 10:58 BP 180/88 H 03/19/24 10:58 Pulse Ox 98 03/19/24 10:58 Oxygen Delivery Method Room Air 03/19/24 10:58 BMI result Body Mass Index 42.4 General: awake, alert, oriented. Answers questions appropriately. Fully engaged in examination. Skin: warm, dry, intact HEENT: Normocephalic. Hearing intact. Cardiac: External chest normal in appearance. Respiratory: No cough, audible wheezing or stridor. Abdomen: without gross distension. MS: No obvious swelling or deformities. Able to transition from sit to stand unassisted. Neurological: Oriented to person, place, time and situation. Thought process intact. Ambulates with the use of a cane. Psychiatric: Appropriate mood and affect. Good judgment and insight. Results Reviewed Results Reviewed: 11/20/2022 XR STANDING KNEES, BILATERAL XR KNEE, RIGHT XR KNEE, LEFT RIGHT: No acute visible fracture or dislocation. Mild multicompartment degenerative changes.. Mild narrowing of the medial femorotibial compartments. Moderate narrowing of the lateral patellofemoral compartment. Periarticular osteophyte along the distal femoral condyle, tibial plateau, and inferior margin of the patella. Joint spaces and alignment are otherwise maintained. No large knee joint effusion. Soft tissues are unremarkable. LEFT: No acute visible fracture or dislocation. Mild multicompartment degenerative changes.. Mild narrowing of the medial femorotibial compartments. Moderate narrowing of the lateral patellofemoral compartment. Periarticular osteophyte along the distal femoral condyle, tibial plateau, and inferior margin of the patella. Joint spaces and alignment are otherwise maintained. No large knee joint effusion. Soft tissues are unremarkable. IMPRESSION: 1. No acute visible fracture or dislocation. 2. Mild multicompartment degenerative changes bilaterally. Assessment & Plan Assessment & Plan (1) Patellofemoral arthralgia of both knees: Code(s): M22.2X1 - Patellofemoral disorders, right knee; M22.2X2 - Patellofemoral disorders, left knee Category: Medical (2) Primary osteoarthritis of right knee: Code(s): M17.11 - Unilateral primary osteoarthritis, right knee Category: Medical (3) Right knee pain: Code(s): M25.561 - Pain in right knee Category: Medical Qualifiers: Chronicity: chronic Qualified Code(s): M25.561 - Pain in right knee; G89.29 - Other chronic pain (4) Left knee pain: Code(s): M25.562 - Pain in left knee Category: Medical Qualifiers: Chronicity: chronic Qualified Code(s): M25.562 - Pain in left knee; G89.29 - Other chronic pain Plan Patient has exhausted conservative treatment including PT, home exercise program, aquatherapy, anti-inflammatory medication and intra-articular injections. Previously underwent right diagnostic genicular nerve block reported 80% pain relief with improvement functional mobility. She would like to proceed with Right Genicular RFA with sedation. All questions and concerns have been answered and patient agrees with the plan. Follow up after RFA, sooner if needed. Medications: Changed From gabapentin may cause drowsiness, do not drive while taking this medication 100 mg PO BID 60 caps 2RF pain To gabapentin may cause drowsiness, do not drive while taking this medication 300 mg PO BID 60 caps 5RF pain Coding Level of Care Code Est Pt Level 3 (65529) Complex EM visit Add On G2781 Diagnoses Patellofemoral arthralgia of both knees M22.2X1; M22.2X2 Primary osteoarthritis of right knee M17.11 Chronic pain of right knee M25.561; G89.29 Chronicity: chronic Chronic pain of left knee M25.562; G89.29 Chronicity: chronic
[2024-03-19 10:58] VITALS: BP 180/88; PULSE 117; O2SAT 98; BMI 42.4
--- OUTSIDE RECORDS SUMMARY | 2024-03-19 12:07 | XMS_ITS | Clinical Summary ---
Author Organization [facility] Address [address] [place] [address] Care Team Providers Care Day Spa Manager Name Role Phone Provider, Not In System Primary Care Provider Un available Social History Tobacco Use Types Packs/Day Years Used Date Smoking Tobacco: Never Assessed Sex and Gender Information Value Date Recorded Sex Assigned at Not on file Gender Identity Not on file Sexual Orientation Not on file Job Start Date Occupation Industry Not on file Not on file Not on file Plan of Treatment Not on file Care Teams Day Spa Manager Relationship Specialty Start Date End Date Provider, Not In System PCP - General 07/04/21
--- OUTSIDE RECORDS SUMMARY | 2024-03-19 12:07 | XMS_ITS ---
[facility] Address [address] [place] [address] Care Team Providers Care Visualizer Name Role Phone Mahin Estrada MD Primary Care Provider Laine Heart Unavailable [phone] Allergies Allergen (clinical drug ingredient) Drug/Non Drug [...] 10/19/2022 Encounters Encounter Location Date Provider Diagnosis [facility] [address] [address] 10/19/2022 Laine Leos Plantar fascial fibromatosis M72.2 Assessments Encounter Date Diagnosis (ICD Code) Assessment Notes Treatment Notes Treatment Clinical Notes Section Notes 10/19/2022 Plantar fascial fibromatosis (ICD-10 - M72.2) Plan Of Treatment Next Appt Details Follow Up: prn, Reason: Progress Notes * Radha NAMDOB:1970 (52 yo F)Acc No.[id number]:10/19/2022 Progress Notes Patient:?Radha Nam Provider:?Laine Leos DPM :1970???Age:52 Y???Sex:Female D ate:10/19/2022 Address:[address] [place], [place] [id number] Pcp:Mahin Estrada MD Subjective: * Chief Complaints: [...] Provider:?Laine Leos, ANAMIKA Date:? Generated for Keisha pate/Daniel/Annabelleitting on:?03/19/2024 12:07 PM EST History and Physical Notes * HPI [...]
--- OUTSIDE RECORDS SUMMARY | 2024-03-19 12:07 | XMS_ITS | Continuity of Care Document ---
Author Organization [facility] Adult Address [address] [place] [address]- Care Team Providers Care Cd Mixer Helper Name Role Phone Anita RODRIGUEZ, [facility] Primary Care Physician ( [phone] [id number] Date(s): 02/29/24 - 03/07/[address] [address]- Encounter Diagnosis Back pain(Discharge Diagnosis) - 02/29/24 Right leg pain(Discharge Diagnosis) - 02/29/24 Sciatica(Discharge Diagnosis) - 02/29/24 Nausea(Discharge Diagnosis) - 02/29/24 Weight loss(Discharge Diagnosis) - 02/29/24 Severe obesity(Discharge Diagnosis) - 02/29/24 Attending Physician: Miguel HERNANDEZ, Nabila Driver Encounter Type: Office Visit Allergies, Adverse Reactions, Alerts Substance Criticality Severity Reaction Reaction Severity Status ibuprofen gastritis Active atorvastatin Muscle cramps Act shagufta Red Dye Active Trileptal Unable to assess criticality Persistent Severe hives Active Immunizations Given and Recorded Vaccine Date Status Refusal Reason influenza virus vaccine, inactivated 1 12/22/22 Gi ita influenza virus vaccine, inactivated 2 12/15/20 Gi ita tetanus/diphtheria/pertussis, acel(Tdap) 3 11/16/21 Given SARS-CoV-2 (COVID-19) mRNA BNT-162b2 vac 10/29/20 Recorded SARS-CoV-2 (COVID-19) mRNA BNT-162b2 vac 10/08/20 Recorded Influenza Virus Vaccine (oldterm) 12/11/19 Recorde d 1Result Comment: [facility] [id number] 2Result Comment: [id number] 3Result Comment: [facility]: [id number] Problem List Condition Confirmation Course Effective Dates [...] Diagnosis Diagnosis Type Effective Dates Health Status Cl inical Service Informant Back pain Discharge Diagnosis 02/29/24 Right leg pain Discharge Diagnosis 02/29/24 Sciatica Discharge Diagnosis 02/29/24 Nausea Discharge Diagnosis 02/29/24 Weight loss Discharge Diagnosis 02/29/24 Severe obesity Discharge Diagnosis 02/29/24 Vital Signs Most recent to oldest [Reference Range]: 1 2 Height 153 cm (02/29/24 9:57 AM) 153 cm (02/29/24 9:49 AM) Weight 97.9 kg (02/29/24 9:49 AM) Oxygen Saturation [94-100 %] 100 % (02/29/24 9:49 AM) Pulse Rate [55-90 bpm] 94 bpm *H* (02/29/24 9:57 AM) 94 bpm *H* (02/29/24 9:49 AM) Body Mass Index [18.5-24.99 kg/m2] 41.82 kg/m2 *>HHI* (02/29/24 9:49 AM) Blood Pressure [90-138/55-84 mm Hg] 135/ 83mm Hg (02/29/24 9:57 AM) 145/82mm Hg *H* (02/29/24 9:49 AM) Temperature [96.8-100.4 DegF] 97.5 DegF (02/29/24 9:49 AM) Mode of Delivery (Oxygen) Room air (02/29/24 9:49 AM) Blood pressure sites Arm, right (02/29/24 9:57 AM) Arm, right (02/29/24 9:49 AM) Temperature Route Oral (02/29/24 9:49 AM) Weight Obtained Via Standing scale (02/29/24 9:49 AM) Social History Social History Type Response Smoking Status Former smoker, quit more than 30 days ago; Other: 11 years 1/2-1PPD; entered on: 05/18/20 Sex Female Sex Representation Female (finding) Note * Willie Kobe: PERFORM Event Display: Patient Education/Instruction Authored Date: [id number] Ambulatory Adult Visit Summary [facility] [address] [place] [address] Name: GERALDO NAM : 1970?? Visit: 02/29/2024 09:38?? Ambulatory Visit Instructions ?? Your Care Team Primary Care Provider Allison Howard MD? This Visit Provider Nabila Rivera NP Your Diagnosis Back pain Right leg pain Sciatica Nausea Weight loss Severe obesity Vitals Signs Temperature: 97.5 DegF Height: 153 cm Pulse Rate:??94 bpm??High Weight: 97.9 kg Systolic Blood Pressure: 135 mm Hg Body Mass Index:??41.82 kg/m2??Critical Diastolic Blood Pressure: 83 mm Hg Body surface area: 2.04 Oxygen Saturation: 100 % ?? What to do next Scheduled Follow-Up Appointments Sunday 1:10 PM EST ?? With: Allison Howard MD Where: [facility] [address] [place] [address]- Status: Pending Sunday 1:20 PM EST ?? Where: [facility] [address], [address] [place] [address]- Status: Pending Sunday 11:30 AM EST ?? With: Sara Rojas NP Where: [facility] Neurology [address] [facility] [address] [place] [address]- Status: Pending Sunday 2:00 PM EST ?? With: Aiden CRUZ, Cindi Umanzor Where: [facility] [id number] [place] [address]- Status: Pending Sunday 9:30 AM EST ?? With: Anita RODRIGUEZ, [facility] Where: [facility] [address] [place] [address]- Status: Pending Future Orders Hemoglobin A1C (Monitoring) - Routine, Once, 10/05/23 16:49:00 EDT, Single or Recurring Future Order, [facility], Blood?? Lipid Panel - Routine, Once, 10/05/23 16:49:00 EDT, Single or Recurring Future Order, [facility], Blood?? ALT - Routine, Once, 10/05/23 16:49:00 EDT, Single or Recurring Future Order, [facility], Blood?? AST - Routine, Once, 10/05/23 16:49:00 EDT, Single or Recurring Future Order, [facility], Blood?? CBC w/ Differential - Routine, Once, 10/05/23 16:49:00 EDT, Single or Recurring Future Order, [facility], Blood?? Vitamin D 25 Hydroxy Level - Routine, Once, 10/05/23 16:50:00 EDT, Single or Recurring Future Order, [facility], Blood?? Urine Culture - Routine, Once, Collected by Vi Cleaning LPN, 02/29/24 10:37:16 EST, Order for Today, [facility], Urine?? Complete Urinalysis - Routine, Once, Collected by Vi Cleaning LPN, 02/29/24 10:37:15 EST, Orderfor Today, [facility], Urine?? Medications The list below reflects the information in our records and provided by you today along with any changes made during this visit. Please continue your medications until treatment is completed or stopped by your provider. If this is different from the information you have or there are other questions,please contact the prescribing provider. What How Much When Why Instructions Unchanged Albuterol (Albuterol (Eqv-ProAir HFA) 90 mcg/ inh inhalation aerosol) 2 puff(s) Inhalation Every 4 hours Duration: 30 Days Unchanged Amlodipine (amLODIPine 10 mg oral tablet) 1 tab(s) Oral Daily Unchanged Aspirin (aspirin 81 mg oral tablet, chewable) 1 tab(s) Oral Daily CHEW AND SWALLOW. ?? Unchanged Atorvastatin (atorvastatin 40 mg oral tablet) 0.5 tab(s) Oral Daily at Bedtime Duration: 30 Days Unchanged Celecoxib (celecoxib 200 mg oral capsule) 1 capsule Oral Daily Unchanged Cholecalciferol (Vitamin D3 50,000 intl units oral capsule) 1 capsule Oral Every week Unchanged Desvenlafaxine (desvenlafaxine 25 mg oral tablet, extended release) See instructions 2 tablets daily ?? Unchanged Durable Medical Equipment (Cane) See instructions Joint pain Unstable gait 3 leg cane ?? Unchanged Durable Medical Equipment (Compression Stockings) See instructions surgical, knee high 20-30 mm Hg, leg swelling, obesity, leg pain ?? Unchanged Durable Medical Equipment (CPAP Machine) See instructions AutoCPAP 8-14 cm H20, use Daily when sleeping ?? Unchanged Durable Medical Equipment (Electric reclining chair) See instructions Joint pain Unstable gait Use as directed ?? Unchanged Durable Medical Equipment (Juxtafit Knee-high Compression Garments(bilateral, left, right) with 2 pairs of hybrid socks) See instructions as directed DX: VENOUS INSUFF ??B/ L LEG SWELLING ?? Unchanged Durable Medical Equipment (Lift Chair) See instructions Frequent falls Use to safely move pt ?? Unchanged Durable Medical Equipment (Right elbow sleeve) See instructions Joint pain Unstable gait on at bed off in AM ?? Unchanged Durable Medical Equipment (Right wrist brace) See instructions Carpal tunnel syndrome Use at bed ?? Unchanged Durable Medical Equipment (Shower Bench) See instructions Use as directed ?? Unchanged EPINEPHrine (EpiPen 2-Rigoberto 0.3 mg injectable kit) 0.3 Milligram Intramuscular Once as needed for Anaphylactic Reaction Unchanged Fluticasone Nasal (fluticasone 50 mcg/ inh nasal spray) See instructions SHAKE LIQUID AND USE 1 SPRAY IN EACH NOSTRIL TWICE DAILY ?? Unchanged Gabapentin (gabapentin 100 mg oral capsule) Unchanged Meclizine (meclizine 25 mg oral tablet) 1 tab(s) Oral 3 times a day as needed for for dizziness Unchanged Pantoprazole (pantoprazole 40 mg oral delayed release tablet) 1 tab(s) Oral Twice a day Duration: 90 Days Unchanged semaglutide (Ozempic 2 mg/ 1.5 mL (0.25 mg or 0.5 mg dose) subcutaneous solution) 0.25 Milligram Subcutaneous Injection Every week Duration: 30 Days rotate injection sites ?? Pickup at [facility] #[id number] Unchanged Tizanidine (tiZANidine 2 mg oral capsule) 1 capsule Oral 3 times a day as needed for as needed for muscle spasm Duration: 30 Days Pharmacy Information [facility] #[id number]: [address], [place] [id number] [phone] Test Performed Below is a partial list of the tests performed during your Visit. You may have had other tests and procedures not included in this list. Please discuss all test results with your provider. Complete Urinalysis?-- Results Pending -- POC UA ([facility] [place] Urine Culture?-- Results Pending -- Lab Test Results Below is a partial list of the most recent Laboratory test results done during your Visit. You may have had other tests and procedures not included in this list. Please discuss all test results with your provider. Test Name Test Result Date/Time POC UA Glucose NEGATIVE 02/29/2024 10:31 EST POC UA Bilirubin NEGATIVE 02/29/2024 10:31 EST POC UA Ketones NEGATIVE 02/29/2024 10:31 EST POC UA Specific Emmett >1.030 02/29/2024 10:31 EST POC UA Blood TRACE 02/29/2024 10:31 EST POC UA PH 5.5 1 02/29/2024 10:31 EST POC UA Protein NEGATIVE 02/29/2024 10:31 EST POC UA Urobilinogen 0.2 mg/dL 02/29/2024 10:31 EST POC UA Nitrite NEGATIVE 02/29/2024 10:31 EST POC UA Leukocytes NEGATIVE 02/29/2024 10:31 EST POC UA Color YELLOW 02/29/2024 10:31 EST POC UA Clarity CLEAR 02/29/2024 10:31 EST Point of Care Results Culture sent to Lab (Automated Urine): Yes (02/29/24) POC Urinalysis Automated-Org/CLIA: [facility] Medicine/[id number] (02/29/24) Urine Color Automated: Straw/Light yellow (Normal) (02/29/24) Medications and Immunizations Administered Medications Given During Visit No medications given during this visit.?? Allergies (NKA means No Known Allergies) Trileptal??(hives) Red Dye atorvastatin??(Muscle cramps) ibuprofen??(gastritis) Common Emergency Awareness Tips IS IT A [...] are strongly encouraged to quit. Please call [facility] at [phone] or [phone] ([phone]) or log in to [email or web address] for referrals to smoking cessation programs. ?? The National Suicide Prevention Hotline is available 18/09 if you or someone you know needs to find a reason to keep living. By calling 7-159-709-Z[employer] (2218) you'll be connected to a skilled, trained counselor at a crisis center in your area. [facility] You can view and manage your care through the patient portal or by using a health care tisha of your choosing. [employer] is a website that allows you to securely view your medical information including your hospital discharge summary, office visit summaries, medications and follow-up visits. You can also request appointments, renew medications, and request access to your medical information using a health care tisha of your choosing, or just ask a question. You can enroll at [email or web address] or register during your next office visit. [facility], in keeping with [facility] guidance, no longer requires face masks for staff, patientsor visitors in most situations. Similiar to time spent indoors at other locations, there is the chance that you were exposed to repiratory viruses during your time with us (such as flu or COVID-19). If you develop symptoms concerning for a viral respiratory infection, please seek testing (and treatment if indicated) from your medical provider or home test kit. ?? Disclaimer: The information provided is of a general nature and is intended to be used in conjunction with the recommendations and advice of your health care practitioner. Every effort has been made to ensure that the information provided is accurate and complete at the time it is provided to you however, as your needs change, or, as new information becomes available, different or additional instructions may be required. ?? If you have questions, please consult with your primary care provider or pharmacist, as appropriate. This information is not intended to serve as substitution for assessment and evaluation by a qualified health care provider. If you do not have a primary care provider, you may find a [facility] provider by calling [facility] at [phone]. Patient Care team information Care Team Personnel Name: Allison Howard MD Position: [facility] Physician - Primary Care Member Role: PCP Address: [address] [place] [address] Telecom: Name: Jean Lane RN Position: [facility] RN Member Role: Primary Care Nurse Name: Delfina Ayoub RN Position: [facility] RN Member Role: Primary Care Nurse Name: Sara Barlow LPN Position: [facility] RN Member Role: Primary Care Nurse Care Team Related Persons Name: LUIS HOGUE Name: LUIS BHATTI Name: KOBE WADE Name: TERRELL FORMAN Insurance Providers Guarantor name: GERALDO MEYERADO Health Plan Information #: 1 Payer: [facility] [employer] Member Number: [id number] Policy Number: NA Group Number: [facility] Health Plan Information #: 2 Payer: [facility] [employer] C[employer] Member Number: [id number] Policy Number: NA Group Number: NA
--- OUTSIDE RECORDS SUMMARY | 2024-03-19 12:07 | XMS_ITS | Data Portability ---
Author Organization [place] - [facility], Allergy Address [address] [address] Care Team Providers Care Data Analytics Developer Name Role Phone HARSHAD LUCIO Primary Care Provider Assessment Encounter Date Assessment Date Assessment LastModified by Organization Details LastModified Time 10/23/2023 10/23/2023 Audiometric testing continues to show sensorineural hearing loss bilaterally with a significant additional conductive component in the right. This may be secondary to otosclerosis. Today we discussed that while there may be a surgical solution to the conductive component in the hearing loss in the right ear, she will still have enough underlying sensorineural hearing loss to require the use of binaural amplification. In light of this, she felt that she should simply proceed with amplification rather than undergoing the risks of surgery. I agree with this plan. I have given her a copy of her most recent updated audiogram, and the contact information to contact [employer] to see about getting her hearing aids replaced. I strongly recommend she proceed with BTE amplification rather than ITE amplification as the larger devices will be harder to lose and give her better over all amplification success. [email or web address] Not available 10/23/2023 17:28:33 Plan of Treatment Reminders Order Date Submit Date Provider Last Modified By Organization Details Last Modified Time Details Appointments None record ed. Lab None record ed. Referral None record ed. Procedures None record ed. Surgeries None record ed. Imaging None record ed. Medication Orders None record ed. Patient TargetsNo targets recorded. Patient InstructionsNo instructions recorded. Reason for Referral None Reported. Results Created Date Observation Date Name Description Value Unit Range Abnormal Flag Note LastModifiedBy Organization Detail LastModifiedTime 08/08/19 24 audio gram No observ ation record ed. BARCODE Not Available 2023 12:57:39 10/17/19 24 04/28/2022 imagi ng/di agnos tic resul t No observ ation record ed. [email or web address] Not Available 00:38:38 10/17/19 24 04/28/2022 imagi ng/di agnos tic resul t No observ ation record ed. [email or web address] Not Available 00:38:41 10/17/19 24 04/28/2022 audio gram No observ ation record ed. [email or web address] Not Available 00:39:23 Result Notes None recorded. Problems Name Problem SNOMED Code Status Onset Date Resolution Date Notes Provider Name and Address Organization Details Recorded Time Bilateral tinnitus 90525117174 02 Active 2022 Tinnitus, bilateral ; Note: Date Diagnosed : 04/28/2022 1:20 PM (H93.13) Not Available [facility] 4 02:27:12 Deviated nasal septum 932178457 Active 2015 Deviated nasal septum; Note: Date Diagnosed : 10/22/2015 12:54 PM (J34.2) Not Available [facility] 4 02:26:58 Bilateral temporoma ndibular joint pain 26865742437 081492 Active 2016 Arthralgi a of bilateral temporoma ndibular joint; Note: Date Diagnosed : 07/10/2016 12:14 PM (M26.623) Not Available [facility] 4 02:27:05 Obstructi ve sleep apnea syndrome 73913535 Active 2015 Obstructi ve sleep apnea (adult) (pediatri c); Note: Date Diagnosed : 10/22/2015 12:31 PM (G47.33) Not Available [facility] 4 02:27:11 Allergic rhinitis 84188423 Active 2015 Perennial allergic rhinitis; Note: Date Diagnosed : 10/22/2015 12:47 PM (J30.89) Note: Date Diagnosed : 10/22/2015 12:47 PM (J30.89) Not Available [facility] 4 00:56:15 Mixed conductiv e and sensorine ural hearing loss of right ear 49552794558 105 Active 2022 Mixed conductiv e and sensorine ural hearing loss, unilatera l, right ear, with unrestric randolph hearing on the contralat eral side; Note: Date Diagnosed : 10/22/2015 4:28 PM (H90.71) Note: Date Diagnosed : 10/22/2015 4:28 PM (H90.71) ; Start Date : 6 Mixed conductiv e and sensorine ural hearing loss, unilatera l, right ear with restricte d hearing on the contralat eral side; Note: Date Diagnosed : 04/28/2022 10:17 AM (H90.A31) Note: Date Diagnosed : 04/28/2022 10:17 AM (H90.A31) Not Available [facility] 4 00:56:15 Atypical facial pain 45495818 Active 2015 Atypical facial pain; Note: Date Diagnosed : 01/03/2016 5:01 PM (G50.1) Not Available [facility] 4 02:27:27 Chronic sinusitis 32422575 Active 2015 Other chronic sinusitis ; Note: Date Diagnosed : 10/27/2015 9:42 AM (J32.8) Not Available [facility] 4 02:26:58 Sensorine ural hearing loss in left ear 00588073664 109 Active 2022 Sensorine ural hearing loss, unilatera l, left ear, with restricte d hearing on the contralat eral side; Note: Date Diagnosed : 04/28/2022 10:17 AM (H90.A22) Not Available [facility] 4 02:27:10 Otosclero sis of ossicle of right ear 63063350808 33536 Active 2023 BRENDA PRINCE MD [address] [place] [address], [place], [address] , [facility] - [facility] 4 17:29:17 Notes:Other headache syndrom es Note: Date Diagnosed: 01/03/2018 4:58 PM (G44) Note: Date Diagnosed: 01/03/2018 4:58 PM (G44) Problem Notes None recorded. Procedures Surgical History Date Name Laterality Status Provider Name and Address Organization Details Recorded Time 08/03/2023 Comp Audio with Tymps (30553 & 90012) completed ATILIO COLES [place], [facility] [address] [place] [address], [place], [address], [place] - [facility] 08/03/2023 09:26:31 Imaging Results Imaging Date Name Status LastModified by Organiz ation Details LastModified Time 08/08/2023 audiogram completed BARCODE Information no t available 08/08/2023 12:57:39 04/28/2022 imaging/diagno stic result completed Information not available 10/17/2023 00:38:38 04/28/2022 imaging/diagno stic result completed Information not available 10/17/2023 00:38:41 04/28/2022 audiogram completed Information not available 10/17/2023 00:39:23 Procedure Notes None recorded. Medical Equipment None Reported. Allergies No known drug allergies Medications Name Sig Start Date Stop Date Status Note LastModified by Organization Details LastModified Time celecoxib 200 mg capsule TAKE 1 CAPSULE BY MOUTH DAILY active Not Available Not Available No t Available cyclobenz aprine 10 mg tablet 01/03 completed Medicati on ID: [id number] D uration Value: 20 Brand Name: av turnerrine Send Method: E-Prescr ibed Sub s Allowed: subs OK Speci al Instruct ion: TK 1 T PO Q 8 H PRN Medi cationGe nericNam e: cycloben zaprine Not Available Not Available Not Available atorvasta tin 40 mg tablet TAKE 1 TABLET BY MOUTH DAILY AT BEDTIME active Not Available Not Available No t Available clonidine HCl 0.1 mg tablet TAKE 1 TABLET BY MOUTH THREE TIMES DAILY NEEDED FOR SEVERE ANXIETY AND PANIC ATTACKS active Not Available Not Available No t Available doxycycli ne hyclate 100 mg capsule TAKE 1 CAPSULE BY MOUTH TWICE DAILY FOR 10 DAYS 08/02 completed Not Available Not Available Not Available FreeStyle Lancets 28 gauge 2016 active Medicati on ID: [id number] D uration Value: 90 Brand Name: FreeStyl e Lancets Send Method: E-Prescr ibed Sub s Allowed: subs OK Speci al Instruct ion: U ONCE D Medica tionGene ricName: FreeStyl e Lancets Not Available Not Available Not Available methylphe nidate 5 mg tablet 08/02 completed Medicati on ID: [id number] D uration Value: 30 Brand Name: methylph enidate HCl Send Method: E-Prescr ibed Sub s Allowed: subs OK Speci al Instruct ion: TK 1 T PO QD UTD Medi cationGe nericNam e: methylph enidate HCl Medi cation ID: [id number] D uration Value: 30 Brand Name: methylph enidate HCl Send Method: E-Prescr ibed Sub s Allowed: subs OK Speci al Instruct ion: TK 1 T PO QD UTD Medi cationGe nericNam e: methylph enidate HCl Not Available Not Available Not Available clonazepa m 0.5 mg tablet 2017 active Medicati on ID: [id number] D uration Value: 30 Brand Name: clonazep am Send Method: E-Prescr ibed Sub s Allowed: subs OK Speci al Instruct ion: TK 1/2 T PO BID PRF ANXIETY Medicati onGeneri cName: clonazep am Not Available Not Available Not Available amlodipin e 2.5 mg tablet TAKE 1 TABLET BY MOUTH DAILY active Not Available Not Available No t Available tramadol 50 mg tablet 08/02 completed Medicati on ID: [id number] D uration Value: 30 Brand Name: tramadol Send Method: E-Prescr ibed Sub s Allowed: subs OK Speci al Instruct ion: TK 1 T PO TID PRN P Medica tionGene ricName: tramadol Medicat ion ID: [id number] D uration Value: 30 Brand Name: tramadol Send Method: E-Prescr ibed Sub s Allowed: subs OK Speci al Instruct ion: TK 1 T PO TID PRN P Medica tionGene ricName: tramadol Not Available Not Available Not Available lamotrigi ne 25 mg tablet TAKE 1 TABLET BY MOUTH EVERY DAY FOR 14 DAYS THEN INCREASE TO 2 TABLET BY MOUTH EVERY DAY FOR 14 DAYS 10/22 completed Not Available Not Available Not Available lorazepam 0.5 mg tablet 08/02 completed Medicati on ID: [id number] D uration Value: 30 Brand Name: lorazepa m Send Method: E-Prescr ibed Sub s Allowed: subs OK Speci al Instruct ion: TK SS OF A T PO BID AND 1 T QHS Medi cationGe nericNam e: lorazepa m Medica tion ID: [id number] D uration Value: 30 Brand Name: lorazepa m Send Method: E-Prescr ibed Sub s Allowed: subs OK Speci al Instruct ion: TK SS OF A T PO BID AND 1 T QHS Medi cationGe nericNam e: lorazepa m Not Available Not Available Not Available pantopraz ole 40 mg tablet,de layed release TAKE 1 TABLET BY MOUTH TWICE DAILY 08/02 completed Not Available Not Available Not Available aspirin 81 mg chewable tablet CHEW AND SWALLOW ONE TABLET BY MOUTH DAILY active Not Available Not Available No t Available gabapenti n 100 mg capsule TAKE 1 CAPSULE BY MOUTH TWICE DAILY FOR PAIN. MAY CAUSE DROWSINE SS. DO NOT DRIVE WHILE TAKING THIS MEDICATI ON active Not Available Not Available No t Available epinephri ne 0.3 mg/0.3 mL injection , auto-inje ctor ADMINIST ER 0.3 MG IN THE MUSCLE 1 TIME NEEDED FOR ANAPHYLA CTIC REACTION active Not Available Not Available No t Available methylpre dnisolone 4 mg tablets in a dose pack FOLLOW PACKAGE DIRECTIO NS 08/02 completed Not Available Not Available Not Available albuterol sulfate HFA 90 mcg/actua tion aerosol inhaler INHALE 2 PUFFS BY MOUTH EVERY 4 HOURS FOR 7 DAYS active Not Available Not Available No t Available fluticaso ne propionat e 50 mcg/actua tion nasal spray,virgilio pension SHAKE LIQUID AND USE 1 SPRAY IN EACH NOSTRIL TWICE DAILY active Not Available Not Available No t Available duloxetin e 30 mg capsule,d elayed release 08/02 completed Medicati on ID: [id number] D uration Value: 30 Brand Name: duloxeti ne Send Method: E-Prescr ibed Sub s Allowed: subs OK Speci al Instruct ion: TK ONE C PO QD Medic ationGen ericName : duloxeti ne Medic ation ID: [id number] D uration Value: 30 Brand Name: duloxeti ne Send Method: E-Prescr ibed Sub s Allowed: subs OK Speci al Instruct ion: TK ONE C PO QD Medic ationGen ericName : duloxeti ne Not Available Not Available Not Available chlorhexi dine gluconate 0.12 % mouthwash active Not Available Not Available No t Available FreeStyle Lite Meter kit 2016 active Medicati on ID: [id number] D uration Value: 30 Brand Name: FreeStyl e Lite Meter Se nd Method: E-Prescr ibed Sub s Allowed: subs OK Speci al Instruct ion: U UTD Medi cationGe nericNam e: FreeStyl e Lite Meter Not Available Not Available Not Available FreeStyle Lite Strips 2016 active Medicati on ID: [id number] D uration Value: 90 Brand Name: FreeStyl e Lite Strips S end Method: E-Prescr ibed Sub s Allowed: subs OK Speci al Instruct ion: U ONCE D Medica tionGene ricName: FreeStyl e Lite Strips Not Available Not Available Not Available cholecalc iferol (vitamin D3) 1,250 mcg (50,000 unit) capsule TAKE 1 CAPSULE BY MOUTH EVERY WEEK active Not Available Not Available No t Available desvenlaf axine succinate ER 50 mg tablet,ex tended release 24 hr TAKE 1 TABLET BY MOUTH DAILY active Not Available Not Available No t Available Dexilant 60 mg capsule, delayed release 01/03 completed Medicati on ID: [id number] D uration Value: 30 Reason: () Brand Name: Dexilant Send Method: E-Prescr ibed Sub s Allowed: subs OK Speci al Instruct ion: TK ONE C PO D Medica tionGene ricName: Dexilant Not Available Not Available Not Available butalbita l-acetami nophen-ca ffeine 50 mg-300 mg-40 mg capsule 01/03 completed Medicati on ID: [id number] D uration Value: 15 Reason: () Brand Name: butalbit al-aceta minophen -caff Se nd Method: E-Prescr ibed Sub s Allowed: subs OK Speci al Instruct ion: TK ONE C PO PRF MIGRAINE . REPEAT IN 2 H PRN Medi cationGe nericNam e: butalbit al-aceta minophen -caff Not Available Not Available Not Available desvenlaf axine succinate ER 25 mg tablet,ex tended release 24 hr TAKE 1 TABLET BY MOUTH DAILY active Not Available Not Available No t Available Vitals Date Recorded Body height Body mass index (BMI) Body weight Provider Name and Address Organization Details Last Updated DateTime 10/23/2023 152.4 cm 42.4 kg/m2 92217.54 g Rachel Ta [place] - [facility] 10/23/2023 15:53:25 Date Recorded Body height Body mass index (BMI) Body weight Provider Name and Address Organization Details Last Updated DateTime 08/03/2023 152.4 cm 42.4 kg/m2 59427.54 g Pam Deb [facility] 08/03/2023 09:02:04 Social History None recorded. Functional Status None recorded. Mental Status None recorded. Family History Nothing Reported. Medical History No medical history recorded. Gynecological HistoryNo gynecological history recorded. Obstetrics History GPAL:G 0 P 0 0 0 0 Past Encounters Encounter ID Performer Location Encounter Start Date Encounter Closed Date Diagnosis/Indication Diagnosis SNOMED-CT Code Diagnosis ICD10 Code Diagnosis Note [id number] PAO SALINAS MD [facility] [address] [address] 08/03/2023 08:38:26 08/03/2023 10:19:03 Bilateral tinnitus 4171581712 102 H93.13 Mixed cond uctive and sensorineural hearing loss of right ear 2093117516 9105 H90.A31 Patient with longstandi ng mixed loss in the right ear, diagnosed with otoscleros is. She was unsuccessf ul with hearing aid. I did give her medical clearance in case she would want to try again. I counseled her that the tinnitus was connected to the hearing loss in that ear. She does have a distant history of surgery in 1990 in [place]. She previously saw Dr. Prince in 2007. I recommende d repeat assessment to see if she may be a candidate for surgical interventi on. There was previously a concern about her surgical candidacy in [place] although there was no details on the rationale. Right Ear: Severe rising to moderate mixed hearing loss with good speech clarity. Type As tympanogra m. Sensorineu ral hearing loss 41234037 H90.42 Left ear: Mild SNHL with excellent speech clarity. Type Ad tympanogra m Allergic rhinitis 225509 04 J30.9 She notes swelling over her nose and face, worse with the CPAP. She does have allergies which are likely contributi ng to her symptoms. No evidence of infection on exam. I did recommend regular use of her antihistam nessa. She has had previous normal CT scans for similar symptoms. Obstructiv e sleep apnea syndrome 06272675 G47.33 [id number] BRENDA PRINCE MD [facility] [address] [address] 10/23/2023 15:39:13 10/24/2023 07:27:33 Mixed conductive and sensorineural hearing loss of right ear 1443871846 9105 H90.A31 Sensorineu ral hearing loss in left ear 5350785150 9109 H90.A22 Otoscleros is of ossicle of right ear 4876021728 330084 H80.91 Health Concerns Section Related Observation LastModified by Organization Detai ls LastModified Time None Recorded Concern Status LastModified by Organization Details LastModified Time None Recorded Advance Directives Directive None Recorded Payers Encounter Date Sequence Insurance Name Policy Number Policy Martinez Covered Member ID Martinez Member ID Guarantor Name 08/03/2023 1 [facility] - DOS ON OR AFTER 2022 - ONE CARE (MEDICARE REPLACEMENT/ADV ANTAGE - HMO) Radha Chowdary [id number] Radha Chowdary 10/23/2023 1 [facility] - DOS ON OR AFTER 2022 - ONE CARE (MEDICARE REPLACEMENT/ADV ANTAGE - HMO) Radha Chowdary [id number] Radha Chowdary Notes Date Note Type Note Provider Name and Address Organization Details Recorded Time 08/03/2023 text/html 53-year-old anuel jensen presents today for follow-up. No change in her symptoms. She did have evaluation for hearing aids since her last visit, unfortunately she did lose this as she was given a hearing aid without the appropriate size molds.She notes that her facial swelling is worse with use of the CPAP. She does have allergies. PV: 51-year-old female presents today for hearing loss. She was evaluated at [facility] many years ago but ultimately she was deemed not a candidate for intervention the we do not have the records detailing the rationale. She saw Dr. Prince in 2007 and she had a CT temporal bone which was unremarkable. She has been diagnosed with otosclerosis. She also has a history of head trauma as a child.She does have tinnitus which is very bothersome. She also notes some swelling over her face. She has been seen in the office in the past for sinus symptoms and headaches. She is had a couple different CT scans of her sinuses which been negative for any sinus disease. She does have a history of migraine and was previously on Botox. PAO SALINAS MD [address] [facility],[address], [address], [facility] - [facility] 08/04/2023 15:53:28 10/23/2023 text/html Patient who I sa w personally back in 2007. She reports having had right-sided ear surgery of unknown type in [place] in 1990. She has no recollection as to the nature of the procedure. She had CT scan of the temporal bones which showed no major anomalies of the middle ear, mastoid or inner ear. We talked briefly in the past about obtaining her records from the [facility] with consideration of further surgical intervention, but patient did not have any interest in this and had been using amplification. She last saw Dr. Salinas back in April 2022 at which point she was given medical clearance to pursue amplification at her convenience.. She reports that she got to hearing aids through Medicaid [employer]. She reports that these were tiny, in the ear hearing aids that she lost almost immediately after she got them. Currently having significant difficulty with her hearing in general. Patient does have long history of migraine and was previously getting Botox injections. She has had multiple sinus scans showing no signs of sinus disease.Patient does have sleep apnea and uses her CPAP machine 5 out of 7 days in a week BRENDA PRINCE MD [address] [facility],[place] [address], [place], [address], [facility] 10/23/2023 17:29:30 OBGyn Episode No OBEpisode recorded.
--- OUTSIDE RECORDS SUMMARY | 2024-03-19 12:07 | XMS_ITS | Patient Health Record ---
Author Organization [facility] Address [address] [address] Support Name Relationship Address Phone Chowdary Radha Guarantor Unknown [phone] Allergies Allergen (clinical drug ingredient) Drug/Non Drug [...]
--- OUTSIDE RECORDS SUMMARY | 2024-03-19 12:07 | XMS_ITS | Patient Health Record ---
Author Organization [facility] Address [address] [place] [address] Care Team Providers Care Reverse Unit Operator Name Role Phone Mahin Estrada MD Primary Care Provider Laine Heart Unavailable [phone] Allergies Allergen (clinical drug ingredient) Drug/Non Drug [...] X ray : Foot, right 3V 04/06/2021 [id number] TENDON SHEATH/LIGAMENT 0 09/15/2022 Insurance Providers Payer Name Payer Address Payer Phone Subscriber Number Group Number Insured Name Patient Relationship to Insured Coverage Start Date Coverage End Date [facility] [employer] Claims Box [facility] [place] Person [phone] [id number] Radha Chowdary Self - patient is the insured Medical (General) History Medical History History ICD Code Back,Hip,and Knee pain Headaches/Migraines High blood pressure Reflux ( GERD) Sciatica Chicken pox Fibromyalgia Arthritis Bursitis Joint pain Surgical History Surgery Date(Month/Year) neck surgery 2012 Hospitalization History Reason Date(Month/Year) [facility]- UTI 09/2022 [facility] fainting
--- OUTSIDE RECORDS SUMMARY | 2024-03-19 12:07 | XMS_ITS | Continuity of Care Document ---
Author Organization [facility] Adult Address [address] [place] [address]- Care Team Providers Care Automotive Product Engineer Name Role Phone Anita RODRIGUEZ, [facility] Primary Care Physician Encounter [facility] Date(s): 02/08/24 - 03/09/[address] [address]- Encounter Type: Triage Allergies, Adverse Reactions, Alerts [...] Recorde d 1Result Comment: [facility] [id number] 2Result Comment: [id number] 3Result Comment: [facility]: [id number] Problem List Condition Confirmation Course Effective Dates [...] Team Personnel Name: Allison Howard MD Position: [facility] Physician - Primary Care Member Role: PCP Address: [address] [place], [place] [id number]: Name: Jean Lane RN Position: [facility] RN Member Role: Primary Care Nurse Name: Delfina Ayoub RN Position: S RN Member Role: Primary Care Nurse Name: Sara Barlow LPN Position: [facility] RN Member Role: Primary Care Nurse Care Team Related Persons Name: LUIS HOGUE Name: LUIS BHATTI Name: KOBE WADE Name: TERRELL FORMAN Insurance Providers Guarantor name: GERALDO ANM Health Plan Information #: 1 Payer: [facility] Member Number: NA Policy Number: NA Group Number: NA
--- OUTSIDE RECORDS SUMMARY | 2024-03-19 12:07 | XMS_ITS | Clinical Summary ---
Author Organization [facility] [address] [facility] Address [address] [place] [address] Phone Care Team Providers Care Crop Adjuster Name Role Phone Brent Grajeda DO Primary Care Provider Allergies Active Allergy Reactions Criticality Noted Date Comments Ibuprofen 12/31/2023 Medications Medication Sig Dispensed Refills Start Date End Date Status cholecalciferol (VITAMIN D-3) 1,250 mcg (50,000 unit) capsule 12/24/2023 Active atorvastatin (LIPITOR) 40 mg tablet Take 0.5 tablets (20 mg total) by mouth. 11/02/2023 Active aspirin 81 mg chewable tablet Chew 1 tablet (81 mg total) 1 (one) time each day. chew and swallow Active amLODIPine (NORVASC) 2.5 mg tablet Take 1 tablet (2.5 mg total) by mouth 1 (one) time each day. Active polyethylene glycol (MIRALAX) 17 gram packetIndications:Chr onic constipation Take 17 g by mouth 1 (one) time each day. 510 each 11 01/01/2024 12/31/2024 Active pantoprazole (PROTONIX) 40 mg EC tablet Take 1 tablet (40 mg total) by mouth 2 (two) times a day. Do not crush, chew, or split. 180 each 3 01/01/2024 03/31/2024 Active Active Problems Problem Noted Date Diagnosed Date Family history of colon canc er requiring screening colonoscopy 01/01/2024 Assessment & Plan (01/01/2024 1:57 PM EST): Last colonoscopy in 2019 was unremarkable. Due to her family history she is due for continued increase screening today and this will be scheduled. A 4 L prep will be recommended due to her underlying constipation. Gastroesophageal reflux disease without esophagi tis 12/31/2023 Assessment & Plan (01/01/2024 1:54 PM EST): Patient chronic reflux well-controlled on her current regimen of pantoprazole 40 mg twice daily. She has no current concerns regarding breakthrough reflux and she will continue on this medicine for the foreseeable future. Refills were given today of her pantoprazole 40 mg twice daily. Encounters Date Type Department Care Team Description 01/03/2024 Telephone Gastroenterology - [address] [place] [address] Jaycee Bonilla MD 01/01/2024 1:45 PM EST Office Visit Gastroenterology - [address] [place] [address] Jaycee Bonilla MD Chronic constipation (Primary Dx); Gastroesophageal reflux disease without esophagitis; Family history of colon cancer requiring screening colonoscopy from Last 3 Months Surgical History Surgery Date Site/Laterality Comments ESOPHAGOGASTRODUODENOSCOPY 01/17/2022 sx- gerd, dx - hiatal hernia, nl gastric and esophagus bx ESOPHAGOGASTRODUODENOSCOPY 06/30/2015 sx- epigastric pain, no celiac, nl gastric and esophagus APPENDECTOMY COLONOSCOPY 11/20/2018 normal with hemorrhoids COLONOSCOPY 07/13/2011 normal exam LAPAROTOMY OVARIAN CYSTECTOMY ESOPHAGOGASTRODUODENOSCOPY 11/21/2013 normal exam with nl gastric and esophagus bx Medical History Medical History Date Comments GERD (gastroesophageal reflux disease) Fibromyalgia Anxiety Obstructive sleep apnea Hearing loss Hypertension PTSD (post-traumatic stress disorder) Family History Medical History Relation Name Comments Colon cancer Brother Stomach cancer Father Relation Name Status Comments Brother Father Social History Tobacco Use Types Packs/Day Years Used Date Smoking Tobacco: Never Assessed Sex and Gender Information Value Date Recorded Sex Assigned at Not on file Gender Identity Not on file Sexual Orientation Not on file Job Start Date Occupation Industry Not on file Not on file Not on file Obstetrics History Last Filed Vital Signs Vital Sign Reading Time Taken Comments Blood Pressure 142/64 01/01/2024 1:10 PM EST Pulse - - Temperature - - Respiratory Rate - - Oxygen Saturation - - Inhaled Oxygen Concentration - - Weight 98 kg (216 lb) 01/01/2024 1:10 PM EST Height 149.9 cm (4' 11 ) 01/01/2024 1:10 PM EST Body Mass Index 43.63 01/01/2024 1:10 PM EST Plan of Treatment Upcoming Encounters Date Type Department Care Team (Late st Contact Info) Description 04/21/2024 11:00 AM EST Appointment [facility] Endoscopy [address] [place] [phone] Jaycee Bonilla MD [address] [address] Health Maintenance Due Date Last Done Comments Hepatitis A Vaccines (1 of 2 - Risk 2-dose series) 06/28/1987 Hepatitis B Vaccines (1 of 3 - 19+ 3-dose series) 06/28/1987 Cervical Cancer Screening: P ap Smear 1989 Zoster Vaccines (1 of 2) 2018 Breast Cancer Screening 01/04/2020 01/03/2018 Cholesterol Screening (Lipid Panel) 01/29/2022 Colorectal Cancer Screening: Colonoscopy 01/29/2022 Depression Screening 01/29/2022 HIV Screening 01/29/2022 Hepatitis C Screening 01/29/2022 Osteoporosis Screening (Bone Density Screening) 01/29/2022 Social Influencers of Health Screening 01/29/2022 COVID-19 Vaccine (3 - 2023-2 5 season) 2023 10/29/2020, 10/08/2020 Influenza Vaccine (#1) 2023 3, 12/15/2020, 12/11/2019 Hypertension/CHF/CAD Annual BMP Blood Test 01/01/2024 DTaP,Tdap,and Td Vaccines (2 - Td or Tdap) 11/17/2031 11/16/2021 HIB Vaccines Aged Out No longer eligi ble based on patient's age to complete this topic HPV Vaccines Aged Out No longer eligi ble based on patient's age to complete this topic IPV Vaccines Aged Out No longer eligi ble based on patient's age to complete this topic MMR Vaccines Aged Out No longer eligi ble based on patient's age to complete this topic Meningococcal ACWY Vaccine Aged Out N o longer eligible based on patient's age to complete this topic Pneumococcal Vaccine: Pediatrics (0 to 5 Years) and At-Risk Patients (6 to 64 Years) Aged Out No longer eligible b ased on patient's age to complete this topic RSV Immunization Patients Under 20 months Aged Out No longer eligible b ased on patient's age to complete this topic Varicella Vaccines Aged Out No longer eligible based on patient's age to complete this topic Procedures Procedure Name Priority Date/Time Associated Diagnosis Comments [facility] SCREENING DIGITAL Routine 01/03/2018 5:33 PM EST Encounter for screening mammogram for malignant neoplasm of breast from Last 3 Months or Most Recently Relevant to Health Maintenance Results * [facility] SCREENING DIGITAL (01/03/2018 5:33 PM EST) Anatomical Region Laterality Modality Mammography 01/03/2018 1:42 PM EST Narrative 01/03/2018 5:33 PM EST [facility] Diagnostic Imaging Department [address] [place] [address] Patient: ??RADHA NAM ?/Age/Sex: 1970 - 47 - F Unit#: ??[id number] ? Location/Status: ??SPDIMAM/REG CLI ? Mnemonic/Ordering Site: ??DIGSC/SPMAM Ordering Physician: ??BRENT GRAJEDA MD [facility] Screening Digital - 01/03/18 - 1435 EXAM: [facility] Screening Digital EXAM DATE AND TIME: 01/03/2018 2:35 PM HISTORY: ??Screening. Right breast biopsy in 1995, pathology benign. 5 maternal aunts have had breast carcinoma. COMPARISON: ??11/24/16, 09/23/15, 08/26/14, 06/20/11 TECHNIQUE: CC and MLO views of both breasts were obtained using full field digital mammography. Bilateral digital breast tomosynthesis was performed in the MLO projection. Computer aided detection with the [employer] was employed. TISSUE DENSITY: c. The breasts are heterogeneously dense, which may obscure small masses. FINDINGS: A 5 mm nodule with partly obscured margins appears new in the 2:00 position of the left breast, approximately 3 cm from the nipple. Targeted ultrasound is recommended for further assessment. No dominant mass or asymmetry is seen in the right breast. A biopsy marker is again seen in the upper outer quadrant. No architectural distortion is seen in either breast. The skin and vascularity are unremarkable. IMPRESSION: 1. Left breast nodule, for which ultrasound is recommended. The patient will be called back. 2. Stable mammographic appearance of the right breast. No evidence of malignancy is seen. BI-RADS: ??Category 0: Incomplete - Need Additional Imaging Evaluation RECOMMENDATION(S): 1: Ultrasound follow-up LEFT [id number], [id number], [id number] Dictating Physician: ??SHASTA ROBBINS MD Electronically Signed by: ??SHASTA ROBBINS MD Dic Date/Time: ??01/03/18 1731 Sign date/Time: ??01/03/18 1733 Procedure Note Shasta Robbins MD - 02/14/2022 [facility] Diagnostic Imaging Department [address] [place] [id number] Patient: RADHA NAM./Age/Sex: 1970 - 47 - F Unit#: [id number] Location/Status: SPDIMAM/REG CLI Mnemonic/Ordering Site: [facility] Ordering Physician: BRENT GRAJEDA MD [facility] Screening Digital - 01/03/18 - 1435 EXAM: [facility] Screening Digital EXAM DATE AND TIME: 01/03/2018 2:35 PM HISTORY: Screening. Right breast biopsy in 1995, pathology benign. 5maternal aunts have had breast carcinoma. COMPARISON: 11/24/16, 09/23/15, 08/26/14, 06/20/11 TECHNIQUE: CC and MLO views of both breasts were obtained using fullfield digital mammography. Bilateral digital breast tomosynthesis was performedin the MLO projection. Computer aided detection with the [employer] employed. TISSUE DENSITY: c. The breasts are heterogeneously dense, which mayobscure small masses. FINDINGS: A 5 mm nodule with partly obscured margins appears new in the 2:00position of the left breast, approximately 3 cm from the nipple. Targeted ultrasoundis recommended for further assessment. No dominant mass or asymmetry is seen in the right breast. A biopsy markeris again seen in the upper outer quadrant. No architectural distortion isseen in either breast. The skin and vascularity are unremarkable. IMPRESSION: 1. Left breast nodule, for which ultrasound is recommended. The patientwill be called back. 2. Stable mammographic appearance of the right breast. No evidence of malignancy is seen. BI-RADS: Category 0: Incomplete - Need Additional Imaging Evaluation RECOMMENDATION(S): 1: Ultrasound follow-up LEFT [id number], [id number], [id number] Dictating Physician: SHASTA ROBBINS MD Electronically Signed by: SHASTA ROBBINS MD Dic Date/Time: 01/03/18 173 Sign date/Time: 01/03/181732 Brent Grajeda DO IMG BI PROCEDURES from Last 3 Months or Most Recently Relevant to Health Maintenance Advance Directives Documents on File Type Date Recorded Patient Center Manager Expl anation Health Care Decision (hx) 01/05/2016 AD DASILVA DIRECTIVE Health Care Decision (hx) 01/05/2016 AD DASILVA DIRECTIVE Health Care Decision (hx) 01/05/2016 AD DASILVA DIRECTIVE Health Care Decision (hx) 01/05/2016 AD DASILVA DIRECTIVE Care Teams Crop Adjuster Relationship Specialty Start Date End Date Brent Grajeda DO [address] [place] [phone] PCP - General Internal Medicine 12/17/23
--- OUTSIDE RECORDS SUMMARY | 2024-03-19 12:08 | XMS_ITS | Data Portability ---
Author Organization [employer] Address [address] [place] [phone] Assessment Encounter Date Assessment Date Assessment LastModified by Organization Details LastModified Time 02/24/2024 02/24/2024 Evaluation in the field was performed by my supervisor dehydrogenation colleague, as noted above, I provided real-time direction and supervision for this visit. This is a 53 year old female presenting with right flank pain for a few days. Pain radiates to the right lower abdomen as well. She has also had some blood in her urine. No dysuria. Says urine has decreasedin amount. No fever. She says she went to the ED yesterday and had a CT and urine testing done and was sent home with a prescription for diclofenac. She says they told me there was no one there to read the CT scan and they had to send out the urine test and I would get a call with results in 3 days. She says she was there for a total of 12 hours. She is upset because she believes she shouldn't have been prescribed diclofenac because she takes aspirin and has a stomach ulcer. She says she can't take tylenol because she has a history of fatty liver. She says the doctor told her she would get liquid diclofenac but at the pharmacy they said they don't carry that and they gave her pills instead. She doesn't recall being told anything about a topical form. She says, I just want to know what's going on with me. PE: General: Awake & alert, NAD Respiratory: Chest rise equal bilat, no increased wob CV: Regular rate, normal peripheral perfusion Abd: Soft, nontender, no distention. There is right CVA tenderness to palpation. Impression: Right flank pain Plan: -VSS, appears well -Pt at home with aide. She has some CVA tenderness on exam and is upset she's not feeling better. She hasn't taken anything for the pain because she says she can't take NSAIDs or acetaminophen. -Pt was in ED for 12 hours yesterday at [facility]. I am doubtful there was not an actual read of her CT scan done in that amount of time. I also believe she is referring to the urine culture sample that would have to be sent out and that the UA was completed and did not show UTI if she wasn't discharged with an antibiotic. -Urine dip at home today shows some WBCs and some blood but is nitrite neg. I would not treat for UTI in this case given negative workup yesterday. Culture will be sent. -I also can't be sure, but I wonder if she was supposed to receive a prescription for diclofenac gel for MSK pain. -I suggested to the pt that even with a hx of fatty liver she can take tylenol over a short course of time if she is having pain in the absence of any other options. She agreed to a dose of 1g. She will talk to her PCP about how often she can take it in the future. -I did recommend lidocaine patches as an alternative in the meantime. She declined, says they don't work for her. -Pt advised return to ED if she is feeling worse and if she feels her evaluation yesterday was not complete as we can't do imaging or any other further definitive testing in the home. She would prefer to see her PCP in the office and will call tomorrow. Disposition: Remain at home We discussed the diagnostic uncertainty of home visits and the risk associated with this. In this case, the patient and I felt this to be an acceptable and reasonable amount of risk given the benefit of avoiding an ED visit. We discussed the need to seek care urgently/emerge ntly in the setting of any new or worsening serious symptoms. [email or web address] Not available 02/24/2024 18:48:23 Plan of Treatment Reminders Order Date Submit Date Provider Last Modified By Organization Details Last Modified Time Details Appointments None recorded. Lab rapid SARS CoV 2 Ag, QL IA, respiratory specimen 2022 023 [facility], [address] [place] [address], [phone], 3 18:45:14 rapid flu (A+B) 2022 023 [facility], [address] [place] [address], [id number], 3 18:45:22 urinalysis, dipstick 2023 024 [facility], [address] [place] [address], [id number], 4 20:02:06 culture, urine 2023 024 [facility], [address] [place] [address], [id number], 4 18:05:30 Referral None recorded. Procedures None recorded. Surgeries None recorded. Imaging None recorded. Medication Orders Ventolin HFA 90 mcg/actuati on aerosol inhaler [address] [id number], [address] [place], [place], [phone], 3 18:47:02 acetaminoph en 500 mg tablet [address] [id number], [address] [place], [place], [phone], 4 18:48:33 Patient TargetsNo targets recorded. Patient InstructionsNo instructions recorded. Reason for Referral None Reported. Results Created Date Observation Date Name Description Value Unit Range Abnormal Flag Note LastModifiedBy Organization Detail LastModifiedTime 02/10/2002/09/2023 rapid flu (A+B) Flu negati ve Not Available [facility] ed [address] [place] [address], [phone], 02/09/2023 18:45:01 02/10/20 23 02/09/2023 rapid SARS CoV 2 Ag, QL IA, respi rator y speci men rapid SARS CoV 2 Ag, QL IA, respiratory specimen negati ve Not Available [facility] ed [address] [place] [address], [phone], 02/09/2023 18:44:56 02/24/20 24 02/25/2024 URINE CULTU RE, ROUTI NE urine culture, routine Final report Not Available [facility] ([facility]) [address] [facility], [place], [address], 02/25/2024 18:05:30 02/24/20 24 02/25/2024 URINE CULTU RE, ROUTI NE result 1 COMMEN T Mixed uroge nital shira 10,00 0-25, 000 colon y formi ng units per mL Not Available [facility] ([facility]) [address] [facility], [place], [address], 02/25/2024 18:05:30 Result Notes None recorded. Medical Equipment None Reported. Allergies Allergen ID Allergen Name Allergen Category Reaction Reaction Severity Criticality Documentation Date Start Date Code Code System Note Provider Name and Address Organization Details Recorded Time 80582 amoxicill in medicatio n Not available Not available Not available 02/25/2024 723 RxNorm Simi black [place] - Seen, [employer] 18:51:32 Medications Name Sig Start Date Stop Date Status Note LastModified by Organization Details LastModified Time celecoxib 200 mg capsule TAKE 1 CAPSULE BY MOUTH DAILY active Not Available Not Available Not Available atorvastatin 40 mg tablet TAKE 1 TABLET BY MOUTH EVERY DAY AT BEDTIME active Not Available Not Available No t Available doxycycline hyclate 100 mg capsule TAKE 1 CAPSULE BY MOUTH TWICE DAILY FOR 10 DAYS active Not Available Not Available No t Available amlodipine 2.5 mg tablet TAKE 1 TABLET BY MOUTH DAILY active Not Available Not Available Not Available meclizine 25 mg tablet TAKE 1 TABLET BY MOUTH THREE TIMES DAILY NEEDED FOR DIZZINESS active Not Available Not Available No t Available pantoprazole 40 mg tablet,delay ed release TAKE 1 TABLET BY MOUTH TWICE DAILY active Not Available Not Available No t Available aspirin 81 mg chewable tablet CHEW AND SWALLOW ONE TABLET BY MOUTH DAILY active Not Available Not Available Not Available gabapentin 100 mg capsule TAKE 1 CAPSULE BY MOUTH TWICE DAILY FOR PAIN. MAY CAUSE DROWSINESS. DO NOT DRIVE WHILE TAKING THIS MEDICATION active Not Available Not Available N ot Available epinephrine 0.3 mg/0.3 mL injection, auto-injecto r ADMINISTER 0.3 MG IN THE MUSCLE 1 TIME NEEDED FOR ANAPHYLACTI C REACTION active Not Available Not Available N ot Available methylpredni solone 4 mg tablets in a dose pack FOLLOW PACKAGE DIRECTIONS active Not Available Not Available N ot Available albuterol sulfate HFA 90 mcg/actuatio n aerosol inhaler INHALE 2 PUFFS BY MOUTH EVERY 4 HOURS FOR 7 DAYS active Not Available Not Available No t Available fluticasone propionate 50 mcg/actuatio n nasal spray,suspen trey SHAKE LIQUID AND USE 1 SPRAY IN EACH NOSTRIL TWICE DAILY active Not Available Not Available Not Available Robafen DM 5 mg-50 mg/5 mL oral liquid TAKE 20 ML BY MOUTH EVERY 4 HOURS NEEDED FOR COUGH. NOT TO EXCEED 6 DOSES PER DAY active Not Available Not Available No t Available Vitals Date Recorded Heart rate Respiratory rate Body temperature Oxygen saturation Oxygen saturation in Arterial blood by Pulse oximetry Systolic blood pressure Diastolic blood pressure Provider Name and Address Organization Details Last Updated DateTime 3 88 /min 16 /min 98 [degF] 98 % 98 % 117 mm[Hg] 73 mm[Hg] Not Available [employer] 3 18:39:47 Date Recorded Body temperature Respiratory rate Oxygen saturation Oxygen saturation in Arterial blood by Pulse oximetry Heart rate Systolic blood pressure Diastolic blood pressure Provider Name and Address Organization Details Last Updated DateTime 4 98.1 [degF] 16 /min 99 % 99 % 92 /min 164 mm[Hg] 91 mm[Hg] Not Available [employer] - production 4 17:53:46 Social History None recorded. Functional Status None recorded. Mental Status None recorded. Family History Nothing Reported. Medical History No medical history recorded. Gynecological HistoryNo gynecological history recorded. Obstetrics History GPAL:G 0 P 0 0 0 0 Past Encounters Encounter ID Performer Location Encounter Start Date Encounter Closed Date Diagnosis/Indication Diagnosis SNOMED-CT Code Diagnosis ICD10 Code Diagnosis Note [id number] SCOTT YING MD [facility] [address] [place] [phone] 02/09/2023 18:39:41 02/10/2023 14:33:33 Viral upper respiratory tract infection 112419498 J06.9 Evaluation in the field was performed by my supervisor dehydrogenation colleague, as noted above, I provided real-time direction and supervisio n for this visit. The evaluation revealed 52 yo with hx of mild intermitte nt Asthma with 3 day history of URI including cough, chest congestion and myalgia. Has been using Vicks and water. Has ran out of her Ventolin. Denies fever, chills. Not a fan of medication , just wanted Covid testing.Up on arrival VSS with RR16, SpO2 98 % RA and afebrile. Lungs clear per supervisor dehydrogenation exam. Covid and Flu negative Impression :Viral URI Plan:Spoke regarding Covid PCR and paxlovid if positive- pt refusedPt was offered Tessalon pearls or other cough medication - not interested Will send Rx for Ventolin and advised to use every 4-6 hrs to help with chest congestion Advised to drink plenty of fluids and Tylenol for myalgia Primary care, consider__ _ Dispositio n: We discussed the diagnostic uncertaint y of home visits and the risk associated with this. In this case, the patient and I felt this to be an acceptable and reasonable amount of risk given the benefit of avoiding an ED visit. We discussed the need to seek care urgently/e mergently in the setting of any new or worsening serious symptoms, particular ly fever, chills, shortness of breath, or any other concerns [id number] Pam Patton MD [facility] - [facility] [address] [place] [phone] 02/24/2024 17:51:44 02/26/2024 21:04:59 Right flank pain [id number] R10.9 Health Concerns Section Related Observation LastModified by Organization Detai ls LastModified Time None Recorded Concern Status LastModified by Organization Details LastModified Time None Recorded Advance Directives Directive None Recorded Payers Encounter Date Sequence Insurance Name Policy Number Policy Martinez Covered Member ID Martinez Member ID Guarantor Name 02/09/2023 1 [facility] - DOS ON OR AFTER 2022 - DUAL ELIGIBLE - CUSTODIAL OPTIONS AND ONE CARE (MEDICARE REPLACEMENT/ADV ANTAGE - HMO) Radha Chowdary [id number] Radha Chowdary 02/24/2024 1 [facility] - DOS ON OR AFTER 2022 - DUAL ELIGIBLE - CUSTODIAL OPTIONS AND ONE CARE (MEDICARE REPLACEMENT/ADV ANTAGE - HMO) Radha Chowdary [id number] Radha Chowdary Notes Date Note Type Note Provider Name and Address Organization Details Recorded Time 02/09/2023 text/html [facility] Nursing Assessment: Chief Complaints: URI Allergies: Unknown Comments: CG reports the member has an URI - Cough/cold/congest ion - x3 days - Fever - vomiting with body aches - Andreia MCINTOSH .................. .................. .................. .................. .................. .................. .................. ............... [employer] Note From Doug Hernández: S: evaluation of 52 y/o female for 3 days of congestion, cough body aches denies fever or chills or nausea vomiting O: pt is cap x4 who states she was feeling ill beginning of the week with runny nose and tickle in throat which progressed over last 48 hrs to wet cough with green sputum and body aches she states throat is fine and runny nose is minimal she does have hx of asthma but denies sob just has a burning in her chest post cough A vss wnl lss clear all field no wheezes noted on inspiration or expiration and soft non tender normal gu function POC Covid/flu negative P: [facility] consulted pt to increase fluids offered tessalon edgar pt declined RX for albuterol inhaler to pharmacy red flags discussed pt agrees .................. .................. .................. .................. .................. .................. .................. ............... Disposition: Fulfilled SCOTT YING MD [address] [facility],[address], [place], [phone], [place] [employer] - [employer] [facility] 02/09/2023 18:58:18 02/24/2024 text/html HPI: mbr with recent visit to ED for right lower back pain weakness/fatigue, was discharged with prescription unknow name or reason for medication, mbr continues to feel poorly, symptoms of weakness/fatigue are worse along with right lower back. deies any CP/SOB/N/V fever chills. requesting [facility] for evaluation. .................. .................. .................. .................. .................. .................. .................. ............... [facility] Nurse Triage Notes (Macho Walker - RN): Chief Complaints: Back pain, Dizziness, Fatigue, Weakness Comments: Reviewed HPI [employer] Organization Information for [employer] Legal Name: [employer]? Address: [address] [place] [id number], Oral Surgery Assistant: George Cox MD CLIA No.: [id number] [employer] POC Test Results from [employer] Urine Dipstick (18:24:49) Urine leukocytes: 15+ YONNY Urine nitrites: - NIT Urine urobilinogen: 0.2 URO Urine protein: 30+ PRO Urine pH: 8.0 pH Urine blood: 5-10 BLO Urine specific gravity: 1.010 SG Urine ketones: 5+ KET Urine bilirubin: - VINCENT Urine glucose: - GLU Attachments uploaded as part of this test result can be found under Documents section. .................. .................. .................. .................. .................. .................. .................. ............... [employer] Note From Narinder Christina: Was dispatched for a 53 Y/O female complaining of right flank pain. UOA PT reported she was seen at the ED for this pain and wasn't given any clear instructions of what to do besides taking a pain medication that she cant take due to her stomach ulcer. PT vitals were obtained and an assessment was performed. PT complained of right sides CVA tenderness and right lower quad pain. [facility] was contacted, [facility] ordered a urine culture and dipstick, [facility] also ordered 1000mg of Tylenol due to the pain. PT understood, PT also reported she is going to see her PCP tomorrow for a follow up regarding this pain. [facility] was happy with this, crew cleared. [facility] Lab Orders: urinalysis, dipstick: Performed .................. .................. .................. .................. .................. .................. .................. ............... [facility] Consulted: Pam Patton .................. .................. .................. .................. .................. .................. .................. ............... Disposition: Fulfilled Pma Patton MD [address] [facility],[address], [place], [phone], [facility] - [employer] [facility] 02/24/2024 18:57:13 OBGyn Episode No OBEpisode recorded.
--- OUTSIDE RECORDS SUMMARY | 2024-03-19 12:08 | XMS_ITS | Continuity of Care Document ---
Author Organization [employer] Address [address] [place] [phone] Assessment Encounter Date Assessment Date Assessment LastModified by Organization Details LastModified Time 02/24/2024 02/24/2024 Evaluation in the field was performed by my typing teacher colleague, as noted above, I provided real-time [...] in ED for 12 hours yesterday at [facility]. I am doubtful there was not an [...] Modified Time Details Appointments None recorded. Lab urinalysis, dipstick 2023 [facility], [address] [place] [address], [phone], 20:02:06 culture, urine 2023 [facility], [address] [place] [address], [phone], 18:05:30 Referral None recorded. Procedures None recorded. Surgeries None recorded. Imaging None recorded. Medication Orders acetaminoph en 500 mg tablet 2023 024 [email or web address] [id number], [address] [facility], [place], [place], [phone], 18:48:33 Patient TargetsNo targets recorded. Patient InstructionsNo instructions recorded. Reason for Referral None Reported. Results Created Date Observation Date Name Description Value Unit Range Abnormal Flag Note LastModifiedBy Organization Detail LastModifiedTime Result Notes None recorded. Medical Equipment None Reported. Allergies Allergen ID Allergen Name Allergen Category Reaction Reaction Severity Criticality Documentation Date Start Date Code Code System Note Provider Name and Address Organization Details Recorded Time 00516 amoxicill in medicatio n Not available Not available Not available 02/25/2024 723 RxNorm Simi black [place] - [employer], [place] 18:51:32 Medications Name Sig Start Date Stop [...] No t Available Vitals Date Recorded Body temperature Respiratory rate Oxygen saturation Oxygen saturation in Arterial blood by Pulse oximetry Heart rate Systolic blood pressure Diastolic blood pressure Provider Name and Address Organization Details Last Updated DateTime 98.1 [degF] 16 /min 99 % 99 % 92 /min 164 mm[Hg] 91 mm[Hg] Not Available [employer] - production 17:53:46 Social History None recorded. Functional Status None recorded. Mental Status None recorded. Family History Nothing Reported. Medical History No medical history recorded. Gynecological HistoryNo gynecological history recorded. Obstetrics History GPAL:G 0 P 0 0 0 0 Past Encounters Encounter ID Performer Location Encounter Start Date Encounter Closed Date Diagnosis/Indication Diagnosis SNOMED-CT Code Diagnosis ICD10 Code Diagnosis Note [id number] Pam Patton MD [facility] [address] [place] [phone] 02/24/2024 17:51:44 02/26/2024 21:04:59 Right flank pain [id number] R10.9 Health Concerns Section Related Observation LastModified by Organization Detai ls LastModified Time None Recorded Concern Status LastModified by Organization Details LastModified Time None Recorded Payers Encounter Date Sequence Insurance Name Policy Number Policy Martinez Covered Member ID Martinez Member ID Guarantor Name 02/24/2024 1 [facility] - DOS ON OR AFTER 2022 - DUAL ELIGIBLE - CARE HOME OPTIONS AND ONE CARE (MEDICARE REPLACEMENT/ADV ANTAGE - HMO) Radha Chowdary [id number] Radha Chowdary Notes Date Note Type Note Provider Name and Address Organization Details Recorded Time 02/24/2024 text/html HPI: mbr with recent visit to ED for right lower back pain weakness/fatigue, was discharged with prescription unknow name or reason for medication, mbr continues to feel poorly, symptoms of weakness/fatigue are worse along with right lower back. deies any CP/SOB/N/V fever chills. requesting [facility] for evaluation. .................. .................. .................. .................. .................. .................. .................. ............... 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 Address: [address] [place] [address], Edge Trimming Machine Operator: George Cox MD LEONIDAS No.: [id number] Car Repair Supervisor POC Test Results from [employer], [employer]inder [employer] Urine Dipstick (18:24:49) Urine leukocytes: 15+ YONNY [...] .................. .................. .................. .................. .................. .................. ............... Car Repair Supervisor Note From Narinder Christina: Was dispatched for [...] CVA tenderness and right lower quad pain. [facility] was contacted, [facility] ordered a urine culture and dipstick, [facility] also ordered 1000mg of Tylenol due to the pain. PT understood, PT also reported she is going to see her PCP tomorrow for a follow up regarding this pain. [facility] was happy with this, crew cleared. [facility] Lab Orders: urinalysis, dipstick: Performed .................. .................. .................. .................. .................. .................. .................. ............... [facility] Consulted: Pam Patton .................. .................. .................. .................. .................. .................. .................. ............... Disposition: Ro Patton MD [address] [facility],[address], [place], [phone], [employer] 02/24/2024 18:57:13 OBGyn Episode No OBEpisode recorded.
== END 2024-03-19 11:11 | disposition home or self-care (01) ==
PROVIDERS: PCP Nurse Practitioner Family; Visit Provider Registered Nurse Emergency
DX: M22.2X1 Patellofemoral disorders, right knee (principal); M22.2X2 Patellofemoral disorders, left knee; M17.11 Unilateral primary osteoarthritis, right knee; M25.561 Pain in right knee; G89.29 Other chronic pain; M25.562 Pain in left knee
CPT/HCPCS: 99213; G2211

== ENCOUNTER → 2024-03-19 10:48 | Outpatient (BNVA) | payer OTHER, SELFPAY | PROVIDERS: PCP Nurse Practitioner Family; Visit Provider Registered Nurse Emergency | DX: M22.2X1 Patellofemoral disorders, right knee (principal); M22.2X2 Patellofemoral disorders, left knee; M17.11 Unilateral primary osteoarthritis, right knee; M25.561 Pain in right knee; M25.562 Pain in left knee; G89.29 Other chronic pain | CPT/HCPCS: 99212 ==

== ENCOUNTER → 2024-08-01 12:40 | Outpatient (BNVA) | payer OTHER, SELFPAY | PROVIDERS: PCP Nurse Practitioner Family; Visit Provider Surgery ==

== ENCOUNTER 2024-09-15 10:18 | Outpatient (AMB) | payer OTHER, SELFPAY ==
--- OUTSIDE RECORDS SUMMARY | 2024-09-15 11:16 | XMS_ITS | Clinical Summary ---
Author Organization [facility] Address [address] [place] [address] Care Team Providers Care Electrodynamicist Name Role Phone Provider, Not In System [...] of Treatment Not on file Care Teams Electrodynamicist Relationship Specialty Start Date End Date Provider, Not In System PCP - General 07/04/21
--- OUTSIDE RECORDS SUMMARY | 2024-09-15 11:16 | XMS_ITS | Patient Health Record ---
[facility] Address [address] [place] [address] Care Team Providers Care Dub Room Engineer Name Role Phone Mahin Estrada MD Primary Care Provider Laine Heart Unavailable [phone] Allergies Allergen (clinical drug ingredient) Drug/Non Drug [...] 1 capsule with food Orally Once a day; Duration: 30 day(s) 10/11/2021 Not-Taking amLODIPine Besylate 2.5 MG 1 tablet Orally Once a day Active Piroxicam 20 MG TAKE 1 CAPSULE BY MOUTH EVERY DAY WITH FOOD FOR 14 DAYS; Duration: 14 Not-Taking CeleBREX Active Tylenol Not-Taking Physical Therapy . . . 2-3x/week; Duration: 3-4 weeks 10/11/2021 Active Pantoprazole Sodium 40 MG 1 tablet Orall y Once a day Active clonazePAM 0.5 MG 1 tablet at bedtime Orally Once a day prn Active Ammonium Lactate 12 % 1 application to affected area Externally to feet Twice a day; Duration: 30 days Active Cane as directed Pronged cane Daily 09/15/2022 Not-Taking Pneumatic Compression Boot 30mm Hg as directed over swollen feet and legs as directed; Duration: . 07/28/2022 Not-Taking Immunizations Vaccine Route Administration [...] X ray : Foot, right 3V 04/06/2021 [id number] TENDON SHEATH/LIGAMENT 0 09/15/2022 Insurance Providers Payer Name Payer Address Payer Phone Subscriber Number Group Number Insured Name Patient Relationship to Insured Coverage Start Date Coverage End Date [facility]ly [facility] [employer] Claims [address] [place] [phone] [id number] Radha Chowdary Self - patient is the insured Medical (General) History Medical History History ICD Code Back,Hip,and Knee pain Headaches/Migraines High blood pressure Reflux ( GERD) Sciatica Chicken pox Fibromyalgia Arthritis Bursitis Joint pain Surgical History Surgery Date(Month/Year) neck surgery 2012 Hospitalization History Reason Date(Month/Year) [facility]- UTI 09/2022 [facility] fainting
--- OUTSIDE RECORDS SUMMARY | 2024-09-15 11:17 | XMS_ITS | Clinical Summary ---
Author Organization [facility] Address [address] [place], [place] [id number] Phone Care Team Providers Care Reproductive Surgeon Name Role Phone Unknown, Unknown Primary Care Provider Henry shaw Social History Tobacco Use Types Packs/Day Years Used Date Smoking Tobacco: Never Assessed Education Answer Date Recorded Are you interested in more education? Not on quin e 06/23/2022 Are you concerned about learning? Not on file 06/23/2022 No 06/23/2022 No 06/23/2022 Digital Access Answer Date Recorded No 07/22/2022 No 07/22/2022 No 07/22/2022 Reliable internet access at home? Not on file 07/22/2022 Device with a working camera? Not on file Comments Unknown Sex and Gender Information Value Date Recorded Sex Assigned at Not on file Legal Sex Female 10:32 PM EDT Gender Identity Not on file Sexual Orientation Not on file Plan of Treatment Health Maintenance Due Date Last Done Comments Adult Td,Tdap Booster 1970 LIPID PANEL 1968 DEPRESSION SCREENING 1980 SMOKING Hx and SMOKELESS TOBACCO SCREENING 1981 HEPATITIS C SCREENING 1986 HIV ONE-TIME SCREENING (18-6 5 YEARS) 1986 PAP SMEAR 1989 MAMMOGRAM 2008 COLOGUARD 2013 COLONOSCOPY 2013 COLORECTAL CANCER SCREENING 2013 FIT TEST 2013 FOBT 2013 SIGMOIDOSCOPY 2013 VIRTUAL COLONOSCOPY 2013 PNEUMOCOCCAL VACCINES (50+ years) (1 of 1 - PCV) 2018 ZOSTER VACCINES (1 of 2) 2018 COVID-19 VACCINE (3 - 2023-2 5 season) 2023 10/29/2020, 10/08/2020 HEPATITIS A VACCINES Aged Out No long er eligible based on patient's age to complete this topic HIB VACCINES Aged Out No longer eligi ble based on patient's age to complete this topic MENINGOCOCCAL VACCINES (ACWY) Aged Out No longer eligible based on patient's age to complete this topic MENINGOCOCCAL VACCINES (B) Aged Out N o longer eligible based on patient's age to complete this topic Medical Devices Not on file Insurance MEDICARE PART A & B [facility] ONE CARE MEDICARE REPLACEMENT [place] [id number] MEDICARE PART A & B Member Subscriber Plan / Payer (Ef fective 1994-Present) Name:ChowdaryMaria EstherRadha Member ID:[id number] Relation to Subscriber:Self Name:Chowdary Radha Subscriber ID:[id number] Payer ID:[id number] Group ID:Not on file Type:Medicare Address: [employer] [address] ONE CARE MEDICARE REPLACEMENT MEDICARE PART A & B CARE MEDICARE REPLACEMENT MEDICARE PART A & B Member Subscriber Plan / Payer (Ef fective 1994-Present) Name:Radha Chowdary Member ID:[id number] Relation to Subscriber:Self Name:Radha Chowdary Subscriber ID:[id number] Payer ID:[id number] Group ID:Not on file Type:Medicare Address: [facility] [employer] [facility] [address] CARE MEDICARE REPLACEMENT [place] [id number] MEDICARE PART A & B CARE MEDICARE REPLACEMENT [place] [id number] MEDICARE PART A & B [facility] ONE CARE MEDICARE REPLACEMENT [place] [id number] MEDICARE PART A & B [facility] ONE CARE MEDICARE REPLACEMENT MEDICARE PART A & B [facility] [facility] [employer] [facility] CARE MEDICARE REPLACEMENT MEDICARE PART A & [place] [address] [place] [address] CARE MEDICARE REPLACEMENT [place] [id number] Care Teams Reproductive Surgeon Relationship Specialty Start Date End Date Unknown, Unknown, PCP - General 03/18/21 Additional Source Comments The information contained in this document represents components of the legal health record. It is not the complete legal health record.[facility]
--- OUTSIDE RECORDS SUMMARY | 2024-09-15 11:17 | XMS_ITS | Clinical Summary ---
Author Organization [facility] [address] Address [address] [place] [address] Phone Care Team Providers Care Mail Processor Name Role Phone Angelito Victoria DO Primary Care Provider [phone] Allergies Active Allergy Reactions Criticality Noted Date Comments Atorvastatin Cramps 04/11/2024 Ibuprofen 12/31/2023 Oxcarbazepine Hives 04/11/2024 Red Dye 04/11/2024 Medications cholecalciferol (VITAMIN D-3) 1,250 mcg (50,000 unit) capsule 4 Active atorvastatin (LIPITOR) 40 mg tablet Take 0.5 tablets (20 mg total) by mouth. 4 Active aspirin 81 mg chewable tablet Chew 1 tablet (81 mg total) 1 (one) time each day. chew and swallow Active amLODIPine (NORVASC) 2.5 mg tablet Take 1 tablet (2.5 mg total) by mouth 1 (one) time each day. Active polyethylene glycol (MIRALAX) 17 gram packetIndications :Chronic constipation Take 17 g by mouth 1 (one) time each day. 510 each 11 4 01/01/20 25 Active pantoprazole (PROTONIX) 40 mg EC tablet Take 1 tablet (40 mg total) by mouth 2 (two) times a day. Active celecoxib (CeleBREX) 200 mg capsule Take 1 capsule (200 mg total) by mouth 1 (one) time each day. Active gabapentin (NEURONTIN) 300 mg capsule TAKE 1 CAPSULE BY MOUTH TWICE DAILY FOR PAIN. MAY CAUSE DROWSINESS. DO NOT DRIVE WHILE TAKING THIS MEDICATION 5 Active Ozempic 0.25 mg or 0.5 mg (2 mg/3 mL) injection pen 0.25 mg. 5 Active albuterol HFA (PROAIR HFA ; PROVENTIL HFA ; VENTOLIN HFA) 90 mcg/actuation inhaler Inhale 2 puffs by mouth every 4 (four) hours. Active chlorhexidine (PERIDEX) 0.12 % solution 4 Active fluticasone propionate (FLONASE) 50 mcg/actuation nasal spray Administer 1 spray into each nostril 2 (two) times a day. SHAKE LIQUID Active Active Problems Problem Noted Date Diagnosed Date Family history of colon canc er requiring screening colonoscopy 01/01/2024 Assessment & Plan (01/01/2024 1:57 PM EST): Last colonoscopy in 2018 was unremarkable. Due to her family history [...] of her pantoprazole 40 mg twice daily. Surgical History Surgery Date Site/Laterality Comments ESOPHAGOGASTRODUODENOSCOPY [...] Hearing loss Hypertension PTSD (post-traumatic stress disorder) Hyperlipidemia Diabetes mellitus ([facility] V24, [facility] V28) Asthma Hiatal hernia Family History Medical History Relation Name Comments Colon cancer Brother Stomach cancer Father Relation Name Status Comments Brother Father Social History Tobacco Use Types Packs/Day Years Used Date Smoking Tobacco: Never Smokeless Tobacco: Never Tobacco Cessation:Counseling Given: Not Answered Alcohol Use Standard Drinks/Week Comments Never 0 (1 standard drink = 0.6 oz pur e alcohol) Interpersonal Safety Answer Date Record ed Physical Abuse 04/21/2024 Verbal Abuse 04/21/2024 Comments Unknown Sex and Gender Information Value Date Recorded Sex Assigned at Female 04/18/2024 6:17 PM EST Legal Sex Female 12:23 AM EST Gender Identity Female 04/18/2024 6:17 PM EST Sexual Orientation Choose not to disclose 2024 6:17 PM EST Obstetrics History Last Filed Vital Signs Vital Sign Reading Time Taken Comments Blood Pressure 135/75 04/21/2024 11:56 AM EST Pulse 86 04/21/2024 11:56 AM EST Temperature 36.1 C (97 F) 04/21/2024 11:36 AM EST Respiratory Rate 16 04/21/2024 11:56 AM EST Oxygen Saturation 100% 04/21/2024 11:56 AM EST Inhaled Oxygen Concentration - - Weight 98.4 kg (217 lb) 04/21/2024 10:17 AM EST Height 152.4 cm (5') 04/21/2024 10:17 AM EST Body Mass Index 42.38 04/21/2024 10:17 AM EST Plan of Treatment Health Maintenance Due Date Last Done Comments Hepatitis A Vaccines (1 of 2 - Risk 2-dose series) 06/28/1987 Hepatitis B Vaccines (1 of 3 - 19+ 3-dose series) 06/28/1987 Cervical Cancer Screening: P ap Smear 1989 Pneumococcal Vaccine: 50+ Years (1 of 1 - PCV) 2018 Zoster Vaccines (1 of 2) 2018 Breast Cancer Screening 01/04/2020 01/03/2018 Cholesterol Screening (Lipid Panel) 01/29/2022 HIV Screening 01/29/2022 Hepatitis C Screening 01/29/2022 Medicare Annual Wellness Visit 01/29/2022 Osteoporosis Screening (Bone Density Screening) 01/29/2022 Social Influencers of Health Screening 01/29/2022 COVID-19 Vaccine (3 - 2023-2 5 season) 2023 10/29/2020, 10/08/2020 Hypertension/CHF/CAD Annual BMP Blood Test 01/01/2024 Depression Screening 02/27/2024 Influenza Vaccine (#1) 2024 3, 12/15/2020, 12/11/2019 DTaP,Tdap,and Td Vaccines (2 - Td or Tdap) 11/17/2031 11/16/2021 Colorectal Cancer Screening: Colonoscopy 04/21/2034 04/21/2024 HIB Vaccines Aged Out No longer eligi [...] patient's age to complete this topic Meningococcal B Vaccine Aged Out No l onger eligible based on patient's age to complete this topic RSV Immunization Patients Under 20 months Aged Out No longer eligible b ased on patient's age to complete this topic Varicella Vaccines Aged Out No longer eligible based on patient's age to complete this topic Procedures Procedure Name Priority Date/Time Associated Diagnosis Comments COLONOSCOPY Routine 04/21/2024 11:30 AM EST Family history of colonic polyps [place] SCREENING DIGITAL Routine 01/03/2018 5:33 PM EST Encounter for screening mammogram for malignant neoplasm of breast from Last 3 Months or Most Recently Relevant to Health Maintenance Results * COLONOSCOPY Anesthesia - MAC; [facility] ENDOSCOPY (04/21/2024 11:30 AM EST) Anatomical Region Laterality Modality Endoscopy 04/21/2024 11:0 4 AM EST Impressions 04/21/2024 11:30 AM EST - Hemorrhoids found on perianal exam. - The examined portion of the ileum was normal. - Two 2 to 4 mm polyps in the sigmoid colon, removed with a cold snare. Resected and retrieved. - Internal hemorrhoids. - The examination was otherwise normal. Recommendation: - Await pathology results. - Repeat colonoscopy for surveillance based on pathology results. Narrative 04/21/2024 11:30 AM EST [facility] GI Patient Name: Radha Nam Procedure Date: 04/21/2024 11:04 AM Date of : 1970 Age: 53 Gender: Female Note Status: Finalized Attending MD: Jaycee Bonilla MD, Procedure Date No Time: 04/21/2024 Procedure: Colonoscopy Indications: Screening in patient at increased risk: Family history of 1st-degree relative with colorectal cancer before age 60 years Providers: Jaycee Bonilla MD Referring MD: Brnet Grajeda DO Medicines: Propofol per Anesthesia Complications: No immediate complications. Estimated Blood Loss: Estimated blood loss: none. Procedure: After I obtained informed consent, the scope was passed under direct vision. Throughout the procedure, the patient's blood pressure, pulse, and oxygen saturations were monitored continuously. The Colonoscope was introduced through the anus and advanced to the terminal ileum. The colonoscopy was performed without difficulty. The patient tolerated the procedure well. The quality of the bowel preparation was good. Findings: Hemorrhoids were found on perianal exam. The terminal ileum appeared normal. Two sessile polyps were found in the sigmoid colon. The polyps were 2 to 4 mm in size. These polyps were removed with a cold snare. Resection and retrieval were complete. Internal hemorrhoids were found during retroflexion. The hemorrhoids were Grade I (internal hemorrhoids that do not prolapse). The exam was otherwise without abnormality. Procedure Code(s): --- Professional --- 81751, Colonoscopy, flexible; with removal of tumor(s), polyp(s), or other lesion(s) by snare technique Diagnosis Code(s): --- Professional --- Z80.0, Family history of malignant neoplasm of digestive organs D12.5, Benign neoplasm of sigmoid colon CPT copyright 2020 [employer]. All rights reserved. The codes documented in this report are preliminary and upon fleet administrator review may be revised to meet current compliance requirements. Jaycee Bonilla MD 04/21/2024 11:30:15 AM This report has been signed electronically.Jaycee Bonilla MD Number of Addenda: 0 Note Initiated On: 04/21/2024 11:04 AM Scope In: Scope Out: Endoscopy Department at [facility] - [address] [place] [id number] Procedure Note Jaycee Bonilla MD - 04/21/2024 [facility] GI Patient Name: Radha Nam Procedure Date: 04/21/2024 11:04 AM Date of : 1970 Age: 53 Gender: Female Note Status: Finalized Attending MD: Jaycee Bonilla MD, Procedure Date No Time: 04/21/2024 Procedure: Colonoscopy Indications: Screening in patient at increased risk: Familyhistory of 1st-degree relative with colorectal cancerbefore age 60 years Providers: Jaycee Bonilla MD Referring MD: Brent Grajeda DO Medicines: Propofol per Anesthesia Complications: No immediate complications. Estimated Blood Loss: Estimated blood loss: none. Procedure: After I obtained informed consent, the scope was passed under direct vision. Throughout theprocedure, the patient's blood pressure, pulse, and oxygen saturations were monitored continuously. The Colonoscope was introduced through the anus and advanced to the terminal ileum. The colonoscopy was performed without difficulty. The patient tolerated the procedure well. The quality of the bowel preparation was good. Findings: Hemorrhoids were found on perianal exam. The terminal ileum appeared normal. Two sessile polyps were found in the sigmoid colon. The polyps were 2 to 4 mm in size. These polypswere removed with a cold snare. Resection and retrieval were complete. Internal hemorrhoids were found duringretroflexion. The hemorrhoids were Grade I (internal hemorrhoids that do not prolapse). The exam was otherwise without abnormality. Procedure Code(s): --- Professional --- 89338, Colonoscopy, flexible; with removal of tumor(s), polyp(s), or other lesion(s) by snare technique Diagnosis Code(s): --- Professional --- Z80.0, Family history of malignant neoplasm of digestive organs D12.5, Benign neoplasm of sigmoid colon CPT copyright 2020 [employer]. All rights reserved. The codes documented in this report are preliminary and upon fleet administrator reviewmay be revised to meet current compliance requirements. Jaycee Bonilla MD 04/21/2024 11:30:15 AM This report has been signed electronically.Jaycee Bonilla MD Number of Addenda: 0 Note Initiated On: 04/21/2024 11:04 AM Scope In: Scope Out: Endoscopy Department at [facility] - [address] [place] [phone] IMPRESSION: - Hemorrhoids found on perianal exam. - The examined portion of the ileum was normal. - Two 2 to 4 mm polyps in the sigmoid colon,removed with a cold snare. Resected and retrieved. - Internal hemorrhoids. - The examination was otherwise normal. Recommendation: - Await pathology results. - Repeat colonoscopy for surveillance based on pathology results. us Jaycee Bonilla MD GI~PROCEDURE ORDERABLES Final Result * [facility] SCREENING DIGITAL (01/03/2018 5:33 PM EST) Anatomical Region Laterality Modality Mammography 01/03/2018 1:42 PM EST Narrative 01/03/2018 5:33 PM EST [facility] Diagnostic Imaging Department [address] [place] [address] [id number] Patient: RADHA NAMO.B./Age/Sex: 1970 - 47 - F Unit#: [id number] Location/Status: SPDIMA/REG CLI Mnemonic/Ordering Site: [facility] Ordering Physician: BRENT GRAJEDA MD [facility] Screening Digital - 01/03/18 - 1435 EXAM: [facility] Screening Digital EXAM DATE AND TIME: 01/03/2018 2:35 PM HISTORY: Screening. Right breast biopsy in 1995, pathology benign. 5 maternal aunts have had breast carcinoma. COMPARISON: 11/24/16, 09/23/15, 08/26/14, 06/20/11 TECHNIQUE: CC and MLO views of both breasts were obtained using full field digital mammography. Bilateral digital breast tomosynthesis was performed in the MLO projection. Computer aided detection with the [employer]pt[employer]IA 7.2-H was employed. TISSUE DENSITY: c. The breasts [...] Imaging Evaluation RECOMMENDATION(S): 1: Ultrasound follow-up LEFT 98719, 11298 3340F, 7025F Dictating Physician: SHASTA ROBBINS MD Electronically Signed by: SHASTA ROBBINS MD Dic Date/Time: 01/03/181730 Sign date/Time: 01/03/18 173 Procedure Note Shasta Robbins MD - 02/14/2022 [facility] Diagnostic Imaging Department [address] [place] [id number] Patient: RADHA NAM/Age/Sex: 1970 - 47 - F Unit#: [id number] Location/Status: SPDIMAM/REG CLI Mnemonic/Ordering Site: [facility] Ordering Physician: BRENT GRAJEDA MD [facility] Screening Digital - 01/03/18 - 1435 EXAM: [facility] Screening Digital EXAM DATE AND TIME: 01/03/2018 2:35 PM HISTORY: Screening. Right breast biopsy in 1995, pathology benign. 5maternal aunts have had breast carcinoma. COMPARISON: 11/24/16, 09/23/15, 08/26/14, 06/20/11 TECHNIQUE: CC and MLO views of both breasts were obtained using fullfield digital mammography. Bilateral digital breast tomosynthesis was performedin the MLO projection. Computer aided detection with the CogMetal.2-Sounderas employed. TISSUE DENSITY: c. The breasts are [...] Imaging Evaluation RECOMMENDATION(S): 1: Ultrasound follow-up LEFT 20701, 55342 3340F, 7025F Dictating Physician: SHASTA ROBBINS MD Electronically Signed by: SHASTA ROBBINS MD Dic Date/Time: 01/03/181730 Sign date/Time: 01/03/181732 Brent Grajeda DO IMG BI PROCEDURES Final Resul t from Last 3 Months or Most Recently Relevant to Health Maintenance Insurance Member Subscriber Plan / Payer (Ef fective 2016-Present) Name:Radha Nam Relation to Subscriber:Self Name:Radha Nam Payer ID:[id number] Group ID:[id number] Type:Not on file Address: [address] [facility] [place] [phone] Advance Directives Documents on File Type Date Recorded 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
--- OUTSIDE RECORDS SUMMARY | 2024-09-15 11:17 | XMS_ITS | Patient Health Record ---
Author Organization [facility] Address [address] [facility] [address] [place] [address] Support Name Relationship Address Phone Chowdary Radha Guarantor Unknown [phone] Allergies Allergen (clinical drug ingredient) Drug/Non Drug [...]
--- OUTSIDE RECORDS SUMMARY | 2024-09-15 11:17 | XMS_ITS | Data Portability ---
Author Organization [place] - [facility], Allergy Address [address] [place] [phone] Care Team Providers Care Secured Entrance Monitor Name Role Phone HARSHAD LUCIO Primary Care [...] give her better over all amplification success. Not available 10/23/2023 17:28:33 Plan of Treatment [...] Name and Address Organization Details Recorded Time Deviated nasal septum 852565640 Active 2015 Deviated nasal septum; Note: Date Diagnosed : 10/22/2015 12:54 PM (J34.2) Not Available [facility] 4 02:26:58 Obstructi ve sleep apnea syndrome 54218371 Active 2015 Obstructi ve sleep apnea (adult) (pediatri c); Note: Date Diagnosed : 10/22/2015 12:31 PM (G47.33) Not Available [facility] 4 02:27:11 Allergic rhinitis 64011700 Active 2015 Perennial allergic rhinitis; Note: Date Diagnosed : 10/22/2015 12:47 PM (J30.89) Note: Date Diagnosed : 10/22/2015 12:47 PM (J30.89) Not Available [facility] 4 00:56:15 Chronic sinusitis 10284993 Active 2015 Other chronic sinusitis ; Note: Date Diagnosed : 10/27/2015 9:42 AM (J32.8) Not Available [facility] 4 02:26:58 Atypical facial pain 77015668 Active 2015 Atypical facial pain; Note: Date Diagnosed : 01/03/2016 5:01 PM (G50.1) Not Available [facility] 4 02:27:27 Bilateral temporoma ndibular joint pain 85267951145 779969 Active 2016 Arthralgi a of bilateral temporoma ndibular joint; Note: Date Diagnosed : 07/10/2016 12:14 PM (M26.623) Not Available [facility] 4 02:27:05 Bilateral tinnitus 82806157621 02 Active 2022 Tinnitus, bilateral ; Note: Date Diagnosed : 04/28/2022 1:20 PM (H93.13) Not Available [facility] 4 02:27:12 Mixed conductiv e and sensorine ural hearing loss of right ear 35253624604 105 Active 2022 Mixed conductiv e and [...] : 04/28/2022 10:17 AM (H90.A31) Not Available [facility] 4 00:56:15 Sensorine ural hearing loss in left ear 69024417447 109 Active 2022 Sensorine ural hearing loss, unilatera l, left ear, with restricte d hearing on the contralat eral side; Note: Date Diagnosed : 04/28/2022 10:17 AM (H90.A22) Not Available [facility] 4 02:27:10 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 Procedures Surgical History Date Name Laterality Status Provider Name and Address Organization Details Recorded Time 08/03/2023 Comp Audio with Tymps - 48945 & 26396 completed ATILIO COLES [place], [facility]-[address],[place] [address], [place], [phone], [facility] - [facility] 08/03/2023 09:26:31 Imaging Results None recorded. Procedure Notes None recorded. Medical Equipment None Reported. Allergies No known drug allergies Medications Name Sig Start Date Stop Date Status Note LastModified by Organization Details LastModified Time celecoxib 200 mg capsule TAKE 1 CAPSULE BY MOUTH DAILY active Not Available Not Available No t Available cyclobenz aprine 10 mg tablet 01/03 completed Medicati on ID: [id number] D uration Value: 20 Brand Name: av [...] 28 gauge 2016 active Medicati on ID: [id number] D uration Value: 90 Brand Name: FreeStyl e Lancets Send Method: E-Prescr ibed Sub s Allowed: subs OK Speci al Instruct ion: U ONCE D Medica tionGene ricName: FreeStyl e Lancets Not Available Not Available Not Available methylphe nidate 5 mg tablet 08/02 completed Medicati on ID: [id number] D uration Value: 30 Brand Name: methylph enidate HCl Send Method: E-Prescr ibed Sub s Allowed: subs OK Speci al Instruct ion: TK 1 T PO QD UTD Medi cationGe nericNam e: methylph enidate HCl Medi cation ID: [id number] D uration Value: 30 Brand Name: methylph enidate HCl Send Method: E-Prescr ibed Sub s Allowed: subs OK Speci al Instruct ion: TK 1 T PO QD UTD Medi cationGe nericNam e: methylph enidate HCl Not Available Not Available Not Available clonazepa m 0.5 mg tablet 2017 active Medicati on ID: [id number] D uration Value: 30 Brand Name: clonazep [...] mg tablet 08/02 completed Medicati on ID: [id number] D uration Value: 30 Brand Name: tramadol Send Method: E-Prescr ibed Sub s Allowed: subs OK Speci al Instruct ion: TK 1 T PO TID PRN P Medica tionGene ricName: tramadol Medicat ion ID: [id number] D uration Value: 30 Brand Name: tramadol [...] mg tablet 08/02 completed Medicati on ID: [id number] D uration Value: 30 Brand Name: lorazepa m Send Method: E-Prescr ibed Sub s Allowed: subs OK Speci al Instruct ion: TK SS OF A T PO BID AND 1 T QHS Medi cationGe nericNam e: lorazepa m Medica tion ID: [id number] D uration Value: 30 Brand Name: lorazepa [...] elayed release 08/02 completed Medicati on ID: [id number] D uration Value: 30 Brand Name: duloxeti ne Send Method: E-Prescr ibed Sub s Allowed: subs OK Speci al Instruct ion: TK ONE C PO QD Medic ationGen ericName : duloxeti ne Medic ation ID: [id number] D uration Value: 30 Brand Name: duloxeti ne Send Method: E-Prescr ibed Sub s Allowed: subs OK Speci al Instruct ion: TK ONE C PO QD Medic ationGen ericName : duloxeti ne Not Available Not Available Not Available chlorhexi dine gluconate 0.12 % mouthwash active Not Available Not Available No t Available FreeStyle Lite Meter kit 2016 active Medicati on ID: [id number] D uration Value: 30 Brand Name: FreeStyl e Lite Meter Se nd Method: E-Prescr ibed Sub s Allowed: subs OK Speci al Instruct ion: U UTD Medi cationGe nericNam e: FreeStyl e Lite Meter Not Available Not Available Not Available FreeStyle Lite Strips 2016 active Medicati on ID: [id number] D uration Value: 90 Brand Name: FreeStyl [...] delayed release 01/03 completed Medicati on ID: [id number] D uration Value: 30 Reason: () Brand Name: Dexilant Send Method: E-Prescr ibed Sub s Allowed: subs OK Speci al Instruct ion: TK ONE C PO D Medica tionGene ricName: Dexilant Not Available Not Available Not Available butalbita l-acetami nophen-ca ffeine 50 mg-300 mg-40 mg capsule 01/03 completed Medicati on ID: [id number] D uration Value: 15 Reason: () Brand [...] Updated DateTime 08/03/2023 152.4 cm 42.4 kg/m2 05030.54 g Pam Boyd [place] - [facility] 08/03/2023 09:02:04 Date Recorded Body height Body mass index (BMI) Body weight Provider Name and Address Organization Details Last Updated DateTime 10/23/2023 152.4 cm 42.4 kg/m2 14086.54 g Rachel Ta MA - [facility] 10/23/2023 15:53:25 Social History None recorded. Functional Status None recorded. Mental Status None recorded. Family History Nothing Reported. Medical History No medical history recorded. Gynecological HistoryNo gynecological history recorded. Obstetrics History GPAL:G 0 P 0 0 0 0 Past Encounters Encounter ID Performer Location Encounter Start Date Encounter Closed Date Diagnosis/Indication Diagnosis SNOMED-CT Code Diagnosis ICD10 Code Diagnosis Note [id number] PAO SALINAS MD [facility] [address] [phone] 08/03/2023 08:38:26 08/03/2023 10:19:03 Bilateral tinnitus 1099909264 102 H93.13 Mixed cond uctive and sensorineural hearing loss of right ear 4408311618 9105 H90.A31 Patient with longstandi ng mixed loss in the right ear, diagnosed with otoscleros is. She was unsuccessf ul with hearing aid. I did give her medical clearance in case she would want to try again. I counseled her that the tinnitus was connected to the hearing loss in that ear. She does have a distant history of surgery in 1990 in [place]. She previously saw Dr. Prince in 2007. I recommende d repeat assessment to see if she may be a candidate for surgical interventi on. There was previously a concern about her surgical candidacy in [place] although there was no details on the rationale. Right Ear: Severe rising to moderate mixed hearing loss with good speech clarity. Type As tympanogra m. Sensorineu ral hearing loss 31023408 H90.42 Left ear: Mild SNHL with excellent speech clarity. Type Ad tympanogra m Allergic rhinitis 955974 04 J30.9 She notes swelling over her nose and face, worse with the CPAP. She does have allergies which are likely contributi ng to her symptoms. No evidence of infection on exam. I did recommend regular use of her antihistam nessa. She has had previous normal CT scans for similar symptoms. 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 5064266971 684646 H80.91 Health Concerns Section Related Observation LastModified by Organization Detai ls LastModified Time None Recorded Concern Status LastModified by Organization Details LastModified Time None Recorded Advance Directives Directive None Recorded Payers Insurance Date Sequence Insurance Name Policy Number Policy Martinez Covered Member ID Martinez Member ID Guarantor Name 10/20/2023 1 [facility] - DOS ON OR AFTER 2022 - ONE CARE (MEDICARE REPLACEMENT/ADV ANTAGE - HMO) Radha Chowdary [id number] Radha Chowdary Notes Date Note Type Note [...] for hearing loss. She was evaluated at [facility] many years ago but ultimately she was [...] was previously on Botox. PAO SALINAS MD [address] [place] [address], [phone], [facility] - [facility] 08/04/2023 15:53:28 10/23/2023 text/html Patient who I sa w personally back in 2007. She reports having had right-sided ear surgery of unknown type in [place] in 1990. She has no recollection as to the nature of the procedure. She had CT scan of the temporal bones which showed no major anomalies of the middle ear, mastoid or inner ear. We talked briefly in the past about obtaining her records from the [facility] with consideration of further surgical intervention, but [...] days in a week BRENDA PRINCE MD [address] [place] [address], [place], [phone], [facility] - [facility] 10/23/2023 17:29:30 OBGyn Episode No OBEpisode recorded.
--- NOTE | 2024-09-15 11:57 | MHC.OFFVISWM ---
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: Details: Start time: 12pm, End time: 12.54pm I spent 49 minutes speaking with the patient on the phone plus an additional 5 minutes reviewing and updating records for a total of 54 minutes HPI Comments Details: Previous weight loss efforts: self diet and exercise Wakes up: 5am, Sleeps: 10.30pm Breakfast: skips Lunch: 1-2pm (Subway sandwich) Dinner: 6pm (rice, vegetables, salad, chicken) Snacks: 2-3 snacks before lunch (chips, cookies, crackers), rarely after dinner Exercise: none Beverages: Coffee: 2-3 cups/d (honey), Tea: none, Soda: none, Juice: none, ETOH: none PFSH Medical History (Updated 09/15/24 @ 12:40 by Steve Perla MD) Morbid obesity GERD (gastroesophageal reflux disease) Sleep apnea treated with continuous positive airway pressure (CPAP) Hyperlipidemia Chronic GERD High blood pressure Anxiety Surgical History (Updated 08/01/24 @ 13:16 by Florencia Hilario CMA) Hx of colonoscopy Hx of neck surgery History of surgery on arm Hx of appendectomy Family History (Updated 08/01/24 @ 13:17 by Florencia Hilario CMA) Mother Cervical cancer Father No problems noted. Brother No problems noted. Daughter Diabetes Social History (Updated 08/01/24 @ 13:18 by Florencia Hilario CMA) Alcohol intake: never Patient Tobacco Use Status: Never used Tobacco Current occupational status: disabled Current occupation: rt handed Telehealth Telehealth Telehealth Platform: Telephone Location of provider rendering services: practice address Location of patient: address on file Patient Identification confirmed using: Name, : Yes Telehealth method: voice only Patient verbally consented to treatment: Yes Patient verbally consented to billing insurance company: Yes Patient informed of any privacy concerns related to visit: Yes Minutes spent on Phone/Video with Pt.: 54 Assessment & Plan Assessment & Plan (1) Morbid obesity: Code(s): E66.01 - Morbid (severe) obesity due to excess calories Category: Medical Plan: 1. We discussed in detail the available therapeutic options: 1) her insurance does not cover the use of anti-obesity medications unless you have diabetes. We discussed that the out of pocket cost to use these medications is $250 for the first month and $500 per month thereafter. 2) We also discussed our lifestyle program which is very effective and you can lose on average 10% of your initial weight but you won't be able to lose the amount of weight you need to lose, 3) We also discussed about the lap sleeve gastrectomy. I emphasized the importance of close follow-up, adherence to instructions and good communication. The surgery does not replace the need to change your lifestlyle which is the cause of the obesity problem. The surgery provides the motivation to try again to change your lifestyle, it reduces the appetite and make the transition to a better lifestyle easier and doubles the amount of weight you would lose compared to doing the lifestyle change without the surgery. You will need to be on a liquid diet with protein shakes for 2 weeks before surgery to maximize weight loss and boost your nutritional status to recover better from surgery and also for the first two weeks after surgery to let the stomach heal before we introduce other foods. After the first 2 weeks we will introduce protein bars and soft foods like scrambled eggs, cottage cheese and yogurt and after the 6th week will introduce meat, fish and cooked vegetables in small amounts. Over time you should be able to eat everything in small amounts. Side effects like nausea, vomiting, heartburn or abdominal pain are not common in the practice unless you are not following in the practice. This operation requires lifetime commitment to following in our practice and communication with me. You will much less weight and experience side effects if you don?t communicate or not following in the practice. Complications are rare and in our practice is about 1/10 of the national average. Also once you lose the weight, if you are interested in a tummy tuck (panniculectomy in medical terms), your insurance will cover it and I can do this procedure for you as well.
== END 2024-09-15 12:55 | disposition home or self-care (01) ==
LOC: HO.HBS 10:18
PROVIDERS: PCP Nurse Practitioner Family; Visit Provider Surgery
DX: E66.01 Morbid (severe) obesity due to excess calories (principal)
CPT/HCPCS: 99204